=== PATIENT | male | born 1935 | race Caucasian/White ===

== ENCOUNTER 2021-08-12 13:10 | Inpatient (IN) | payer OTHER, BC, MEDICARE, SELFPAY ==
[2021-08-12] VITALS (7 sets, daily range): BP systolic 125–171; BP diastolic 68–91; PULSE 71–874; RESP 16–17; TEMP 36.5–37.1; O2SAT 95–98; BMI 30.2
--- NOTE | ~2021-08-12 | CT_ITS ---
EXAMINATION: CT ABDOMEN AND PELVIS WITH CONTRAST CLINICAL INFORMATION: rectal bleed, hx diverticular bleed COMPARISON: 06/12/2018 TECHNIQUE: Multidetector volumetric imaging was performed from the superior aspect of the liver through the pubic symphysis following administration of 85 mL Omnipaque 300 intravenous contrast. Sagittal and coronal reformatted images were obtained on the technologist workstation.. This CT examination was performed using dose optimization techniques as appropriate, variously including the following: *Automated exposure control *Adjustment of mA and/or kV according to patient size (this includes techniques or standardized protocols for targeted exams where dose is matched to indication/reason for exam; i.e. extremities or head) *Use of iterative reconstruction technique DLP: 770 mGy-cm FINDINGS: LUNG BASES: Linear regions of scarring or atelectasis. Moderate-sized hiatal hernia LIVER, GALLBLADDER, AND BILIARY TREE: The liver is normal in size, shape, and attenuation. No focal hepatic lesion or biliary ductal dilatation is present. Gallbladder is not visualized and presumed surgically absent PANCREAS: Atrophic and difficult to evaluate. SPLEEN: Unremarkable. ADRENAL GLANDS: Unremarkable. KIDNEYS AND URETERS: The posterior cyst in the upper pole of the right kidney. Otherwise the kidneys are normal in size, shape, and attenuation. No hydronephrosis, hydroureter, or calculi seen. No perinephric stranding. BLADDER: Unremarkable. GASTROINTESTINAL TRACT: Extensive colonic diverticulosis. I do not appreciate any colonic wall thickening or pericolonic inflammatory changes to suggest diverticulitis at this time. Visualized small bowel is grossly unremarkable. No obvious puddling of contrast to suggest significant GI bleed. ABDOMINAL WALL: No significant hernia is appreciated. LYMPHOVASCULAR STRUCTURES: Vascular calcification within the aorta iliac system. PELVIC VISCERA: Unremarkable. OSSEOUS STRUCTURES: Postoperative changes in the lower lumbar spine. Vertebral degenerative changes seen as well. Degenerative changes in both hips. No acute bony abnormality. CT/CT abdomen pelvis w con IMPRESSION: Chronic appearing and postoperative changes as described above. I do not appreciate any acute process. Pancreas is atrophic and very poorly defined on this study but appears grossly similar to the prior exam
--- NOTE | 2021-08-12 14:01 | ECG_ITS ---
Test Reason : CP Blood Pressure : / mmHG Vent. Rate : 074 BPM Atrial Rate : 000 BPM P-R Int : 000 ms QRS Dur : 084 ms QT Int : 388 ms P-R-T Axes : 000 -18 002 degrees QTc Int : 430 ms Atrial fibrillation Abnormal ECG When compared with ECG of 12-SEP-2019 15:50, Nonspecific T wave abnormality now evident in Lateral leads Referred By: Generic ED Physician Electronically Signed By:Danny Jackson
[2021-08-12 14:30] LABS: MANUAL DIFF FLAG NO
[2021-08-12 14:33] LABS: Basophils Absolute Auto 0.1 X10*3/uL (0.0-0.2); Basophils Percent Auto 0.5 % (0-2); Eosinophils Absolute Auto 0.3 X10*3/uL (0.0-0.4); Eosinophils Percent Auto 2.5 % (0-4); Hematocrit 42.1 % (42.0-52.0); Hemoglobin 13.8 g/dl (14.0-18.0); Imm Gran Abs Auto 0.04 X10*3/uL (0.00-0.03); Imm Gran Pct Auto 0.4 % (0.0-0.4); Lymphocytes Absolute Auto 0.8 X10*3/uL (1.2-4.9); Lymphocytes Percent Auto 7.5 % (20-40); Mean Corpuscular HGB Conc 32.8 g/dl (31.0-36.0); Mean Corpuscular Hemoglobin 30.1 pg (27.0-33.0); Mean Corpuscular Volume 91.9 fL (80.0-98.0); Mean Platelet Volume 10.1 fL (9.4-12.4); Monocytes Absolute Auto 0.7 X10*3/uL (0.1-1.2); Monocytes Percent Auto 6.5 % (2-11); Neutrophils Absolute Auto 8.8 x10*3/uL (2.0-8.3); Neutrophils Percent Auto 82.6 % (45-73); Platelet Count 246 X10*3/uL (160-400); Red Blood Count 4.58 X10*6/uL (4.60-5.80); Red Cell Distribution Width 14.8 % (11.0-16.0); White Blood Count 10.6 X10*3/uL (4.8-10.8)
[2021-08-12 14:59] LABS: Anion Gap 14 (12-20); Blood Urea Nitrogen 15 mg/dL (9-16); Calcium 8.9 mg/dL (8.4-10.2); Carbon Dioxide 26 mmol/L (22-29); Chloride 105 mmol/L (96-108); Creatinine Clr Calc Pharmacy 68.5; Estimated Glomerular Filt Rate > 60; Glucose Random 130 mg/dL (60-115); Sodium 141 mmol/L (135-145)
[2021-08-12 15:01] LABS: Troponin-I High Sensitivity 7.5 ng/L (<3.5-35.0)
[2021-08-12 15:08] LABS: INTERNATIONAL NORM RATIO 1.2 (0.9-1.1); Prothrombin Time 14.1 SEC (9.9-13.0)
[2021-08-12 15:13] LABS: Partial Thromboplastin Time 74.9 SEC (24.1-38.0)
[2021-08-12 16:21] LABS: Alanine Aminotransferase 10 U/L (0-40); Albumin Level 3.7 g/dL (3.5-5.0); Alkaline Phosphatase 105 U/L (39-117); Aspartate Amino Transferase 18 U/L (5-37); Bilirubin Direct 0.6 mg/dL (0.0-0.5); Bilirubin Total 1.5 mg/dL (0.0-1.0); Lipase 10 U/L (8-78); Total Protein 6.3 g/dL (6.5-8.0)
--- NOTE | 2021-08-12 16:40 | ED.GENADULT ---
HPI - General Adult General Chief complaint: General Medical Stated complaint: Internal bleeding Time Seen by Provider: 08/12/21 15:25 Source: patient Mode of arrival: ambulatory Limitations: no limitations History of Present Illness HPI narrative: Patient comes to the emergency room complaining of rectal bleeding that started yesterday. Patient states that he does not have abdominal pain. Patient feels bloated. Patient states that starting today every time that he stands up, he feels lightheaded, no room spinning, no chest pain, no shortness of breath, no headache. No URI or UTI symptoms. Patient is known to be on Pradaxa for atrial fibrillation. Patient has history of a GI bleed 2 years ago, back then patient was in Pradaxa, aspirin, and taking NSAIDs as well. Patient states that he is not taking either aspirin or NSAIDs. Related Data Home Medications Medication Instructions Recorded Confirmed Novolog U-100 Insulin aspart 70 units SUBCUT DAILY PRN 08/12/21 08/12/21 ascorbic acid (vitamin C) 500 mg 500 mg PO DAILY 08/12/21 08/12/21 tablet atorvastatin 40 mg tablet 20 mg PO DAILY 08/12/21 08/12/21 calcium polycarbophil 625 mg tablet 625 mg PO BID 08/12/21 08/12/21 capsaicin 0.025 % topical cream 1 appl TOPICAL BID 08/12/21 08/12/21 cholecalciferol (vitamin D3) 25 25 mcg PO DAILY 08/12/21 08/12/21 mcg (1,000 unit) capsule (Vitamin D3) clobetasol 0.05 % topical cream 1 appl TOPICAL BID 08/12/21 08/12/21 cyanocobalamin (vitamin B-12) 500 500 mcg PO DAILY 08/12/21 08/12/21 mcg tablet dabigatran etexilate 150 mg capsule 150 mg PO BID 08/12/21 08/12/21 diltiazem HCl 120 mg capsule,24 120 mg PO DAILY 08/12/21 08/12/21 hr,extended release folic acid 1 mg tablet 1 mg PO DAILY 08/12/21 08/12/21 hydroxyzine HCl 10 mg tablet 10 mg PO DAILY PRN 08/12/21 08/12/21 loratadine 10 mg tablet 10 mg PO DAILY 08/12/21 08/12/21 methotrexate sodium 2.5 mg tablet 7.5 mg PO QWEEK 08/12/21 08/12/21 omega 8-iup-vlz-fish oil 1,000 mg 1 cap PO BID 08/12/21 08/12/21 (120 mg-180 mg) capsule (Fish Oil) omeprazole 20 mg capsule,delayed 20 mg PO BID 08/12/21 08/12/21 release sennosides 8.6 mg-docusate sodium 1 tab PO BEDTIME PRN 08/12/21 08/12/21 50 mg tablet (Senna Plus) tamsulosin 0.4 mg capsule 0.4 mg PO DAILY 08/12/21 08/12/21 Allergies Allergy/AdvReac Type Severity Reaction Status Date / Time No Known Allergies Allergy Unverified 01/17/20 18:13 [No Known Allergies*] Review of Systems Review of Systems: Constitutional : No Weight loss, No Fever, No Chills, No Night Sweats, No Fatigue, No Malaise ENT/Mouth : No Hearing loss, No Ear Pain, No Nasal Congestion, No Sinus Pain, No Hoarseness, No sore throat, No Rhinorrhea, No Swallowing Difficulty Eyes: No Eye Pain, No Swelling, No Redness, No Foreign Body, No Discharge, No Vision Changes Cardiovascular : No Chest Pain, No SOB, No Dyspnea on Exertion, No Orthopnea, No Edema, No Palpitations Respiratory : No Cough, No Sputum, No Wheezing, No Smoke Exposure, No Dyspnea Gastrointestinal : No Nausea, No Vomiting, No Diarrhea, No Constipation, complaining of abdominal bloating, no pain, complaining of rectal bleeding Genitourinary : no irregular bleeding, No Dysuria, No Urinary Frequency, No Hematuria, No Urinary Incontinence, No Urgency, No Flank Pain, No Urinary Flow Changes, No Hesitancy Musculoskeletal : No joint pain, No Myalgias, No Joint Swelling Skin : No Skin Lesions, No rash Neuro : No Weakness, No Numbness, No Paresthesias, No Loss of Consciousness, No Dizziness, No Headache Psych : No Anxiety/Panic, No Depression, No SI/HI/AH/VH, No Social Issues, Heme/Lymph: No Bruising, No Bleeding,No Lymphadenopathy Endocrine : No Polyuria, No Polydipsia, No Temperature Intolerance PMF Past Medical History Medical History (Updated 08/12/21 @ 21:45 by Javier Lara MD) Atrial fibrillation Borderline hypertension Diabetes Social History Social History Advance Directives: No Advance Directives Information Provided: No Physical Exam ED Vital Signs: Vital Signs - 24 hr 08/12/21 13:54 08/12/21 16:57 08/12/21 16:59 Temperature 97.7 F Pulse Rate 874 H 71 75 Respiratory Rate 17 Blood Pressure 133/70 156/90 H 151/91 H Pulse Oximetry 96 08/12/21 17:00 08/12/21 17:02 08/12/21 20:24 Temperature 98.0 F 98.7 F Pulse Rate 83 81 71 Respiratory Rate 17 17 Blood Pressure 125/68 125/68 162/82 H Pulse Oximetry 95 95 BMI result Body Mass Index 30.2 Const Other: Appearance: Alert. Oriented X3. No acute distress. Well-appearing Eyes: Pupils equal, round and reactive to light. ENT: Pharynx normal. Neck: Normal inspection. Neck supple. No lymph nodes noted. No crepitus CVS: Normal heart rate and rhythm. Pulses normal. Normal S1 and S2 Respiratory: No respiratory distress. Breath sounds normal. No Wheezing. No rales Abdomen: Soft and nontender. Mildly distended, no rigidity, no guarding, no rebound. Digital rectal exam positive for blood easily visualized Skin: Skin warm and dry. Normal skin color. Normal skin turgor. Extremities: No lower extremity edema. No Lacerations. No Rash Neuro: Oriented X 3. No motor deficit. No sensory deficit. Moving all extremities. No slurred speech. CN 2 through 12 grossly intact Psych: calm, cooperative, normal affect Course Course Course Narrative: Patient's H and H is stable. Patient has not had any further episodes of rectal bleeding. CT scan is pending. However, technicians from CT have informed me that they tried taking the patient twice to CT scan, patient is belligerent to them, uncooperative. I spoke to the patient, patient is agreeable to get a CT scan now. CT scan does not show any acute pathology. Patient states that the rectal bleeding picked up again, patient is concerned about the amount of rectal bleeding. Patient is willing to stay. I discussed the patient with Dr. Lara, patient being admitted. Given that the patient still has rectal bleeding despite having stopped Pradaxa for over 24 hours now, Dr. Lara also agrees that we can give the patient Praxbind Medical Decision Making Lab Data Result diagrams: 08/12/21 18:28 08/12/21 14:26 Labs: Lab Results 08/12/21 08/12/21 08/12/21 Range/Units 14:26 14:26 14:26 WBC 10.6 (4.8-10.8) X10*3/uL RBC 4.58 L (4.60-5.80) X10*6/uL Hgb 13.8 L (14.0-18.0) g/dl Hct 42.1 (42.0-52.0) % MCV 91.9 (80.0-98.0) fL MCH 30.1 (27.0-33.0) pg MCHC 32.8 (31.0-36.0) g/dl RDW 14.8 (11.0-16.0) % Plt Count 246 (160-400) X10*3/uL MPV 10.1 (9.4-12.4) fL Immature Gran % (Auto) 0.4 (0.0-0.4) % Neut % (Auto) 82.6 H (45-73) % Lymph % (Auto) 7.5 L (20-40) % [place] % (Auto) 6.5 (2-11) % Eos % (Auto) 2.5 (0-4) % Baso % (Auto) 0.5 (0-2) % Lymph # (Auto) 0.8 L (1.2-4.9) X10*3/uL [place] # (Auto) 0.7 (0.1-1.2) X10*3/uL Eos # (Auto) 0.3 (0.0-0.4) X10*3/uL Baso # (Auto) 0.1 (0.0-0.2) X10*3/uL Abs Immat Gran (auto) 0.04 H (0.00-0.03) X10*3/uL Absolute Neuts (auto) 8.8 H (2.0-8.3) x10*3/uL Absolute Nucleated RBC 0.000 (0.0-0.012) X10*3/uL Nucleated RBC % (auto) 0.0 (0.0-0.2) /100WBC PT (9.9-13.0) SEC INR (0.9-1.1) APTT (24.1-38.0) SEC Sodium 141 (135-145) mmol/L Potassium 4.0 (3.3-5.1) mmol/L Chloride 105 (96-108) mmol/L Carbon Dioxide 26 (22-29) mmol/L Anion Gap 14 (12-20) BUN 15 (9-16) mg/dL Creatinine 0.96 (0.5-1.4) mg/dL Estim Creat Clear Calc 68.5 Estimated GFR > 60 Random Glucose 130 H (60-115) mg/dL Calcium 8.9 (8.4-10.2) mg/dL Total Bilirubin 1.5 H (0.0-1.0) mg/dL Direct Bilirubin 0.6 H (0.0-0.5) mg/dL AST 18 (5-37) U/L ALT 10 (0-40) U/L Alkaline Phosphatase 105 (39-117) U/L Troponin I High Sens 7.5 (<3.5-35.0) ng/L Total Protein 6.3 L (6.5-8.0) g/dL Albumin 3.7 (3.5-5.0) g/dL Lipase 10 (8-78) U/L Stool Occult Blood (NEGATIVE) COVID-19 (ELEANOR) (Negative) COVID-19 Clin Com 08/12/21 08/12/21 08/12/21 Range/Units 14:26 16:50 16:55 WBC (4.8-10.8) X10*3/uL RBC (4.60-5.80) X10*6/uL Hgb (14.0-18.0) g/dl Hct (42.0-52.0) % MCV (80.0-98.0) fL MCH (27.0-33.0) pg MCHC (31.0-36.0) g/dl RDW (11.0-16.0) % Plt Count (160-400) X10*3/uL MPV (9.4-12.4) fL Immature Gran % (Auto) (0.0-0.4) % Neut % (Auto) (45-73) % Lymph % (Auto) (20-40) % [place] % (Auto) (2-11) % Eos % (Auto) (0-4) % Baso % (Auto) (0-2) % Lymph # (Auto) (1.2-4.9) X10*3/uL [place] # (Auto) (0.1-1.2) X10*3/uL Eos # (Auto) (0.0-0.4) X10*3/uL Baso # (Auto) (0.0-0.2) X10*3/uL Abs Immat Gran (auto) (0.00-0.03) X10*3/uL Absolute Neuts (auto) (2.0-8.3) x10*3/uL Absolute Nucleated RBC (0.0-0.012) X10*3/uL Nucleated RBC % (auto) (0.0-0.2) /100WBC PT 14.1 H (9.9-13.0) SEC INR 1.2 H (0.9-1.1) APTT 74.9 H* (24.1-38.0) SEC Sodium (135-145) mmol/L Potassium (3.3-5.1) mmol/L Chloride (96-108) mmol/L Carbon Dioxide (22-29) mmol/L Anion Gap (12-20) BUN (9-16) mg/dL Creatinine (0.5-1.4) mg/dL Estim Creat Clear Calc Estimated GFR Random Glucose (60-115) mg/dL Calcium (8.4-10.2) mg/dL Total Bilirubin (0.0-1.0) mg/dL Direct Bilirubin (0.0-0.5) mg/dL AST (5-37) U/L ALT (0-40) U/L Alkaline Phosphatase (39-117) U/L Troponin I High Sens (<3.5-35.0) ng/L Total Protein (6.5-8.0) g/dL Albumin (3.5-5.0) g/dL Lipase (8-78) U/L Stool Occult Blood POSITIVE (NEGATIVE) COVID-19 (ELEANOR) Negative (Negative) COVID-19 Clin Com See Note 08/12/21 Range/Units 18:28 WBC (4.8-10.8) X10*3/uL RBC (4.60-5.80) X10*6/uL Hgb 13.7 L (14.0-18.0) g/dl Hct 41.4 L (42.0-52.0) % MCV (80.0-98.0) fL MCH (27.0-33.0) pg MCHC (31.0-36.0) g/dl RDW (11.0-16.0) % Plt Count (160-400) X10*3/uL MPV (9.4-12.4) fL Immature Gran % (Auto) (0.0-0.4) % Neut % (Auto) (45-73) % Lymph % (Auto) (20-40) % [place] % (Auto) (2-11) % Eos % (Auto) (0-4) % Baso % (Auto) (0-2) % Lymph # (Auto) (1.2-4.9) X10*3/uL [place] # (Auto) (0.1-1.2) X10*3/uL Eos # (Auto) (0.0-0.4) X10*3/uL Baso # (Auto) (0.0-0.2) X10*3/uL Abs Immat Gran (auto) (0.00-0.03) X10*3/uL Absolute Neuts (auto) (2.0-8.3) x10*3/uL Absolute Nucleated RBC (0.0-0.012) X10*3/uL Nucleated RBC % (auto) (0.0-0.2) /100WBC PT (9.9-13.0) SEC INR (0.9-1.1) APTT (24.1-38.0) SEC Sodium (135-145) mmol/L Potassium (3.3-5.1) mmol/L Chloride (96-108) mmol/L Carbon Dioxide (22-29) mmol/L Anion Gap (12-20) BUN (9-16) mg/dL Creatinine (0.5-1.4) mg/dL Estim Creat Clear Calc Estimated GFR Random Glucose (60-115) mg/dL Calcium (8.4-10.2) mg/dL Total Bilirubin (0.0-1.0) mg/dL Direct Bilirubin (0.0-0.5) mg/dL AST (5-37) U/L ALT (0-40) U/L Alkaline Phosphatase (39-117) U/L Troponin I High Sens (<3.5-35.0) ng/L Total Protein (6.5-8.0) g/dL Albumin (3.5-5.0) g/dL Lipase (8-78) U/L Stool Occult Blood (NEGATIVE) COVID-19 ([facility]) (Negative) COVID-19 Clin Com Discharge Plan Discharge Clinical Impression: Acute GI bleeding Patient Disposition: Admitted As Inpatient
[2021-08-12 17:01] LABS: OBS Int Ctl Valid YES; OBS1 POSITIVE (NEGATIVE)
[2021-08-12 17:34] LABS: COVID-19 Test Negative (Negative); IDNOW Serial# 16C4AD1C
[2021-08-12 18:37] LABS: Hematocrit 41.4 % (42.0-52.0); Hemoglobin 13.7 g/dl (14.0-18.0)
[2021-08-12] MEDS: iohexoL 350 MG/ML 100 ML INFUS..BTL IV (20:42)
--- NOTE | 2021-08-12 21:44 | PM.IMHP ---
History of Present Illness Date of Service: 08/12/21 Chief Complaint: Bright red blood per rectum 86-year-old male with a past medical history of hypertension, hyperlipidemia, diabetes, AFib on Pradaxa, rheumatoid arthritis presented to the hospital today with a chief complaint of bright red blood per rectum. Patient reported that since yesterday he has been having bright red blood per rectum, has multiple episodes; had mild lightheadedness and dizziness. Denies any loss of consciousness. Denies any chest pain palpitations or shortness of breath. Denies any fever chills cough or sputum production. Denies any nausea vomiting. Denies any abdominal pain. Patient reports that he still had few episodes even after coming to the hospital. Mentioned that he takes Pradaxa for his AFib and last dose was on 08/11/2021 at 21:00. Review of all other systems is negative except mentioned above ER course: Per ER team patient hemoglobin was noted to be 13; follow-up hemoglobin remained stable; CT scan showed extensive diverticulosis without any evidence of diverticulitis; no significant swelling of the contrast to suggest significant GI bleed; pancreas is atrophic; Patient was given Praxbind. Admitted to the hospital for further management [facility] Medical History (Updated 08/12/21 @ 21:45 by Javier Lara MD) Atrial fibrillation Borderline hypertension Diabetes Pertinent family history: Mother has heart disease Father has liver disease Social History Advance Directives: No Advance Directives Information Provided: No Meds Allergies Allergy/AdvReac Type Severity Reaction Status Date / Time No Known Allergies Allergy Unverified 01/17/20 18:13 [No Known Allergies*] Active Medications: Current Medications Acetaminophen (Acetaminophen 325 Mg Tablet) 650 mg PO Q6H PRN PRN Reason: Pain, Mild (Pain Scale 1-3) Dextrose (Dextrose 50 % 25 Gm/50 Ml Syringe) 25 gm IVPUSH Q15M PRN; Protocol PRN Reason: per Hypoglycemia Standing Ord. Glucose (Glucose Gel 15 Gm Gel..Gram.) 15 gm PO Q15M PRN; Protocol PRN Reason: per Hypoglycemia Standing Ord. Dextrose/Sodium Chloride (D51/2ns) 1,000 mls @ 50 mls/hr IVCONT .Q20H [facility] Insulin Human Lispro (Insulin Lispro 100 Unit/Ml 3 Ml Vial) 0 unit SUBCUT QIDACHS JOHN; Protocol Melatonin (Melatonin 3 Mg Tablet) 6 mg PO BEDTIME PRN PRN Reason: Insomnia Pantoprazole Sodium (Pantoprazole Sodium 40 Mg/10 Ml Vial) 40 mg IVPUSH DAILY@0630 [facility] Pharmacy Consult (Consult Rx Perform Med Rec) 1 each MISCELLANE ONCE PRN PRN Reason: Consult order Sodium Chloride (0.9 % Sodium Chloride Flush 3 Ml Syringe) 3 ml IVFLUSH QSHIFT [facility] Home Medications Medication Instructions Recorded Confirmed Last Taken Type Novolog U-100 Insulin aspart 70 units SUBCUT DAILY PRN 08/12/21 08/12/21 Unknown History ascorbic acid (vitamin C) 500 mg 500 mg PO DAILY 08/12/21 08/12/21 08/12/21 History tablet atorvastatin 40 mg tablet 20 mg PO DAILY 08/12/21 08/12/21 08/12/21 History calcium polycarbophil 625 mg tablet 625 mg PO BID 08/12/21 08/12/21 08/12/21 History capsaicin 0.025 % topical cream 1 appl TOPICAL BID 08/12/21 08/12/21 Unknown History cholecalciferol (vitamin D3) 25 25 mcg PO DAILY 08/12/21 08/12/21 08/12/21 History mcg (1,000 unit) capsule (Vitamin D3) clobetasol 0.05 % topical cream 1 appl TOPICAL BID 08/12/21 08/12/21 Unknown History cyanocobalamin (vitamin B-12) 500 500 mcg PO DAILY 08/12/21 08/12/21 08/12/21 History mcg tablet dabigatran etexilate 150 mg capsule 150 mg PO BID 08/12/21 08/12/21 08/11/21 History diltiazem HCl 120 mg capsule,24 120 mg PO DAILY 08/12/21 08/12/21 08/12/21 History hr,extended release folic acid 1 mg tablet 1 mg PO DAILY 08/12/21 08/12/21 08/12/21 History hydroxyzine HCl 10 mg tablet 10 mg PO DAILY PRN 08/12/21 08/12/21 Unknown History loratadine 10 mg tablet 10 mg PO DAILY 08/12/21 08/12/21 Unknown History methotrexate sodium 2.5 mg tablet 7.5 mg PO FR 08/12/21 08/12/21 08/07/21 History omega 3-ywx-hol-fish oil 1,000 mg 1 cap PO BID 08/12/21 08/12/21 Unknown History (120 mg-180 mg) capsule (Fish Oil) omeprazole 20 mg capsule,delayed 20 mg PO BID 08/12/21 08/12/21 08/12/21 History release sennosides 8.6 mg-docusate sodium 1 tab PO BEDTIME PRN 08/12/21 08/12/21 Unknown History 50 mg tablet (Senna Plus) tamsulosin 0.4 mg capsule 0.4 mg PO DAILY 08/12/21 08/12/21 08/12/21 History Physical Exam Vital Signs and Narrative: Vital Signs: Last Vital Signs Temp 98.7 F 08/12/21 20:24 Pulse 71 08/12/21 20:24 Resp 17 08/12/21 20:24 BP 162/82 H 08/12/21 20:24 Pulse Ox 95 08/12/21 20:24 BMI result Body Mass Index 30.2 Gen: Appears be in no acute distress HEENT: NCAT, Moist mucosa. Pulmonary: Vesicular breath sounds, fair air entry CVS: Normal S1-S2 Abdomen: BS+, Soft, Nontender Extremities: Warm well perfused Neuro: Alert and awake. Results Labs CBC and Chem 7: 08/12/21 18:28 08/12/21 14:26 Labs: Laboratory Results - last 24 hr 08/12/21 08/12/21 08/12/21 14:26 14:26 14:26 MCV 91.9 MCH 30.1 MCHC 32.8 RDW 14.8 Plt Count 246 MPV 10.1 Immature Gran % (Auto) 0.4 Neut % (Auto) 82.6 H Lymph % (Auto) 7.5 L [place] % (Auto) 6.5 Eos % (Auto) 2.5 Baso % (Auto) 0.5 Lymph # (Auto) 0.8 L [place] # (Auto) 0.7 Eos # (Auto) 0.3 Baso # (Auto) 0.1 Abs Immat Gran (auto) 0.04 H Absolute Neuts (auto) 8.8 H Absolute Nucleated RBC 0.000 Nucleated RBC % (auto) 0.0 PT INR APTT Anion Gap 14 Estim Creat Clear Calc 68.5 Estimated GFR > 60 Random Glucose 130 H Calcium 8.9 Total Bilirubin 1.5 H Direct Bilirubin 0.6 H AST 18 ALT 10 Alkaline Phosphatase 105 Troponin I High Sens 7.5 Total Protein 6.3 L Albumin 3.7 Lipase 10 Stool Occult Blood COVID-19 (ELEANOR) COVID-19 Clin Com 08/12/21 08/12/21 08/12/21 14:26 16:50 16:55 MCV MCH MCHC RDW Plt Count MPV Immature Gran % (Auto) Neut % (Auto) Lymph % (Auto) [place] % (Auto) Eos % (Auto) Baso % (Auto) Lymph # (Auto) [place] # (Auto) Eos # (Auto) Baso # (Auto) Abs Immat Gran (auto) Absolute Neuts (auto) Absolute Nucleated RBC Nucleated RBC % (auto) PT 14.1 H INR 1.2 H APTT 74.9 H* Anion Gap Estim Creat Clear Calc Estimated GFR Random Glucose Calcium Total Bilirubin Direct Bilirubin AST ALT Alkaline Phosphatase Troponin I High Sens Total Protein Albumin Lipase Stool Occult Blood POSITIVE COVID-19 (ELEANOR) Negative COVID-19 Clin Com See Note Imaging Radiologist's Impressions: Impressions Abdomen/Pelvis CT 08/12/21 20:51 IMPRESSION: Chronic appearing and postoperative changes as described above. I do not appreciate any acute process. Pancreas is atrophic and very poorly defined on this study but appears grossly similar to the prior exam Assessment and Plan (1) Acute GI bleeding: Status: Acute (2) Diabetes: Status: Acute (3) Atrial fibrillation: Status: Acute Plan 86-year-old male with a past medical history of hypertension, hyperlipidemia, diabetes, AFib on Pradaxa, rheumatoid arthritis presented to the hospital today with a chief complaint of bright red blood per rectum. Bright red blood per rectum: For ER team patient noted to have guaiac-positive stool; no evidence of hemorrhoids. Patient was given Praxbind in the ER. Serial H&H GI consult Gentle IV fluids History of hypertension: Patient on diltiazem. History of hyperlipidemia: Continue home statin History of AFib: Rate controlled. Hold home to be gotten. Last dose of Pradaxa was on 08/11/2021 at 21:00. Patient received Praxbind in the ER. History of rheumatoid arthritis: Continue home methotrexate. DVT prophylaxis: SCD boots Code status: Full code Quality Stroke Does the patient have a stroke diagnosis?: No VTE Prior VTE?: No VTE Risk Level:: Medical - moderate - high VTE Device Contraindication: N/A - Device Ordered VTE Drug Contraindication: Treatment Not Indicated
[2021-08-13] VITALS (7 sets, daily range): BP systolic 149–172; BP diastolic 81–94; PULSE 59–83; RESP 16–20; TEMP 36.3–36.8; O2SAT 92–98
[2021-08-13] MEDS: 0.9 % Sodium Chloride Flush 3 ML SYRINGE IVFLUSH ×3 (00:06→20:58)
[2021-08-13] MEDS: Dextrose 5 % and 0.45 % NaCl 1,000 ML 50 ML IVCONT (00:07)
--- NOTE | 2021-08-13 03:38 | PC.NURSE ---
Addendum entered by Kenn Sharp RN 08/13/21 05:56: OOB TO BR X4 OVERNIGHT...STEADY GAIT..INITIALLY REPORTED BLOODY STOO;...THIS AM STATED STOOL BROWN AND NORMAL ...AM LAB-WORK DRAWN PENDING..DENIES/OFFERS NO COMPLAINTS Original Note: TRANSFERRED FROM MAIN ER TO OVERFLOW BED 5 AT ...ALERT..ORIENTED X3....VSS...OOB TO BR WITH STEADY GAIT..PASSED SEVERAL BLOODY STOOLS PER PATIENT..NO DIZZYNESS...D5 1/2NS 50 CC/HR...PROXBIND UNAVAILABLE IN OVERFLOW...TRAIN STARTER NOTIFIED AND PROXBIND 2.5MG IV X2 DOSES ADMINISTERED PER JUN...ASYMPTOMATIC...REMAINS CHRONIC ATRIAL FIB WITH CONTROLLED HR..RESTFUL...DENIES NAUSEA OR PAIN...TOLERATED CLEAR LIQUIED DIET
[2021-08-13 06:04] LABS: MANUAL DIFF FLAG NO
[2021-08-13 06:07] LABS: Basophils Percent Auto 0.4 % (0-2); Eosinophils Absolute Auto 0.4 X10*3/uL (0.0-0.4); Eosinophils Percent Auto 4.2 % (0-4); Hematocrit 38.8 % (42.0-52.0); Hemoglobin 12.8 g/dl (14.0-18.0); Imm Gran Abs Auto 0.04 X10*3/uL (0.00-0.03); Imm Gran Pct Auto 0.4 % (0.0-0.4); Lymphocytes Absolute Auto 1.1 X10*3/uL (1.2-4.9); Lymphocytes Percent Auto 10.9 % (20-40); Mean Corpuscular Volume 90.9 fL (80.0-98.0); Mean Platelet Volume 10.7 fL (9.4-12.4); Monocytes Absolute Auto 0.9 X10*3/uL (0.1-1.2); Neutrophils Absolute Auto 7.6 x10*3/uL (2.0-8.3); Neutrophils Percent Auto 75.1 % (45-73); Platelet Count 244 X10*3/uL (160-400); Red Blood Count 4.27 X10*6/uL (4.60-5.80); Red Cell Distribution Width 14.8 % (11.0-16.0); White Blood Count 10.1 X10*3/uL (4.8-10.8)
[2021-08-13 06:22] LABS: Anion Gap 13 (12-20); Blood Urea Nitrogen 14 mg/dL (9-16); Calcium 8.8 mg/dL (8.4-10.2); Carbon Dioxide 25 mmol/L (22-29); Chloride 108 mmol/L (96-108); Creatinine Clr Calc Pharmacy 79.2; Estimated Glomerular Filt Rate > 60; Glucose Random 66 mg/dL (60-115); Potassium 3.9 mmol/L (3.3-5.1); Sodium 142 mmol/L (135-145)
[2021-08-13] MEDS: Pantoprazole Sodium 40 MG/10 ML VIAL IVPUSH (06:34)
[2021-08-13 07:47] LABS: Glucose, Whole Blood 85 mg/dL (60-115)
--- NOTE | 2021-08-13 07:53 | PC.NURSE ---
Pt has own insulin pumpo and glucose monitor, refusing to remove, POC this morning was 85. Pt refusing all morning meds stating i will take my own later this RN informed pt that we have to keep a record of medications that have been taken and that he can't take his own meds at this time. Pt agreeable.
--- NOTE | 2021-08-13 09:55 | P.PNIM_ITS ---
Subjective Subjective Date of Service: 08/13/21 Interval History: cc: BRBPR interval history:no further bleeding Cardiovascular Cardiovascular: Reports no additional cardiovascular complaints Respiratory Respiratory: Reports no additional respiratory complaints Physical Exam Vital Signs: Vital Signs: Last Vital Signs Temp 98.3 F 08/13/21 08:00 Pulse 83 08/13/21 08:00 Resp 18 08/13/21 08:00 BP 163/85 H 08/13/21 08:00 Pulse Ox 95 08/13/21 08:00 BMI result Body Mass Index 30.2 General: AO X 3, no acute distress Resp: CTA bilateral, no accessory muscles used CVS: S1,S2,RRR GI: soft, non tender, non distended Neuro: motor grossly intact, alert Psych: appropriate affect, appropriate insight Objective Data Active Medications Acetaminophen (Acetaminophen 325 Mg Tablet) 650 mg PO Q6H PRN PRN Reason: Pain, Mild (Pain Scale 1-3) Ascorbic Acid (Ascorbic Acid 500 Mg Tablet) 500 mg PO DAILY [facility] Last Admin: 08/13/21 07:52 Dose: Not Given Documented by: MAURICIO Non-Admin Reason: Patient Refused Atorvastatin Calcium (Atorvastatin Calcium 20 Mg Tablet) 20 mg PO DAILY [facility] Last Admin: 08/13/21 07:52 Dose: Not Given Documented by: MAURICIO Non-Admin Reason: Patient Refused Betamethasone Dipropion Augmented (Betamethasone Dip Aug 0.05% Cr 15 Gm Tube) 1 appl TOPICAL BID [facility] Last Admin: 08/13/21 07:52 Dose: Not Given Documented by: MAURICIO Non-Admin Reason: Patient Refused Calcium Polycarbophil (Calcium Polycarbophil Tablet) 1 tab PO BID [facility] Last Admin: 08/13/21 07:52 Dose: Not Given Documented by: MAURICIO Non-Admin Reason: Patient Refused Capsaicin (Capsaicin 0.025% Cream 60 Gm Tube) 1 appl TOPICAL BID [facility]; Protocol Last Admin: 08/13/21 07:52 Dose: Not Given Documented by: MAURICIO Non-Admin Reason: Patient Refused Cyanocobalamin (Cyanocobalamin (Vitamin B-12) 500 Mcg Tablet) 500 mcg PO DAILY [facility] Last Admin: 08/13/21 07:53 Dose: Not Given Documented by: MAURICIO Non-Admin Reason: Patient Refused Dextrose (Dextrose 50 % 25 Gm/50 Ml Syringe) 25 gm IVPUSH Q15M PRN; Protocol PRN Reason: per Hypoglycemia Standing Ord. Diltiazem HCl (Diltiazem Hcl Cd 120 Mg Cap.Er.Deg) 120 mg PO DAILY [facility]; Protocol Last Admin: 08/13/21 07:53 Dose: Not Given Documented by: MAURICIO Non-Admin Reason: Patient Refused Folic Acid (Folic Acid 1 Mg Tablet) 1 mg PO DAILY [facility] Last Admin: 08/13/21 07:53 Dose: Not Given Documented by: MAURICIO Non-Admin Reason: Patient Refused Glucose (Glucose Gel 15 Gm Gel..Gram.) 15 gm PO Q15M PRN; Protocol PRN Reason: per Hypoglycemia Standing Ord. Hydroxyzine HCl (Hydroxyzine Hcl 10 Mg Tablet) 10 mg PO DAILY PRN PRN Reason: Itching Insulin Human Lispro (Insulin Lispro 100 Unit/Ml 3 Ml Vial) 0 unit SUBCUT QIDACHS [facility]; Protocol Last Admin: 08/13/21 07:51 Dose: Not Given Documented by: MAURICIO Non-Admin Reason: No Insulin Coverage Loratadine (Loratadine 10 Mg Tablet) 10 mg PO DAILY [facility] Last Admin: 08/13/21 07:53 Dose: Not Given Documented by: MAURICIO Non-Admin Reason: Patient Refused Melatonin (Melatonin 3 Mg Tablet) 6 mg PO BEDTIME PRN PRN Reason: Insomnia Methotrexate (Methotrexate Sodium 2.5 Mg Tablet) 7.5 mg PO [facility] Pantoprazole Sodium (Pantoprazole Sodium 40 Mg/10 Ml Vial) 40 mg IVPUSH DAILY@0630 [facility] Last Admin: 08/13/21 06:34 Dose: 40 mg Documented by: SHANTE Pharmacy Consult (Consult Rx Perform Med Rec) 1 each MISCELLANE ONCE PRN PRN Reason: Consult order Senna/Docusate Sodium (Sennosides/Docusate Sodium Tablet) 1 tab PO BEDTIME PRN PRN Reason: Constipation Sodium Chloride (0.9 % Sodium Chloride Flush 3 Ml Syringe) 3 ml IVFLUSH QSHIFT [facility] Last Admin: 08/13/21 07:51 Dose: Not Given Documented by: MAURICIO Non-Admin Reason: IV Running Tamsulosin HCl (Tamsulosin Hcl 0.4 Mg Capsule) 0.4 mg PO DAILY [facility] Last Admin: 08/13/21 07:53 Dose: Not Given Documented by: MAURICIO Non-Admin Reason: Patient Refused Vitamin D (Cholecalciferol (Vitamin D3) 25 Mcg Tablet) 25 mcg PO DAILY [facility] Last Admin: 08/13/21 07:53 Dose: Not Given Documented by: MAURICIO Non-Admin Reason: Patient Refused Labs CBC & Chem 7: 08/13/21 05:30 08/13/21 05:30 Labs: Laboratory Results - last 24 hr 08/12/21 08/12/21 08/12/21 14:26 14:26 14:26 MCV 91.9 MCH 30.1 MCHC 32.8 RDW 14.8 Plt Count 246 MPV 10.1 Immature Gran % (Auto) 0.4 Neut % (Auto) 82.6 H Lymph % (Auto) 7.5 L Day % (Auto) 6.5 Eos % (Auto) 2.5 Baso % (Auto) 0.5 Lymph # (Auto) 0.8 L Day # (Auto) 0.7 Eos # (Auto) 0.3 Baso # (Auto) 0.1 Abs Immat Gran (auto) 0.04 H Absolute Neuts (auto) 8.8 H Absolute Nucleated RBC 0.000 Nucleated RBC % (auto) 0.0 PT INR APTT Anion Gap 14 Estim Creat Clear Calc 68.5 Estimated GFR > 60 POC Glucose Random Glucose 130 H Calcium 8.9 Total Bilirubin 1.5 H Direct Bilirubin 0.6 H AST 18 ALT 10 Alkaline Phosphatase 105 Troponin I High Sens 7.5 Total Protein 6.3 L Albumin 3.7 Lipase 10 Stool Occult Blood COVID-19 ([facility]AN[facility]) COVID-19 Clin Com 08/12/21 08/12/21 08/12/21 14:26 16:50 16:55 MCV MCH MCHC RDW Plt Count MPV Immature Gran % (Auto) Neut % (Auto) Lymph % (Auto) Day % (Auto) Eos % (Auto) Baso % (Auto) Lymph # (Auto) Day # (Auto) Eos # (Auto) Baso # (Auto) Abs Immat Gran (auto) Absolute Neuts (auto) Absolute Nucleated RBC Nucleated RBC % (auto) PT 14.1 H INR 1.2 H APTT 74.9 H* Anion Gap Estim Creat Clear Calc Estimated GFR POC Glucose Random Glucose Calcium Total Bilirubin Direct Bilirubin AST ALT Alkaline Phosphatase Troponin I High Sens Total Protein Albumin Lipase Stool Occult Blood POSITIVE COVID-19 ([facility]) Negative COVID-19 Clin Com See Note 08/13/21 08/13/21 08/13/21 05:30 05:30 06:59 MCV 90.9 MCH 30.0 MCHC 33.0 RDW 14.8 Plt Count 244 MPV 10.7 Immature Gran % (Auto) 0.4 Neut % (Auto) 75.1 H Lymph % (Auto) 10.9 L Day % (Auto) 9.0 Eos % (Auto) 4.2 H Baso % (Auto) 0.4 Lymph # (Auto) 1.1 L Day # (Auto) 0.9 Eos # (Auto) 0.4 Baso # (Auto) 0.0 Abs Immat Gran (auto) 0.04 H Absolute Neuts (auto) 7.6 Absolute Nucleated RBC 0.000 Nucleated RBC % (auto) 0.0 PT INR APTT Anion Gap 13 Estim Creat Clear Calc 79.2 Estimated GFR > 60 POC Glucose 85 Random Glucose 66 D Calcium 8.8 Total Bilirubin Direct Bilirubin AST ALT Alkaline Phosphatase Troponin I High Sens Total Protein Albumin Lipase Stool Occult Blood COVID-19 ([facility]) COVID-19 Clin Com Assessment and Plan (1) Diabetes: Status: Acute Plan 86M presented with BRBPR BRBPR no significant blood loss holding pradaxa, s/p praxbind monitoring hgb gi eval HTN diltiazem hld statin DM insulin RA on MTX at home chronic afib cardizem holding pradaxa Quality Stroke Does the patient have a stroke diagnosis?: No VTE Prior VTE?: No VTE Risk Level:: Medical - moderate - high VTE Device Contraindication: N/A - Device Ordered VTE Drug Contraindication: Treatment Not Indicated
[2021-08-13 11:44] LABS: Glucose, Whole Blood 112 mg/dL (60-115)
--- NOTE | 2021-08-13 13:09 | PM.EVENT ---
Event Note Date of Service: 08/13/21 Event Note: GI consult dictated GI bleeding is likely secondary to diverticulosis and exacerbated by use of Pradaxa. Currently stable with modest drop in Hct. Colonoscopy planned tomorrow for further evaluation and f/u of previous polyps. Pt aware of risks and benefits and agrees to proceed.
--- NOTE | 2021-08-13 13:17 | MHC.SHP ---
Pre-Procedural Eval Section A Date of Service: 08/13/21 The patient is an INPATIENT: Yes Changes since office visit: No Cold of Flu in the past 2 weeks, No New Medical Problems, No Changes in Medication and No Patient answered all questions The History & Physical has been completed within 30 days and I have reviewed it.: Yes Section B Chief Complaint: Bright red blood per rectum Allergies: Allergies Allergy/AdvReac Type Severity Reaction Status Date / Time No Known Allergies Allergy Unverified 01/17/20 18:13 [No Known Allergies*] Plan I have reviewed the history and physical and performed a pertinent physical examination on my patient. No changes have occurred unless specified.
[2021-08-13] MEDS: PEG 3350/Na Sulf,Bicarb,Cl/KCL 4,000 ML SOLN.RECON 4000 ML PO (14:49)
--- NOTE | 2021-08-13 15:06 | CONS_ITS ---
cc: Jose F Alvarado MD [facility] DATE OF SERVICE: 08/13/2021 REFERRING PHYSICIAN: Nikos Kuo MD REASON FOR CONSULTATION: GI bleeding. HISTORY OF PRESENT ILLNESS: Mr. Johnson is a pleasant 86-year-old man, who was admitted to the hospital after presenting to the emergency room yesterday with complaints of rectal bleeding. He was well until the day before admission when he developed acute onset of bright red blood per rectum, which was associated with some abdominal cramping, but no severe abdominal pain or rectal pain. This persisted overnight and he presented to the emergency room. He does have a history of atrial fibrillation and is on Pradaxa. In the Emergency Department, he was evaluated with laboratory studies and imaging including a CBC showing a hematocrit of 42.1 up slightly from his last hematocrit in August [address] scanning was obtained, which is reviewed. This showed no acute process and an atrophic pancreas. He does have a history of diverticulosis and had a previous admission in 2019 for GI bleeding thought secondary to this. He has undergone colonoscopy with removal of several flat polyps and had a followup colonoscopy planned last year, which was deferred due to the pandemic. Overnight, he has had some lessening to his bleeding and his hematocrit dropped slightly to 38.8. He did not require blood transfusion. He was given Praxbind in the Emergency Department and his last dose of Pradaxa was the evening of 08/11. PAST MEDICAL HISTORY: 1. Hypertension. 2. Hyperlipidemia. 3. Atrial fibrillation. 4. Diabetes. 5. Rheumatoid arthritis. 6. Diverticulosis and diverticular bleeding. 7. Colon polyps. 8. Achalasia with history of Botox injection. 9. Pulmonary disease (not COPD per patient) 10. Coronary artery disease with history of ND. CURRENT MEDICATIONS: His current medication list is reviewed in the chart. ALLERGIES: THERE ARE NONE REPORTED. FAMILY HISTORY: This is reviewed with the patient and is noncontributory. SOCIAL HISTORY: There is no current tobacco, alcohol, or substance abuse. REVIEW OF SYSTEMS: SKIN: No pruritus. HEENT: Negative. CARDIOPULMONARY: No shortness of breath or chest pain. GASTROINTESTINAL: As above. GENITOURINARY: Negative. NEUROPSYCHIATRIC: Negative. PHYSICAL EXAMINATION: GENERAL: Shows a pleasant male, lying comfortably in bed. VITAL SIGNS: Reviewed in the electronic medical record and are stable. SKIN: Anicteric. HEENT: Shows no scleral icterus. NECK: Without lymphadenopathy or thyromegaly. LUNGS: Clear. HEART: Irregular rate and rhythm. S1, S2. No murmur. ABDOMEN: Soft without focal masses or tenderness. Bowel sounds are present. No organomegaly is noted. EXTREMITIES: Without edema. LABORATORY DATA AND IMAGING STUDIES: Reviewed. IMPRESSION: Gastrointestinal bleeding. His gastrointestinal bleeding appears consistent with bleeding from diverticular disease. This appears stable at this time without significant ongoing bleeding. Because of his history of colon polyps and bleeding, I have recommended colonoscopy for followup and further evaluation. This will be arranged tomorrow. I would continue to hold his anticoagulation for the time being. Thanks for asking me to see him. I will follow in the hospital with you. MD BYRON Frey/EDWARD / [id number] MTDD
[2021-08-13 15:41] LABS: Glucose, Whole Blood 89 mg/dL (60-115)
--- NOTE | 2021-08-13 16:14 | MHC.CM.PN ---
Addendum entered by Kandice Valdovinos 08/14/21 08:22: PCP: PRAMOD GARCIA @ [place] [facility] Original Note: PT REPORTS HE LIVES ALONE AND IS INDEPENDENT WITH SELF CARE PT REPORTS HE USES A CANE PRN, NEBULIZER AND CPAP PT REPORTS HE HAS A VNA THAT COMES BUT HE DOES NOT KNOW THE AGENCY PT REPORTS HE IS COVID-19 VACCINATED PT REPORTS HE BELIEVES HE HAS A HCP, HE IS AWARE CM CAN ASSIST IN COMPLETION OF ONE DURING ADMISSION IMM DELIVERED CURRENT DC PLAN IS HOME WITH RESUMPTION OF SERVICES FAMILY TO TRANSPORT
[2021-08-13 20:13] LABS: Glucose, Whole Blood 108 mg/dL (60-115)
[2021-08-13] MEDS: calcium polycarbophiL TABLET 1 TAB PO (20:56)
[2021-08-14] VITALS (8 sets, daily range): BP systolic 87–178; BP diastolic 41–94; PULSE 62–91; RESP 16–18; TEMP 36.1–36.9; O2SAT 91–99
[2021-08-14] MEDS: Pantoprazole Sodium 40 MG/10 ML VIAL IVPUSH (06:42)
[2021-08-14 07:42] LABS: Glucose, Whole Blood 78 mg/dL (60-115)
[2021-08-14] MEDS: Ascorbic Acid 500 MG TABLET PO (09:04)
[2021-08-14] MEDS: Cyanocobalamin (Vitamin B-12) 500 MCG TABLET PO (09:04)
[2021-08-14] MEDS: 0.9 % Sodium Chloride Flush 3 ML SYRINGE IVFLUSH ×3 (09:04→21:30)
[2021-08-14] MEDS: Folic Acid 1 MG TABLET PO (09:04)
[2021-08-14] MEDS: Tamsulosin HCL 0.4 MG CAPSULE PO (09:05)
[2021-08-14] MEDS: Cholecalciferol (Vitamin D3) 25 MCG TABLET PO (09:05)
[2021-08-14] MEDS: dilTIAZem HCL CD 120 MG CAP.ER.DEG PO (09:05)
[2021-08-14] MEDS: Atorvastatin Calcium 20 MG TABLET PO (09:05)
[2021-08-14] MEDS: Loratadine 10 MG TABLET PO (09:05)
[2021-08-14] MEDS: metHOTREXate sodium 2.5 MG TABLET 7.5 MG PO (09:12)
--- NOTE | 2021-08-14 09:18 | HO.PM.IMPN ---
Subjective Subjective Date of Service: 08/14/21 Interval History: cc: brbrpr interval history:no further bleeding Cardiovascular Cardiovascular: Reports no additional cardiovascular complaints Respiratory Respiratory: Reports no additional respiratory complaints Physical Exam Vital Signs: Vital Signs: Last Vital Signs Temp 97.5 F 08/14/21 07:34 Pulse 76 08/14/21 07:34 Resp 18 08/14/21 07:34 BP 168/93 H 08/14/21 07:34 Pulse Ox 95 08/14/21 07:34 BMI result Body Mass Index 30.2 General: AO X 3, no acute distress Resp: CTA bilateral, no accessory muscles used CVS: S1,S2,RRR GI: soft, non tender, non distended Neuro: motor grossly intact, alert Psych: appropriate affect, appropriate insight Objective Data Active Medications Acetaminophen (Acetaminophen 325 Mg Tablet) 650 mg PO Q6H PRN PRN Reason: Pain, Mild (Pain Scale 1-3) Ascorbic Acid (Ascorbic Acid 500 Mg Tablet) 500 mg PO DAILY [facility] Last Admin: 08/14/21 09:04 Dose: 500 mg Documented by: TREVOR Atorvastatin Calcium (Atorvastatin Calcium 20 Mg Tablet) 20 mg PO DAILY [facility] Last Admin: 08/14/21 09:05 Dose: 20 mg Documented by: TREVOR Betamethasone Dipropion Augmented (Betamethasone Dip Aug 0.05% Cr 15 Gm Tube) 1 appl TOPICAL BID [facility] Last Admin: 08/14/21 09:06 Dose: Not Given Documented by: TREVOR Non-Admin Reason: Patient Refused Calcium Polycarbophil (Calcium Polycarbophil Tablet) 1 tab PO BID [facility] Last Admin: 08/14/21 09:05 Dose: Not Given Documented by: TREVOR Non-Admin Reason: Patient Refused Capsaicin (Capsaicin 0.025% Cream 60 Gm Tube) 1 appl TOPICAL BID [facility]; Protocol Last Admin: 08/14/21 09:06 Dose: Not Given Documented by: TREVOR Non-Admin Reason: Patient Refused Cyanocobalamin (Cyanocobalamin (Vitamin B-12) 500 Mcg Tablet) 500 mcg PO DAILY [facility] Last Admin: 08/14/21 09:04 Dose: 500 mcg Documented by: TREVOR Dextrose (Dextrose 50 % 25 Gm/50 Ml Syringe) 25 gm IVPUSH Q15M PRN; Protocol PRN Reason: per Hypoglycemia Standing Ord. Diltiazem HCl (Diltiazem Hcl Cd 120 Mg Cap.Er.Deg) 120 mg PO DAILY [facility]; Protocol Last Admin: 08/14/21 09:05 Dose: 120 mg Documented by: TREVOR Folic Acid (Folic Acid 1 Mg Tablet) 1 mg PO DAILY [facility] Last Admin: 08/14/21 09:04 Dose: 1 mg Documented by: TREVOR Glucose (Glucose Gel 15 Gm Gel..Gram.) 15 gm PO Q15M PRN; Protocol PRN Reason: per Hypoglycemia Standing Ord. Hydroxyzine HCl (Hydroxyzine Hcl 10 Mg Tablet) 10 mg PO DAILY PRN PRN Reason: Itching Insulin Human Lispro (Insulin Lispro 100 Unit/Ml 3 Ml Vial) 0 unit SUBCUT QIDACHS [facility]; Protocol Last Admin: 08/14/21 07:44 Dose: Not Given Documented by: TREVOR Non-Admin Reason: No Insulin Coverage Loratadine (Loratadine 10 Mg Tablet) 10 mg PO DAILY [facility] Last Admin: 08/14/21 09:05 Dose: 10 mg Documented by: TREVOR Melatonin (Melatonin 3 Mg Tablet) 6 mg PO BEDTIME PRN PRN Reason: Insomnia Methotrexate (Methotrexate Sodium 2.5 Mg Tablet) 7.5 mg PO Fr [facility] Last Admin: 08/14/21 09:12 Dose: 7.5 mg Documented by: TREVOR Pantoprazole Sodium (Pantoprazole Sodium 40 Mg/10 Ml Vial) 40 mg IVPUSH DAILY@0630 [facility] Last Admin: 08/14/21 06:42 Dose: 40 mg Documented by: ANTOIC Pharmacy Consult (Consult Rx Perform Med Rec) 1 each MISCELLANE ONCE PRN PRN Reason: Consult order Senna/Docusate Sodium (Sennosides/Docusate Sodium Tablet) 1 tab PO BEDTIME PRN PRN Reason: Constipation Sodium Chloride (0.9 % Sodium Chloride Flush 3 Ml Syringe) 3 ml IVFLUSH QSHIFT [facility] Last Admin: 08/14/21 09:04 Dose: 3 ml Documented by: TREVOR Tamsulosin HCl (Tamsulosin Hcl 0.4 Mg Capsule) 0.4 mg PO DAILY [facility] Last Admin: 08/14/21 09:05 Dose: 0.4 mg Documented by: TREVOR Vitamin D (Cholecalciferol (Vitamin D3) 25 Mcg Tablet) 25 mcg PO DAILY [facility] Last Admin: 08/14/21 09:05 Dose: 25 mcg Documented by: TREVOR Labs CBC & Chem 7: 08/13/21 05:30 08/13/21 05:30 Labs: Laboratory Results - last 24 hr 08/13/21 08/13/21 08/13/21 11:26 15:29 20:03 POC Glucose 112 89 108 08/14/21 07:33 POC Glucose 78 Assessment and Plan (1) Diabetes: Status: Acute Plan 86M presented with BRBPR BRBPR no further bleeding no significant hgb drop holding pradaxa, s/p praxbind plan for scope today HTN diltiazem hld statin DM insulin RA on MTX at home chronic afib cardizem holding pradaxa Quality Stroke Does the patient have a stroke diagnosis?: No VTE Prior VTE?: No VTE Risk Level:: Medical - moderate - high VTE Device Contraindication: N/A - Device Ordered VTE Drug Contraindication: Treatment Not Indicated
[2021-08-14 11:22] LABS: Glucose, Whole Blood 125 mg/dL (60-115)
[2021-08-14 12:46] LABS: Glucose, Whole Blood 104 mg/dL (60-115)
--- NOTE | 2021-08-14 12:46 | HO.ANESPROP2 ---
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 If so, by whom?: No Do you feel safe in your current relationship?: No Is there a partner from a previous relationship who is making you feel unsafe now?: No Are you made to feel afraid or neglected: No Are you DNR?: No Advance Directives: No Advance Directives Information Provided: No Advance Directives on File: No Do you have thoughts of harming others: None Do you have a plan to hurt others: No Plan Recently lost weight without trying: No How much weight loss: Not applicable Eating poorly because of decreased appetite: Yes Nutrition screen score: 1 Nutrition Risks: No Nutritional Risk Poor oral hygiene: No service: Yes Current occupational status: retired Meds Allergies Allergy/AdvReac Type Severity Reaction Status Date / Time No Known Allergies Allergy Unverified 01/17/20 18:13 [No Known Allergies*] Active Medications: Current Medications Acetaminophen (Acetaminophen 325 Mg Tablet) 650 mg PO Q6H PRN PRN Reason: Pain, Mild (Pain Scale 1-3) Ascorbic Acid (Ascorbic Acid 500 Mg Tablet) 500 mg PO DAILY [facility] Last Admin: 08/14/21 09:04 Dose: 500 mg Documented by: Atorvastatin Calcium (Atorvastatin Calcium 20 Mg Tablet) 20 mg PO DAILY [facility] Last Admin: 08/14/21 09:05 Dose: 20 mg Documented by: Betamethasone Dipropion Augmented (Betamethasone Dip Aug 0.05% Cr 15 Gm Tube) 1 appl TOPICAL BID [facility] Last Admin: 08/14/21 09:06 Dose: Not Given Documented by: Calcium Polycarbophil (Calcium Polycarbophil Tablet) 1 tab PO BID [facility] Last Admin: 08/14/21 09:05 Dose: Not Given Documented by: Capsaicin (Capsaicin 0.025% Cream 60 Gm Tube) 1 appl TOPICAL BID [facility]; Protocol Last Admin: 08/14/21 09:06 Dose: Not Given Documented by: Cyanocobalamin (Cyanocobalamin (Vitamin B-12) 500 Mcg Tablet) 500 mcg PO DAILY [facility] Last Admin: 08/14/21 09:04 Dose: 500 mcg Documented by: Dextrose (Dextrose 50 % 25 Gm/50 Ml Syringe) 25 gm IVPUSH Q15M PRN; Protocol PRN Reason: per Hypoglycemia Standing Ord. Diltiazem HCl (Diltiazem Hcl Cd 120 Mg Cap.Er.Deg) 120 mg PO DAILY [facility]; Protocol Last Admin: 08/14/21 09:05 Dose: 120 mg Documented by: Folic Acid (Folic Acid 1 Mg Tablet) 1 mg PO DAILY [facility] Last Admin: 08/14/21 09:04 Dose: 1 mg Documented by: Glucose (Glucose Gel 15 Gm Gel..Gram.) 15 gm PO Q15M PRN; Protocol PRN Reason: per Hypoglycemia Standing Ord. Hydroxyzine HCl (Hydroxyzine Hcl 10 Mg Tablet) 10 mg PO DAILY PRN PRN Reason: Itching Insulin Human Lispro (Insulin Lispro 100 Unit/Ml 3 Ml Vial) 0 unit SUBCUT QIDACHS [facility]; Protocol Last Admin: 08/14/21 11:24 Dose: Not Given Documented by: Loratadine (Loratadine 10 Mg Tablet) 10 mg PO DAILY [facility] Last Admin: 08/14/21 09:05 Dose: 10 mg Documented by: Melatonin (Melatonin 3 Mg Tablet) 6 mg PO BEDTIME PRN PRN Reason: Insomnia Methotrexate (Methotrexate Sodium 2.5 Mg Tablet) 7.5 mg PO Fr [facility] Last Admin: 08/14/21 09:12 Dose: 7.5 mg Documented by: Pantoprazole Sodium (Pantoprazole Sodium 40 Mg/10 Ml Vial) 40 mg IVPUSH DAILY@0630 [facility] Last Admin: 08/14/21 06:42 Dose: 40 mg Documented by: Pharmacy Consult (Consult Rx Perform Med Rec) 1 each MISCELLANE ONCE PRN PRN Reason: Consult order Senna/Docusate Sodium (Sennosides/Docusate Sodium Tablet) 1 tab PO BEDTIME PRN PRN Reason: Constipation Sodium Chloride (0.9 % Sodium Chloride Flush 3 Ml Syringe) 3 ml IVFLUSH QSHIFT [facility] Last Admin: 08/14/21 09:04 Dose: 3 ml Documented by: Tamsulosin HCl (Tamsulosin Hcl 0.4 Mg Capsule) 0.4 mg PO DAILY [facility] Last Admin: 08/14/21 09:05 Dose: 0.4 mg Documented by: Vitamin D (Cholecalciferol (Vitamin D3) 25 Mcg Tablet) 25 mcg PO DAILY [facility] Last Admin: 08/14/21 09:05 Dose: 25 mcg Documented by: Home Medications Medication Instructions Recorded Confirmed Last Taken Type Novolog U-100 Insulin aspart 70 units SUBCUT DAILY PRN 08/12/21 08/12/21 Unknown History ascorbic acid (vitamin C) 500 mg 500 mg PO DAILY 08/12/21 08/12/21 08/12/21 History tablet atorvastatin 40 mg tablet 20 mg PO DAILY 08/12/21 08/12/21 08/12/21 History calcium polycarbophil 625 mg tablet 625 mg PO BID 08/12/21 08/12/21 08/12/21 History capsaicin 0.025 % topical cream 1 appl TOPICAL BID 08/12/21 08/12/21 Unknown History cholecalciferol (vitamin D3) 25 25 mcg PO DAILY 08/12/21 08/12/21 08/12/21 History mcg (1,000 unit) capsule (Vitamin D3) clobetasol 0.05 % topical cream 1 appl TOPICAL BID 08/12/21 08/12/21 Unknown History cyanocobalamin (vitamin B-12) 500 500 mcg PO DAILY 08/12/21 08/12/21 08/12/21 History mcg tablet dabigatran etexilate 150 mg capsule 150 mg PO BID 08/12/21 08/12/21 08/11/21 History diltiazem HCl 120 mg capsule,24 120 mg PO DAILY 08/12/21 08/12/21 08/12/21 History hr,extended release folic acid 1 mg tablet 1 mg PO DAILY 08/12/21 08/12/21 08/12/21 History hydroxyzine HCl 10 mg tablet 10 mg PO DAILY PRN 08/12/21 08/12/21 Unknown History loratadine 10 mg tablet 10 mg PO DAILY 08/12/21 08/12/21 Unknown History methotrexate sodium 2.5 mg tablet 7.5 mg PO FR 08/12/21 08/12/21 08/07/21 History omega 4-yen-xzx-fish oil 1,000 mg 1 cap PO BID 08/12/21 08/12/21 Unknown History (120 mg-180 mg) capsule (Fish Oil) omeprazole 20 mg capsule,delayed 20 mg PO BID 08/12/21 08/12/21 08/12/21 History release sennosides 8.6 mg-docusate sodium 1 tab PO BEDTIME PRN 08/12/21 08/12/21 Unknown History 50 mg tablet (Senna Plus) tamsulosin 0.4 mg capsule 0.4 mg PO DAILY 08/12/21 08/12/21 08/12/21 History Exam Exam Date and Time: August 14, 2021 124 Height,Weight and Vital Signs: Height 5 ft 11 in Weight 98.43 kg Last Vital Signs Temp 98.5 F 08/14/21 12:38 Pulse 80 08/14/21 12:38 Resp 16 08/14/21 12:38 BP 173/93 H 08/14/21 12:38 Pulse Ox 96 08/14/21 12:38 Pertinent Lab Results Pertinent Lab Results: Laboratory Tests 08/12/21 08/12/21 08/12/21 14:26 14:26 14:26 WBC 10.6 RBC 4.58 L Hgb 13.8 L Hct 42.1 MCV 91.9 MCH 30.1 MCHC 32.8 RDW 14.8 Plt Count 246 MPV 10.1 Immature Gran % (Auto) 0.4 Neut % (Auto) 82.6 H Lymph % (Auto) 7.5 L [place] % (Auto) 6.5 Eos % (Auto) 2.5 Baso % (Auto) 0.5 Lymph # (Auto) 0.8 L [place] # (Auto) 0.7 Eos # (Auto) 0.3 Baso # (Auto) 0.1 Abs Immat Gran (auto) 0.04 H Absolute Neuts (auto) 8.8 H Absolute Nucleated RBC 0.000 Nucleated RBC % (auto) 0.0 PT INR APTT Sodium 141 Potassium 4.0 Chloride 105 Carbon Dioxide 26 Anion Gap 14 BUN 15 Creatinine 0.96 Estim Creat Clear Calc 68.5 Estimated GFR > 60 POC Glucose Random Glucose 130 H Calcium 8.9 Total Bilirubin 1.5 H Direct Bilirubin 0.6 H AST 18 ALT 10 Alkaline Phosphatase 105 Troponin I High Sens 7.5 Total Protein 6.3 L Albumin 3.7 Lipase 10 Stool Occult Blood COVID-19 (ELEANOR) COVID-19 Clin Com 08/12/21 08/12/21 08/12/21 14:26 16:50 16:55 WBC RBC Hgb Hct MCV MCH MCHC RDW Plt Count MPV Immature Gran % (Auto) Neut % (Auto) Lymph % (Auto) [place] % (Auto) Eos % (Auto) Baso % (Auto) Lymph # (Auto) [place] # (Auto) Eos # (Auto) Baso # (Auto) Abs Immat Gran (auto) Absolute Neuts (auto) Absolute Nucleated RBC Nucleated RBC % (auto) PT 14.1 H INR 1.2 H APTT 74.9 H* Sodium Potassium Chloride Carbon Dioxide Anion Gap BUN Creatinine Estim Creat Clear Calc Estimated GFR POC Glucose Random Glucose Calcium Total Bilirubin Direct Bilirubin AST ALT Alkaline Phosphatase Troponin I High Sens Total Protein Albumin Lipase Stool Occult Blood POSITIVE COVID-19 (ELEANOR) Negative COVID-19 Clin Com See Note 08/12/21 08/13/21 08/13/21 18:28 05:30 05:30 WBC 10.1 RBC 4.27 L Hgb 13.7 L 12.8 L Hct 41.4 L 38.8 L MCV 90.9 MCH 30.0 MCHC 33.0 RDW 14.8 Plt Count 244 MPV 10.7 Immature Gran % (Auto) 0.4 Neut % (Auto) 75.1 H Lymph % (Auto) 10.9 L [place] % (Auto) 9.0 Eos % (Auto) 4.2 H Baso % (Auto) 0.4 Lymph # (Auto) 1.1 L [place] # (Auto) 0.9 Eos # (Auto) 0.4 Baso # (Auto) 0.0 Abs Immat Gran (auto) 0.04 H Absolute Neuts (auto) 7.6 Absolute Nucleated RBC 0.000 Nucleated RBC % (auto) 0.0 PT INR APTT Sodium 142 Potassium 3.9 Chloride 108 Carbon Dioxide 25 Anion Gap 13 BUN 14 Creatinine 0.83 Estim Creat Clear Calc 79.2 Estimated GFR > 60 POC Glucose Random Glucose 66 D Calcium 8.8 Total Bilirubin Direct Bilirubin AST ALT Alkaline Phosphatase Troponin I High Sens Total Protein Albumin Lipase Stool Occult Blood COVID-19 (ELEANOR) COVID-19 Move Loot 08/13/21 08/13/21 08/13/21 06:59 11:26 15:29 WBC RBC Hgb Hct MCV MCH MCHC RDW Plt Count MPV Immature Gran % (Auto) Neut % (Auto) Lymph % (Auto) [place] % (Auto) Eos % (Auto) Baso % (Auto) Lymph # (Auto) [place] # (Auto) Eos # (Auto) Baso # (Auto) Abs Immat Gran (auto) Absolute Neuts (auto) Absolute Nucleated RBC Nucleated RBC % (auto) PT INR APTT Sodium Potassium Chloride Carbon Dioxide Anion Gap BUN Creatinine Estim Creat Clear Calc Estimated GFR POC Glucose 85 112 89 Random Glucose Calcium Total Bilirubin Direct Bilirubin AST ALT Alkaline Phosphatase Troponin I High Sens Total Protein Albumin Lipase Stool Occult Blood COVID-19 (ELEANOR) COVID-19 Move Loot 08/13/21 08/14/21 08/14/21 20:03 07:33 11:15 WBC RBC Hgb Hct MCV MCH MCHC RDW Plt Count MPV Immature Gran % (Auto) Neut % (Auto) Lymph % (Auto) [place] % (Auto) Eos % (Auto) Baso % (Auto) Lymph # (Auto) [place] # (Auto) Eos # (Auto) Baso # (Auto) Abs Immat Gran (auto) Absolute Neuts (auto) Absolute Nucleated RBC Nucleated RBC % (auto) PT INR APTT Sodium Potassium Chloride Carbon Dioxide Anion Gap BUN Creatinine Estim Creat Clear Calc Estimated GFR POC Glucose 108 78 125 H Random Glucose Calcium Total Bilirubin Direct Bilirubin AST ALT Alkaline Phosphatase Troponin I High Sens Total Protein Albumin Lipase Stool Occult Blood COVID-19 (ELEANOR) COVID-19 Move Loot Airway Mallampati Class: II TM Dist: >3cm Neck ROM: Full Denture: Upper Assessment and Plan Assessment Anesthesia Assessment: Anesthesia Plan Discussed and Chart Reviewed Final Anesthetic Review Family History of Problems with Anesthesia: No History of Problems with Anesthesia: No NPO: Yes ASA Class: III Final Preanesthetic Review: No Changes in Pt Med Stat, Meds/Allgs Chart Reviewed, Consent Obtained/Reviewed and Anes Risks/Benef Reviewed Patient Risk: Intermediate Procedure Risk: Low Anesthetic Plan Anesthetic Plan: MAC: Disposition: Standard PACU
--- NOTE | 2021-08-14 15:16 | P.BOP_ITS ---
Brief Operative Note Date of Service: 08/14/21 Pre-op diagnosis: Rectal bleeding Post-op diagnosis: other (Colon polyps, Diverticulosis, Internal hemorrhoids) Procedure: Colonoscopy to the cecum with hot snare polypectomies and placement of 1 Resolution clip on 1 of the polypectomy sites in the cecum Surgeon: Geronimo Anderson Anesthesia: MAC Was an Content Development Specialist used for this Procedure?: No Estimated blood loss (mL): 2.0 Pathology: other (A. Cecal polyps B. Ascending colon polyp C. Polyp in area of Hepatic flexure) Condition: stable Disposition: PACU
--- NOTE | 2021-08-14 15:42 | PM.EVENT ---
Event Note Date of Service: 08/14/21 Event Note: GI-Colonoscopy to the cecum-Full note dictated Findings: 1. Multiple 10-15mm polyps removed by hot snare polypectomy in cecum, ascending colon, and area of hepatic flexure. 2. 1 Resolution clip placed on 1 of the cecal polypectomy sites with good hemostasis. 3. Diverticulosis of the sigmoid and descending colon. I think these were the source of his bleeding, but no sign of any bleeding presently. 4. Internal hemorrhoids 5. Small < 10mm polyps not removed today Rec: Advance diet, hold all blood thinners for at least one week, check labs in AM, change to his po PPI, and discharge over the weekend if stable. Please call me if problems or questions over the weekend. D/W patient and his [id number], Joanne, in detail. Thanks
[2021-08-14 16:35] LABS: Glucose, Whole Blood 130 mg/dL (60-115)
[2021-08-14 20:08] LABS: Glucose, Whole Blood 139 mg/dL (60-115)
[2021-08-14] MEDS: calcium polycarbophiL TABLET 1 TAB PO (21:29)
[2021-08-15 03:26] VITALS: BP 143/78; PULSE 70; RESP 18; TEMP 36.8; O2SAT 97
[2021-08-15 05:19] LABS: MANUAL DIFF FLAG NO
[2021-08-15] MEDS: Omeprazole 20 MG CAPSULE.DR PO (05:21)
[2021-08-15 05:24] LABS: Basophils Absolute Auto 0.1 X10*3/uL (0.0-0.2); Basophils Percent Auto 0.9 % (0-2); Eosinophils Absolute Auto 0.4 X10*3/uL (0.0-0.4); Eosinophils Percent Auto 5.2 % (0-4); Hematocrit 35.4 % (42.0-52.0); Hemoglobin 11.4 g/dl (14.0-18.0); Imm Gran Abs Auto 0.03 X10*3/uL (0.00-0.03); Imm Gran Pct Auto 0.4 % (0.0-0.4); Lymphocytes Absolute Auto 1.1 X10*3/uL (1.2-4.9); Lymphocytes Percent Auto 13.6 % (20-40); Mean Corpuscular HGB Conc 32.2 g/dl (31.0-36.0); Mean Corpuscular Hemoglobin 29.5 pg (27.0-33.0); Mean Corpuscular Volume 91.7 fL (80.0-98.0); Mean Platelet Volume 10.2 fL (9.4-12.4); Monocytes Absolute Auto 0.9 X10*3/uL (0.1-1.2); Monocytes Percent Auto 10.8 % (2-11); Neutrophils Absolute Auto 5.5 x10*3/uL (2.0-8.3); Neutrophils Percent Auto 69.1 % (45-73); Platelet Count 229 X10*3/uL (160-400); Red Blood Count 3.86 X10*6/uL (4.60-5.80)
[2021-08-15 05:43] LABS: Anion Gap 13 (12-20); Blood Urea Nitrogen 11 mg/dL (9-16); Calcium 8.8 mg/dL (8.4-10.2); Carbon Dioxide 28 mmol/L (22-29); Chloride 105 mmol/L (96-108); Creatinine Clr Calc Pharmacy 74.7; Estimated Glomerular Filt Rate > 60; Glucose Fasting 107 mg/dL (60-99); Sodium 142 mmol/L (135-145)
--- NOTE | 2021-08-15 06:30 | P.CONCA_ITS ---
History of Present Illness History of Present Illness Date of Service: 08/15/21 Requesting physician: Javier Lara Chief complaint: Afib, 3.3 sec pause PMFSH Past Medical History Medical History (Updated 08/12/21 @ 21:45 by Javier Lara MD) Atrial fibrillation Borderline hypertension Diabetes Social History Social History Household Members: None Housing: House Do you presently have visiting nurse or other home services: Yes (2x/week PHYSICIAN/OPHTHALMOLOGIST) Patient Tobacco Use Status: Never used Tobacco Use of substances other than those prescribed or required for medical reasons: No Currently Displaying Signs/Symptoms of Drug Intoxication Withdrawal: No Have you been hit, kicked, punched, or otherwise hurt by someone within the past year? If so, by whom?: No Do you feel safe in your current relationship?: No Is there a partner from a previous relationship who is making you feel unsafe now?: No Are you made to feel afraid or neglected: No Are you DNR?: No Advance Directives: No Advance Directives Information Provided: No Advance Directives on File: No Do you have thoughts of harming others: None Do you have a plan to hurt others: No Plan Recently lost weight without trying: No How much weight loss: Not applicable Eating poorly because of decreased appetite: Yes Nutrition screen score: 1 Nutrition Risks: No Nutritional Risk Poor oral hygiene: No service: Yes Current occupational status: retired [employer] Allergies Allergy/AdvReac Type Severity Reaction Status Date / Time No Known Allergies Allergy Unverified 01/17/20 18:13 [No Known Allergies*] Active Medications: Current Medications Acetaminophen (Acetaminophen 325 Mg Tablet) 650 mg PO Q6H PRN PRN Reason: Pain, Mild (Pain Scale 1-3) Ascorbic Acid (Ascorbic Acid 500 Mg Tablet) 500 mg PO DAILY [facility] Last Admin: 08/14/21 09:04 Dose: 500 mg Documented by: Atorvastatin Calcium (Atorvastatin Calcium 20 Mg Tablet) 20 mg PO DAILY [facility] Last Admin: 08/14/21 09:05 Dose: 20 mg Documented by: Betamethasone Dipropion Augmented (Betamethasone Dip Aug 0.05% Cr 15 Gm Tube) 1 appl TOPICAL BID [facility] Last Admin: 08/14/21 21:28 Dose: Not Given Documented by: Calcium Polycarbophil (Calcium Polycarbophil Tablet) 1 tab PO BID [facility] Last Admin: 08/14/21 21:29 Dose: 1 tab Documented by: Capsaicin (Capsaicin 0.025% Cream 60 Gm Tube) 1 appl TOPICAL BID [facility]; Protocol Last Admin: 08/14/21 21:29 Dose: Not Given Documented by: Cyanocobalamin (Cyanocobalamin (Vitamin B-12) 500 Mcg Tablet) 500 mcg PO DAILY [facility] Last Admin: 08/14/21 09:04 Dose: 500 mcg Documented by: Dextrose (Dextrose 50 % 25 Gm/50 Ml Syringe) 25 gm IVPUSH Q15M PRN; Protocol PRN Reason: per Hypoglycemia Standing Ord. Diltiazem HCl (Diltiazem Hcl Cd 120 Mg Cap.Er.Deg) 120 mg PO DAILY [facility]; Protocol Last Admin: 08/14/21 09:05 Dose: 120 mg Documented by: Folic Acid (Folic Acid 1 Mg Tablet) 1 mg PO DAILY [facility] Last Admin: 08/14/21 09:04 Dose: 1 mg Documented by: Glucose (Glucose Gel 15 Gm Gel..Gram.) 15 gm PO Q15M PRN; Protocol PRN Reason: per Hypoglycemia Standing Ord. Hydroxyzine HCl (Hydroxyzine Hcl 10 Mg Tablet) 10 mg PO DAILY PRN PRN Reason: Itching Insulin Human Lispro (Insulin Lispro 100 Unit/Ml 3 Ml Vial) 0 unit SUBCUT QIDACHS [facility]; Protocol Last Admin: 08/14/21 21:17 Dose: Not Given Documented by: Loratadine (Loratadine 10 Mg Tablet) 10 mg PO DAILY [facility] Last Admin: 08/14/21 09:05 Dose: 10 mg Documented by: Melatonin (Melatonin 3 Mg Tablet) 6 mg PO BEDTIME PRN PRN Reason: Insomnia Methotrexate (Methotrexate Sodium 2.5 Mg Tablet) 7.5 mg PO [facility] Last Admin: 08/14/21 09:12 Dose: 7.5 mg Documented by: Omeprazole (Omeprazole 20 Mg Capsule.Dr) 20 mg PO DAILY@0630 [facility] Last Admin: 08/15/21 05:21 Dose: 20 mg Documented by: Pharmacy Consult (Consult Rx Perform Med Rec) 1 each MISCELLANE ONCE PRN PRN Reason: Consult order Senna/Docusate Sodium (Sennosides/Docusate Sodium Tablet) 1 tab PO BEDTIME PRN PRN Reason: Constipation Sodium Chloride (0.9 % Sodium Chloride Flush 3 Ml Syringe) 3 ml IVFLUSH QSHIFT [facility] Last Admin: 08/14/21 21:30 Dose: 3 ml Documented by: Tamsulosin HCl (Tamsulosin Hcl 0.4 Mg Capsule) 0.4 mg PO DAILY [facility] Last Admin: 08/14/21 09:05 Dose: 0.4 mg Documented by: Vitamin D (Cholecalciferol (Vitamin D3) 25 Mcg Tablet) 25 mcg PO DAILY [facility] Last Admin: 08/14/21 09:05 Dose: 25 mcg Documented by: Home Medications Medication Instructions Recorded Confirmed Last Taken Type Novolog U-100 Insulin aspart 70 units SUBCUT DAILY PRN 08/12/21 08/12/21 Unknown History ascorbic acid (vitamin C) 500 mg 500 mg PO DAILY 08/12/21 08/12/21 08/12/21 History tablet atorvastatin 40 mg tablet 20 mg PO DAILY 08/12/21 08/12/21 08/12/21 History calcium polycarbophil 625 mg tablet 625 mg PO BID 08/12/21 08/12/21 08/12/21 History capsaicin 0.025 % topical cream 1 appl TOPICAL BID 08/12/21 08/12/21 Unknown History cholecalciferol (vitamin D3) 25 25 mcg PO DAILY 08/12/21 08/12/21 08/12/21 History mcg (1,000 unit) capsule (Vitamin D3) clobetasol 0.05 % topical cream 1 appl TOPICAL BID 08/12/21 08/12/21 Unknown History cyanocobalamin (vitamin B-12) 500 500 mcg PO DAILY 08/12/21 08/12/21 08/12/21 History mcg tablet dabigatran etexilate 150 mg capsule 150 mg PO BID 08/12/21 08/12/21 08/11/21 History diltiazem HCl 120 mg capsule,24 120 mg PO DAILY 08/12/21 08/12/21 08/12/21 History hr,extended release folic acid 1 mg tablet 1 mg PO DAILY 08/12/21 08/12/21 08/12/21 History hydroxyzine HCl 10 mg tablet 10 mg PO DAILY PRN 08/12/21 08/12/21 Unknown History loratadine 10 mg tablet 10 mg PO DAILY 08/12/21 08/12/21 Unknown History methotrexate sodium 2.5 mg tablet 7.5 mg PO FR 08/12/21 08/12/21 08/07/21 H istory omega 8-fqu-gxu-fish oil 1,000 mg 1 cap PO BID 08/12/21 08/12/21 Unknown History (120 mg-180 mg) capsule (Fish Oil) omeprazole 20 mg capsule,delayed 20 mg PO BID 08/12/21 08/12/21 08/12/21 History release sennosides 8.6 mg-docusate sodium 1 tab PO BEDTIME PRN 08/12/21 08/12/21 Unknown History 50 mg tablet (Senna Plus) tamsulosin 0.4 mg capsule 0.4 mg PO DAILY 08/12/21 08/12/21 08/12/21 History Physical Exam Vital Signs: Vital Signs: Last Vital Signs Temp 98.2 F 08/15/21 03:26 Pulse 70 08/15/21 03:26 Resp 18 08/15/21 03:26 BP 143/78 H 08/15/21 03:26 Pulse Ox 97 08/15/21 03:26 BMI result Body Mass Index 30.2 Objective Labs and Meds Result diagrams: 08/15/21 05:13 08/15/21 05:13 Lab results: Laboratory Results - last 24 hr 08/14/21 08/14/21 08/14/21 07:33 11:15 12:42 WBC RBC Hgb Hct MCV MCH MCHC RDW Plt Count MPV Immature Gran % (Auto) Neut % (Auto) Lymph % (Auto) [place] % (Auto) Eos % (Auto) Baso % (Auto) Lymph # (Auto) [place] # (Auto) Eos # (Auto) Baso # (Auto) Abs Immat Gran (auto) Absolute Neuts (auto) Absolute Nucleated RBC Nucleated RBC % (auto) Sodium Potassium Chloride Carbon Dioxide Anion Gap BUN Creatinine Estim Creat Clear Calc Estimated GFR POC Glucose 78 125 H 104 Fasting Glucose Calcium 08/14/21 08/14/21 08/15/21 16:28 19:28 05:13 WBC RBC Hgb Hct MCV MCH MCHC RDW Plt Count MPV Immature Gran % (Auto) Neut % (Auto) Lymph % (Auto) [place] % (Auto) Eos % (Auto) Baso % (Auto) Lymph # (Auto) [place] # (Auto) Eos # (Auto) Baso # (Auto) Abs Immat Gran (auto) Absolute Neuts (auto) Absolute Nucleated RBC Nucleated RBC % (auto) Sodium 142 Potassium 4.0 Chloride 105 Carbon Dioxide 28 Anion Gap 13 BUN 11 Creatinine 0.88 Estim Creat Clear Calc 74.7 Estimated GFR > 60 POC Glucose 130 H 139 H Fasting Glucose 107 H Calcium 8.8 08/15/21 05:13 WBC 8.0 RBC 3.86 L Hgb 11.4 L Hct 35.4 L MCV 91.7 MCH 29.5 MCHC 32.2 RDW 15.0 Plt Count 229 MPV 10.2 Immature Gran % (Auto) 0.4 Neut % (Auto) 69.1 Lymph % (Auto) 13.6 L [place] % (Auto) 10.8 Eos % (Auto) 5.2 H Baso % (Auto) 0.9 Lymph # (Auto) 1.1 L [place] # (Auto) 0.9 Eos # (Auto) 0.4 Baso # (Auto) 0.1 Abs Immat Gran (auto) 0.03 Absolute Neuts (auto) 5.5 Absolute Nucleated RBC 0.000 Nucleated RBC % (auto) 0.0 Sodium Potassium Chloride Carbon Dioxide Anion Gap BUN Creatinine Estim Creat Clear Calc Estimated GFR POC Glucose Fasting Glucose Calcium
--- NOTE | 2021-08-15 06:44 | PC.NURSE ---
Addendum entered by Carlos Lance RN 08/15/21 07:09: at 150 am pt had pause 3.[address] SCHAFFER NOTIFIED. 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 no pain reported.
[2021-08-15 07:42] VITALS: BP 137/79; PULSE 71; RESP 18; TEMP 36.3; O2SAT 93
[2021-08-15 07:57] LABS: Glucose, Whole Blood 78 mg/dL (60-115)
[2021-08-15] MEDS: Tamsulosin HCL 0.4 MG CAPSULE PO (08:08)
[2021-08-15] MEDS: Cholecalciferol (Vitamin D3) 25 MCG TABLET PO (08:08)
[2021-08-15] MEDS: Ascorbic Acid 500 MG TABLET PO (08:09)
[2021-08-15] MEDS: dilTIAZem HCL CD 120 MG CAP.ER.DEG PO (08:09)
[2021-08-15] MEDS: Folic Acid 1 MG TABLET PO (08:09)
[2021-08-15] MEDS: Cyanocobalamin (Vitamin B-12) 500 MCG TABLET PO (08:10)
[2021-08-15] MEDS: calcium polycarbophiL TABLET 1 TAB PO (08:10)
[2021-08-15] MEDS: Loratadine 10 MG TABLET PO (08:10)
[2021-08-15] MEDS: Atorvastatin Calcium 20 MG TABLET PO (08:10)
[2021-08-15] MEDS: Betamethasone Dip Aug 0.05% Cr 15 GM TUBE 1 APPL TOPICAL (08:12)
[2021-08-15] MEDS: Capsaicin 0.025% Cream 60 GM TUBE 1 APPL TOPICAL (08:12)
[2021-08-15] MEDS: 0.9 % Sodium Chloride Flush 3 ML SYRINGE IVFLUSH (08:12)
--- NOTE | 2021-08-15 08:23 | PM.DS ---
DS: Providers Provider Date of Service: 08/15/21 Date of admission: 08/12/21 21:40 Primary care physician: Unknown Physician Consults: 08/12/21 21:41 Consult to Gastroenterology Routine Consulting Provider: Geronimo Anderson Reason for consultation: Bright red blood per rectum DS: Diagnosis Discharge Diagnosis (1) Diabetes: Status: Acute DS: Summary Hospital Course Hospital Course: from initial HPI: Chief Complaint: Bright red blood per rectum 86-year-old male with a past medical history of hypertension, hyperlipidemia, diabetes, AFib on Pradaxa, rheumatoid arthritis presented to the hospital today with a chief complaint of bright red blood per rectum.? Patient reported that since yesterday he has been having bright red blood per rectum, has multiple episodes; had mild lightheadedness and dizziness.? Denies any loss of consciousness.? Denies any chest pain palpitations or shortness of breath.? Denies any fever chills cough or sputum production.? Denies any nausea vomiting.? Denies any abdominal pain.? Patient reports that he still had few episodes even after coming to the hospital.? Mentioned that he takes Pradaxa for his AFib and last dose was on 08/11/2021 at 21:00.? Review of all other systems is negative except mentioned above ER course: Per ER team patient hemoglobin was noted to be 13; follow-up hemoglobin remained stable; CT scan showed extensive diverticulosis without any evidence of diverticulitis; no significant swelling of the contrast to suggest significant GI bleed; pancreas is atrophic; Patient was given Praxbind.? Admitted to the hospital for further management hospital course: patient was admitted for bright red blood per rectum. He had mild acute blood loss anemia, hemoglobin on admission was 13.8, it is level point for discharge. Patient did not require transfusion. he had no further bleeding. He underwent Colonoscopy which showed multiple polyps which were snared, a resolution clip placed on cecal polypectomy site, diverticulosis of the sigmoid and descending colon thought to be the source of bleed, internal hemorrhoids, multiple smaller polyps that were not removed. Recommendations were to restart Pradaxa in 1 week, p.o. PPI. Course was complicated by overnight bradycardia and pauses, this is likely due to patient's history of obstructive sleep apnea and not having his CPAP while in hospital. He is encouraged uses CPAP at home. His chronic gait atrial fibrillation will continue on Cardizem and restart Pradaxa in 1 week, for his diabetes he he was treated with insulin, for hyperlipidemia statin, for his rheumatoid arthritis he will continue with this methotrexate weekly, for his hypertension he will continue diltiazem. Time Spent with Patient Time attestation: Total time spent providing and/or coordinating discharge services: Discharge coordination time: Greater than 30 minutes Quality: Safe Use of Opioids Does Pt have an Active Cancer Diagnosis on the Problem List?: No Quality: Stroke Does the patient have a stroke diagnosis?: No Physical Exam Vital Signs: Vital Signs: Last Vital Signs Temp 97.3 F 08/15/21 07:42 Pulse 71 08/15/21 07:42 Resp 18 08/15/21 07:42 BP 137/79 08/15/21 07:42 Pulse Ox 93 08/15/21 07:42 BMI result Body Mass Index 30.2 General: AO X 3, no acute distress Resp: CTA bilateral, no accessory muscles used CVS: S1,S2,RRR GI: soft, non tender, non distended Neuro: motor grossly intact, alert Psych: appropriate affect, appropriate insight DS: Data Data Completed and Pending Pending studies at discharge: Pending at discharge 08/14/21 14:12 Surgical [PTH] Routine Labs on day of discharge: Laboratory Results - last 24 hr 08/14/21 08/14/21 08/14/21 11:15 12:42 16:28 WBC RBC Hgb Hct MCV MCH MCHC RDW Plt Count MPV Immature Gran % (Auto) Neut % (Auto) Lymph % (Auto) [place] % (Auto) Eos % (Auto) Baso % (Auto) Lymph # (Auto) [place] # (Auto) Eos # (Auto) Baso # (Auto) Abs Immat Gran (auto) Absolute Neuts (auto) Absolute Nucleated RBC Nucleated RBC % (auto) Sodium Potassium Chloride Carbon Dioxide Anion Gap BUN Creatinine Estim Creat Clear Calc Estimated GFR POC Glucose 125 H 104 130 H Fasting Glucose Calcium 08/14/21 08/15/21 08/15/21 19:28 05:13 05:13 WBC 8.0 RBC 3.86 L Hgb 11.4 L Hct 35.4 L MCV 91.7 MCH 29.5 MCHC 32.2 RDW 15.0 Plt Count 229 MPV 10.2 Immature Gran % (Auto) 0.4 Neut % (Auto) 69.1 Lymph % (Auto) 13.6 L [place] % (Auto) 10.8 Eos % (Auto) 5.2 H Baso % (Auto) 0.9 Lymph # (Auto) 1.1 L [place] # (Auto) 0.9 Eos # (Auto) 0.4 Baso # (Auto) 0.1 Abs Immat Gran (auto) 0.03 Absolute Neuts (auto) 5.5 Absolute Nucleated RBC 0.000 Nucleated RBC % (auto) 0.0 Sodium 142 Potassium 4.0 Chloride 105 Carbon Dioxide 28 Anion Gap 13 BUN 11 Creatinine 0.88 Estim Creat Clear Calc 74.7 Estimated GFR > 60 POC Glucose 139 H Fasting Glucose 107 H Calcium 8.8 08/15/21 07:42 WBC RBC Hgb Hct MCV MCH MCHC RDW Plt Count MPV Immature Gran % (Auto) Neut % (Auto) Lymph % (Auto) [place] % (Auto) Eos % (Auto) Baso % (Auto) Lymph # (Auto) [place] # (Auto) Eos # (Auto) Baso # (Auto) Abs Immat Gran (auto) Absolute Neuts (auto) Absolute Nucleated RBC Nucleated RBC % (auto) Sodium Potassium Chloride Carbon Dioxide Anion Gap BUN Creatinine Estim Creat Clear Calc Estimated GFR POC Glucose 78 Fasting Glucose Calcium Discharge Plan Discharge Patient Disposition: Home, Self-Care Discharge Diagnosis: brbpr Referrals: Physician,Unknown J [Primary Care Provider] - Discharge Medications: New omeprazole 20 mg Capsule,Delayed Release(Dr/Ec) 20 mg PO DAILY@0630 Qty: 30 0RF Continued atorvastatin 40 mg Tablet 20 mg PO DAILY 0RF sennosides-docusate sodium [Senna Plus] 8.6-50 mg Tablet 1 tab PO BEDTIME PRN (Reason: Constipation) 0RF clobetasol 0.05 % Cream 1 appl TOPICAL BID 0RF cyanocobalamin (vitamin B-12) 500 mcg Tablet 500 mcg PO DAILY 0RF ascorbic acid (vitamin C) 500 mg Tablet 500 mg PO DAILY 0RF methotrexate sodium 2.5 mg Tablet 7.5 mg PO FR 0RF tamsulosin 0.4 mg Capsule 0.4 mg PO DAILY 0RF diltiazem HCl 120 mg Capsule,Extended Release 24 Hr 120 mg PO DAILY 0RF calcium polycarbophil 625 mg Tablet 625 mg PO BID 0RF omeprazole 20 mg Capsule,Delayed Release(Dr/Ec) 20 mg PO BID 0RF folic acid 1 mg Tablet 1 mg PO DAILY 0RF capsaicin 0.025 % Cream 1 appl TOPICAL BID 0RF Rx Instructions: do not wash area for at least 30 min after application hydroxyzine HCl 10 mg Tablet 10 mg PO DAILY PRN (Reason: Itching) 0RF loratadine 10 mg Tablet 10 mg PO DAILY 0RF cholecalciferol (vitamin D3) [Vitamin D3] 25 mcg (1,000 unit) Capsule 25 mcg PO DAILY 0RF omega 5-szq-rkk-fish oil [Fish Oil] 1,000 mg (120 mg-180 mg) Capsule 1 cap PO BID 0RF Novolog U-100 Insulin aspart 70 units subcut DAILY PRN (Reason: insulin pump) 0RF Rx Instructions: to refill insulin pump Held dabigatran etexilate 150 mg Capsule 150 mg PO BID 0RF Hold Instructions: Resume on 08/21/21. Discharge Orders: Discharge Order (Routine); Ordered 08/15/21 Ordered By: Nikos Kuo Diet: advance to usual diet Activity on Discharge: As tolerated Stand Alone Forms: Patient Portal Discharge page Care Plan Goals: Avoid further bleeding Health Concerns: GI bleed, Plan of Treatment: rechallenge with Pradaxa in 1 week, continue PPI, follow-up with Cardiology in Gastroenterology, use CPAP at night Assessment: see above
--- NOTE | 2021-08-15 14:08 | HO.POSTANES ---
Post Anesthesia Evaluation Post Anesthesia Evaluation Vital Signs: Vital Signs Temp Pulse Resp BP Pulse Ox 08/15/21 07:42 97.3 F 71 18 137/79 93 08/15/21 03:26 98.2 F 70 18 143/78 H 97 Anesthesia: Monitored Mental Status: Awake Pain Control: Satisfactory Nausea/Vomiting: None Hydration: Adequate Anesthesia-Related Issues: No Anes. Related Issues
--- NOTE | 2021-08-18 10:32 | OP_ITS ---
SURGEON: Geronimo Anderson MD INDICATIONS: The patient presents for evaluation of lower GI bleeding and known history of tubular adenoma of the colon. Full consent has been obtained from him for this, including risks of bleeding and perforation. PREOPERATIVE DIAGNOSIS: POSTOPERATIVE DIAGNOSIS: PROCEDURE PERFORMED: Colonoscopy to the cecum with hot snare polypectomies and placement of 1 resolution clip on 1 of the polypectomy sites in the cecum. ESTIMATED BLOOD LOSS: COMPLICATIONS: ANESTHESIA: Medication used, monitored anesthesia care. ASSISTANTS: SPECIMENS: PREOPERATIVE DIAGNOSES: Lower gastrointestinal bleeding and history of tubular adenomas of the colon. POSTOPERATIVE DIAGNOSES: Lower gastrointestinal bleeding and history of tubular adenomas of the colon, multiple colon polyps, diverticulosis, internal hemorrhoids. DESCRIPTION OF PROCEDURE: The patient was placed in the left lateral decubitus position. The digital rectal exam revealed no abnormalities. The Olympus video pediatric colonoscope was entered into the rectum and advanced easily to the cecum. Once in the cecum, I did identify cecal pouch with normal-appearing ileocecal valve and the appendiceal orifice. There was a fair amount of liquid stool in the cecum, which was copiously irrigated and suctioned allowing fairly good visualization. In the cecum, I visualized 3 polyps between 10 and 15 mm in diameter. These were all removed by hot snare polypectomy and recovered by suction. One of the polypectomy sites had some oozing and a single resolution clip was applied with good deployment and good hemostasis. The remainder of the cecum appeared normal as best I could tell given the residual liquid stool despite attempts at irrigation and suctioning. The scope was then slowly withdrawn assessing all mucosal surfaces carefully. Preparation in various parts of the colon was again limited by some liquid stool, which was again copiously irrigated and suctioned away as best as possible. There was no blood anywhere in the colon. In the ascending colon, in the proximal portion, I was able to visualize a scar from his previous polypectomy. In the ascending colon, I did visualize an approximately 15 mm polyp, which was removed by hot snare polypectomy and recovered by suction. There was also a smaller, less than 10 mm polyp in the same area, which was removed by snare polypectomy, but not recovered. Both polypectomy sites appeared clean, without any sign of residual polyp nor bleeding. In the area of the hepatic flexure, was an approximately 15 mm polyp, which was removed by hot snare polypectomy and recovered by suction. The polypectomy site appeared clean, without any sign of residual polyp nor bleeding. There were other smaller 10 mm or less polyps in other parts of the colon, which were not removed at this time. Given his age and the gross appearance, I did not think it was essential to remove them today. I did not visualize any significant polyps otherwise, angiodysplasias, nor colitis. There was a moderate amount of diverticulosis in the descending and sigmoid colon. In the rectum, the scope was retroflexed visualizing internal hemorrhoids, but no other pathology. The rectal mucosa appeared normal. The scope was straightened and withdrawn from the patient. He tolerated the procedure well and was returned to the recovery area in stable condition. IMPRESSION: 1. Diverticulosis as the source of his lower GI bleeding, although no sign of any active bleeding at this time. 2. Multiple colon polyps. 3. Internal hemorrhoids. PLAN: The results of the pathology will be checked. Given his age and underlying medical problems, I do not think he needs any further screening colonoscopies. He will be instructed not to use any of his blood thinners, aspirin, nor NSAIDs for at least 1 week. His diet will be advanced today. If there is no sign of any further bleeding, he can hopefully go home over the weekend. He will have repeat laboratories tomorrow. This has been discussed with his [id number], Joanne, as well as with the patient. MD CRISTY Whitehead/EDWARD / [id number] MTDRuss
== END 2021-08-15 10:37 | disposition home or self-care (01) | DRG 379 ==
LOC: HO.ED 21:26 → HO.EDOVER 21:47 → HO.S3 08-13 07:00
PROVIDERS: Internal Medicine; Admitting Provider Hospitalist; Emergency Provider Emergency Medicine; PCP Internal Medicine; Visit Provider Internal Medicine
PROC: 0DJD8ZZ Inspection of Lower Intestinal Tract, Via Natural or Artificial Opening Endoscopic (ICD-10-PCS; CPT 45378; principal; 2021-08-14 13:30)
DX: K57.31 Diverticulosis of large intestine without perforation or abscess with bleeding (principal); I25.10 Atherosclerotic heart disease of native coronary artery without angina pectoris; E11.9 Type 2 diabetes mellitus without complications; I25.2 Old myocardial infarction; M06.9 Rheumatoid arthritis, unspecified; K64.8 Other hemorrhoids; E78.5 Hyperlipidemia, unspecified; K22.0 Achalasia of cardia; I10 Essential (primary) hypertension; I48.91 Unspecified atrial fibrillation; Z86.010 Personal history of colon polyps; Z20.822 Contact with and (suspected) exposure to COVID-19; Z79.899 Other long term (current) drug therapy
CPT/HCPCS: 36415; 74177; 80048; 80076; 82272; 82947; 83690; 84484; 85014; 85018; 85025; 85610; 85730; 87635; 88305; 93005; 96374; 99284; 99285; J3010; J3590; Q9967

== ENCOUNTER 2022-02-24 15:46 | Inpatient (IN) | payer OTHER, SELFPAY ==
--- NOTE | ~2022-02-24 | XR_ITS ---
EXAMINATION: CHEST 2 VIEWS CLINICAL INFORMATION: dizziness . COMPARISON: 09/12/2019. TECHNIQUE: PA and lateral views of the chest obtained. FINDINGS: The lungs are well expanded. Chronic appearing coarsened reticular markings again noted. No focal infiltrate, effusion, edema, or pneumothorax. Cardiac and mediastinal silhouettes are within normal limits for size with a small hiatal hernia again noted. No acute bony abnormality seen XR/XR chest 2V IMPRESSION: Chronic appearing changes similar to the 09/12/2019 study.
--- NOTE | ~2022-02-24 | MR_ITS ---
MRI OF THE BRAIN WITHOUT IV CONTRAST INDICATION: Stroke. COMPARISON: Head and neck CT 02/24/2022. Weakness. TECHNIQUE: Multiplanar multisequence MR imaging of the brain was obtained without IV contrast. FINDINGS: There is no hydrocephalus, extra-axial surface collection, or herniation. There is global cerebral volume loss and there is mild chronic microangiopathy. The major flow voids at the skull base are preserved. There is no acute infarct on diffusion-weighted imaging. There is no intracranial hemorrhage on the gradient recalled echo acquisition. The midline structures are normal. The cerebellar tonsils are normally positioned. The cerebellum and brainstem are normal. The craniocervical junction is normal. Osseous marrow signal intensity is homogenous. Sinonasal polyposis. Bilateral lens extractions. MR/MR head/brain wo con IMPRESSION: - There are no acute intracranial findings. No acute infarcts. - There is global cerebral volume loss and there is mild chronic microangiopathy. - Sinonasal polyposis.
--- NOTE | ~2022-02-24 | CT_ITS ---
EXAMINATION: CT ANGIOGRAM HEAD CT ANGIOGRAM NECK CLINICAL INFORMATION: Reason for Exam weakness, R/O STROKE COMPARISON: CT head without contrast 06/21/2018 TECHNIQUE: Initial noncontrast advance scout imaging of the head and neck was performed. Noncontrast head CT was also performed. Test bolus sequences followed by intravenous administration 70 mL of Omnipaque 350. Helical imaging was performed in the axial plane from the aortic arch to the skull vertex. Delayed postcontrast imaging of the head was also performed. The data was processed at the radiological technologist's workstation for generation of MIP sequences. Angled MIPs and volume rendered reformatted images were also generated at an offline 3D workstation. Stenoses are assessed in accordance with NASCET criteria unless otherwise indicated. DLP: 2360 mGy-cm This CT examination was performed using dose optimization techniques as appropriate, variously including the following: *Automated exposure control. *Adjustment of mA and/or kV according to patient size (this includes techniques or standardized protocols for targeted exams where dose is matched to indication/reason for exam; i.e. extremities or head). *Use of iterative reconstruction technique. FINDINGS: CT Head: There is no evidence of acute intracranial hemorrhage or edematous territorial infarction. A few foci of hypoattenuation in the periventricular and deep white matter are consistent with mild microangiopathy. Alfonso-white matter differentiation is preserved. The ventricles are normal in size and configuration. No evidence for obstructive hydrocephalus. No abnormal mass effect or midline shift. No extra-axial fluid collections. No pathologic intra-axial enhancement or regional oligemia. No acute soft tissue or osseous abnormalities. Mild scattered paranasal sinus mucosal thickening. Polyp in the posterior left nasal cavity extends into the nasopharynx. CT Neck: The thyroid gland is enlarged, right lobe larger than left, with heterogeneous attenuation and enhancement with several small calcifications in the right lobe. 1.1 cm soft tissue nodule in the accessory left parotid tissue overlying the left masseter muscle. Multilevel degenerative changes of the cervical spine are suboptimally evaluated. CT Upper Chest: The lung parenchyma is not well assessed due to motion artifact. No significant consolidation. Markedly dilated thoracic esophagus with fluid and debris. There is apparent stenosis of the distal left brachiocephalic vein with significant venous reflux of contrast injected via the left upper extremity. There is enlargement of the main and left and right pulmonary arteries, which may reflect pulmonary arterial hypertension. Coronary artery calcifications. Neck CTA: The neck portion of the CTA is significantly motion degraded. Aortic Arch: Normal contour and caliber. Classic 3 vessel branching pattern of the aortic arch. Great Vessel Origins: No significant stenosis of the branch origins. The arch branch vessels are ectatic and tortuous Right Common Carotid Artery: No focal stenosis or occlusion. Cervical Right Internal Carotid Artery: Normal opacification without focal stenosis or occlusion. Left Common Carotid Artery: No focal stenosis or occlusion. Cervical Left Internal Carotid Artery: Normal opacification without focal stenosis or occlusion. Cervical Right Vertebral Artery: No focal stenosis or occlusion. Cervical Left Vertebral Artery: Dominant. No focal stenosis or occlusion. There is significantly limited visualization of the proximal V2 segments of the vertebral arteries Brain CTA: Intracranial Internal Carotid Arteries: Calcific atherosclerotic disease of the intracranial internal carotid arteries without occlusion or flow-limiting stenosis. Right Anterior Cerebral Artery: Normal A1 segment. Normal opacification of the distal TK segments. Left Anterior Cerebral Artery: Normal A1 segment. Normal opacification of the distal TK segments. Anterior Communicating Artery: Normal. Right Middle Cerebral Artery: Normal M1 segment of the MCA without focal stenosis or occlusion. Normal arborization of the distal segments. Left Middle Cerebral Artery: Normal M1 segment of the MCA without focal stenosis or occlusion. Normal arborization of the distal segments. Right Vertebral Artery: Diminutive. Left Vertebral Artery: Normal V4 segment. Basilar Artery: Normal without focal stenosis or occlusion. Normal appearance of the proximal superior cerebellar arteries. Right Posterior Cerebral Artery: Normal P1 segment. Normal opacification of the distal [employer] segments. Left Posterior Cerebral Artery: Normal P1 segment. Normal opacification of the distal [employer] segments. Normal opacification of the superior sagittal, straight, transverse, and sigmoid sinuses. CT/CT angio head neck IMPRESSION: 1. No acute intracranial abnormality including hemorrhage, mass effect, hydrocephalus, or acute territorial edematous infarction. 2. The neck portion of the CTA is significantly motion degraded. Within this limitation, there is no evidence of arterial high-grade stenosis or large vessel occlusion in the head or neck. 3. Apparent stenosis of the distal left brachiocephalic vein with significant venous reflux of contrast media injected via the left upper extremity. 4. Markedly dilated thoracic esophagus with fluid and debris. 5. 1.1 cm soft tissue nodule in the accessory left parotid tissue, nonspecific and may reflect an enlarged lymph node or primary salivary gland tumor. 6. Thyromegaly. Recommend correlation with thyroid function tests and consider further evaluation with thyroid ultrasound. 7. Enlargement of the main and right and left pulmonary arteries, which may reflect pulmonary arterial hypertension.
[2022-02-24 17:09] VITALS: BP 165/86; PULSE 76; RESP 19; TEMP 36.6; O2SAT 97; BMI 29.2
[2022-02-24 17:28] LABS: MANUAL DIFF FLAG NO
--- NOTE | 2022-02-24 17:30 | ECG_ITS ---
Test Reason : dizziness Blood Pressure : / mmHG Vent. Rate : 055 BPM Atrial Rate : 000 BPM P-R Int : 000 ms QRS Dur : 100 ms QT Int : 468 ms P-R-T Axes : 000 -15 036 degrees QTc Int : 447 ms Atrial fibrillation with slow ventricular response Abnormal ECG When compared with ECG of 12-AUG-2021 14:13, Heart rate has decreased Referred By: Generic ED Physician Electronically Signed By:BRIGID FREDERICK MD
[2022-02-24 17:32] LABS: Basophils Absolute Auto 0.1 X10*3/uL (0.0-0.2); Basophils Percent Auto 0.7 % (0-2); Eosinophils Absolute Auto 0.1 X10*3/uL (0.0-0.4); Eosinophils Percent Auto 0.8 % (0-4); Hematocrit 43.4 % (42.0-52.0); Hemoglobin 13.7 g/dl (14.0-18.0); Imm Gran Abs Auto 0.01 X10*3/uL (0.00-0.03); Imm Gran Pct Auto 0.1 % (0.0-0.4); Lymphocytes Absolute Auto 0.9 X10*3/uL (1.2-4.9); Lymphocytes Percent Auto 10.3 % (20-40); Mean Corpuscular HGB Conc 31.6 g/dl (31.0-36.0); Mean Corpuscular Hemoglobin 29.1 pg (27.0-33.0); Mean Corpuscular Volume 92.3 fL (80.0-98.0); Mean Platelet Volume 9.7 fL (9.4-12.4); Monocytes Absolute Auto 0.6 X10*3/uL (0.1-1.2); Monocytes Percent Auto 7.1 % (2-11); Neutrophils Absolute Auto 7.1 x10*3/uL (2.0-8.3); Platelet Count 273 X10*3/uL (160-400); Red Cell Distribution Width 16.1 % (11.0-16.0); White Blood Count 8.8 X10*3/uL (4.8-10.8)
[2022-02-24 17:50] LABS: COVID-19 Test Negative (Negative); IDNOW Serial# 16C4AD1C
[2022-02-24 18:01] LABS: Alanine Aminotransferase 16 U/L (0-40); Alkaline Phosphatase 90 U/L (39-117); Anion Gap 15 (12-20); Aspartate Amino Transferase 20 U/L (5-37); Bilirubin Direct 0.7 mg/dL (0.0-0.5); Bilirubin Total 1.4 mg/dL (0.0-1.0); Blood Urea Nitrogen 14 mg/dL (9-16); Calcium 8.6 mg/dL (8.4-10.2); Carbon Dioxide 28 mmol/L (22-29); Chloride 105 mmol/L (96-108); Estimated Glomerular Filt Rate 57; Glucose Random 141 mg/dL (60-115); Potassium 4.6 mmol/L (3.3-5.1); Sodium 143 mmol/L (135-145); Total Protein 6.2 g/dL (6.5-8.0)
[2022-02-24 18:03] LABS: B Type Natriuretic Peptide 164 pg/mL (<100)
[2022-02-24 19:14] LABS: INTERNATIONAL NORM RATIO 1.3 (0.9-1.1); Prothrombin Time 15.3 SEC (10.0-13.1)
[2022-02-24 19:34] LABS: Troponin-I High Sensitivity 10.9 ng/L (<3.5-35.0)
[2022-02-24 20:13] VITALS: BP 169/78; PULSE 64; RESP 14; TEMP 36.7; O2SAT 96
--- NOTE | 2022-02-24 20:13 | PC.NURSE ---
Addendum entered by Graciela Ospina RN 02/24/22 20:16: HR AFIB 50s-60s currently on telemetry. Patient reports a history of afib, on pradaxa. Original Note: Patient ambulates to ER room 20. He endorses dizziness and generalized weakness since Tuesday. [facility]. Speech is clear. Pupils are 3mm and equal/briskly reactive to light. 5/5 strength in all extremities noted, though patient endorses generalized weakness while walking. He also endorses intermittent nausea. He reports his baseline chronic pain. He states within the last few days he's lost his balance and almost fallen (denies an actual fall, i always catch myself on furniture ), which is new for him.
--- NOTE | 2022-02-24 21:16 | ED_ITS ---
HPI - Dizziness General Chief Complaint: Dizziness Stated Complaint: possible stroke Time Seen by Provider: 02/24/22 20:22 History of Present Illness HPI Narrative: patient is an 86-year-old male history diabetes, hypertension, atrial fibrillation. Presents today with generalized malaise weakness. Patient from home. Patient feels that his gait is off. There is no bloody stool. Currently is on Pradaxa for atrial fibrillation. No chest pain or shortness of breath. Feels very weak and tired when he walks his gait is off. Patient seems to think the symptoms started on Tuesday. It has been fairly constant. No dark color stool noted. No bloody stool noted. Patient from home. No significant changes in medication. Related Data Home Medications Medication Instructions Recorded Confirmed Novolog U-100 Insulin aspart 70 units subcut DAILY PRN insulin 08/12/21 08/12/21 pump ascorbic acid (vitamin C) 500 mg 500 mg PO DAILY 08/12/21 08/12/21 tablet atorvastatin 40 mg tablet 20 mg PO DAILY 08/12/21 08/12/21 calcium polycarbophil 625 mg tablet 625 mg PO BID 08/12/21 08/12/21 capsaicin 0.025 % topical cream 1 appl topical BID 08/12/21 08/12/21 cholecalciferol (vitamin D3) 25 25 mcg PO DAILY 08/12/21 08/12/21 mcg (1,000 unit) capsule (Vitamin D3) clobetasol 0.05 % topical cream 1 appl topical BID 08/12/21 08/12/21 cyanocobalamin (vitamin B-12) 500 500 mcg PO DAILY 08/12/21 08/12/21 mcg tablet dabigatran etexilate 150 mg capsule 150 mg PO BID 08/12/21 08/12/21 diltiazem HCl 120 mg capsule,24 120 mg PO DAILY 08/12/21 08/12/21 hr,extended release folic acid 1 mg tablet 1 mg PO DAILY 08/12/21 08/12/21 hydroxyzine HCl 10 mg tablet 10 mg PO DAILY PRN Itching 08/12/21 08/12/21 loratadine 10 mg tablet 10 mg PO DAILY 08/12/21 08/12/21 methotrexate sodium 2.5 mg tablet 7.5 mg PO FR 08/12/21 08/12/21 omega 5-bsb-ngc-fish oil 1,000 mg 1 cap PO BID 08/12/21 08/12/21 (120 mg-180 mg) capsule (Fish Oil) omeprazole 20 mg capsule,delayed 20 mg PO BID 08/12/21 08/12/21 release sennosides 8.6 mg-docusate sodium 1 tab PO BEDTIME PRN Constipation 08/12/21 08/12/21 50 mg tablet (Senna Plus) tamsulosin 0.4 mg capsule 0.4 mg PO DAILY 08/12/21 08/12/21 Previous Rx's Medication Instructions Recorded omeprazole 20 mg capsule,delayed 20 mg PO DAILY@0630 #30 caps 08/15/21 release Allergies Allergy/AdvReac Type Severity Reaction Status Date / Time No Known Allergies Allergy Unverified 01/17/20 18:13 [No Known Allergies*] Review of Systems Review of Systems: No fever no chills no chest pain or shortness or a positive generalized malaise Yes all other systems are reviewed and are negative [facility] Past Medical History Attestation statement: The following information was validated with the patient. Medical History Atrial fibrillation Borderline hypertension Diabetes Social History Social History Household Members: None Housing: House Do you presently have visiting nurse or other home services: Yes (2x/week [employer]) Patient Tobacco Use Status: Never used Tobacco Advance Directives: No Advance Directives Information Provided: No service: Yes Current occupational status: retired Physical Exam Vital Signs: Vital Signs: Last Vital Signs Temp 98.1 F 02/25/22 00:14 Pulse 57 02/25/22 00:14 Resp 15 02/25/22 00:14 BP 143/74 H 02/25/22 00:14 Pulse Ox 96 02/25/22 00:14 O2 Del Method 02/25/22 00:14 BMI result Body Mass Index 29.2 Appearance: Alert. Oriented X3. No acute distress. Eyes: Pupils equal, round and reactive to light. ENT: Pharynx normal. Neck: Normal inspection. Neck supple. No lymph nodes noted. No crepitus CVS: Normal heart rate and rhythm. Pulses normal. Normal S1 and S2 Respiratory: No respiratory distress. Breath sounds normal. No Wheezing. No rales Abdomen: Soft and nontender. No rigidity. No distention. good BS x4 Skin: Skin warm and dry. Normal skin color. Normal skin turgor. Extremities: No lower extremity edema. Neurovascular intact to all extremities. No Lacerations. No Rash Neuro: Oriented X 3. No motor deficit. No sensory deficit. Moving all extermit ies. No slurred speech. Cranial nerves 2-12 grossly intact. Rapid alternating movement grossly intact. Ambulate with a slightly wide gait. NIH Stroke Scale Internal: Initial- Upon Arrival Level of Consciousness: Alert Level of Consciousness Questions: Answers both questions correctly Level of Consciousness Commands: Performs both tasks correctly Best Gaze: Normal Visual: No visual loss Facial Palsy: Normal Motor Arm (Right): No drift Motor Arm (Left): No drift Motor Leg (Right): No drift Motor Leg (Left): No drift Limb Ataxia: Absent Sensory: Normal Best Language: No aphasia Dysarthia: Normal Extinction and Inattention: No abnormality Score: 0 MDM - Dizziness MDM Narrative Medical decision making narrative: CT head was grossly negative. CTA of the head and neck did not show any large vessel occlusion. Patient complained of change in gait. Question posterior circulation issue. Will admit for further evaluation. Finding discussed with patient agree with plan. In stable condition. Medical Records Attestation: I reviewed the patient's medical records. Lab Data Attestation: I reviewed the patient's lab results. Result diagrams: 02/24/22 17:22 02/24/22 17:22 Labs: Lab Results 02/24/22 02/24/22 02/24/22 Range/Units 17:22 17:22 17:22 WBC 8.8 (4.8-10.8) X10*3/uL RBC 4.70 D (4.60-5.80) X10*6/uL Hgb 13.7 L D (14.0-18.0) g/dl Hct 43.4 D (42.0-52.0) % MCV 92.3 (80.0-98.0) fL MCH 29.1 (27.0-33.0) pg MCHC 31.6 (31.0-36.0) g/dl RDW 16.1 H (11.0-16.0) % Plt Count 273 (160-400) X10*3/uL MPV 9.7 (9.4-12.4) fL Immature Gran % (Auto) 0.1 (0.0-0.4) % Neut % (Auto) 81.0 H (45-73) % Lymph % (Auto) 10.3 L (20-40) % [place] % (Auto) 7.1 (2-11) % Eos % (Auto) 0.8 (0-4) % Baso % (Auto) 0.7 (0-2) % Lymph # (Auto) 0.9 L (1.2-4.9) X10*3/uL [place] # (Auto) 0.6 (0.1-1.2) X10*3/uL Eos # (Auto) 0.1 (0.0-0.4) X10*3/uL Baso # (Auto) 0.1 (0.0-0.2) X10*3/uL Abs Immat Gran (auto) 0.01 (0.00-0.03) X10*3/uL Absolute Neuts (auto) 7.1 (2.0-8.3) x10*3/uL Absolute Nucleated RBC 0.000 (0.0-0.012) X10*3/uL Nucleated RBC % (auto) 0.0 (0.0-0.2) /100WBC PT (10.0-13.1) SEC INR (0.9-1.1) Sodium 143 (135-145) mmol/L Potassium 4.6 (3.3-5.1) mmol/L Chloride 105 (96-108) mmol/L Carbon Dioxide 28 (22-29) mmol/L Anion Gap 15 (12-20) BUN 14 (9-16) mg/dL Creatinine 1.22 (0.5-1.4) mg/dL Estim Creat Clear Calc 53.0 Estimated GFR 57 Random Glucose 141 H D (60-115) mg/dL Calcium 8.6 (8.4-10.2) mg/dL Total Bilirubin 1.4 H (0.0-1.0) mg/dL Direct Bilirubin 0.7 H (0.0-0.5) mg/dL AST 20 (5-37) U/L ALT 16 (0-40) U/L Alkaline Phosphatase 90 (39-117) U/L Troponin I High Sens (<3.5-35.0) ng/L B-Natriuretic Peptide 164 H (<100) pg/mL Total Protein 6.2 L (6.5-8.0) g/dL Albumin 4.0 (3.5-5.0) g/dL COVID-19 (ELEANOR) (Negative) COVID-19 Clin Com 02/24/22 02/24/22 02/24/22 Range/Units 17:22 18:59 18:59 WBC (4.8-10.8) X10*3/uL RBC (4.60-5.80) X10*6/uL Hgb (14.0-18.0) g/dl Hct (42.0-52.0) % MCV (80.0-98.0) fL MCH (27.0-33.0) pg MCHC (31.0-36.0) g/dl RDW (11.0-16.0) % Plt Count (160-400) X10*3/uL MPV (9.4-12.4) fL Immature Gran % (Auto) (0.0-0.4) % Neut % (Auto) (45-73) % Lymph % (Auto) (20-40) % [place] % (Auto) (2-11) % Eos % (Auto) (0-4) % Baso % (Auto) (0-2) % Lymph # (Auto) (1.2-4.9) X10*3/uL [place] # (Auto) (0.1-1.2) X10*3/uL Eos # (Auto) (0.0-0.4) X10*3/uL Baso # (Auto) (0.0-0.2) X10*3/uL Abs Immat Gran (auto) (0.00-0.03) X10*3/uL Absolute Neuts (auto) (2.0-8.3) x10*3/uL Absolute Nucleated RBC (0.0-0.012) X10*3/uL Nucleated RBC % (auto) (0.0-0.2) /100WBC PT 15.3 H (10.0-13.1) SEC INR 1.3 H (0.9-1.1) Sodium (135-145) mmol/L Potassium (3.3-5.1) mmol/L Chloride (96-108) mmol/L Carbon Dioxide (22-29) mmol/L Anion Gap (12-20) BUN (9-16) mg/dL Creatinine (0.5-1.4) mg/dL Estim Creat Clear Calc Estimated GFR Random Glucose (60-115) mg/dL Calcium (8.4-10.2) mg/dL Total Bilirubin (0.0-1.0) mg/dL Direct Bilirubin (0.0-0.5) mg/dL AST (5-37) U/L ALT (0-40) U/L Alkaline Phosphatase (39-117) U/L Troponin I High Sens 10.9 (<3.5-35.0) ng/L B-Natriuretic Peptide (<100) pg/mL Total Protein (6.5-8.0) g/dL Albumin (3.5-5.0) g/dL COVID-19 (ELEANOR) Negative (Negative) COVID-19 Clin Com See Note Discharge Plan Discharge Clinical Impression: Dizziness, Altered gait Patient Disposition: Admitted As Inpatient Prescriptions: No Action atorvastatin 40 mg Tablet 20 mg PO DAILY sennosides-docusate sodium [Senna Plus] 8.6-50 mg Tablet 1 tab PO BEDTIME PRN (Reason: Constipation) clobetasol 0.05 % Cream 1 appl TOPICAL BID cyanocobalamin (vitamin B-12) 500 mcg Tablet 500 mcg PO DAILY ascorbic acid (vitamin C) 500 mg Tablet 500 mg PO DAILY methotrexate sodium 2.5 mg Tablet 7.5 mg PO FR tamsulosin 0.4 mg Capsule 0.4 mg PO DAILY diltiazem HCl 120 mg Capsule,Extended Release 24 Hr 120 mg PO DAILY calcium polycarbophil 625 mg Tablet 625 mg PO BID omeprazole 20 mg Capsule,Delayed Release(Dr/Ec) 20 mg PO BID folic acid 1 mg Tablet 1 mg PO DAILY capsaicin 0.025 % Cream 1 appl TOPICAL BID Rx Instructions: do not wash area for at least 30 min after application hydroxyzine HCl 10 mg Tablet 10 mg PO DAILY PRN (Reason: Itching) loratadine 10 mg Tablet 10 mg PO DAILY cholecalciferol (vitamin D3) [Vitamin D3] 25 mcg (1,000 unit) Capsule 25 mcg PO DAILY omega 9-lox-nnb-fish oil [Fish Oil] 1,000 mg (120 mg-180 mg) Capsule 1 cap PO BID dabigatran etexilate 150 mg Capsule 150 mg PO BID Hold Instructions: Resume on 08/21/21. Novolog U-100 Insulin aspart 70 units subcut DAILY PRN (Reason: insulin pump) Rx Instructions: to refill insulin pump omeprazole 20 mg Capsule,Delayed Release(Dr/Ec) 20 mg PO DAILY@0630 Qty: 30 0RF
[2022-02-24] MEDS: iohexoL 350 MG/ML 100 ML INFUS..BTL IV (21:46)
[2022-02-25] VITALS (8 sets, daily range): BP systolic 134–186; BP diastolic 66–91; PULSE 52–72; RESP 15–20; TEMP 36.1–36.9; O2SAT 94–97
--- NOTE | 2022-02-25 01:10 | P.HPHOSP_ITS ---
History of Present Illness Date of Service: 02/25/22 Chief Complaint: Gait disturbance This is a 86-year-old male with pertinent history of atrial fibrillation on pradaxa, essential hypertension, insulin-dependent diabetes mellitus, mixed hyperlipidemia, gastroesophageal reflux disease, benign prostatic hyperplasia who presents to the emergency department for evaluation of altered gait. Patient states he 1st noticed a disturbance in his gait about 5 days ago. He noticed that he was leaning to the left. This was interfering with his activities of daily living. Also has generalized weakness. No focal motor deficit. No facial droop, no rigidity, no tremor. Patient also complains of associated blurry vision that started about the same time. No history of CVA in the past. Patient denies rhythmic jerking movement of extremities or tongue bite. He denies fever, chills, chest discomfort, palpitations, abdominal pain, changes in urinary or bowel habits. Denies tingling or numbness of extremities. Patient is compliant with his medications for chronic medical conditions including Pradaxa for AFib. 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) Patient Tobacco Use Status: Never used Tobacco Advance Directives: No Advance Directives Information Provided: No service: Yes Current occupational status: retired Meds Allergies Allergy/AdvReac Type Severity Reaction Status Date / Time No Known Allergies Allergy Unverified 01/17/20 18:13 [No Known Allergies*] Active Medications: Current Medications Acetaminophen (Acetaminophen 325 Mg Tablet) 650 mg PO Q6H PRN PRN Reason: Pain, Mild (Pain Scale 1-3) Enoxaparin Sodium (Enoxaparin Sodium 40 Mg/0.4 Ml Syringe) 40 mg SUBCUT DAILY S CH Melatonin (Melatonin 3 Mg Tablet) 6 mg PO BEDTIME PRN PRN Reason: Insomnia Ondansetron HCl (Ondansetron Hcl 4 Mg/2 Ml Vial) 4 mg IVPUSH Q8H PRN PRN Reason: Nausea and Vomiting Pharmacy Consult (Consult Rx Perform Med Rec) 1 each MISCELLANE ONCE PRN PRN Reason: Consult order Sodium Chloride (0.9 % Sodium Chloride Flush 3 Ml Syringe) 3 ml IVFLUSH [facility] Medications Medication Instructions Recorded Confirmed Last Taken Type Novolog U-100 Insulin aspart 70 units subcut DAILY PRN insulin 08/12/21 08/12/21 Unknown History pump ascorbic acid (vitamin C) 500 mg 500 mg PO DAILY 08/12/21 08/12/21 08/12/21 History tablet atorvastatin 40 mg tablet 20 mg PO DAILY 08/12/21 08/12/21 08/12/21 History calcium polycarbophil 625 mg tablet 625 mg PO BID 08/12/21 08/12/21 08/12/21 History capsaicin 0.025 % topical cream 1 appl topical BID 08/12/21 08/12/21 Unknown History cholecalciferol (vitamin D3) 25 25 mcg PO DAILY 08/12/21 08/12/21 08/12/21 History mcg (1,000 unit) capsule (Vitamin D3) clobetasol 0.05 % topical cream 1 appl topical BID 08/12/21 08/12/21 Unknown History cyanocobalamin (vitamin B-12) 500 500 mcg PO DAILY 08/12/21 08/12/21 08/12/21 History mcg tablet dabigatran etexilate 150 mg capsule 150 mg PO BID 08/12/21 08/12/21 08/11/21 History diltiazem HCl 120 mg capsule,24 120 mg PO DAILY 08/12/21 08/12/21 08/12/21 History hr,extended release folic acid 1 mg tablet 1 mg PO DAILY 08/12/21 08/12/21 08/12/21 History hydroxyzine HCl 10 mg tablet 10 mg PO DAILY PRN Itching 08/12/21 08/12/21 Unknown History loratadine 10 mg tablet 10 mg PO DAILY 08/12/21 08/12/21 Unknown History methotrexate sodium 2.5 mg tablet 7.5 mg PO FR 08/12/21 08/12/21 08/07/21 History omega 1-vao-nja-fish oil 1,000 mg 1 cap PO BID 08/12/21 08/12/21 Unknown History (120 mg-180 mg) capsule (Fish Oil) omeprazole 20 mg capsule,delayed 20 mg PO BID 08/12/21 08/12/21 08/12/21 History release sennosides 8.6 mg-docusate sodium 1 tab PO BEDTIME PRN Constipation 08/12/21 08/12/21 Unknown History 50 mg tablet (Senna Plus) tamsulosin 0.4 mg capsule 0.4 mg PO DAILY 08/12/21 08/12/21 08/12/21 History Physical Exam Vital Signs and Narrative: Vital Signs: Last Vital Signs Temp 98.1 F 02/25/22 00:14 Pulse 57 02/25/22 00:14 Resp 15 02/25/22 00:14 BP 143/74 H 02/25/22 00:14 Pulse Ox 96 02/25/22 00:14 O2 Del Method 02/25/22 00:14 BMI result Body Mass Index 29.2 Elderly male lying in bed in no distress Neck supple, no JVD Irregularly irregular, S1-S2 heard Regular breath sounds bilaterally, no wheezing or crackles appreciated Abdomen soft nontender, no guarding, no rigidity Patient is awake, alert and oriented to self, place, time and person ; no motor rigidity, strength 5/5 in bilateral upper and lower extremity, no facial droop, normal shoulder shrug, no nystagmus, tongue and uvula midline, wide-based gait seen, no tremor, no pronator drift Psych: Normal mood No pedal edema Results Labs CBC and Chem 7: 02/24/22 17:22 02/24/22 17:22 Labs: Laboratory Results - last 24 hr 02/24/22 02/24/22 02/24/22 17:22 17:22 17:22 MCV 92.3 MCH 29.1 MCHC 31.6 RDW 16.1 H Plt Count 273 MPV 9.7 Immature Gran % (Auto) 0.1 Neut % (Auto) 81.0 H Lymph % (Auto) 10.3 L [place] % (Auto) 7.1 Eos % (Auto) 0.8 Baso % (Auto) 0.7 Lymph # (Auto) 0.9 L [place] # (Auto) 0.6 Eos # (Auto) 0.1 Baso # (Auto) 0.1 Abs Immat Gran (auto) 0.01 Absolute Neuts (auto) 7.1 Absolute Nucleated RBC 0.000 Nucleated RBC % (auto) 0.0 PT INR Anion Gap 15 Estim Creat Clear Calc 53.0 Estimated GFR 57 Random Glucose 141 H D Calcium 8.6 Total Bilirubin 1.4 H Direct Bilirubin 0.7 H AST 20 ALT 16 Alkaline Phosphatase 90 Troponin I High Sens B-Natriuretic Peptide 164 H Total Protein 6.2 L Albumin 4.0 COVID-19 (ELEANOR) COVID-19 Clin Com 02/24/22 02/24/22 02/24/22 17:22 18:59 18:59 MCV MCH MCHC RDW Plt Count MPV Immature Gran % (Auto) Neut % (Auto) Lymph % (Auto) [place] % (Auto) Eos % (Auto) Baso % (Auto) Lymph # (Auto) [place] # (Auto) Eos # (Auto) Baso # (Auto) Abs Immat Gran (auto) Absolute Neuts (auto) Absolute Nucleated RBC Nucleated RBC % (auto) PT 15.3 H INR 1.3 H Anion Gap Estim Creat Clear Calc Estimated GFR Random Glucose Calcium Total Bilirubin Direct Bilirubin AST ALT Alkaline Phosphatase Troponin I High Sens 10.9 B-Natriuretic Peptide Total Protein Albumin COVID-19 (ELEANOR) Negative COVID-19 Clin Com See Note Imaging Radiologist's Impressions: Impressions Chest X-Ray 02/24/22 17:49 IMPRESSION: Chronic appearing changes similar to the 09/12/2019 study. Head/Neck CTA 02/24/22 21:56 IMPRESSION: 1. No acute intracranial abnormality including hemorrhage, mass effect, hydrocephalus, or acute territorial edematous infarction. 2. The neck portion of the CTA is significantly motion degraded. Within this limitation, there is no evidence of arterial high-grade stenosis or large vessel occlusion in the head or neck. 3. Apparent stenosis of the distal left brachiocephalic vein with significant venous reflux of contrast media injected via the left upper extremity. 4. Markedly dilated thoracic esophagus with fluid and debris. 5. 1.1 cm soft tissue nodule in the accessory left parotid tissue, nonspecific and may reflect an enlarged lymph node or primary salivary gland tumor. 6. Thyromegaly. Recommend correlation with thyroid function tests and consider further evaluation with thyroid ultrasound. 7. Enlargement of the main and right and left pulmonary arteries, which may reflect pulmonary arterial hypertension. Assessment and Plan (1) Altered gait: Status: Acute (2) Diabetes: Status: Acute (3) Atrial fibrillation: Status: Acute (4) Hypertension: Status: Acute (5) BPH (benign prostatic hyperplasia): Status: Acute (6) GERD (gastroesophageal reflux disease): Status: Acute Plan This is a 86-year-old male with pertinent history of atrial fibrillation on pradaxa, essential hypertension, insulin-dependent diabetes mellitus, mixed hyperlipidemia, gastroesophageal reflux disease, benign prostatic hyperplasia who presents to the emergency department for evaluation of altered gait. #. Ataxia -will admit patient and obtain MRI in a.m. to rule out a central cause. Also consulting Neurology. Obtaining B12. Physical therapy to evaluate and treat. Patient not on medications that would cause ataxia. #. Blurry vision -unspecified chronicity. Obtaining MRI as above #. Essential hypertension -continue home medications #. Atrial fibrillation -on Pradaxa. Rate controlled at the time of admission #. Benign prostatic hyperplasia -on Flomax #. Insulin-dependent diabetes mellitus -on insulin pump. Initiating Accu-Cheks with sliding scale insulin before meals and at bedtime Patient will require two night minimum hospital stay for evaluation and management of ataxia. Neurology and physical therapy consult pending for safe disposition. Quality Stroke Does the patient have a stroke diagnosis?: No VTE Prior VTE?: No VTE Risk Level:: Medical - moderate - high VTE Device Contraindication: Treatment Not Indicated VTE Drug Contraindication: N/A - Med Ordered
[2022-02-25 05:49] LABS: Vitamin B12 792 pg/mL (200-900)
[2022-02-25 06:34] LABS: Estimated Average Glucose 131 mg/dL; Hemoglobin A1c % 6.2 %
[2022-02-25 07:03] LABS: MANUAL DIFF FLAG NO
[2022-02-25 07:05] LABS: Basophils Absolute Auto 0.1 X10*3/uL (0.0-0.2); Basophils Percent Auto 0.7 % (0-2); Eosinophils Absolute Auto 0.2 X10*3/uL (0.0-0.4); Eosinophils Percent Auto 2.2 % (0-4); Hematocrit 38.1 % (42.0-52.0); Hemoglobin 12.2 g/dl (14.0-18.0); Imm Gran Abs Auto 0.03 X10*3/uL (0.00-0.03); Imm Gran Pct Auto 0.4 % (0.0-0.4); Lymphocytes Absolute Auto 0.9 X10*3/uL (1.2-4.9); Lymphocytes Percent Auto 13.3 % (20-40); Mean Corpuscular Hemoglobin 29.3 pg (27.0-33.0); Mean Corpuscular Volume 91.4 fL (80.0-98.0); Mean Platelet Volume 10.2 fL (9.4-12.4); Monocytes Absolute Auto 0.7 X10*3/uL (0.1-1.2); Monocytes Percent Auto 10.7 % (2-11); Neutrophils Percent Auto 72.7 % (45-73); Platelet Count 243 X10*3/uL (160-400); Red Blood Count 4.17 X10*6/uL (4.60-5.80); Red Cell Distribution Width 16.1 % (11.0-16.0); White Blood Count 6.8 X10*3/uL (4.8-10.8)
--- NOTE | 2022-02-25 07:15 | PC.NURSE ---
Assumed care of patient at this time. Patient refuses to take hospital medications stating, I have my own , made patient aware that he cannot take his own and states, kick me out if you want to, but Im taking my own meds, I dont care ; provider aware at this time.
[2022-02-25] MEDS: 0.9 % Sodium Chloride Flush 3 ML SYRINGE IVFLUSH ×2 (07:28→16:00)
[2022-02-25] MEDS: Tamsulosin HCL 0.4 MG CAPSULE PO (07:28)
[2022-02-25 08:06] LABS: Anion Gap 12 (12-20); Blood Urea Nitrogen 13 mg/dL (9-16); Calcium 8.3 mg/dL (8.4-10.2); Carbon Dioxide 25 mmol/L (22-29); Chloride 108 mmol/L (96-108); Creatinine Clr Calc Pharmacy 69.6; Estimated Glomerular Filt Rate > 60; Glucose Random 109 mg/dL (60-115); Sodium 141 mmol/L (135-145)
--- NOTE | 2022-02-25 08:15 | PC.NURSE ---
Patient has own insulin pump that he refuses to take off and refusing any POC from SUPPORT ANALYST's here. States his sugar is 120 this morning. No insulin administered at this time.
--- NOTE | 2022-02-25 08:22 | PHA.MEDREC ---
Pharmacy Consult ? Medication Reconciliation Pharmacy has completed the medication reconciliation.Spoke to patient and confirmed medication list [facility]. The patient also advised me that he has his home meds in his posession and is dosing himself when he normally would at home. The provider has been notified.
--- NOTE | 2022-02-25 09:10 | PC.NURSE ---
Report given to MANOJ Arroyo assuming care of patient at this time.
--- NOTE | 2022-02-25 10:24 | MHC.CM.PN ---
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 HE ALSO USES THE [place] PH[place] HE REPORTS JANN IS ALSO ON FILE FOR PRESCRIPTIONS IF HE IS DISCHARGED OUTSIDE OF BUSINESS HOURS [facility] DEL[facility], COPY SENT TO [facility] CURRENT DC PLAN IS HOME WITH RESUMPTION OF SERVICES FAMILY TO TRANSPORT
--- NOTE | 2022-02-25 12:16 | PC.NURSE ---
obtained report from steph, resumed care of patient at 11am, patient a&ox3, pt denies pain/discomfort, refusing most medications- per report provider has been aware, pt checks own POC and reports to nursing staff and has own insulin which he controls- provider also aware per report. pt willing to take ativert- called pharmacy for missing medication, vitals stable, call larry within reach, will continue to monitor
--- NOTE | 2022-02-25 13:55 | PC.NURSE ---
patient a&ox3, pt given lunch, denies pain/discomfort, pharmacy called again for antivert which was just brought to floor, will medicate per order, will continue to monitor
[2022-02-25] MEDS: Meclizine HCl 12.5 MG TABLET PO (13:59)
--- NOTE | 2022-02-25 15:13 | HO.PM.IMPN ---
Subjective Subjective Date of Service: 02/25/22 Interval History: seen and examined this morning follow up for dizziness has persistent dizziness ongoing for nearly 1 week. Feels off balance when walking but able to ambulate independently plan for MRI, neuro evaluation Review of Systems Review of Systems: Yes all other systems are reviewed and are negative Constitutional Constitutional: Denies chills, Denies fever(s) and Denies headache(s) ENT Ears, Nose, Mouth, and Throat: Reports dizziness, Denies headache(s), Denies hearing loss and Denies tinnitus Cardiovascular Cardiovascular: Denies chest pain, Denies palpitations and Denies dyspnea Respiratory Respiratory: Denies cough and Denies dyspnea Gastrointestinal Gastrointestinal: Denies abdominal pain, Denies nausea and Denies vomiting Neurologic Neurologic: Reports dizziness and Denies headache(s) Endocrine Endocrine: Denies palpitations Physical Exam Vital Signs: Vital Signs: Last Vital Signs Temp 97.9 F 02/25/22 14:49 Pulse 52 02/25/22 14:49 Resp 18 02/25/22 14:49 BP 186/91 H 02/25/22 14:49 Pulse Ox 96 02/25/22 14:49 O2 Del Method 02/25/22 14:49 BMI result Body Mass Index 29.2 Const: General: cooperative, comfortable, alert and awake Nutritional Appearance: average body habitus Orientation/consciousness: patient oriented x3 Resp: Effort & Inspection: normal respiratory effort and able to speak in complete sentences Auscultation: clear to auscultation bilaterally Cardio: Rate: regular rate Heart sounds: S1 normal heart sound present and S2 normal heart sound present GI: Inspection: No distended Palpation (GI): Soft to palpation and nontender Neuro: Other: no obvious focal neurological deficits; able to move all 4 extremities, seen ambulating with steady gait General: patient oriented x3 Objective Data Active Medications Acetaminophen (Acetaminophen 325 Mg Tablet) 650 mg PO Q6H PRN PRN Reason: Pain, Mild (Pain Scale 1-3) Atorvastatin Calcium (Atorvastatin Calcium 20 Mg Tablet) 20 mg PO DAILY [facility] Dabigatran (Dabigatran Etexilate Mesylate 150 Mg Capsule) 150 mg PO BID [facility] Last Admin: 02/25/22 07:31 Dose: Not Given Documented By: RICARDA Non-Admin Reason: Patient Refused Dabigatran (Dabigatran Etexilate Mesylate 150 Mg Capsule) 150 mg PO BID [facility] Dextrose (Dextrose 50 % 25 Gm/50 Ml Syringe) 25 gm IVPUSH Q15M PRN; Protocol PRN Reason: per Hypoglycemia Standing Ord. Diltiazem HCl (Diltiazem Hcl Cd 120 Mg Cap.Er.Deg) 120 mg PO BID [facility]; Protocol Gabapentin (Gabapentin 300 Mg Capsule) 300 mg PO BID [facility] Glucose (Glucose Gel 15 Gm Gel..Gram.) 15 gm PO Q15M PRN; Protocol PRN Reason: per Hypoglycemia Standing Ord. Insulin Human Lispro (Insulin Lispro 100 Unit/Ml 3 Ml Vial) 0 unit SUBCUT QIDACHS [facility]; Protocol Stop: 02/26/22 01:11 Last Admin: 02/25/22 11:20 Dose: Not Given Documented By: DANA Non-Admin Reason: See Note Melatonin (Melatonin 3 Mg Tablet) 6 mg PO BEDTIME PRN PRN Reason: Insomnia Methotrexate (Methotrexate Sodium 2.5 Mg Tablet) 7.5 mg PO [facility] Non-Formulary Medication (Novolog U-100 Insulin Aspart) 70 units SUBCUT DAILY PRN PRN Reason: insulin pump Omeprazole (Omeprazole 20 Mg Capsule.Dr) 20 mg PO DAILY@0630 [facility] Last Admin: 02/25/22 07:30 Dose: Not Given Documented By: RICARDA Non-Admin Reason: Patient Refused Ondansetron HCl (Ondansetron Hcl 4 Mg/2 Ml Vial) 4 mg IVPUSH Q8H PRN PRN Reason: Nausea and Vomiting Pharmacy Consult (Consult Rx Perform Med Rec) 1 each MISCELLANE ONCE PRN PRN Reason: Consult order Sodium Chloride (0.9 % Sodium Chloride Flush 3 Ml Syringe) 3 ml IVFLUSH QSHIFT [facility] Last Admin: 02/25/22 07:28 Dose: 3 ml Documented By: RICARDA Tamsulosin HCl (Tamsulosin Hcl 0.4 Mg Capsule) 0.4 mg PO DAILY [facility] Last Admin: 02/25/22 07:28 Dose: 0.4 mg Documented By: RICARDA Labs CBC & Chem 7: 02/25/22 06:46 02/25/22 06:46 Labs: Laboratory Results - last 24 hr 02/24/22 02/24/22 02/24/22 17:22 17:22 17:22 MCV 92.3 MCH 29.1 MCHC 31.6 RDW 16.1 H Plt Count 273 MPV 9.7 Immature Gran % (Auto) 0.1 Neut % (Auto) 81.0 H Lymph % (Auto) 10.3 L [place] % (Auto) 7.1 Eos % (Auto) 0.8 Baso % (Auto) 0.7 Lymph # (Auto) 0.9 L [place] # (Auto) 0.6 Eos # (Auto) 0.1 Baso # (Auto) 0.1 Abs Immat Gran (auto) 0.01 Absolute Neuts (auto) 7.1 Absolute Nucleated RBC 0.000 Nucleated RBC % (auto) 0.0 PT INR Anion Gap 15 Estim Creat Clear Calc 53.0 Estimated GFR 57 Random Glucose 141 H D Estimat Average Glucose Hemoglobin A1c % Calcium 8.6 Total Bilirubin 1.4 H Direct Bilirubin 0.7 H AST 20 ALT 16 Alkaline Phosphatase 90 Troponin I High Sens B-Natriuretic Peptide 164 H Total Protein 6.2 L Albumin 4.0 Vitamin B12 COVID-19 (ELEANOR) [employer] 02/24/22 02/24/22 02/24/22 17:22 18:59 18:59 MCV MCH MCHC RDW Plt Count MPV Immature Gran % (Auto) Neut % (Auto) Lymph % (Auto) [place] % (Auto) Eos % (Auto) Baso % (Auto) Lymph # (Auto) [place] # (Auto) Eos # (Auto) Baso # (Auto) Abs Immat Gran (auto) Absolute Neuts (auto) Absolute Nucleated RBC Nucleated RBC % (auto) PT 15.3 H INR 1.3 H Anion Gap Estim Creat Clear Calc Estimated GFR Random Glucose Estimat Average Glucose Hemoglobin A1c % Calcium Total Bilirubin Direct Bilirubin AST ALT Alkaline Phosphatase Troponin I High Sens 10.9 B-Natriuretic Peptide Total Protein Albumin Vitamin B12 COVID-19 (ELEANOR) Negative COVID-19 [employer] See Note 02/25/22 02/25/22 02/25/22 01:35 01:35 06:46 MCV 91.4 MCH 29.3 MCHC 32.0 RDW 16.1 H Plt Count 243 MPV 10.2 Immature Gran % (Auto) 0.4 Neut % (Auto) 72.7 Lymph % (Auto) 13.3 L [place] % (Auto) 10.7 Eos % (Auto) 2.2 Baso % (Auto) 0.7 Lymph # (Auto) 0.9 L [place] # (Auto) 0.7 Eos # (Auto) 0.2 Baso # (Auto) 0.1 Abs Immat Gran (auto) 0.03 Absolute Neuts (auto) 5.0 Absolute Nucleated RBC 0.000 Nucleated RBC % (auto) 0.0 PT INR Anion Gap Estim Creat Clear Calc Estimated GFR Random Glucose Estimat Average Glucose 131 Hemoglobin A1c % 6.2 Calcium Total Bilirubin Direct Bilirubin AST ALT Alkaline Phosphatase Troponin I High Sens B-Natriuretic Peptide Total Protein Albumin Vitamin B12 792 COVID-19 (ELEANOR) COVID-19 Clin Com 02/25/22 06:46 MCV MCH MCHC RDW Plt Count MPV Immature Gran % (Auto) Neut % (Auto) Lymph % (Auto) [place] % (Auto) Eos % (Auto) Baso % (Auto) Lymph # (Auto) [place] # (Auto) Eos # (Auto) Baso # (Auto) Abs Immat Gran (auto) Absolute Neuts (auto) Absolute Nucleated RBC Nucleated RBC % (auto) PT INR Anion Gap 12 Estim Creat Clear Calc 69.6 Estimated GFR > 60 Random Glucose 109 Estimat Average Glucose Hemoglobin A1c % Calcium 8.3 L Total Bilirubin Direct Bilirubin AST ALT Alkaline Phosphatase Troponin I High Sens B-Natriuretic Peptide Total Protein Albumin Vitamin B12 COVID-19 (ELEANOR) COVID-19 Clin Com Assessment and Plan (1) Dizziness: Status: Acute Plan This is a 86-year-old male with pertinent history of atrial fibrillation on pradaxa, essential hypertension, insulin-dependent diabetes mellitus, mixed hyperlipidemia, gastroesophageal reflux disease, benign prostatic hyperplasia who presents to the emergency department for evaluation of altered gait. Ataxia -will obtain MRI to rule out a central cause. -neuro consult pending Essential hypertension -continue cardizem Atrial fibrillation -continue cardizem, dabigatran Benign prostatic hyperplasia -on Flomax Insulin-dependent diabetes mellitus -on insulin pump. Initiating Accu-Cheks with sliding scale insulin before meals and at bedtime dvt ppx - dabigatran attending - dr. gibson requires ongoing inpatient hospitalization for Neurology evaluation seen by PT, recommend to continue outpatient services Quality Stroke Does the patient have a stroke diagnosis?: No VTE Prior VTE?: No VTE Risk Level:: Medical - moderate - high VTE Device Contraindication: Treatment Not Indicated VTE Drug Contraindication: N/A - Med Ordered
--- NOTE | 2022-02-25 16:47 | P.CNNE_ITS ---
History of Present Illness Data of Consult Service Date: 02/25/22 Primary Care Provider: Nancy Alvarado MD [facility] Reason for consult: Dizziness and unsteadiness 86 years old man with underlying history of hypertension and diabetes many times not well controlled was in usual state of health not suffering from any cold or flu-like illness when he developed dizziness or unsteadiness. It was like he was drunk while walking. His speech was okay. His mind was intact and he could think and speak. He did not notice any obvious weakness on him. There was no visual symptom. There was no associated headache. His symptoms lasted for 4-5 days and now he was fine. Review of Systems Review of Systems: No recent cold or flu-like illness PMFSH Past Medical History Medical History Atrial fibrillation Borderline hypertension Diabetes Social History Social History Household Members: None Housing: House Do you presently have visiting nurse or other home services: Yes Patient Tobacco Use Status: Never used Tobacco e-Cigarette/Vaping Use: Never Used Second Hand Smoke Exposure: No service: Yes Current occupational status: retired [employer] Allergies Allergy/AdvReac Type Severity Reaction Status Date / Time No Known Allergies Allergy Unverified 01/17/20 18:13 [No Known Allergies*] Active Medications: Current Medications Acetaminophen (Acetaminophen 325 Mg Tablet) 650 mg PO Q6H PRN PRN Reason: Pain, Mild (Pain Scale 1-3) Atorvastatin Calcium (Atorvastatin Calcium 20 Mg Tablet) 20 mg PO DAILY [facility] Dabigatran (Dabigatran Etexilate Mesylate 150 Mg Capsule) 150 mg PO BID [facility] Last Admin: 02/25/22 07:31 Dose: Not Given Dextrose (Dextrose 50 % 25 Gm/50 Ml Syringe) 25 gm IVPUSH Q15M PRN; Protocol PRN Reason: per Hypoglycemia Standing Ord. Diltiazem HCl (Diltiazem Hcl Cd 120 Mg Cap.Er.Deg) 120 mg PO BID [facility]; Protocol Folic Acid (Folic Acid 1 Mg Tablet) 1 mg PO DAILY [facility] Gabapentin (Gabapentin 300 Mg Capsule) 300 mg PO BID [facility] Glucose (Glucose Gel 15 Gm Gel..Gram.) 15 gm PO Q15M PRN; Protocol PRN Reason: per Hypoglycemia Standing Ord. Insulin Human Lispro (Insulin Lispro 100 Unit/Ml 3 Ml Vial) 0 unit SUBCUT QIDACHS [facility]; Protocol Last Admin: 02/25/22 16:06 Dose: Not Given Insulin Human Lispro (Insulin Lispro 100 Unit/Ml 3 Ml Vial) 70 unit SUBCUT DAILY PRN PRN Reason: insulin pump Melatonin (Melatonin 3 Mg Tablet) 6 mg PO BEDTIME PRN PRN Reason: Insomnia Methotrexate (Methotrexate Sodium 2.5 Mg Tablet) 7.5 mg PO Fr@0900 [facility] Omeprazole (Omeprazole 20 Mg Capsule.Dr) 20 mg PO DAILY@0630 [facility] Last Admin: 02/25/22 07:30 Dose: Not Given Ondansetron HCl (Ondansetron Hcl 4 Mg/2 Ml Vial) 4 mg IVPUSH Q8H PRN PRN Reason: Nausea and Vomiting Pharmacy Consult (Consult Rx Perform Med Rec) 1 each MISCELLANE ONCE PRN PRN Reason: Consult order Senna/Docusate Sodium (Sennosides/Docusate Sodium Tablet) 1 tab PO BEDTIME PRN PRN Reason: Constipation Sodium Chloride (0.9 % Sodium Chloride Flush 3 Ml Syringe) 3 ml IVFLUSH QSHIFT [facility] Last Admin: 02/25/22 16:00 Dose: 3 ml Tamsulosin HCl (Tamsulosin Hcl 0.4 Mg Capsule) 0.4 mg PO DAILY [facility] Last Admin: 02/25/22 07:28 Dose: 0.4 mg Home Medications Medication Instructions Recorded Confirmed Last Taken Type Novolog U-100 Insulin aspart 70 units subcut DAILY PRN insulin 08/12/21 02/25/22 02/25/22 History pump ascorbic acid (vitamin C) 500 mg 500 mg PO DAILY 08/12/21 02/25/22 02/25/22 His tory tablet atorvastatin 40 mg tablet 20 mg PO DAILY 08/12/21 02/25/22 02/24/22 History calcium polycarbophil 625 mg tablet 625 mg PO BID 08/12/21 02/25/22 02/25/22 History capsaicin 0.025 % topical cream 1 appl topical BID PRN Pain 08/12/21 02/25/22 Unknown History cholecalciferol (vitamin D3) 25 25 mcg PO DAILY 08/12/21 02/25/22 02/24/22 History mcg (1,000 unit) capsule (Vitamin D3) clobetasol 0.05 % topical cream 1 appl topical BID PRN Rash 08/12/21 02/25/22 Unknown History cyanocobalamin (vitamin B-12) 500 500 mcg PO DAILY 08/12/21 02/25/22 02/25/22 History mcg tablet dabigatran etexilate 150 mg capsule 150 mg PO BID 08/12/21 02/25/22 02/25/22 History diltiazem HCl 120 mg capsule,24 120 mg PO BID 08/12/21 02/25/22 02/25/22 History hr,extended release folic acid 1 mg tablet 1 mg PO DAILY 08/12/21 02/25/22 02/25/22 History hydroxyzine HCl 10 mg tablet 10 mg PO DAILY PRN Itching 08/12/21 02/25/22 Unknown History loratadine 10 mg tablet 10 mg PO DAILY 08/12/21 02/25/22 02/24/22 History methotrexate sodium 2.5 mg tablet 7.5 mg PO FR 08/12/21 02/25/22 02/19/22 History omega 1-ngw-kls-fish oil 1,000 mg 1 cap PO BID 08/12/21 02/25/22 02/25/22 History (120 mg-180 mg) capsule (Fish Oil) omeprazole 20 mg capsule,delayed 20 mg PO BID 08/12/21 02/25/22 02/25/22 History release sennosides 8.6 mg-docusate sodium 1 tab PO BEDTIME PRN Constipation 08/12/21 02/25/22 02/24/22 History 50 mg tablet (Senna Plus) tamsulosin 0.4 mg capsule 0.4 mg PO DAILY 08/12/21 02/25/22 02/24/22 History denosumab 60 mg/mL subcutaneous 60 mg subcut [id number] 02/25/22 02/25/22 Unknown History syringe ergocalciferol (vitamin D2) 1,000 1 tab PO DAILY 02/25/22 02/25/22 02/24/22 History unit tablet ferrous sulfate 324 mg (65 mg 324 mg PO DAILY 02/25/22 02/25/22 02/24/22 History iron) tablet,delayed release gabapentin 300 mg capsule 300 mg PO BID 02/25/22 02/25/22 02/25/22 History hydrocortisone 2.5 % topical cream 1 appl topical 1XD PRN Itching 02/25/22 02/25/22 Unknown History ketoconazole 2 % topical cream 1 appl topical 1XD PRN Itching 02/25/22 02/25/22 Unknown History pramoxine 1 % lotion 1 appl topical BID PRN Rash 02/25/22 02/25/22 Unknown History triamcinolone acetonide 0.1 % 1 appl topical 1XD PRN Itching 02/25/22 02/25/22 Unknown History topical cream Physical Exam Vital Signs: Vital Signs: Last Vital Signs Temp 98.5 F 02/25/22 15:24 Pulse 63 02/25/22 15:24 Resp 20 02/25/22 15:24 BP 164/79 H 02/25/22 15:24 Pulse Ox 96 02/25/22 15:24 O2 Del Method 02/25/22 15:24 BMI result Body Mass Index 29.2 Neuro: Other: He was alert and awake with normal spontaneity of speech fluency comprehension and affect. Face with examination revealed mild right-sided flatness. Extraocular muscles were intact. Visual james were full to threat. There was no pronator drift. [id number]-[id number] testing revealed mild tremor. Deep tendon reflexes 1+ with flexor plantars. He was able to get up and walk without difficulty. Speech was normal. Results Labs CBC & Chem 7: 02/25/22 06:46 02/25/22 06:46 Labs: Short CBC 02/24/22 02/25/22 Range/Units 17:22 06:46 WBC 8.8 6.8 (4.8-10.8) X10*3/uL Hgb 13.7 L D 12.2 L (14.0-18.0) g/dl Hct 43.4 D 38.1 L (42.0-52.0) % Plt Count 273 243 (160-400) X10*3/uL BMP 02/24/22 02/25/22 17:22 06:46 Sodium 143 141 Potassium 4.6 4.0 Chloride 105 108 Carbon Dioxide 28 25 BUN 14 13 Creatinine 1.22 0.93 Calcium 8.6 8.3 L Liver Function 02/24/22 Range/Units 17:22 Total Bilirubin 1.4 H (0.0-1.0) mg/dL Direct Bilirubin 0.7 H (0.0-0.5) mg/dL AST 20 (5-37) U/L ALT 16 (0-40) U/L Alkaline Phosphatase 90 (39-117) U/L Albumin 4.0 (3.5-5.0) g/dL MRI of brain revealed [id number] diffuse cerebral atrophy and mild chronic microvascular ischemic changes. On DWI sequence there are couple of punctate brainstem hyperintensities but on FLAIR no corresponding signal was noted. Assessment and Plan (1) Dizziness: Status: Acute 86 years old man with few days of dizziness and unsteadiness affecting his balance and gait with no obvious cold or flu-like illness pain trauma headache or definite cranial nerve symptom. His examination reveals mild right facial flatness, probably chronic, but otherwise no significant abnormality. MRI of brain revealed cerebral atrophy and microvascular ischemic changes. Blood pressure was high. Most likely etiology of his symptomatology was microvascular ischemic lesion in brainstem or vestibular apparatus. As no such lesion was noted in his brainstem at least of acute type, vestibular apparatus ischemic injury was the most likely possibility. It should be considered as a small ischemic infarct and treated that way. Mainstay of management is anti-platelet agent, blood pressure control, and control of other vascular risk factors. Procedures Date of Service Date of Service: 02/25/22
--- NOTE | 2022-02-25 17:48 | P.DS_ITS ---
DS: Providers Provider Date of Service: 02/25/22 Date of admission: 02/25/22 01:02 Date of discharge: 02/25/22 Primary care physician: Nancy Alvarado MD Consults: 02/25/22 01:08 Consult to Neurology Routine Consulting Provider: [facility] Reason for consultation: altered gait Has provider been notified: No Attending physician on discharge: Andrea Márquez Discharging clinician: Annemarie Pabon DS: Diagnosis Discharge Diagnosis (1) Dizziness: Status: Acute DS: Summary Hospital Course Hospital Course: From H&P on day of admission This is a 86-year-old male with pertinent history of atrial fibrillation on pradaxa, essential hypertension, insulin-dependent diabetes mellitus, mixed hyperlipidemia, gastroesophageal reflux disease, benign prostatic hyperplasia who presents to the emergency department for evaluation of altered gait.? Patient states he 1st noticed a disturbance in his gait about 5 d ays ago.? He noticed that he was leaning to the left.? This was interfering with his activities of daily living.? Also has generalized weakness.? No focal motor deficit.? No facial droop, no rigidity, no tremor.? Patient also complains of associated blurry vision that started about the same time.? No history of CVA in the past.? Patient denies rhythmic jerking movement of extremities or tongue bit e.? He denies fever, chills, chest discomfort, palpitations, abdominal pain, changes in urinary or bowel habits.? Denies tingling or numbness of extremities.? Patient is compliant with his medications for chronic medical conditions including Pradaxa for AFib. Patient had MRI Which showed no evidence of stroke. MRI did show cerebral atrophy and microvascular ischemic changes. 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 Patient was told by his investment strategist never to take an anti-platelet agent as he is fully anticoagulated with Pradaxa, therefore aspirin was not started. Increasing to high intensity statin was discussed, but he felt he should discuss with his primary care provider before increasing dose as he reports his lipids are on the lower side. He did feel improvement in some of his symptoms with meclizine and requested a prescription. He will be discharged with a few doses of meclizine but should not take on the same day as hydroxyzine. He was seen in evaluation by Physical therapy who recommended to resume outpatient physical therapy. Blood pressure remained above goal and therefore he will be started on lisinopril 5 mg. recommend close blood pressure monitoring by PCP and check of renal function in the next one week. He [facility] and he will call to schedule an appointment tomorrow for follow up. Time Spent with Patient Time attestation: Total time spent providing and/or coordinating discharge services: Discharge coordination time: Greater than 30 minutes Quality: Safe Use of Opioids Does Pt have an Active Cancer Diagnosis on the Problem List?: No Quality: Stroke Does the patient have a stroke diagnosis?: No Physical Exam Vital Signs: Vital Signs: Last Vital Signs Temp 98.5 F 02/25/22 15:24 Pulse 63 02/25/22 15:24 Resp 20 02/25/22 15:24 BP 164/79 H 02/25/22 15:24 Pulse Ox 96 02/25/22 15:24 O2 Del Method 02/25/22 15:24 BMI result Body Mass Index 29.2 Const: General: cooperative, comfortable, alert and awake Nutritional Appearance: average body habitus Orientation/consciousness: patient oriented x3 Resp: Effort & Inspection: normal respiratory effort and able to speak in complete sentences Auscultation: clear to auscultation bilaterally Cardio: Rate: regular rate Heart sounds: S1 normal heart sound present and S2 normal heart sound present GI: Inspection: No distended Palpation (GI): Soft to palpation and nontender Neuro: Other: no obvious focal neurological deficits; able to move all 4 extremities, seen ambulating with steady gait General: patient oriented x3 DS: Data Data Completed and Pending Completed studies during hospitalization [Text1]: Procedures Control Bleeding in Gastrointestinal Tract, Via Natural or Artificial Opening Endoscopic (08/12/21) Excision of Cecum, Via Natural or Artificial Opening Endoscopic, Diagnostic (08/12/21) Labs on day of discharge: Laboratory Results - last 24 hr 02/24/22 02/24/22 02/24/22 17:22 17:22 17:22 WBC RBC Hgb Hct MCV MCH MCHC RDW Plt Count MPV Immature Gran % (Auto) Neut % (Auto) Lymph % (Auto) [place] % (Auto) Eos % (Auto) Baso % (Auto) Lymph # (Auto) [place] # (Auto) Eos # (Auto) Baso # (Auto) Abs Immat Gran (auto) Absolute Neuts (auto) Absolute Nucleated RBC Nucleated RBC % (auto) PT INR Sodium 143 Potassium 4.6 Chloride 105 Carbon Dioxide 28 Anion Gap 15 BUN 14 Creatinine 1.22 Estim Creat Clear Calc 53.0 Estimated GFR 57 Random Glucose 141 H D Estimat Average Glucose Hemoglobin A1c % Calcium 8.6 Total Bilirubin 1.4 H Direct Bilirubin 0.7 H AST 20 ALT 16 Alkaline Phosphatase 90 Troponin I High Sens B-Natriuretic Peptide 164 H Total Protein 6.2 L Albumin 4.0 Vitamin B12 COVID-19 (ELEANOR) Negative COVID-19 Clin Com See Note 02/24/22 02/24/22 02/25/22 18:59 18:59 01:35 WBC RBC Hgb Hct MCV MCH MCHC RDW Plt Count MPV Immature Gran % (Auto) Neut % (Auto) Lymph % (Auto) [place] % (Auto) Eos % (Auto) Baso % (Auto) Lymph # (Auto) [place] # (Auto) Eos # (Auto) Baso # (Auto) Abs Immat Gran (auto) Absolute Neuts (auto) Absolute Nucleated RBC Nucleated RBC % (auto) PT 15.3 H INR 1.3 H Sodium Potassium Chloride Carbon Dioxide Anion Gap BUN Creatinine Estim Creat Clear Calc Estimated GFR Random Glucose Estimat Average Glucose Hemoglobin A1c % Calcium Total Bilirubin Direct Bilirubin AST ALT Alkaline Phosphatase Troponin I High Sens 10.9 B-Natriuretic Peptide Total Protein Albumin Vitamin B12 792 COVID-19 (ELEANOR) COVID-19 [facility] Com 02/25/22 02/25/22 02/25/22 01:35 06:46 06:46 WBC 6.8 RBC 4.17 L Hgb 12.2 L Hct 38.1 L MCV 91.4 MCH 29.3 MCHC 32.0 RDW 16.1 H Plt Count 243 MPV 10.2 Immature Gran % (Auto) 0.4 Neut % (Auto) 72.7 Lymph % (Auto) 13.3 L [place] % (Auto) 10.7 Eos % (Auto) 2.2 Baso % (Auto) 0.7 Lymph # (Auto) 0.9 L [place] # (Auto) 0.7 Eos # (Auto) 0.2 Baso # (Auto) 0.1 Abs Immat Gran (auto) 0.03 Absolute Neuts (auto) 5.0 Absolute Nucleated RBC 0.000 Nucleated RBC % (auto) 0.0 PT INR Sodium 141 Potassium 4.0 Chloride 108 Carbon Dioxide 25 Anion Gap 12 BUN 13 Creatinine 0.93 Estim Creat Clear Calc 69.6 Estimated GFR > 60 Random Glucose 109 Estimat Average Glucose 131 Hemoglobin A1c % 6.2 Calcium 8.3 L Total Bilirubin Direct Bilirubin AST ALT Alkaline Phosphatase Troponin I High Sens B-Natriuretic Peptide Total Protein Albumin Vitamin B12 COVID-19 (ELEANOR) COVID-19 Clin Com Discharge Plan Discharge Anticipated Discharge Date/Time: 02/25/22 17:41 Patient Disposition: Home, Self-Care Discharge Diagnosis: Dizziness Referrals: Nancy Alvarado MD [Primary Care Provider] - 1 Week Discharge Medications: New meclizine 12.5 mg tablet 12.5 mg PO BID PRN (Reason: dizziness) Qty: 6 0RF lisinopril 5 mg tablet 5 mg PO DAILY 30 Days Qty: 30 0RF Continued atorvastatin 40 mg Tablet 20 mg PO DAILY sennosides-docusate sodium [Senna Plus] 8.6-50 mg Tablet 1 tab PO BEDTIME PRN (Reason: Constipation) clobetasol 0.05 % Cream 1 appl TOPICAL BID PRN (Reason: Rash) cyanocobalamin (vitamin B-12) 500 mcg Tablet 500 mcg PO DAILY ascorbic acid (vitamin C) 500 mg Tablet 500 mg PO DAILY methotrexate sodium 2.5 mg Tablet 7.5 mg PO FR tamsulosin 0.4 mg Capsule 0.4 mg PO DAILY diltiazem HCl 120 mg Capsule,Extended Release 24 Hr 120 mg PO BID calcium polycarbophil 625 mg Tablet 625 mg PO BID omeprazole 20 mg Capsule,Delayed Release(Dr/Ec) 20 mg PO BID folic acid 1 mg Tablet 1 mg PO DAILY capsaicin 0.025 % Cream 1 appl TOPICAL BID PRN (Reason: Pain) Rx Instructions: do not wash area for at least 30 min after application hydroxyzine HCl 10 mg Tablet 10 mg PO DAILY PRN (Reason: Itching) loratadine 10 mg Tablet 10 mg PO DAILY cholecalciferol (vitamin D3) [Vitamin D3] 25 mcg (1,000 unit) Capsule 25 mcg PO DAILY omega 6-glt-vxi-fish oil [Fish Oil] 1,000 mg (120 mg-180 mg) Capsule 1 cap PO BID dabigatran etexilate 150 mg Capsule 150 mg PO BID Hold Instructions: Resume on 08/21/21. Novolog U-100 Insulin aspart 70 units subcut DAILY PRN (Reason: insulin pump) Rx Instructions: to refill insulin pump gabapentin 300 mg capsule 300 mg PO BID triamcinolone acetonide 0.1 % cream 1 appl topical 1XD PRN (Reason: Itching) hydrocortisone 2.5 % cream 1 appl topical 1XD PRN (Reason: Itching) ketoconazole 2 % cream 1 appl topical 1XD PRN (Reason: Itching) pramoxine 1 % Lotion 1 appl TOPICAL BID PRN (Reason: Rash) ergocalciferol (vitamin D2) 1,000 unit Tablet 1 tab PO DAILY ferrous sulfate 324 mg (65 mg iron) Tablet,Delayed Release (Dr/Ec) 324 mg PO DAILY denosumab 60 mg/mL Syringe 60 mg SUBCUT [id number] Discharge Orders: Discharge Order (Routine); Ordered 02/25/22 Ordered By: Annemarie Pabon Activity on Discharge: As tolerated Stand Alone Forms: Patient Portal Discharge page Care Plan Goals: see below Health Concerns: dizziness related to probable stroke Plan of Treatment: Call to schedule a follow up appointment with your PCP in the next few days Discuss with PCP possibility of increasing to high intensity statin Aspirin not being started due to full anticoagulation with pradaxa Blood pressure not at goal, recommend to start Lisinopril 5 mg daily. Monitor kidney function and blood pressure closely meclizine should not be taken on the same day as hydroxyzine Recommend to resume outpatient Physical Therapy Assessment: see discharge summary Discharge Date/Time: 02/25/22 18:14
--- NOTE | 2022-02-25 17:57 | MHC.STROKE ---
02/24/22 1546 WALK IN C/O 5 DAYS WEAK AND UNSTEADY GAIT. ON PRADAXA. EXCLUDED FROM TPA-ALTEPLASE BASED ON NOAC AND DELAY IN ARRIVAL. HE PASSED SWALLOW SCREEN PRIOR TO PO. STROKE EDUCATION PROVIDED DUE TO MULTIPLE STROKE RISK FACTORS. MRI NEGATIVE FOR STROKE. SEE NEUROLOGY NOTE. PATIENT IS ASKING TO GO HOME. IF PATIENT STAYS, PLEASE DRAW A LIPID PANEL PART OF THE STROKE WORK-UP. I WILL CONTINUE TO FOLLOW.
== END 2022-02-25 18:14 | disposition home or self-care (01) | DRG 72 ==
LOC: HO.ED 02-25 00:39 → HO.EDOVER 02-25 01:09 → HO.S3 02-25 13:55
PROVIDERS: Admitting Provider Student in an Organized Health Care Education/Training Program; Emergency Provider Emergency Medicine Emergency Medical Services; PCP Internal Medicine; Visit Provider Physician Assistant Medical
DX: G93.9 Disorder of brain, unspecified (principal); G31.9 Degenerative disease of nervous system, unspecified; E11.9 Type 2 diabetes mellitus without complications; E78.2 Mixed hyperlipidemia; R27.0 Ataxia, unspecified; K21.9 Gastro-esophageal reflux disease without esophagitis; N40.0 Benign prostatic hyperplasia without lower urinary tract symptoms; Z20.822 Contact with and (suspected) exposure to COVID-19; Z79.4 Long term (current) use of insulin; Z79.01 Long term (current) use of anticoagulants; Z79.899 Other long term (current) drug therapy
CPT/HCPCS: 36415; 70496; 70498; 70551; 71046; 80048; 80076; 82607; 83036; 83880; 84484; 85025; 85610; 87635; 93005; 97161; 99285; Q9967

== ENCOUNTER 2022-06-07 08:00 | Outpatient (REF) | payer OTHER, SELFPAY ==
--- NOTE | ~2022-06-07 | US_ITS ---
PROCEDURE: ULTRASOUND-GUIDED CLINICAL INFORMATION: Nodular midpole right thyroid lobe. COMPARISON: None TECHNIQUE: Following explaining ultrasound-guided fine-needle aspiration of right lower pole nodule procedure, benefits and risk, a written consent was obtained. Patient was placed supine with head extended on ultrasound stretcher. Preliminary ultrasound imaging was obtained through the right neck. An optimal site was selected and marked on the skin for the biopsy. The area was then cleaned and draped in the usual sterile manner. 1% lidocaine was administered at puncture site. Under sterile ultrasound guidance a 25-gauge needle attached to syringe was advanced into the right midpole nodule and a 3 pass fine-needle biopsy was performed. After confirming the pathologist that adequate tissue was visualized, the biopsy was terminated. Complete hemostasis achieved at puncture site. Patient tolerated procedure extremely well. Sterile Band-Aid applied postprocedure. FINDINGS: On pulmonary ultrasound imaging there is a right midpole well-defined thyroid nodule measuring 2.3 x 2.1 x 1.80). A 3 pass fine-needle aspiration biopsy of the right midpole nodule was done under ultrasound guidance. US/US guided fine needle asp IMPRESSION: Successful ultrasound-guided fine-needle biopsy of right midpole nodule was performed.
[2022-06-07] MEDS: Lidocaine HCl 1 % MPF 5 ML VIAL SUBCUT (09:21)
== END 2022-06-07 08:01 | disposition home or self-care (01) ==
LOC: HO.US 08:00
PROVIDERS: Visit Provider Internal Medicine
DX: E04.1 Nontoxic single thyroid nodule (principal)
CPT/HCPCS: 10005; 88172; 88173; 88177; 88305

== ENCOUNTER 2023-05-12 17:17 | Inpatient (IN) | payer OTHER, SELFPAY ==
--- NOTE | ~2023-05-12 | XR_ITS ---
EXAMINATION: XR CHEST CLINICAL INFORMATION: Fatigue, fall and cough. COMPARISON: None available. TECHNIQUE: Frontal view of the chest was obtained. FINDINGS: The lungs are well expanded without acute consolidation. There is increased bilateral interstitial markings similar previous study. The heart size and pulmonary vascularity is normal. No gross bony abnormality seen. XR/XR chest 1V IMPRESSION: 1. No acute process seen. 2. Chronic interstitial lung changes. No change from 02/24/2022
--- NOTE | ~2023-05-12 | FL_ITS ---
EXAMINATION: XR FLUOROSCOPY WITH IMAGES CLINICAL INFORMATION: Nail placement COMPARISON: Knee x-ray on 05/12/2023 TECHNIQUE: Fluoroscopy Supervised By: Dr. Brandon Beaver. Fluoroscopy Time: 1.4 minutes. Cumulative Dose: 19 mGy. DAP: 0.0247 mGym2. Images: 7. FINDINGS: Fluoroscopy performed during retrograde intramedullary nail placement of the femur. FL/FL guidance in OR IMPRESSION: Fluoroscopy performed by the orthopedics department. Please see the operative report for additional information.
--- NOTE | ~2023-05-12 | CT_ITS ---
EXAMINATION: CT HEAD WITHOUT CONTRAST CT CERVICAL SPINE WITHOUT CONTRAST CLINICAL INFORMATION: Fall with head strike. COMPARISON: None TECHNIQUE: CT of the head and cervical spine were performed without intravenous contrast. Multiplanar reformats were rendered and reviewed. This CT examination was performed using dose optimization techniques as appropriate, variously including the following: *Automated exposure control *Adjustment of mA and/or kV according to patient size (this includes techniques or standardized protocols for targeted exams where dose is matched to indication/reason for exam; i.e. extremities or head) *Use of iterative reconstruction technique DLP: 1081 mGy-cm. FINDINGS: CT head: There is no intracranial hemorrhage, extra-axial collection, mass effect, or territorial infarction. The ventricles are normal in size or hydrocephalus. There is mild degree of brain parenchymal volume loss. There is no hydrocephalus. The calvarium is intact without fracture. Polypoid paranasal sinus mucosal thickening is noted in the setting of prior functional endoscopic sinus surgery changes. A prominent polyp is also seen within the nasopharynx. A 1.1 cm hyperdense nodule is seen within the superficial and anterior aspect of the left parotid gland, slightly increased in size since 2021. CT cervical spine: The cervical vertebral bodies entered normal heights and alignment. No fractures seen. Advanced degenerative changes are seen at the atlantodental articulation. The facet joints are normally aligned. Multilevel facet arthropathy is noted. There is no significant narrowing of the spinal canal. There is approximately moderate right-sided neural foraminal stenosis at C3-C4. The cervical soft tissues are within normal limits. There is a 1.7 cm nodule within the right lobe of the thyroid gland (a prior thyroid ultrasound has been performed). CT/CT cervical spine wo IV con IMPRESSION: CT HEAD: 1. No acute intracranial abnormality. 2. Incidentally noted 1.1 cm hyperdense nodule within the superficial and anterior aspect of the left parotid gland, slightly increased in size since 2021. 3. Polyps are seen within the nasal cavities. An additional prominent polyp is seen within the nasopharynx. Consider ENT follow-up. CT CERVICAL SPINE: No cervical spine fracture or traumatic malalignment. Multilevel degenerative spondylosis.
--- NOTE | ~2023-05-12 | XR_ITS ---
EXAMINATION: XR KNEE, LEFT CLINICAL INFORMATION: Fall, swelling. COMPARISON: None available. TECHNIQUE: Three views of the left knee. FINDINGS: Total left knee arthroplasty. Complex, comminuted distal femoral periprosthetic fracture with mild impaction. Decreased bone mineralization. Significant soft tissue swelling and large joint effusion. Severe vascular calcifications. XR/XR knee LT 2V IMPRESSION: Comminuted distal femoral periprosthetic fracture.
[2023-05-12 17:32] VITALS: BP 101/59; PULSE 85; RESP 16; TEMP 36.4; O2SAT 92; BMI 28.3
--- NOTE | 2023-05-12 17:35 | ECG_ITS ---
Test Reason : SYNCOPE Blood Pressure : / mmHG Vent. Rate : 080 BPM Atrial Rate : 000 BPM P-R Int : 000 ms QRS Dur : 094 ms QT Int : 480 ms P-R-T Axes : 000 -10 025 degrees QTc Int : 553 ms Atrial fibrillation with premature ventricular or aberrantly conducted complexes Prolonged QT Abnormal ECG When compared with ECG of 24-FEB-2022 17:34, QT has lengthened Referred By: Jess Garcia Electronically Signed By:LAUREL MARTINEZ MD
[2023-05-12 18:11] LABS: MANUAL DIFF FLAG NO
[2023-05-12 18:15] LABS: Basophils Absolute Auto 0.1 X10*3/uL (0.0-0.2); Basophils Percent Auto 0.5 % (0-2); Eosinophils Absolute Auto 0.1 X10*3/uL (0.0-0.4); Eosinophils Percent Auto 0.5 % (0-4); Hemoglobin 12.8 g/dl (14.0-18.0); Imm Gran Abs Auto 0.06 X10*3/uL (0.00-0.03); Imm Gran Pct Auto 0.4 % (0.0-0.4); Lymphocytes Percent Auto 6.2 % (20-40); Mean Corpuscular HGB Conc 32.8 g/dl (31.0-36.0); Mean Corpuscular Hemoglobin 29.2 pg (27.0-33.0); Mean Corpuscular Volume 88.8 fL (80.0-98.0); Monocytes Absolute Auto 0.8 X10*3/uL (0.1-1.2); Monocytes Percent Auto 4.9 % (2-11); Neutrophils Absolute Auto 13.8 x10*3/uL (2.0-8.3); Neutrophils Percent Auto 87.5 % (45-73); Platelet Count 253 X10*3/uL (160-400); Red Blood Count 4.39 X10*6/uL (4.60-5.80); Red Cell Distribution Width 16.1 % (11.0-16.0); White Blood Count 15.8 X10*3/uL (4.8-10.8)
[2023-05-12 18:21] LABS: INTERNATIONAL NORM RATIO 1.1 (0.9-1.1); Prothrombin Time 13.2 SEC (11.1-13.3)
[2023-05-12 18:29] LABS: Alanine Aminotransferase 15 U/L (0-40); Alkaline Phosphatase 81 U/L (39-117); Anion Gap 12 (12-20); Aspartate Amino Transferase 29 U/L (5-37); Blood Urea Nitrogen 13 mg/dL (9-16); Carbon Dioxide 28 mmol/L (22-29); Chloride 102 mmol/L (96-108); Creatinine Clr Calc Pharmacy 59.1; Estimated Glomerular Filt Rate > 60; Glucose Random 100 mg/dL (60-115); Sodium 138 mmol/L (135-145)
[2023-05-12 18:30] LABS: COVID-19 Test Negative (Negative); IDNOW Serial# 152EDE1D; IDNOW Serial# 9DB6401D; Influenza A Negative (Negative); Influenza B2 Negative (Negative)
--- NOTE | 2023-05-12 18:30 | ED.GENADULT ---
HPI - General Adult General Chief complaint: Syncope Stated complaint: Lft knee pain Time Seen by Provider: 05/12/23 17:32 Source: patient, EMS and RN notes reviewed Mode of arrival: EMS Limitations: no limitations History of Present Illness HPI narrative: Patient is an 88-year-old male with history of DM, HTN, afib, BPH, GERD, L knee replacement presenting to the emergency department with complaint of left knee pain and swelling after syncopal episode and fall at home earlier today. Patient reports that he felt mild dizziness this morning but that his glucose level was normal, around 110. States around lunchtime he felt more fatigued than normal. States he typically goes out eat for lunch on but was too tired to do this today and ended up taking a nap at home instead. He ended up having a syncopal episode at home, ASSURANCE ASSOCIATE was there but did not witness fall. Unknown headstrike, but patient placed in C-collar by EMS. ASSURANCE ASSOCIATE reports two additional episodes of syncope after being moved to a chair in his home. Patient denies headache or vision changes. Denies chest pain, palpitations, dyspnea. Denies abdominal pain, nausea, vomiting or diarrhea. Denies recent urinary frequency or dysuria. EMS found glucose level to be 48 on arrival, patient was given one tube of oral glucose by EMS with improvement of glucose to 78. MD complaint: syncope, knee pain Onset (ago): hour(s) Location: left and lower extremity Radiation: non-radiation Severity: moderate Quality: aching Pain Consistency: constant Relieving factors: rest Exacerbating factors: movement Associated symptoms: other (dizziness, fatigue) Treatments prior to arrival: other (oral glucose from EMS) Related Data Home Medications Medication Instructions Recorded Confirmed Novolog U-100 Insulin aspart 70 units subcut DAILY PRN insulin 08/12/21 02/25/22 pump ascorbic acid (vitamin C) 500 mg 500 mg PO DAILY 08/12/21 02/25/22 tablet atorvastatin 40 mg tablet 20 mg PO DAILY 08/12/21 02/25/22 calcium polycarbophil 625 mg tablet 625 mg PO BID 08/12/21 02/25/22 capsaicin 0.025 % topical cream 1 appl topical BID PRN Pain 08/12/21 02/25/22 cholecalciferol (vitamin D3) 25 25 mcg PO DAILY 08/12/21 02/25/22 mcg (1,000 unit) capsule (Vitamin D3) clobetasol 0.05 % topical cream 1 appl topical BID PRN Rash 08/12/21 02/25/22 cyanocobalamin (vitamin B-12) 500 500 mcg PO DAILY 08/12/21 02/25/22 mcg tablet dabigatran etexilate 150 mg capsule 150 mg PO BID 08/12/21 02/25/22 diltiazem HCl 120 mg capsule,24 120 mg PO BID 08/12/21 02/25/22 hr,extended release folic acid 1 mg tablet 1 mg PO DAILY 08/12/21 02/25/22 hydroxyzine HCl 10 mg tablet 10 mg PO DAILY PRN Itching 08/12/21 02/25/22 loratadine 10 mg tablet 10 mg PO DAILY 08/12/21 02/25/22 methotrexate sodium 2.5 mg tablet 7.5 mg PO FR 08/12/21 02/25/22 omega 1-xhn-esd-fish oil 1,000 mg 1 cap PO BID 08/12/21 02/25/22 (120 mg-180 mg) capsule (Fish Oil) omeprazole 20 mg capsule,delayed 20 mg PO BID 08/12/21 02/25/22 release sennosides 8.6 mg-docusate sodium 1 tab PO BEDTIME PRN Constipation 08/12/21 02/25/22 50 mg tablet (Senna Plus) tamsulosin 0.4 mg capsule 0.4 mg PO DAILY 08/12/21 02/25/22 denosumab 60 mg/mL subcutaneous 60 mg subcut [id number] 02/25/22 02/25/22 syringe ergocalciferol (vitamin D2) 1,000 1 tab PO DAILY 02/25/22 02/25/22 unit tablet ferrous sulfate 324 mg (65 mg 324 mg PO DAILY 02/25/22 02/25/22 iron) tablet,delayed release gabapentin 300 mg capsule 300 mg PO BID 02/25/22 02/25/22 hydrocortisone 2.5 % topical cream 1 appl topical 1XD PRN Itching 02/25/22 02/25/22 ketoconazole 2 % topical cream 1 appl topical 1XD PRN Itching 02/25/22 02/25/22 pramoxine 1 % lotion 1 appl topical BID PRN Rash 02/25/22 02/25/22 triamcinolone acetonide 0.1 % 1 appl topical 1XD PRN Itching 02/25/22 02/25/22 topical cream Previous Rx's Medication Instructions Recorded lisinopril 5 mg tablet 5 mg PO DAILY 30 days #30 tabs 02/25/22 meclizine 12.5 mg tablet 12.5 mg PO BID PRN dizziness #6 02/25/22 tabs Allergies Allergy/AdvReac Type Severity Reaction Status Date / Time No Known Allergies Allergy Unverified 01/17/20 18:13 [No Known Allergies*] Review of Systems Review of Systems: As per HPI. Yes all other systems are reviewed and are negative PMFSH Past Medical History Onset Date is defined in the Problem List Problems that require an onset date and time if occurred within 24 hrs of arrival to the ED Aortic Dissection and Rupture; Neurologic impairment; Cardiopulmonary Arrest; Endotracheal Intubation; Insertion or Replacement of Mechanical Circulatory Assist Device Medical History Atrial fibrillation Borderline hypertension Diabetes Social History Social History Household Members: None Housing: House Do you presently have visiting nurse or other home services: Yes Patient Tobacco Use Status: Never used Tobacco Smoked in Last 30 Days: No e-Cigarette/Vaping Use: Never Used Second Hand Smoke Exposure: No Use of substances other than those prescribed or required for medical reasons: No Advance Directives: Yes Advance Directives on File: Yes Advance Directives Date on File: 02/25/22 service: Yes Current occupational status: retired Physical Exam ED Vital Signs: Vital Signs - 24 hr 05/12/23 17:32 05/12/23 19:46 05/12/23 19:46 Temperature 97.6 F Pulse Rate 85 82 Respiratory Rate 16 16 Blood Pressure 101/59 L 95/44 L Pulse Oximetry 92 94 94 Oxygen Delivery Method Room Air Room Air Room Air BMI result Body Mass Index 28.3 Vital signs have been reviewed and appear to be correct. Blood pressure normal. Heart rate normal. Respiratory rate normal. Temperature normal. Oxygen saturation normal. Const General: cooperative, no acute distress, well developed, alert and awake Orientation/consciousness: patient oriented x3 HENMT Head: Yes normocephalic and Yes atraumatic Ears: hearing grossly normal bilaterally, TM's normal bilaterally and EAC's normal General nose exam: Normal external nose present, Normal nasal mucous membranes and turbinates present and Normal septum present Face and sinus: Yes normal facial exam Mouth: Normal oral and palatal mucosa present Throat: Yes posterior oropharynx normal and Yes uvula midline Eyes Pupils: Equal, round and reactive pupils present Chest Chest palpation & inspection: normal inspection of the chest and normal palpation of entire chest wall Resp Effort & Inspection: normal respiratory effort Auscultation: clear to auscultation bilaterally Cardio Rate: regular rate Rhythm: abnormal rhythm irregularly irregular Heart sounds: S1 normal heart sound present and S2 normal heart sound present GI Inspection: Yes normal to inspection Palpation (GI): Soft to palpation and nontender Auscultation: normoactive bowel sounds General: Yes no CVA tenderness Back/Spine/Pelvis Back: no CVA tenderness Cervical Spine: collar present Thoracic/Lumbar Spine: thoracic and lumbar spine normal to inspection, No paraspinal muscle tenderness, No thoracic spinal tenderness and No lumbar spinal tenderness Pelvis: no pain with anterior-posterior compression and no pain with lateral compression Skin General skin exam: elasticity normal and turgor normal Trauma: other (superficial skin tear L dorsal hand over 5th metacarpal) Neuro General: patient oriented x3, tone normal, Normal light touch and pain sensation, no focal motor deficits and CN's II-XI intact bilaterally Cranial nerves: Yes Equal, round and reactive pupils present Extrem General: Yes normal exam except as noted Left lower extremity: knee Details: tenderness Location: of the distal upper leg (diffuse), swelling Location: of the distal upper leg (diffuse), abnormal ROM Details: held in an abnormal fashion Details: in extension and crepitus Location: at the distal femur and foot Details: vascular exam Details: dorsalis pedis pulse present and posterior tibial pulse present Medications Administered Generic Name Dose Route Start Last Admin Trade Name Freq PRN Reason Stop Dose Admin Sodium Chloride 1,000 mls @ 999 mls/hr 05/12/23 20:45 05/12/23 20:56 Ns IV 05/12/23 21:45 999 mls/hr .[id number] JOHN Administration Discontinued Medications Generic Name Dose Route Start Last Admin Trade Name Freq PRN Reason Stop Dose Admin Fentanyl 25 mcg 05/12/23 20:32 05/12/23 20:55 Fentanyl Citrate/Pf 100 Mcg/2 Ml Vial IVPUSH 05/12/23 20:33 25 mcg ONCE ONE Administration Protocol Medical Decision Making Medical Decision Making [facility] Narrative: Patient is an 88-year-old male with history of DM, HTN, afib, BPH, GERD, L knee replacement presenting to the emergency department with complaint of left knee pain and swelling after syncopal episode and fall at home earlier today. On exam patient is awake, A+Ox3, VS WNL, afebrile, normal neurological exam without focal deficits, physical exam findings as above. Given reported symptoms and physical exam findings, initial differential includes left knee fracture/hardware derangement, hypoglycemia, other electrolyte abnormalities, ICH, skull fracture, cervical spine fracture, ACS, UTI, pneumonia, viral illness. Do not suspect sepsis. Labs notable for leukocytosis with left shift, chronic anemia, no significant electrolyte abnormalities, troponin 19.8, will repeat in 3 hours. EKG shows atrial fibrillation with PVCs. X-ray left knee notable for complex comminuted distal femur fracture. No evidence of pneumonia on chest x-ray. No acute intracranial abnormalities on CT head. No c-spine fractures or malalignment. My interpretation is in agreement with the radiologist's interpretation. Results discussed with Dr. Do from orthopedics, patient to remain NPO after midnight, non weightbearing, likely surgery tomorrow. No delta on repeat troponin. Case discussed with Dr. Almendarez who accepts admission. Differential Diagnosis Differential Diagnoses: The differential diagnosis associated with the presentation includes As per [facility] Admission/Observation Consideration of admission/observation: Escalation of care including admission/observation considered Consult Healthcare Provider Management of the patient was discussed with: Hospitalist (Erickson Lopez) and Centrifugal Separator (Dr. Beaver) Lab Data [facility] Lab Attestation statement: I reviewed the patient's lab results. As per [facility]. 05/12/23 18:05 05/12/23 18:05 Labs: Lab Results 05/12/23 05/12/23 05/12/23 Range/Units 18:05 20:00 20:50 WBC 15.8 H (4.8-10.8) X10*3/uL RBC 4.39 L (4.60-5.80) X10*6/uL Hgb 12.8 L (14.0-18.0) g/dl Hct 39.0 L (42.0-52.0) % MCV 88.8 (80.0-98.0) fL MCH 29.2 (27.0-33.0) pg MCHC 32.8 (31.0-36.0) g/dl RDW 16.1 H (11.0-16.0) % Plt Count 253 (160-400) X10*3/uL MPV 10.0 (9.4-12.4) fL Immature Gran % (Auto) 0.4 (0.0-0.4) % Neut % (Auto) 87.5 H (45-73) % Lymph % (Auto) 6.2 L (20-40) % [place] % (Auto) 4.9 (2-11) % Eos % (Auto) 0.5 (0-4) % Baso % (Auto) 0.5 (0-2) % Lymph # (Auto) 1.0 L (1.2-4.9) X10*3/uL [place] # (Auto) 0.8 (0.1-1.2) X10*3/uL Eos # (Auto) 0.1 (0.0-0.4) X10*3/uL Baso # (Auto) 0.1 (0.0-0.2) X10*3/uL Abs Immat Gran (auto) 0.06 H (0.00-0.03) X10*3/uL Absolute Neuts (auto) 13.8 H (2.0-8.3) x10*3/uL Absolute Nucleated RBC 0.000 (0.0-0.012) X10*3/uL Nucleated RBC % (auto) 0.0 (0.0-0.2) /100WBC PT 13.2 (11.1-13.3) SEC INR 1.1 (0.9-1.1) Sodium 138 (135-145) mmol/L Potassium 4.0 (3.3-5.1) mmol/L Chloride 102 (96-108) mmol/L Carbon Dioxide 28 (22-29) mmol/L Anion Gap 12 (12-20) BUN 13 (9-16) mg/dL Creatinine 1.04 (0.5-1.4) mg/dL Estim Creat Clear Calc 59.1 Estimated GFR > 60 POC Glucose 125 H (60-115) mg/dL Random Glucose 100 (60-115) mg/dL Calcium 9.0 D (8.4-10.2) mg/dL Total Bilirubin 1.0 (0.0-1.0) mg/dL AST 29 (5-37) U/L ALT 15 (0-40) U/L Alkaline Phosphatase 81 (39-117) U/L Troponin I High Sens 19.8 28.6 (<3.5-35.0) ng/L Total Protein 6.0 L (6.5-8.0) g/dL Albumin 3.0 L (3.5-5.0) g/dL COVID-19 (ELEANOR) Negative (Negative) COVID-19 Clin Com See Note Influenza Type A (ALEIDA) Negative (Negative) Influenza Type B (ALEIDA) Negative (Negative) Influenza A & B Note See Note Independent Interpretation I performed an independent interpretation of an: Plain X-Ray and CT Scan Interpretation: comminuted distal left femur fracture on x-ray no evidence of pneumonia on chest xray No acute intracranial abnormalities or cervical spinal fractures Radiology Impression Discussion of test interpretation with radiology: I have reviewed the radiologist's reading. Radiologist Impression: FINDINGS: Total left knee arthroplasty. Complex, comminuted distal femoral periprosthetic fracture with mild impaction. Decreased bone mineralization. Significant soft tissue swelling and large joint effusion. Severe vascular calcifications. XR/XR knee LT 2V IMPRESSION: Comminuted distal femoral periprosthetic fracture. CT/CT head/brain wo IV con IMPRESSION: CT HEAD: 1. No acute intracranial abnormality. 2. Incidentally noted 1.1 cm hyperdense nodule within the superficial and anterior aspect of the left parotid gland, slightly increased in size since 2021. 3. Polyps are seen within the nasal cavities. An additional prominent polyp is seen within the nasopharynx. Consider ENT follow-up. CT CERVICAL SPINE: No cervical spine fracture or traumatic malalignment. Multilevel degenerative spondylosis. XR/XR chest 1V IMPRESSION: 1. No acute process seen. 2. Chronic interstitial lung changes. No change from 02/24/2022 Independent Historian Clinical information obtained from an independent historian. History obtained from or confirmed by: Other ([facility]) External Record Review External record reviewed: Inpatient record, Office record and Outpatient record Discharge Plan Discharge Patient Disposition: Admitted As Inpatient Prescriptions: No Action atorvastatin 40 mg Tablet 20 mg PO DAILY sennosides-docusate sodium [Senna Plus] 8.6-50 mg Tablet 1 tab PO BEDTIME PRN (Reason: Constipation) clobetasol 0.05 % Cream 1 appl TOPICAL BID PRN (Reason: Rash) cyanocobalamin (vitamin B-12) 500 mcg Tablet 500 mcg PO DAILY ascorbic acid (vitamin C) 500 mg Tablet 500 mg PO DAILY methotrexate sodium 2.5 mg Tablet 7.5 mg PO FR tamsulosin 0.4 mg Capsule 0.4 mg PO DAILY diltiazem HCl 120 mg Capsule,Extended Release 24 Hr 120 mg PO BID calcium polycarbophil 625 mg Tablet 625 mg PO BID omeprazole 20 mg Capsule,Delayed Release(Dr/Ec) 20 mg PO BID folic acid 1 mg Tablet 1 mg PO DAILY capsaicin 0.025 % Cream 1 appl TOPICAL BID PRN (Reason: Pain) Rx Instructions: do not wash area for at least 30 min after application hydroxyzine HCl 10 mg Tablet 10 mg PO DAILY PRN (Reason: Itching) loratadine 10 mg Tablet 10 mg PO DAILY cholecalciferol (vitamin D3) [Vitamin D3] 25 mcg (1,000 unit) Capsule 25 mcg PO DAILY omega 3-ouc-twx-fish oil [Fish Oil] 1,000 mg (120 mg-180 mg) Capsule 1 cap PO BID dabigatran etexilate 150 mg Capsule 150 mg PO BID Hold Instructions: Resume on 08/21/21. Novolog U-100 Insulin aspart 70 units subcut DAILY PRN (Reason: insulin pump) Rx Instructions: to refill insulin pump gabapentin 300 mg capsule 300 mg PO BID triamcinolone acetonide 0.1 % cream 1 appl topical 1XD PRN (Reason: Itching) hydrocortisone 2.5 % cream 1 appl topical 1XD PRN (Reason: Itching) ketoconazole 2 % cream 1 appl topical 1XD PRN (Reason: Itching) pramoxine 1 % Lotion 1 appl TOPICAL BID PRN (Reason: Rash) ergocalciferol (vitamin D2) 1,000 unit Tablet 1 tab PO DAILY ferrous sulfate 324 mg (65 mg iron) Tablet,Delayed Release (Dr/Ec) 324 mg PO DAILY denosumab 60 mg/mL Syringe 60 mg SUBCUT [id number] meclizine 12.5 mg tablet 12.5 mg PO BID PRN (Reason: dizziness) Qty: 6 0RF lisinopril 5 mg tablet 5 mg PO DAILY 30 Days Qty: 30 0RF
[2023-05-12 18:36] LABS: Troponin-I High Sensitivity 19.8 ng/L (<3.5-35.0)
[2023-05-12 19:46] VITALS: BP 95/44; PULSE 82; RESP 16; O2SAT 94
[2023-05-12 20:04] LABS: Glucose, Whole Blood 125 mg/dL (60-115)
--- NOTE | 2023-05-12 20:20 | PC.NURSE ---
C collar removed per provider, given water and jello. ice applied to L knee. provider at bedside discussing femur fracture and pain
[2023-05-12] MEDS: fentaNYL citrate/PF 100 MCG/2 ML VIAL 25 MCG IVPUSH (20:55)
[2023-05-12] MEDS: 0.9 % Sodium Chloride 1,000 ML 999 ML IV (20:56)
--- NOTE | 2023-05-12 21:05 | PC.NURSE ---
provider aware of low BP, pt drinking fluids, IV placed, NS infusing
[2023-05-12 21:15] LABS: Troponin-I High Sensitivity 28.6 ng/L (<3.5-35.0)
[2023-05-12 21:48] VITALS: BP 110/50; PULSE 89; RESP 17; TEMP 37; O2SAT 94
[2023-05-12] MEDS: fentaNYL citrate/PF 100 MCG/2 ML VIAL 50 MCG IVPUSH (21:49)
--- NOTE | 2023-05-12 22:14 | PC.NURSE ---
hospitalist at bedside
--- NOTE | 2023-05-12 22:42 | PHA.MEDREC ---
Addendum entered by Rashaun Renner 05/13/23 09:35: [facility] Diltiazem and Methotrexate were not on list, so taken off med rec. Gabapentin 300mg TID was on list, so left on med rec. Original Note: Pharmacy Consult ? Medication Reconciliation Pharmacy has completed the medication reconciliation.Verified medication from Pts phone and croos referenced through [facility] Liliam [id number]
--- NOTE | 2023-05-12 22:56 | PC.NURSE ---
pt repositioned, EMS blankets removed from underneath pt, urinal placed at bedside, ice placed on knee. provider aware of low BP, will admin 500ml NS per provider. this RN also questioned the orders for dextrose and glucagon entered STAT by provider. stated she meant to put that order in as an order to check POC q6h. pt will be self managing insulin via pump per provider. pt now resting comfortably with eyes closed, breathing even and unlabored, no apparent distress at this time. aware of plan of care.
--- NOTE | 2023-05-12 23:29 | P.HPHOSP_ITS ---
History of Present Illness Date of Service: 05/12/23 Attending physician on admission: Angelic Lopez Chief Complaint: Fall Justnio Johnson is 88 years old man with past medical history significant for atrial fibrillation (Watchman implanted) only on aspirin, type 2 diabetes mellitus on insulin pump, hyperlipidemia, chronic lung disease, GERD and essential hypertension was brought to the emergency department via EMS after he sustained a fall landing on his left knee. He denied head trauma. He mentioned that he was feeling lightheaded before falling down. He was found to have a blood glucose in the low 50s when the fall happened. He denied loss of consciousness, speech difficulty, headache, chest pain or palpitations. He has mild shortness of breath which he attributes to his chronic lung disease. He denied cough, fever or chills. He denies any gastrointestinal or genitourinary symptoms. He denied tobacco smoking, alcohol abuse or illicit drug use. In the ED, he was found to have stable vital signs., however, his systolic blood pressure is now in the 80s. There is no tachycardic and oxygen saturation is normal on room air. Blood workup is remarkable for leukocytosis of 15.8, hemoglobin 12.8. There are no electrolyte imbalances. Renal function is normal. Glucose is 125. Viral testing for COVID-19 and influenza are negative. Left knee x-ray showed acute imminent distal femur motor periprosthetic fracture. Head and C-spine CT scans are normal. CXR is negative for acute processes; it did showed interstitial lung changes. ECG showed atrial fibrillation with PVCs. QTC is prolonged (553 millisecond). ED tx: Fentanyl 75 mcg total IV. IVFs. According to ED provider case has been discussed with Orthopedic surgery Service. Review of Systems 2 Review of Systems: All 12 systems were reviewed and normal except as noted in HPI. [facility] Medical History Atrial fibrillation Borderline hypertension Diabetes Social History Household Members: None Housing: House Do you presently have visiting nurse or other home services: Yes Patient Tobacco Use Status: Never used Tobacco Smoked in Last 30 Days: No e-Cigarette/Vaping Use: Never Used Second Hand Smoke Exposure: No Use of substances other than those prescribed or required for medical reasons: No Advance Directives: Yes Advance Directives on File: Yes Advance Directives Date on File: 02/25/22 service: Yes Current occupational status: retired Meds Allergies Allergy/AdvReac Type Severity Reaction Status Date / Time No Known Allergies Allergy Unverified 01/17/20 18:13 [No Known Allergies*] Active Medications: Current Medications Acetaminophen (Acetaminophen Supp 325 Mg Supp.Rect) 975 mg NM Q6H PRN PRN Reason: Pain, Mild (Pain Scale 1-3) Heparin Sodium (Porcine) (Heparin Sodium,Porcine 5,000 Unit/Ml Vial) 5,000 unit SUBCUT Q12H JOHN Hydromorphone HCl (Hydromorphone Hcl 1 Mg/Ml Syringe) 0.5 mg IVPUSH Q4H PRN; Protocol PRN Reason: Pain, Severe (Pain Scale 7-10) Sodium Chloride (0.9 % Sodium Chloride Flush 3 Ml Syringe) 3 ml IVFLUSH QSHIFT JOHN Home Medications Medication Instructions Recorded Confirmed Last Taken Type Novolog U-100 Insulin aspart See Rx Instructions .Route 08/12/21 05/12/23 02/25/22 History .COMPLEX PRN insulin pump ascorbic acid (vitamin C) 500 mg 500 mg PO DAILY 08/12/21 05/12/23 02/25/22 History tablet atorvastatin 40 mg tablet 20 mg PO DAILY 08/12/21 05/12/23 02/24/22 History cholecalciferol (vitamin D3) 25 25 mcg PO DAILY 08/12/21 05/12/23 02/24/22 History mcg (1,000 unit) capsule (Vitamin D3) cyanocobalamin (vitamin B-12) 500 500 mcg PO DAILY 08/12/21 05/12/23 02/25/22 History mcg tablet diltiazem HCl 120 mg capsule,24 120 mg PO BID 08/12/21 02/25/22 02/25/22 History hr,extended release folic acid 1 mg tablet 1 mg PO DAILY 08/12/21 05/12/23 02/25/22 History hydroxyzine HCl 10 mg tablet 10 mg PO DAILY PRN Itching 08/12/21 05/12/23 Unknown History loratadine 10 mg tablet 10 mg PO DAILY 08/12/21 05/12/23 02/24/22 History omega 8-bqr-cdl-fish oil 1,000 mg 1 cap PO BID 08/12/21 05/12/23 02/25/22 History (120 mg-180 mg) capsule (Fish Oil) omeprazole 20 mg capsule,delayed 20 mg PO BID 08/12/21 05/12/23 02/25/22 History release sennosides 8.6 mg-docusate sodium 1 tab PO BEDTIME PRN Constipation 08/12/21 05/12/23 02/24/22 History 50 mg tablet (Senna Plus) tamsulosin 0.4 mg capsule 0.4 mg PO DAILY 08/12/21 05/12/23 02/24/22 History denosumab 60 mg/mL subcutaneous 60 mg subcut [id number] 02/25/22 05/12/23 Unknown History syringe Lactobacillus acidophilus 1 cap PO DAILY 05/12/23 05/12/23 Unknown History albuterol 90 mcg/actuation aerosol 2 mcg inhalation Q6H PRN Shortness 05/12/23 05/12/23 Unknown History inhaler Of Breath Or Wheezing aspirin 81 mg tablet 81 mg PO DAILY 05/12/23 05/12/23 Unknown History biotin 500 mcg capsule 1 mg PO DAILY 05/12/23 05/12/23 Unknown History calcium citrate 200 mg (950 mg) 600 mg PO BID 05/12/23 05/12/23 Unknown History tablet fluticasone propionate 50 2 spray intranasal DAILY 05/12/23 05/12/23 Unknown History mcg/actuation nasal spray,suspension gabapentin 600 mg tablet 300 mg PO BID 05/12/23 Unknown History hydrochlorothiazide 25 mg tablet 25 mg PO DAILY 05/12/23 05/12/23 Unknown History ipratropium 0.5 mg-albuterol 3 mg 3 ml inhalation TID PRN Shortness 05/12/23 05/12/23 Unknown History (2.5 mg base)/3 mL nebulization Of Breath Or Wheezing soln losartan 25 mg tablet 25 mg PO DAILY 05/12/23 05/12/23 Unknown History meclizine 25 mg tablet 25 mg PO TID 05/12/23 05/12/23 Unknown History methotrexate sodium 2.5 mg tablet 7.5 mg PO QWEEK 05/12/23 Unknown History multivitamin 1 tab PO DAILY 05/12/23 05/12/23 Unknown History Physical Exam 2 Vital Signs and Narrative: Vital Signs: Last Vital Signs Temp 98.6 F 05/12/23 21:48 Pulse 89 05/12/23 21:48 Resp 17 05/12/23 21:48 BP 110/50 L 05/12/23 21:48 Pulse Ox 94 05/12/23 21:48 O2 Del Method Room Air 05/12/23 21:48 BMI result Body Mass Index 28.3 Constitutional - Awake and Alert, No apparent distress. Pleasant. HEENT - PERRLA, EOMI Heart - irregular rhythm. Normal rate. No murmurs. Respiratory - Normal lung expansion, Normal respiratory effort, No respiratory distress, CTA bilaterally Gastrointestinal - NT / ND; +BS; No rebound or guarding Extremities - Left knee distal thigh mildly swollen + effusion. Limited ROM due to pain. No hematomas noted. No open wounds. Right leg: No edema or tenderness. Distal pulse ox intact. Skin - Warm/Dry Neurological - Alert & oriented x3. Psychological - Appropriate affect Results Labs 05/12/23 18:05 05/12/23 18:05 Labs: Laboratory Results - last 24 hr 05/12/23 05/12/23 18:05 20:00 MCV 88.8 MCH 29.2 MCHC 32.8 RDW 16.1 H Plt Count 253 MPV 10.0 Immature Gran % (Auto) 0.4 Neut % (Auto) 87.5 H Lymph % (Auto) 6.2 L [place] % (Auto) 4.9 Eos % (Auto) 0.5 Baso % (Auto) 0.5 Lymph # (Auto) 1.0 L [place] # (Auto) 0.8 Eos # (Auto) 0.1 Baso # (Auto) 0.1 Abs Immat Gran (auto) 0.06 H Absolute Neuts (auto) 13.8 H Absolute Nucleated RBC 0.000 Nucleated RBC % (auto) 0.0 PT 13.2 INR 1.1 Anion Gap 12 Estim Creat Clear Calc 59.1 Estimated GFR > 60 POC Glucose 125 H Random Glucose 100 Calcium 9.0 D Total Bilirubin 1.0 AST 29 ALT 15 Alkaline Phosphatase 81 Total Protein 6.0 L Albumin 3.0 L COVID-19 (ELEANOR) Negative COVID-19 Clin Com See Note Influenza Type A (ALEIDA) Negative Influenza Type B (ALEIDA) Negative Influenza A & B Note See Note Imaging Radiologist's Impressions: Impressions Chest X-Ray 05/12/23 18:54 IMPRESSION: 1. No acute process seen. 2. Chronic interstitial lung changes. No change from 02/24/2022 Knee X-Ray 05/12/23 18:54 IMPRESSION: Comminuted distal femoral periprosthetic fracture. Cervical Spine CT 05/12/23 18:58 IMPRESSION: CT HEAD: 1. No acute intracranial abnormality. 2. Incidentally noted 1.1 cm hyperdense nodule within the superficial and anterior aspect of the left parotid gland, slightly increased in size since 2021. 3. Polyps are seen within the nasal cavities. An additional prominent polyp is seen within the nasopharynx. Consider ENT follow-up. CT CERVICAL SPINE: No cervical spine fracture or traumatic malalignment. Multilevel degenerative spondylosis. Head CT 05/12/23 18:58 IMPRESSION: CT HEAD: 1. No acute intracranial abnormality. 2. Incidentally noted 1.1 cm hyperdense nodule within the superficial and anterior aspect of the left parotid gland, slightly increased in size since 2021. 3. Polyps are seen within the nasal cavities. An additional prominent polyp is seen within the nasopharynx. Consider ENT follow-up. CT CERVICAL SPINE: No cervical spine fracture or traumatic malalignment. Multilevel degenerative spondylosis. Assessment and Plan (1) Closed left femoral fracture: Status: Acute (2) Hypoglycemia: Status: Acute Plan Justino Johnson is 88 years old man admitted with: * Comminuted left distal femur fracture, closed. Admit to hospitalist service. Keep NPO. Elevate extremities. Apply ice. Hold aspirin. Pain control with Dilaudid IV as needed. Start IV fluids. Orthopedic surgery consult. RCRI = 1 (6% 30-day perioperative events) * Hypotension, asymptomatic. We will order H and H to assess for left knee bleeding. Normal saline bolus ordered. We will continue to monitor blood pressure. * Event of hypoglycemia, highly secondary to insulin + patient has not been eating well. Hypoglycemia protocol. Continue to monitor blood glucose. * Diabetes mellitus. Patient to manage his own glucose. Continuous glucose monitoring. * Hyperlipidemia. Continue statin. * Essential hypertension. No glucose currently he is low. We will hold antihypertensive meds for now. * Atrial fibrillation, rate controlled. Implanted Watchman. * Interstitial lung disease. Asymptomatic. DuoNeb as needed. * Sleep apnea. Nocturnal CPAP VTE prophylaxis: Heparin subQ. Code status: Full code. Patient will need hospitalization for at least 2 midnight for left femur fracture treatment. Patient will require evaluation by Orthopedics for surgery, IV fluids and pain control. Quality Stroke Does the patient have a stroke diagnosis?: No VTE Prior VTE?: No VTE Risk Level:: Medical - moderate - high VTE Device Contraindication: N/A - Device Ordered VTE Drug Contraindication: N/A - Med Ordered
[2023-05-12 23:34] VITALS: BP 90/54; PULSE 70; RESP 20; TEMP 37; O2SAT 95
[2023-05-12] MEDS: 0.9 % Sodium Chloride 500 ML 1000 ML IV (23:40)
[2023-05-12 23:48] LABS: Glucose, Whole Blood 168 mg/dL (60-115)
[2023-05-13] VITALS (24 sets, daily range): BP systolic 71–116; BP diastolic 28–64; PULSE 86–111; RESP 12–20; TEMP 36.1–37; O2SAT 91–100; BMI 28.0
--- NOTE | 2023-05-13 00:14 | PC.NURSE ---
Assumed care of pt at 2315. Received report from MANOJ Skaggs. PT alert and oriented. bp 79/52 02 86-88%. Pt reportedly uses cpap at home. This RN contacted RT for assessment and cpap. RT provided cpap machine- pt currently sat at 96%. PT bp 79/52. placed pt in trendelenburg. bp improved to 96/56
[2023-05-13 00:22] LABS: Hematocrit 30.8 % (42.0-52.0); Hemoglobin 10.1 g/dl (14.0-18.0)
[2023-05-13] MEDS: HYDROmorphone HCl 1 MG/ML SYRINGE 0.5 MG IVPUSH ×2 (01:48→06:20)
[2023-05-13] MEDS: 0.9 % Sodium Chloride Flush 3 ML SYRINGE IVFLUSH ×2 (01:48→08:16)
[2023-05-13 05:10] LABS: Glucose, Whole Blood 139 mg/dL (60-115)
[2023-05-13 05:47] LABS: Appearance Urine Cloudy; Color Urine Dark Yellow; Glucose Urine UA Negative (Negative); Leukocyte Esterase Urine Small (1+) (Negative); Nitrite Urine Negative (Negative); UMIC TRIGGER UACC YES; Urine Blood Negative (Negative); Urine Ketones 15 mg/dL (Negative); Urine Protein 30 (1+) mg/dL (Neg-Trace)
[2023-05-13 06:00] LABS: Bacteria Urine None Seen (None Seen); Hyaline Casts Urine >20 /LPF (0-2); RBC Urine 0-2 /HPF (0-2); UACC Culture Trigger YES; WBC Urine 0-5 /HPF (0-5)
--- NOTE | 2023-05-13 07:00 | CA_ITS ---
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 Study Quality: Adequate/w Contrast ECG Rhythm: Atrial Fibrillation Conclusions: - 1. Normal LV ejection fraction of 65-70% with moderate LVH and severe asymmetric septal hypertrophy 2. At least moderately dilated left atrium 3. Normal cardiac valvular Doppler 4. Mildly dilated ascending aorta at 4.3 cm 5. Normal RV systolic pressure 6. No gross pericardial effusion Findings Procedure Information Contrast agent, definity, is being given per protocol without apparent complications. Left Ventricle Normal left ventricular size and systolic function. There is moderately increased left ventricular wall thickness. The visually estimated ejection fraction is between 65-70%. Diastolic function is indeterminate on the basis of available data. There is severe septal asymmetric hypertrophy. Right Ventricle Normal right ventricular cavity size and systolic function. Atria The left atrium is moderately dilated. There is lipomatous hypertrophy of the interatrial septum. There is no evidence of interatrial shunt. The right atrium is mildly dilated. Aortic Valve There is mild calcification of the aortic valve. There is mild thickening of the aortic valve. There is no aortic valve stenosis. There is no aortic valve regurgitation. Mitral Valve There is mild anterior and posterior mitral leaflet thickening. There is trace mitral valve regurgitation. There is no mitral valve stenosis. Pulmonic Valve The pulmonic valve is likely normal. Tricuspid Valve Normal tricuspid valve structure. There is trace tricuspid valve regurgitation. The right ventricular systolic pressure is normal. The right ventricular systolic pressure is 18 mmHg. Normal right atrial pressure. There is no evidence of pulmonary hypertension. Great Vessels The pulmonary artery was not well visualized. There is mild dilatation of the ascending aorta measuring 4.30 cm. Venous The inferior vena cava is normal in size and collapses greater than 50% with inspiration. Pericardium/Pleural There is no evidence of pericardial effusion. Measurements 2D Linear Measurements IVSd: 1.99 0.6-0.9/0.6-1.0 cm LVIDd: 3.54 3.9-5.3/4.2-5.9 cm LVIDd Index: 1.68 2.4-3.2/2.2-3.1 cm/m2 LVIDs: 1.66 2.0-3.6 cm LVPWd: 1.43 0.7-1.1 cm LA Diam: 2.80 2.7-3.8/3.0-4.0 cm LAIDs Index: 1.33 1.5-2.3 cm/m2 LV Mass: 304.50 67-162/88-224 g LV Mass Index: 144.31 43-95/49-115 g/m2 LVOT Diam: 2.10 3.0+(-)1.3 cm 2D Systolic Function EF 4C: 70.80 >55% EF 2C: 61.50 >55% EF BiP: 65.90 >55% Mitral Valve MV Pk E: 0.73 MV Decel Time: 365.00 E'Lateral: 10.90 E'Medial: 6.42 E/E' Med: 11.40 E/E' Lat: 6.70 PHT: 107.00 MVA PHT: 2.06 Decel Addison: 2.00 Aortic Valve AoV Pk Adrian: 1.82 AoV Mn Adrian: 1.37 AoV VTI: 0.31 AoV Pk Grad: 13.00 Aov Mn Grad: 8.00 NEISHA Cont.VTI: 2.99 LVOT LVOT Pk Adrian: 1.59 LVOT Mn Adrian: 1.12 LVOT VTI: 0.26 LVOT Pk Grad: 10.00 LVOT Mn Grad: 6.00 LVOT Diam: 2.10 LVOT Area: 3.46 Diastolic Function MV Pk E: 0.73 E'Medial: 6.42 E/E' Med: 11.40 E' Laterial: 10.90 E/E' Lat: 6.70 Right Ventricle TAPSE (mm): 15.20 TVS' Adrian: 13.10 Tricuspid Valve TR Pk Adrian: 1.94 TR Pk Grad: 15.00 RA Press: 3.00 RVSP: 18.00 Great Vessels Aorta Sinus of Valsalva: 4.30 2.0-3.5 cm Ao Asc: 4.30 2.1-3.4 cm Pulmonary Valve PV Pk Adrian: 0.78 Peak PV Grad: 2.00 Updated in Other Vendor System with Status of Final Jackson Reece MD electronically signed on 05/13/2023 11:46:05 AM with status of Final
[2023-05-13 07:53] LABS: Hematocrit 31.2 % (42.0-52.0); Hemoglobin 10.2 g/dl (14.0-18.0); Mean Corpuscular HGB Conc 32.7 g/dl (31.0-36.0); Mean Corpuscular Volume 88.6 fL (80.0-98.0); Mean Platelet Volume 10.6 fL (9.4-12.4); Platelet Count 228 X10*3/uL (160-400); Red Blood Count 3.52 X10*6/uL (4.60-5.80); Red Cell Distribution Width 16.3 % (11.0-16.0); White Blood Count 16.3 X10*3/uL (4.8-10.8)
--- NOTE | 2023-05-13 08:08 | P.HPOP_ITS ---
History of Present Illness History of Present Illness Date of Service: 05/13/23 Chief complaint: left femoral fracture Narrative: Justino Johnson is a 88 year old male with past medical history significant for atrial fibrillation (Watchman implanted) only on aspirin, type 2 diabetes mellitus on insulin pump, hyperlipidemia, chronic lung disease, GERD and essential hypertension was brought to the emergency department via EMS after he sustained a fall landing on his left knee. He felt immediate pain and was unable to ambulate. In the ED x-rays were obtained and he was found to have a left distal femur periprosthetic fracture. He was admitted to the medicine service with orthopedic consult for further evaluation and treatment. [facility] Past Medical History Medical History Atrial fibrillation Borderline hypertension Diabetes Social History Social History Household Members: None Housing: House Do you presently have visiting nurse or other home services: No ([facility]IOR[facility] HEALTH SPECIALIST 2/wks) Patient Tobacco Use Status: Never used Tobacco Smoked in Last 30 Days: No e-Cigarette/Vaping Use: Never Used Patient Interested in Nicotine Replacement: No Patient Given Instructions on How to Stop Smoking: No Second Hand Smoke Exposure: No Use of substances other than those prescribed or required for medical reasons: No Currently Displaying Signs/Symptoms of Drug Intoxication Withdrawal: No Any prior treatment program specific to substance use: No Have you been hit, kicked, punched, or otherwise hurt by someone within the past year? If so, by whom?: No Do you feel safe in your current relationship?: No Is there a partner from a previous relationship who is making you feel unsafe now?: No Are you made to feel afraid or neglected: No Advance Directives: Yes Advance Directives on File: Yes Advance Directives Date on File: 02/25/22 Do you have thoughts of harming others: None Do you have a plan to hurt others: No Plan Recently lost weight without trying: Yes How much weight loss: 14-23 pounds Eating poorly because of decreased appetite: Yes Nutrition screen score: 5 Nutrition Risks: Poor intake 0-25% >4 days Poor oral hygiene: No service: Yes Current occupational status: retired Meds Allergies Allergy/AdvReac Type Severity Reaction Status Date / Time No Known Allergies Allergy Unverified 01/17/20 18:13 [No Known Allergies*] Active Medications: Current Medications Acetaminophen (Acetaminophen Supp 325 Mg Supp.Rect) 975 mg VA Q6H PRN PRN Reason: Pain, Mild (Pain Scale 1-3) Albuterol/Ipratropium (Albuterol/Iprat 2.5/0.5mg 3 Ml Ampul.Neb) 3 ml INHALE Q4H PRN PRN Reason: Shortness of Breath/Wheezing Atorvastatin Calcium (Atorvastatin Calcium 20 Mg Tablet) 20 mg PO DAILY JOHN Heparin Sodium (Porcine) (Heparin Sodium,Porcine 5,000 Unit/Ml Vial) 5,000 unit SUBCUT Q12H JOHN Hydromorphone HCl (Hydromorphone Hcl 1 Mg/Ml Syringe) 0.5 mg IVPUSH Q4H PRN; Protocol PRN Reason: Pain, Severe (Pain Scale 7-10) Last Admin: 05/13/23 06:20 Dose: 0.5 mg Sodium Chloride (0.9 % Sodium Chloride Flush 3 Ml Syringe) 3 ml IVFLUSH QSHIFT [facility] Last Admin: 05/13/23 01:48 Dose: 3 ml Home Medications Medication Instructions Recorded Confirmed Last Taken Type Novolog U-100 Insulin aspart See Rx Instructions .Route 08/12/21 05/12/23 02/25/22 History .COMPLEX PRN insulin pump ascorbic acid (vitamin C) 500 mg 500 mg PO DAILY 08/12/21 05/12/23 02/25/22 History tablet atorvastatin 40 mg tablet 20 mg PO DAILY 08/12/21 05/12/23 02/24/22 History cholecalciferol (vitamin D3) 25 25 mcg PO DAILY 08/12/21 05/12/23 02/24/22 History mcg (1,000 unit) capsule (Vitamin D3) cyanocobalamin (vitamin B-12) 500 500 mcg PO DAILY 08/12/21 05/12/23 02/25/22 History mcg tablet diltiazem HCl 120 mg capsule,24 120 mg PO BID 08/12/21 02/25/22 02/25/22 History hr,extended release folic acid 1 mg tablet 1 mg PO DAILY 08/12/21 05/12/23 02/25/22 History hydroxyzine HCl 10 mg tablet 10 mg PO DAILY PRN Itching 08/12/21 05/12/23 Unknown History loratadine 10 mg tablet 10 mg PO DAILY 08/12/21 05/12/23 02/24/22 History omega 0-sag-buf-fish oil 1,000 mg 1 cap PO BID 08/12/21 05/12/23 02/25/22 History (120 mg-180 mg) capsule (Fish Oil) omeprazole 20 mg capsule,delayed 20 mg PO BID 08/12/21 05/12/23 02/25/22 History release sennosides 8.6 mg-docusate sodium 1 tab PO BEDTIME PRN Constipation 08/12/21 05/12/23 02/24/22 History 50 mg tablet (Senna Plus) tamsulosin 0.4 mg capsule 0.4 mg PO DAILY 08/12/21 05/12/23 02/24/22 History denosumab 60 mg/mL subcutaneous 60 mg subcut [id number] 02/25/22 05/12/23 Unknown History syringe Lactobacillus acidophilus 1 cap PO DAILY 05/12/23 05/12/23 Unknown History albuterol 90 mcg/actuation aerosol 2 mcg inhalation Q6H PRN Shortness 05/12/23 05/12/23 Unknown History inhaler Of Breath Or Wheezing aspirin 81 mg tablet 81 mg PO DAILY 05/12/23 05/12/23 Unknown History biotin 500 mcg capsule 1 mg PO DAILY 05/12/23 05/12/23 Unknown History calcium citrate 200 mg (950 mg) 600 mg PO BID 05/12/23 05/12/23 Unknown History tablet fluticasone propionate 50 2 spray intranasal DAILY 05/12/23 05/12/23 Unknown History mcg/actuation nasal spray,suspension gabapentin 600 mg tablet 300 mg PO BID 05/12/23 Unknown History hydrochlorothiazide 25 mg tablet 25 mg PO DAILY 05/12/23 05/12/23 Unknown History ipratropium 0.5 mg-albuterol 3 mg 3 ml inhalation TID PRN Shortness 05/12/23 05/12/23 Unknown History (2.5 mg base)/3 mL nebulization Of Breath Or Wheezing soln losartan 25 mg tablet 25 mg PO DAILY 05/12/23 05/12/23 Unknown History meclizine 25 mg tablet 25 mg PO TID 05/12/23 05/12/23 Unknown History methotrexate sodium 2.5 mg tablet 7.5 mg PO QWEEK 05/12/23 Unknown History multivitamin 1 tab PO DAILY 05/12/23 05/12/23 Unknown History Physical Exam 2 Vital Signs: Vital Signs: Last Vital Signs Temp 97.8 F 05/13/23 02:14 Pulse 96 05/13/23 02:14 Resp 18 05/13/23 02:14 BP 101/64 05/13/23 02:14 Pulse Ox 91 L 05/13/23 02:14 O2 Del Method Room Air 05/13/23 02:14 O2 Flow Rate 2 05/12/23 23:34 BMI result Body Mass Index 28.0 Const: General: cooperative, healthy appearing and no acute distress Resp: Effort & Inspection: normal respiratory effort and able to speak in complete sentences Cardio: Rate: regular rate Peripheral pulses: Peripheral pulses 2+ throughout GI: Palpation (GI): Soft to palpation Skin: Lesions: no lesions Rashes: no rashes Extrem: Other: left lower extremity is held in flexion. Effusion at the knee. Able to dorsi/plantar flex. Sensation intact. Results Labs 05/13/23 05:39 05/12/23 18:05 Labs: Abnormal lab results 05/12/23 05/12/23 05/12/23 Range/Units 18:05 20:00 23:39 WBC 15.8 H (4.8-10.8) X10*3/uL RBC 4.39 L (4.60-5.80) X10*6/uL Hgb 12.8 L (14.0-18.0) g/dl Hct 39.0 L (42.0-52.0) % RDW 16.1 H (11.0-16.0) % Neut % (Auto) 87.5 H (45-73) % Lymph % (Auto) 6.2 L (20-40) % Lymph # (Auto) 1.0 L (1.2-4.9) X10*3/uL Abs Immat Gran (auto) 0.06 H (0.00-0.03) X10*3/uL Absolute Neuts (auto) 13.8 H (2.0-8.3) x10*3/uL POC Glucose 125 H 168 H (60-115) mg/dL Total Protein 6.0 L (6.5-8.0) g/dL Albumin 3.0 L (3.5-5.0) g/dL Urine Protein (Neg-Trace) mg/dL Ur Leukocyte Esterase (Negative) 05/13/23 05/13/23 05/13/23 Range/Units 00:14 05:05 05:37 WBC (4.8-10.8) X10*3/uL RBC (4.60-5.80) X10*6/uL Hgb 10.1 L D (14.0-18.0) g/dl Hct 30.8 L D (42.0-52.0) % RDW (11.0-16.0) % Neut % (Auto) (45-73) % Lymph % (Auto) (20-40) % Lymph # (Auto) (1.2-4.9) X10*3/uL Abs Immat Gran (auto) (0.00-0.03) X10*3/uL Absolute Neuts (auto) (2.0-8.3) x10*3/uL POC Glucose 139 H (60-115) mg/dL Total Protein (6.5-8.0) g/dL Albumin (3.5-5.0) g/dL Urine Protein 30 (1+) H (Neg-Trace) mg/dL Ur Leukocyte Esterase Small (1+) H (Negative) 05/13/23 Range/Units 05:39 WBC 16.3 H (4.8-10.8) X10*3/uL RBC 3.52 L (4.60-5.80) X10*6/uL Hgb 10.2 L (14.0-18.0) g/dl Hct 31.2 L (42.0-52.0) % RDW 16.3 H (11.0-16.0) % Neut % (Auto) (45-73) % Lymph % (Auto) (20-40) % Lymph # (Auto) (1.2-4.9) X10*3/uL Abs Immat Gran (auto) (0.00-0.03) X10*3/uL Absolute Neuts (auto) (2.0-8.3) x10*3/uL POC Glucose (60-115) mg/dL Total Protein (6.5-8.0) g/dL Albumin (3.5-5.0) g/dL Urine Protein (Neg-Trace) mg/dL Ur Leukocyte Esterase (Negative) H & H 05/12/23 05/13/23 05/13/23 Range/Units 18:05 00:14 05:39 Hgb 12.8 L 10.1 L D 10.2 L (14.0-18.0) g/dl Hct 39.0 L 30.8 L D 31.2 L (42.0-52.0) % Coagulation 05/12/23 Range/Units 18:05 INR 1.1 (0.9-1.1) All other labs normal. Assessment and Plan (1) Closed left femoral fracture: Status: Acute I discussed the case with Dr. Beaver and explained the extent of the injury to the patient and options available which include surgical intervention. I explained the procedure in detail along with the length of recovery and rehab course. I explained the risk, benefits and alternatives. Risk including, but not limited to infection, blood clots, bleeding, non union or malunion and nerve/tissue damage to surrounding areas. I answered all their questions and with their understanding they have consented to move forward with Operative Fixation of the left femur. The patient will be T&S, med clearance obtained and will remain NPO. (2) Syncope: Status: Acute Quality Stroke Does the patient have a stroke diagnosis?: No VTE Prior VTE?: No VTE Risk Level:: Medical - moderate - high VTE Device Contraindication: N/A - Device Ordered VTE Drug Contraindication: N/A - Med Ordered Procedures Date of Service Date of Service: 05/13/23
[2023-05-13 08:11] LABS: Glucose, Whole Blood 78 mg/dL (60-115)
[2023-05-13] MEDS: Atorvastatin Calcium 20 MG TABLET PO (08:16)
[2023-05-13 08:19] LABS: Anion Gap 12 (12-20); Blood Urea Nitrogen 18 mg/dL (9-16); Calcium 8.4 mg/dL (8.4-10.2); Carbon Dioxide 27 mmol/L (22-29); Chloride 101 mmol/L (96-108); Creatinine Clr Calc Pharmacy 39.4; Estimated Glomerular Filt Rate 43; Glucose Random 131 mg/dL (60-115); Potassium 4.4 mmol/L (3.3-5.1); Sodium 136 mmol/L (135-145)
--- NOTE | 2023-05-13 09:05 | P.PNIM_ITS ---
Subjective Subjective Date of Service: 05/13/23 Interval History: Seen and evaluated this morning reporting pain in his left knee along with swelling sugar levels fairly controlled Mild elevation in Cr to 1.55 Review of Systems Review of Systems: Yes all other systems are reviewed and are negative Physical Exam 2 Vital Signs: Vital Signs: Last Vital Signs Temp 96.9 F 05/13/23 08:00 Pulse 86 05/13/23 08:00 Resp 18 05/13/23 08:00 BP 110/50 L 05/13/23 08:00 Pulse Ox 92 05/13/23 08:00 O2 Del Method Room Air 05/13/23 08:00 O2 Flow Rate 2 05/12/23 23:34 BMI result Body Mass Index 28.0 Const: Other: Constitutional : Awake, interactive, not in distress Neck : Normal inspection, Supple Cardiovascular : RRR, no JVP, no lower extremity edema Respiratory : good bilateral air entry, no crackles, wheezes or rhonchi Gastrointestinal: soft, lax, Normal bowel sounds, Non tender Skin : Warm, Dry Skeletal: above Left knee swelling with warmth and tenderness Neurological : Alert & oriented x3, No focal deficit Objective Data Active Medications Acetaminophen (Acetaminophen Supp 325 Mg Supp.Rect) 975 mg NM Q6H PRN PRN Reason: Pain, Mild (Pain Scale 1-3) Albuterol/Ipratropium (Albuterol/Iprat 2.5/0.5mg 3 Ml Ampul.Neb) 3 ml INHALE Q4H PRN PRN Reason: Shortness of Breath/Wheezing Atorvastatin Calcium (Atorvastatin Calcium 20 Mg Tablet) 20 mg PO DAILY [facility] Last Admin: 05/13/23 08:16 Dose: 20 mg Documented By: MADDY Heparin Sodium (Porcine) (Heparin Sodium,Porcine 5,000 Unit/Ml Vial) 5,000 unit SUBCUT Q12H [facility] Hydromorphone HCl (Hydromorphone Hcl 1 Mg/Ml Syringe) 0.5 mg IVPUSH Q4H PRN; Protocol PRN Reason: Pain, Severe (Pain Scale 7-10) Last Admin: 05/13/23 06:20 Dose: 0.5 mg Documented By: TIESHA Sodium Chloride (0.9 % Sodium Chloride Flush 3 Ml Syringe) 3 ml IVFLUSH QSHIFT [facility] Last Admin: 05/13/23 08:16 Dose: 3 ml Documented By: MADDY Labs 05/13/23 05:39 05/13/23 05:39 Labs: Laboratory Results - last 24 hr 05/12/23 05/12/23 05/12/23 17:29 18:05 20:00 MCV 88.8 MCH 29.2 MCHC 32.8 RDW 16.1 H Plt Count 253 MPV 10.0 Immature Gran % (Auto) 0.4 Neut % (Auto) 87.5 H Lymph % (Auto) 6.2 L [place] % (Auto) 4.9 Eos % (Auto) 0.5 Baso % (Auto) 0.5 Lymph # (Auto) 1.0 L [place] # (Auto) 0.8 Eos # (Auto) 0.1 Baso # (Auto) 0.1 Abs Immat Gran (auto) 0.06 H Absolute Neuts (auto) 13.8 H Absolute Nucleated RBC 0.000 Nucleated RBC % (auto) 0.0 PT 13.2 INR 1.1 Anion Gap 12 Estim Creat Clear Calc 59.1 Estimated GFR > 60 POC Glucose 78 125 H Random Glucose 100 Calcium 9.0 D Total Bilirubin 1.0 AST 29 ALT 15 Alkaline Phosphatase 81 Total Protein 6.0 L Albumin 3.0 L Urine Color Urine Appearance Urine pH Ur Specific [place] Urine Protein Urine Glucose (UA) Urine Ketones Urine Blood Urine Nitrite Ur Leukocyte Esterase Urine RBC Urine WBC Ur Squamous Epith Cells Urine Bacteria Hyaline Casts COVID-19 (ELEANOR) Negative COVID-19 Clin Com See Note Influenza Type A (ALEIDA) Negative Influenza Type B (ALEIDA) Negative Influenza A & B Note See Note 05/12/23 05/13/23 05/13/23 23:39 05:05 05:37 MCV MCH MCHC RDW Plt Count MPV Immature Gran % (Auto) Neut % (Auto) Lymph % (Auto) [place] % (Auto) Eos % (Auto) Baso % (Auto) Lymph # (Auto) [place] # (Auto) Eos # (Auto) Baso # (Auto) Abs Immat Gran (auto) Absolute Neuts (auto) Absolute Nucleated RBC Nucleated RBC % (auto) PT INR Anion Gap Estim Creat Clear Calc Estimated GFR POC Glucose 168 H 139 H Random Glucose Calcium Total Bilirubin AST ALT Alkaline Phosphatase Total Protein Albumin Urine Color Dark Yellow Urine Appearance Cloudy Urine pH 7.0 Ur Specific [place] 1.020 Urine Protein 30 (1+) H Urine Glucose (UA) Negative Urine Ketones 15 Urine Blood Negative Urine Nitrite Negative Ur Leukocyte Esterase Small (1+) H Urine RBC 0-2 Urine WBC 0-5 Ur Squamous Epith Cells 3-5 Urine Bacteria None Seen Hyaline Casts >20 COVID-19 (ELEANOR) COVID-19 Clin Com Influenza Type A (ALEIDA) Influenza Type B (ALEIDA) Influenza A & B Note 05/13/23 05:39 MCV 88.6 MCH 29.0 MCHC 32.7 RDW 16.3 H Plt Count 228 MPV 10.6 Immature Gran % (Auto) Neut % (Auto) Lymph % (Auto) [place] % (Auto) Eos % (Auto) Baso % (Auto) Lymph # (Auto) [place] # (Auto) Eos # (Auto) Baso # (Auto) Abs Immat Gran (auto) Absolute Neuts (auto) Absolute Nucleated RBC 0.000 Nucleated RBC % (auto) 0.0 PT INR Anion Gap 12 Estim Creat Clear Calc 39.4 Estimated GFR 43 POC Glucose Random Glucose 131 H Calcium 8.4 D Total Bilirubin AST ALT Alkaline Phosphatase Total Protein Albumin Urine Color Urine Appearance Urine pH Ur Specific [place] Urine Protein Urine Glucose (UA) Urine Ketones Urine Blood Urine Nitrite Ur Leukocyte Esterase Urine RBC Urine WBC Ur Squamous Epith Cells Urine Bacteria Hyaline Casts COVID-19 (ELEANOR) COVID-19 Clin Com Influenza Type A (ALEIDA) Influenza Type B (ALEIDA) Influenza A & B Note Assessment and Plan (1) Hypoglycemia: Status: Acute (2) Syncope: Status: Acute (3) Closed left femoral fracture: Status: Acute (4) Acute kidney injury: Status: Acute Plan Justino Johnson is 88 years old man admitted with: # Comminuted left distal femur fracture, closed. Cardiology consult for clearance ECHO pending Keep NPO Elevate extremities. Apply ice. Hold aspirin. Pain control with Dilaudid IV as needed IV fluids. Orthopedic surgery following # Acute kidney injury Cr of 1.55 this morning check CPK IVF monitor I\O and BMP # Hypotension, Improved. Hold BP meds monitor blood pressure. # Event of hypoglycemia, secondary to insulin + patient has not been eating well. Hypoglycmia protocol. monitor blood glucose. # Diabetes mellitus Patient to manage his own glucose. Continuous glucose monitoring. # Hyperlipidemia. Continue statin. # Atrial fibrillation rate controlled. Implanted Watchman. # Interstitial lung disease. Asymptomatic. DuoNeb as needed. # Sleep apnea. Nocturnal CPAP VTE prophylaxis: Heparin subQ. Code status: Full code. Patient will need hospitalization overnight for left femur fracture treatment. Patient will require evaluation by Orthopedics for surgery, IV fluids and pain control. Quality Stroke Does the patient have a stroke diagnosis?: No VTE Prior VTE?: No VTE Risk Level:: Medical - moderate - high VTE Device Contraindication: N/A - Device Ordered VTE Drug Contraindication: N/A - Med Ordered
--- NOTE | 2023-05-13 09:31 | MHC.CLN ---
NUTRITION CONSULT FOR WEIGHT LOSS. PATIENT IS KEYLA NPO. REVIEW OF WEIGHT HX SHOWS WEIGHT LOSS X 15 MONTHS -4.4 %, X 21 MONTHS -7.4%, NOT SIGNIFICANT. MONITOR FOR DIET ADVANCEMENT.
--- NOTE | 2023-05-13 10:29 | PM.CNCAR ---
History of Present Illness History of Present Illness Date of Service: 05/13/23 Requesting physician: Juanito Nicolas Consult reason: pre-op evaluation Chief complaint: left femoral fracture Narrative: I was consulted to see Justino in cardiology consultation today for preoperative cardiovascular evaluation. Patient 88-year-old male lives independently at home, presented with lightheadedness followed by a fall and a fracture of distal left femur, needs to undergo urgent surgery. Patient denies any prior history of coronary artery disease or congestive heart failure. Has chronic shortness of breath related to his chronic lung disease which is suspected to be due to pulmonary fibrosis. He has chronic exertional shortness of breath but denies any exertional chest pain. Patient said yesterday while he was cooking he got lightheaded and fell down. He does attest to having orthostatic lightheadedness frequently. He said he does not drink enough fluid. He was also noted to have low sugar yesterday. When he came to the hospital he was noted to have low blood pressure. Being given IV fluids. He is also noted to have significant anemia. I would consider transfusing him. Patient has chronic atrial fibrillation, status post Watchman device, he is not sure as to why but appears that he has prior history of GI bleeding. He said he was at 1 time total pay pacemaker placement but then 1 of his medication was stopped and he was told that he does not need a pacemaker anymore. Denies any heart failure symptoms. Review of Systems Constitutional: Constitutional: Reports no additional constitutional complaints Eyes: Eyes: Reports no additional eye complaints Cardiovascular: Cardiovascular: Denies chest pain, Denies syncope, Denies leg edema, Reports lightheadedness, Denies Loss of Consciousness, Denies palpitations and Reports dyspnea on exertion Respiratory: Respiratory: Reports dyspnea on exertion Gastrointestinal: Gastrointestinal: Reports no additional gastrointestinal complaints Genitourinary: Genitourinary: Reports no additional male genitourinary complaints Musculoskeletal: Musculoskeletal: Reports no additional musculoskeletal complaints Neurologic: Reports system reviewed and no additional complaints, except as documented and Denies syncope Psychiatric: Psychiatric: Reports no additional psychiatric complaints Endocrine: Endocrine: Denies palpitations PMF Past Medical History Medical History GERD (gastroesophageal reflux disease) BPH (benign prostatic hyperplasia) Hypertension Borderline hypertension Atrial fibrillation Diabetes Social History Social History Household Members: None Housing: House Do you presently have visiting nurse or other home services: No ([employer] 2/wks) Patient Tobacco Use Status: Never used Tobacco Smoked in Last 30 Days: No e-Cigarette/Vaping Use: Never Used Patient Interested in Nicotine Replacement: No Patient Given Instructions on How to Stop Smoking: No Second Hand Smoke Exposure: No Use of substances other than those prescribed or required for medical reasons: No Currently Displaying Signs/Symptoms of Drug Intoxication Withdrawal: No Any prior treatment program specific to substance use: No Have you been hit, kicked, punched, or otherwise hurt by someone within the past year? If so, by whom?: No Do you feel safe in your current relationship?: No Is there a partner from a previous relationship who is making you feel unsafe now?: No Are you made to feel afraid or neglected: No Advance Directives: Yes Advance Directives on File: Yes Advance Directives Date on File: 02/25/22 Do you have thoughts of harming others: None Do you have a plan to hurt others: No Plan Recently lost weight without trying: Yes How much weight loss: 14-23 pounds Eating poorly because of decreased appetite: Yes Nutrition screen score: 5 Nutrition Risks: Poor intake 0-25% >4 days Poor oral hygiene: No service: Yes Current occupational status: retired [employer] Allergies Allergy/AdvReac Type Severity Reaction Status Date / Time No Known Allergies Allergy Unverified 01/17/20 18:13 [No Known Allergies*] Active Medications: Current Medications Acetaminophen (Acetaminophen Supp 325 Mg Supp.Rect) 975 mg CO Q6H PRN PRN Reason: Pain, Mild (Pain Scale 1-3) Albuterol/Ipratropium (Albuterol/Iprat 2.5/0.5mg 3 Ml Ampul.Neb) 3 ml INHALE Q4H PRN PRN Reason: Shortness of Breath/Wheezing Atorvastatin Calcium (Atorvastatin Calcium 20 Mg Tablet) 20 mg PO DAILY JOHN Last Admin: 05/13/23 08:16 Dose: 20 mg Folic Acid (Folic Acid 1 Mg Tablet) 1 mg PO DAILY JOHN Heparin Sodium (Porcine) (Heparin Sodium,Porcine 5,000 Unit/Ml Vial) 5,000 unit SUBCUT Q12H JOHN Hydromorphone HCl (Hydromorphone Hcl 1 Mg/Ml Syringe) 0.5 mg IVPUSH Q4H PRN; Protocol PRN Reason: Pain, Severe (Pain Scale 7-10) Last Admin: 05/13/23 06:20 Dose: 0.5 mg Meclizine HCl (Meclizine Hcl 25 Mg Tablet) 25 mg PO TID [facility], [facility] Omeprazole (Omeprazole 20 Mg Capsule.Dr) 20 mg PO BID@0630,1630 FOR[facility], [facility]–1983 Sodium Chloride (0.9 % Sodium Chloride Flush 3 Ml Syringe) 3 ml IVFLUSH QSHIFT [facility], [facility]–1983 Last Admin: 05/13/23 08:16 Dose: 3 ml Tamsulosin HCl (Tamsulosin Hcl 0.4 Mg Capsule) 0.4 mg PO DAILY [facility], [facility]1983 Home Medications Medication Instructions Recorded Confirmed Last Taken Type Novolog U-100 Insulin aspart See Rx Instructions .Route 08/12/21 05/13/23 02/25/22 History .COMPLEX PRN insulin pump ascorbic acid (vitamin C) 500 mg 500 mg PO DAILY 08/12/21 05/13/23 02/25/22 History tablet atorvastatin 40 mg tablet 20 mg PO DAILY 08/12/21 05/13/23 02/24/22 History cholecalciferol (vitamin D3) 25 25 mcg PO DAILY 08/12/21 05/13/23 02/24/22 History mcg (1,000 unit) capsule (Vitamin D3) cyanocobalamin (vitamin B-12) 500 500 mcg PO DAILY 08/12/21 05/13/23 02/25/22 History mcg tablet hydroxyzine HCl 10 mg tablet 10 mg PO DAILY PRN Itching 08/12/21 05/13/23 Unknown History loratadine 10 mg tablet 10 mg PO DAILY 08/12/21 05/13/23 02/24/22 History omeprazole 20 mg capsule,delayed 20 mg PO DAILY@0630 08/12/21 05/13/23 02/25/22 History release sennosides 8.6 mg-docusate sodium 1 tab PO BEDTIME PRN Constipation 08/12/21 05/13/23 02/24/22 History 50 mg tablet (Senna Plus) tamsulosin 0.4 mg capsule 0.4 mg PO DAILY 08/12/21 05/13/23 02/24/22 History denosumab 60 mg/mL subcutaneous 60 mg subcut [id number] 02/25/22 05/13/23 Unknown History syringe Lactobacillus acidophilus 1 cap PO BID 05/12/23 05/13/23 Unknown History biotin 500 mcg capsule 1 mg PO DAILY 05/12/23 05/13/23 Unknown History calcium citrate 200 mg (950 mg) 600 mg PO BID 05/12/23 05/13/23 Unknown History tablet fluticasone propionate 50 2 spray intranasal DAILY PRN 05/12/23 05/13/23 Unknown History mcg/actuation nasal Allergy Symptoms spray,suspension gabapentin 600 mg tablet 300 mg PO TID 05/12/23 05/13/23 Unknown History hydrochlorothiazide 25 mg tablet 25 mg PO DAILY 05/12/23 05/13/23 Unknown History ipratropium 0.5 mg-albuterol 3 mg 3 ml inhalation QID PRN Shortness 05/12/23 05/13/23 Unknown History (2.5 mg base)/3 mL nebulization Of Breath Or Wheezing soln losartan 25 mg tablet 25 mg PO DAILY 05/12/23 05/13/23 Unknown History meclizine 25 mg tablet 25 mg PO TID 05/12/23 05/13/23 Unknown History multivitamin 1 tab PO DAILY 05/12/23 05/13/23 Unknown History albuterol sulfate 90 mcg/actuation 2 puff inhalation Q6H PRN 05/13/23 05/13/23 Unknown History aerosol inhaler Shortness Of Breath Or Wheezing aspirin 81 mg tablet,delayed 81 mg PO DAILY 05/13/23 05/13/23 Unknown History release dextromethorphan-guaifenesin 10 10 ml PO Q6H PRN Cough 05/13/23 05/13/23 Unknown History mg-100 mg/5 mL oral syrup omega 1-cxu-[id number]-fish oil 300 1 cap PO BID 05/13/23 05/13/23 Unknown History mg-1,000 mg capsule,delayed release (Fish Oil) Physical Exam Vital Signs: Vital Signs: Last Vital Signs Temp 96.9 F 05/13/23 08:00 Pulse 86 05/13/23 08:00 Resp 18 05/13/23 08:00 BP 110/50 L 05/13/23 08:00 Pulse Ox 92 05/13/23 08:00 O2 Del Method Room Air 05/13/23 08:00 O2 Flow Rate 2 05/12/23 23:34 BMI result Body Mass Index 28.0 Const: General: cooperative, comfortable, no acute distress, well developed, alert and awake Nutritional Appearance: well nourished and overweight Orientation/consciousness: patient oriented x3 HEENT: Head: Yes normocephalic and Yes atraumatic Neck: Neck: Yes trachea midline, Yes supple and Yes no JVD Resp: Effort & Inspection: normal respiratory effort Auscultation: crackles (Coarse crackles) bilateral at the base Cardio: Jugular venous distension: no JVD Rhythm: abnormal rhythm irregularly irregular Heart sounds: S1 normal heart sound present, S2 normal heart sound present, no click, no gallops, no murmurs and no rubs GI: Auscultation: normal bowel sounds Skin: General skin exam: no rashes or lesions noted Neuro: General: patient oriented x3 and no focal motor deficits Extrem: General: Yes no clubbing, cyanosis or edema Objective Labs and Meds 05/13/23 05:39 05/13/23 05:39 Lab results: Laboratory Results - last 24 hr 05/12/23 05/12/23 05/12/23 17:29 18:05 20:00 WBC 15.8 H RBC 4.39 L Hgb 12.8 L Hct 39.0 L MCV 88.8 MCH 29.2 MCHC 32.8 RDW 16.1 H Plt Count 253 MPV 10.0 Immature Gran % (Auto) 0.4 Neut % (Auto) 87.5 H Lymph % (Auto) 6.2 L [place] % (Auto) 4.9 Eos % (Auto) 0.5 Baso % (Auto) 0.5 Lymph # (Auto) 1.0 L [place] # (Auto) 0.8 Eos # (Auto) 0.1 Baso # (Auto) 0.1 Abs Immat Gran (auto) 0.06 H Absolute Neuts (auto) 13.8 H Absolute Nucleated RBC 0.000 Nucleated RBC % (auto) 0.0 PT 13.2 INR 1.1 Sodium 138 Potassium 4.0 Chloride 102 Carbon Dioxide 28 Anion Gap 12 BUN 13 Creatinine 1.04 Estim Creat Clear Calc 59.1 Estimated GFR > 60 POC Glucose 78 125 H Random Glucose 100 Calcium 9.0 D Total Bilirubin 1.0 AST 29 ALT 15 Alkaline Phosphatase 81 Total Creatine Kinase Troponin I High Sens 19.8 Total Protein 6.0 L Albumin 3.0 L Urine Color Urine Appearance Urine pH Ur Specific [place] Urine Protein Urine Glucose (UA) Urine Ketones Urine Blood Urine Nitrite Ur Leukocyte Esterase Urine RBC Urine WBC Ur Squamous Epith Cells Urine Bacteria Hyaline Casts COVID-19 (ELEANOR) Negative COVID-19 Clin Com See Note Influenza Type A (ALEIDA) Negative Influenza Type B (ALEIDA) Negative Influenza A & B Note See Note 05/12/23 05/12/23 05/13/23 20:50 23:39 00:14 WBC RBC Hgb 10.1 L D Hct 30.8 L D MCV MCH MCHC RDW Plt Count MPV Immature Gran % (Auto) Neut % (Auto) Lymph % (Auto) [place] % (Auto) Eos % (Auto) Baso % (Auto) Lymph # (Auto) [place] # (Auto) Eos # (Auto) Baso # (Auto) Abs Immat Gran (auto) Absolute Neuts (auto) Absolute Nucleated RBC Nucleated RBC % (auto) PT INR Sodium Potassium Chloride Carbon Dioxide Anion Gap BUN Creatinine Estim Creat Clear Calc Estimated GFR POC Glucose 168 H Random Glucose Calcium Total Bilirubin AST ALT Alkaline Phosphatase Total Creatine Kinase Troponin I High Sens 28.6 Total Protein Albumin Urine Color Urine Appearance Urine pH Ur Specific [place] Urine Protein Urine Glucose (UA) Urine Ketones Urine Blood Urine Nitrite Ur Leukocyte Esterase Urine RBC Urine WBC Ur Squamous Epith Cells Urine Bacteria Hyaline Casts COVID-19 (ELEANOR) COVID-19 Clin Com Influenza Type A (ALEIDA) Influenza Type B (ALEIDA) Influenza A & B Note 05/13/23 05/13/23 05/13/23 05:05 05:37 05:39 WBC 16.3 H RBC 3.52 L Hgb 10.2 L Hct 31.2 L MCV 88.6 MCH 29.0 MCHC 32.7 RDW 16.3 H Plt Count 228 MPV 10.6 Immature Gran % (Auto) Neut % (Auto) Lymph % (Auto) [place] % (Auto) Eos % (Auto) Baso % (Auto) Lymph # (Auto) [place] # (Auto) Eos # (Auto) Baso # (Auto) Abs Immat Gran (auto) Absolute Neuts (auto) Absolute Nucleated RBC 0.000 Nucleated RBC % (auto) 0.0 PT INR Sodium 136 Potassium 4.4 Chloride 101 Carbon Dioxide 27 Anion Gap 12 BUN 18 H Creatinine 1.55 H Estim Creat Clear Calc 39.4 Estimated GFR 43 POC Glucose 139 H Random Glucose 131 H Calcium 8.4 D Total Bilirubin AST ALT Alkaline Phosphatase Total Creatine Kinase 104 Troponin I High Sens Total Protein Albumin Urine Color Dark Yellow Urine Appearance Cloudy Urine pH 7.0 Ur Specific [place] 1.020 Urine Protein 30 (1+) H Urine Glucose (UA) Negative Urine Ketones 15 Urine Blood Negative Urine Nitrite Negative Ur Leukocyte Esterase Small (1+) H Urine RBC 0-2 Urine WBC 0-5 Ur Squamous Epith Cells 3-5 Urine Bacteria None Seen Hyaline Casts >20 COVID-19 (ELEANOR) COVID-19 Clin Com Influenza Type A (ALEIDA) Influenza Type B (ALEIDA) Influenza A & B Note EKG shows atrial fibrillation with PVCs with nonspecific ST changes Imaging Radiologist's impression: Impressions Chest X-Ray 05/12/23 18:54 IMPRESSION: 1. No acute process seen. 2. Chronic interstitial lung changes. No change from 02/24/2022 Knee X-Ray 05/12/23 18:54 IMPRESSION: Comminuted distal femoral periprosthetic fracture. Cervical Spine CT 05/12/23 18:58 IMPRESSION: CT HEAD: 1. No acute intracranial abnormality. 2. Incidentally noted 1.1 cm hyperdense nodule within the superficial and anterior aspect of the left parotid gland, slightly increased in size since 2021. 3. Polyps are seen within the nasal cavities. An additional prominent polyp is seen within the nasopharynx. Consider ENT follow-up. CT CERVICAL SPINE: No cervical spine fracture or traumatic malalignment. Multilevel degenerative spondylosis. Head CT 05/12/23 18:58 IMPRESSION: CT HEAD: 1. No acute intracranial abnormality. 2. Incidentally noted 1.1 cm hyperdense nodule within the superficial and anterior aspect of the left parotid gland, slightly increased in size since 2021. 3. Polyps are seen within the nasal cavities. An additional prominent polyp is seen within the nasopharynx. Consider ENT follow-up. CT CERVICAL SPINE: No cervical spine fracture or traumatic malalignment. Multilevel degenerative spondylosis. Assessment and Plan (1) Preoperative cardiovascular examination: Status: Acute Preoperative cardiovascular risk stratification this elderly gentleman with chronic atrial fibrillation, admitted with lightheadedness which appears to be related to orthostatic low blood pressure. He has prior history of orthostatic lightheadedness. However cannot check for orthostasis today given his distal femur fracture. Blood pressures improved with IV hydration. Will also consider transfusing him given his significant low hematocrit. In the long run would discontinue hydrochlorothiazide therapy and hold losartan therapy for now. Continue p.o. hydration advised him to increase his p.o. oral intake. Rate is currently adequately controlled and does not require any rate control medications. Status post Watchman device and is on aspirin therapy. From cardiac perspective patient has no ongoing acute cardiac symptoms and no signs of cardiac decompensation. At this point time is optimized to undergo surgery with intermediate risk for perioperative cardiovascular morbidity mortality. Will sign of the case. Thank you for allowing me to partake in his care. 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
[2023-05-13 12:05] LABS: Glucose, Whole Blood 108 mg/dL (60-115)
--- NOTE | 2023-05-13 15:36 | MHC.SHP ---
Pre-Procedural Eval Section A Date of Service: 05/13/23 The patient is an INPATIENT: Yes The History & Physical has been completed within 30 days and I have reviewed it.: Yes Section B Chief Complaint: left femoral fracture Allergies: Allergies Allergy/AdvReac Type Severity Reaction Status Date / Time No Known Allergies Allergy Unverified 01/17/20 18:13 [No Known Allergies*] Plan I have reviewed the history and physical and performed a pertinent physical examination on my patient. No changes have occurred unless specified. Time Spent With Patient Time: Total time managing care of this patient today ____ minutes.
--- NOTE | 2023-05-13 16:14 | HO.ANESPROP2 ---
HPI - Anesthesia Eval Consult details Narrative: Lweft femur fracture PMFSH Active Problems Active Problems: All Active Problems (Updated 05/13/23 @ 10:33 by Jackson Reece MD) Preoperative cardiovascular examination (Acute) Acute kidney injury (Acute) Hypoglycemia (Acute) Syncope (Acute) Closed left femoral fracture (Acute) Dizziness (Acute) Altered gait (Acute) Acute GI bleeding (Acute) Past Medical History Medical History GERD (gastroesophageal reflux disease) BPH (benign prostatic hyperplasia) Hypertension Borderline hypertension Atrial fibrillation Diabetes Family History Family history of problems with anesthesia: No Surgical History History of Problems with Anesthesia: No Social History Social History Household Members: None Housing: House Do you presently have visiting nurse or other home services: No ([employer] 2/wks) Patient Tobacco Use Status: Never used Tobacco Smoked in Last 30 Days: No e-Cigarette/Vaping Use: Never Used Patient Interested in Nicotine Replacement: No Patient Given Instructions on How to Stop Smoking: No Second Hand Smoke Exposure: No Use of substances other than those prescribed or required for medical reasons: No Currently Displaying Signs/Symptoms of Drug Intoxication Withdrawal: No Any prior treatment program specific to substance use: No Have you been hit, kicked, punched, or otherwise hurt by someone within the past year? If so, by whom?: No Do you feel safe in your current relationship?: No Is there a partner from a previous relationship who is making you feel unsafe now?: No Are you made to feel afraid or neglected: No Are you DNR?: No Advance Directives: Yes Advance Directives on File: Yes Advance Directives Date on File: 02/25/22 Do you have thoughts of harming others: None Do you have a plan to hurt others: No Plan Recently lost weight without trying: Yes How much weight loss: 14-23 pounds Eating poorly because of decreased appetite: Yes Nutrition screen score: 5 Nutrition Risks: Poor intake 0-25% >4 days Poor oral hygiene: No service: Yes Current occupational status: retired Meds Allergies Allergy/AdvReac Type Severity Reaction Status Date / Time No Known Allergies Allergy Unverified 01/17/20 18:13 [No Known Allergies*] Active Medications: Current Medications Acetaminophen (Acetaminophen Supp 325 Mg Supp.Rect) [address] Q6H PRN PRN Reason: Pain, Mild (Pain Scale 1-3) Albuterol/Ipratropium (Albuterol/Iprat 2.5/0.5mg 3 Ml Ampul.Neb) 3 ml INHALE Q4H PRN PRN Reason: Shortness of Breath/Wheezing Atorvastatin Calcium (Atorvastatin Calcium 20 Mg Tablet) 20 mg PO DAILY [facility] Last Admin: 05/13/23 08:16 Dose: 20 mg Folic Acid (Folic Acid 1 Mg Tablet) 1 mg PO DAILY [facility] Heparin Sodium (Porcine) (Heparin Sodium,Porcine 5,000 Unit/Ml Vial) 5,000 unit SUBCUT Q12H [facility] Last Admin: 05/13/23 14:32 Dose: Not Given Hydromorphone HCl (Hydromorphone Hcl 1 Mg/Ml Syringe) 0.5 mg IVPUSH Q4H PRN; Protocol PRN Reason: Pain, Severe (Pain Scale 7-10) Last Admin: 05/13/23 06:20 Dose: 0.5 mg Meclizine HCl (Meclizine Hcl 25 Mg Tablet) 25 mg PO TID [facility] Last Admin: 05/13/23 14:33 Dose: Not Given Omeprazole (Omeprazole 20 Mg Capsule.Dr) 20 mg PO BID@0630,1630 [facility] Sodium Chloride (0.9 % Sodium Chloride Flush 3 Ml Syringe) 3 ml IVFLUSH QSHIFT [facility] Last Admin: 05/13/23 08:16 Dose: 3 ml Tamsulosin HCl (Tamsulosin Hcl 0.4 Mg Capsule) 0.4 mg PO DAILY [facility] Home Medications Medication Instructions Recorded Confirmed Last Taken Type Novolog U-100 Insulin aspart See Rx Instructions .Route 08/12/21 05/13/23 02/25/22 History .COMPLEX PRN insulin pump ascorbic acid (vitamin C) 500 mg 500 mg PO DAILY 08/12/21 05/13/23 02/25/22 History tablet atorvastatin 40 mg tablet 20 mg PO DAILY 08/12/21 05/13/23 02/24/22 History cholecalciferol (vitamin D3) 25 25 mcg PO DAILY 08/12/21 05/13/23 02/24/22 History mcg (1,000 unit) capsule (Vitamin D3) cyanocobalamin (vitamin B-12) 500 500 mcg PO DAILY 08/12/21 05/13/23 02/25/22 History mcg tablet hydroxyzine HCl 10 mg tablet 10 mg PO DAILY PRN Itching 08/12/21 05/13/23 Unknown History loratadine 10 mg tablet 10 mg PO DAILY 08/12/21 05/13/23 02/24/22 History omeprazole 20 mg capsule,delayed 20 mg PO DAILY@0630 08/12/21 05/13/23 02/25/22 History release sennosides 8.6 mg-docusate sodium 1 tab PO BEDTIME PRN Constipation 08/12/21 05/13/23 02/24/22 History 50 mg tablet (Senna Plus) tamsulosin 0.4 mg capsule 0.4 mg PO DAILY 08/12/21 05/13/23 02/24/22 History denosumab 60 mg/mL subcutaneous 60 mg subcut [id number] 02/25/22 05/13/23 Unknown History syringe Lactobacillus acidophilus 1 cap PO BID 05/12/23 05/13/23 Unknown History biotin 500 mcg capsule 1 mg PO DAILY 05/12/23 05/13/23 Unknown History calcium citrate 200 mg (950 mg) 600 mg PO BID 05/12/23 05/13/23 Unknown History tablet fluticasone propionate 50 2 spray intranasal DAILY PRN 05/12/23 05/13/23 Unknown History mcg/actuation nasal Allergy Symptoms spray,suspension gabapentin 600 mg tablet 300 mg PO TID 05/12/23 05/13/23 Unknown History hydrochlorothiazide 25 mg tablet 25 mg PO DAILY 05/12/23 05/13/23 Unknown History ipratropium 0.5 mg-albuterol 3 mg 3 ml inhalation QID PRN Shortness 05/12/23 05/13/23 Unknown History (2.5 mg base)/3 mL nebulization Of Breath Or Wheezing soln losartan 25 mg tablet 25 mg PO DAILY 05/12/23 05/13/23 Unknown History meclizine 25 mg tablet 25 mg PO TID 05/12/23 05/13/23 Unknown History multivitamin 1 tab PO DAILY 05/12/23 05/13/23 Unknown History albuterol sulfate 90 mcg/actuation 2 puff inhalation Q6H PRN 05/13/23 05/13/23 Unknown History aerosol inhaler Shortness Of Breath Or Wheezing aspirin 81 mg tablet,delayed 81 mg PO DAILY 05/13/23 05/13/23 Unknown History release dextromethorphan-guaifenesin 10 10 ml PO Q6H PRN Cough 05/13/23 05/13/23 Unknown History mg-100 mg/5 mL oral syrup omega 5-ftv-bng-fish oil 300 1 cap PO BID 05/13/23 05/13/23 Unknown History mg-1,000 mg capsule,delayed release (Fish Oil) Exam Height,Weight and Vital Signs: Height 5 ft 11 in Weight 91.1 kg Last Vital Signs Temp 97 F 05/13/23 16:08 Pulse 90 05/13/23 16:08 Resp 16 05/13/23 16:08 BP 90/45 L 05/13/23 16:08 Pulse Ox 92 05/13/23 16:08 O2 Del Method Nasal Cannula 05/13/23 16:08 O2 Flow Rate 2 05/13/23 16:08 Pertinent Lab Results Pertinent Lab Results: Laboratory Tests 05/12/23 05/12/23 05/12/23 17:29 18:05 20:00 WBC 15.8 H RBC 4.39 L Hgb 12.8 L Hct 39.0 L MCV 88.8 MCH 29.2 MCHC 32.8 RDW 16.1 H Plt Count 253 MPV 10.0 Immature Gran % (Auto) 0.4 Neut % (Auto) 87.5 H Lymph % (Auto) 6.2 L Ferry % (Auto) 4.9 Eos % (Auto) 0.5 Baso % (Auto) 0.5 Lymph # (Auto) 1.0 L [place] # (Auto) 0.8 Eos # (Auto) 0.1 Baso # (Auto) 0.1 Abs Immat Gran (auto) 0.06 H Absolute Neuts (auto) 13.8 H Absolute Nucleated RBC 0.000 Nucleated RBC % (auto) 0.0 PT 13.2 INR 1.1 Sodium 138 Potassium 4.0 Chloride 102 Carbon Dioxide 28 Anion Gap 12 BUN 13 Creatinine 1.04 Estim Creat Clear Calc 59.1 Estimated GFR > 60 POC Glucose 78 125 H Random Glucose 100 Calcium 9.0 D Total Bilirubin 1.0 AST 29 ALT 15 Alkaline Phosphatase 81 Total Creatine Kinase Troponin I High Sens 19.8 Total Protein 6.0 L Albumin 3.0 L Urine Color Urine Appearance Urine pH Ur Specific Forgan Urine Protein Urine Glucose (UA) Urine Ketones Urine Blood Urine Nitrite Ur Leukocyte Esterase Urine RBC Urine WBC Ur Squamous Epith Cells Urine Bacteria Hyaline Casts COVID-19 (ELEANOR) Negative COVID-19 Clin Com See Note Influenza Type A (ALEIDA) Negative Influenza Type B (ALEIDA) Negative Influenza A & B Note See Note Blood Type Antibody Screen 05/12/23 05/12/23 05/13/23 20:50 23:39 00:14 WBC RBC Hgb 10.1 L D Hct 30.8 L D MCV MCH MCHC RDW Plt Count MPV Immature Gran % (Auto) Neut % (Auto) Lymph % (Auto) Ferry % (Auto) Eos % (Auto) Baso % (Auto) Lymph # (Auto) Ferry # (Auto) Eos # (Auto) Baso # (Auto) Abs Immat Gran (auto) Absolute Neuts (auto) Absolute Nucleated RBC Nucleated RBC % (auto) PT INR Sodium Potassium Chloride Carbon Dioxide Anion Gap BUN Creatinine Estim Creat Clear Calc Estimated GFR POC Glucose 168 H Random Glucose Calcium Total Bilirubin AST ALT Alkaline Phosphatase Total Creatine Kinase Troponin I High Sens 28.6 Total Protein Albumin Urine Color Urine Appearance Urine pH Ur Specific Forgan Urine Protein Urine Glucose (UA) Urine Ketones Urine Blood Urine Nitrite Ur Leukocyte Esterase Urine RBC Urine WBC Ur Squamous Epith Cells Urine Bacteria Hyaline Casts COVID-19 (ELEANOR) COVID-19 Clin Com Influenza Type A (ALEIDA) Influenza Type B (ALEIDA) Influenza A & B Note Blood Type Antibody Screen 05/13/23 05/13/23 05/13/23 05:05 05:37 05:39 WBC 16.3 H RBC 3.52 L Hgb 10.2 L Hct 31.2 L MCV 88.6 MCH 29.0 MCHC 32.7 RDW 16.3 H Plt Count 228 MPV 10.6 Immature Gran % (Auto) Neut % (Auto) Lymph % (Auto) Ferry % (Auto) Eos % (Auto) Baso % (Auto) Lymph # (Auto) Ferry # (Auto) Eos # (Auto) Baso # (Auto) Abs Immat Gran (auto) Absolute Neuts (auto) Absolute Nucleated RBC 0.000 Nucleated RBC % (auto) 0.0 PT INR Sodium 136 Potassium 4.4 Chloride 101 Carbon Dioxide 27 Anion Gap 12 BUN 18 H Creatinine 1.55 H Estim Creat Clear Calc 39.4 Estimated GFR 43 POC Glucose 139 H Random Glucose 131 H Calcium 8.4 D Total Bilirubin AST ALT Alkaline Phosphatase Total Creatine Kinase 104 Troponin I High Sens Total Protein Albumin Urine Color Dark Yellow Urine Appearance Cloudy Urine pH 7.0 Ur Specific Forgan 1.020 Urine Protein 30 (1+) H Urine Glucose (UA) Negative Urine Ketones 15 Urine Blood Negative Urine Nitrite Negative Ur Leukocyte Esterase Small (1+) H Urine RBC 0-2 Urine WBC 0-5 Ur Squamous Epith Cells 3-5 Urine Bacteria None Seen Hyaline Casts >20 COVID-19 (ELEANOR) COVID-19 Clin Com Influenza Type A (ALEIDA) Influenza Type B (ALEIDA) Influenza A & B Note Blood Type Antibody Screen 05/13/23 05/13/23 12:00 12:38 WBC RBC Hgb Hct MCV MCH MCHC RDW Plt Count MPV Immature Gran % (Auto) Neut % (Auto) Lymph % (Auto) Ferry % (Auto) Eos % (Auto) Baso % (Auto) Lymph # (Auto) Ferry # (Auto) Eos # (Auto) Baso # (Auto) Abs Immat Gran (auto) Absolute Neuts (auto) Absolute Nucleated RBC Nucleated RBC % (auto) PT INR Sodium Potassium Chloride Carbon Dioxide Anion Gap BUN Creatinine Estim Creat Clear Calc Estimated GFR POC Glucose 108 Random Glucose Calcium Total Bilirubin AST ALT Alkaline Phosphatase Total Creatine Kinase Troponin I High Sens Total Protein Albumin Urine Color Urine Appearance Urine pH Ur Specific Forgan Urine Protein Urine Glucose (UA) Urine Ketones Urine Blood Urine Nitrite Ur Leukocyte Esterase Urine RBC Urine WBC Ur Squamous Epith Cells Urine Bacteria Hyaline Casts COVID-19 (ELEANOR) COVID-19 Clin Com Influenza Type A (ALEIDA) Influenza Type B (ALEIDA) Influenza A & B Note Blood Type A Positive Antibody Screen NEGATIVE Airway Mallampati Class: II TM Dist: >3cm Neck ROM: Full Loose/Missing/Broken Teeth: No Heart: IRRR Lungs: CTA Assessment and Plan Assessment Anesthesia Assessment: Anesthesia Plan Discussed and Chart Reviewed Final Anesthetic Review Family History of Problems with Anesthesia: No History of Problems with Anesthesia: No NPO: Yes ASA Class: III and Emergency Final Preanesthetic Review: No Changes in Pt Med Stat, Meds/Allgs Chart Reviewed, Consent Obtained/Reviewed and Anes Risks/Benef Reviewed Patient Risk: High Procedure Risk: Intermediate Anesthetic Plan Anesthetic Plan: GA Disposition: Standard PACU
[2023-05-13 16:26] LABS: Glucose, Whole Blood 127 mg/dL (60-115)
--- NOTE | 2023-05-13 18:20 | P.BOP_ITS ---
Brief Operative Note Date of Service: 05/13/23 Pre-op diagnosis: left distal femoral periprosthetic fracture Post-op diagnosis: same Procedure: Retrograde IMN left distal femoral periprosthetic fracture Implants: Adel [id number] retrograde IMN with 4 distal and 2 proximal interlocking screws Surgeon: Brandon Beaver MD Anesthesia: GETA and local Was an Cnc Lathe Machine Operator used for this Procedure?: No Estimated blood loss (mL): 150 IV fluids (mL): 1,000 Pathology: none sent Condition: stable Disposition: PACU
[2023-05-13] MEDS: Acetaminophen 1,000 MG/100 ML PIGGYBACK 400 MG IV (18:41)
--- NOTE | 2023-05-13 18:45 | PC.NURSE ---
184 IVF CHANGED TO NS 0.9% PER ANESTHESIA IVF BOLUS PLACED PER M.D. GIVE ADDITIONAL 150 ML NS.
[2023-05-13 18:50] LABS: Glucose, Whole Blood 234 mg/dL (60-115)
--- NOTE | 2023-05-13 18:52 | PC.NURSE ---
NOTE SENT TO HOSPITALIST TEAM Nadira TRAYLOR MADE AWARE SBP 80'S AFIG 100-105, SPO2 100% 2L NC. REPORTED TO MD THAT NOT NEW FOR PATIENT BASELINE BP INPATIENT UNIT RUNNING LOW AND HAVING HYPOTENSION ON INPATIENT UNIT WELL.
--- NOTE | 2023-05-13 19:46 | PC.NURSE ---
ANESTHESIA COMPLETING MD TO MD WITH HOSPITALIST TEAM DR. FIELDS REGARDING PATIENT SBP REMAINS HYPOTENSIVE 80-90'S. HOSPITALIST TO EVALUATE PATIENT
--- NOTE | 2023-05-13 19:49 | PC.NURSE ---
194 PHLEBOTOMY AT BEDSIDE TO DRAW STAT LABS.
[2023-05-13 19:54] LABS: Hematocrit 26.2 % (42.0-52.0); Hemoglobin 8.6 g/dl (14.0-18.0)
--- NOTE | 2023-05-13 20:12 | PC.NURSE ---
per hospitalist dr. schaeffer aware of h/h plan to order 1 unit rbc and tranfer to [facility] telemetry.
--- NOTE | 2023-05-13 20:23 | PC.NURSE ---
PER DR. FIELDS HOSPITALIST PATIENT MAY TRANSFER TO [facility] ONCE UNIT OF BLOOD HANGING AND 15 MIN CHECKS
[2023-05-13] MEDS: Meclizine HCl 25 MG TABLET PO (21:37)
[2023-05-13] MEDS: Omeprazole 20 MG CAPSULE.DR PO (21:37)
[2023-05-13 22:46] LABS: Glucose, Whole Blood 223 mg/dL (60-115)
--- NOTE | 2023-05-13 23:48 | P.CONCC_ITS ---
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 ?obstructive sleep apnea, peripheral neuropathy, B12 deficiency, presents to our services via consult after undergoing a left femoral ORIF as a result of a fall at home which caused a left distal femoral periprosthetic fracture.? He is currently postop day 0., were consulted because the patient has been hypotensive since the surgery (retrograde IMN left distal femoral periprosthetic) performed today by Dr. Beaver, with total EBL estimated at 150 cc, patient received total of 1300 of IV fluids and was subsequently transferred to telemetry. ?On the floor, the patient remained hypotensive with blood pressure below 90, review of his H&H shows a admission H&H of 12.8 and 39 respectively with a current H&H of 8.6 and 26.2 respectively.? Patient has received 1 unit of packed red blood cells however his blood pressure has not improved; upon reviewing the chart, the patient has been hypotensive for over 6 hours. During my evaluation, the patient appears somewhat pale, denies any pain, lightheadedness or dizziness, double or blurry vision, numbness or tingling, chest pain or more shortness of breath unusual, denies abdominal pain, nausea, vomiting, diarrhea, admits having a remote history of GI bleed but does not recall the details of it, denies any history of blood clots in the legs or lungs, no history of cancer, there is no history of coronary artery disease. ?He has a diabetic and is managed with an insulin pump.? Otherwise the remainder review of systems were reviewed and they are negative. Past Medical History:? As above Past Surgical History: Cholecystectomy Left knee replacement Family history:? Noncontributory Social History:? Lives at home, does not use any assistive devices.? Does not smoke any cigarettes now or ever, does admit drinking in the past but not for 40 years.? Denies any drug use. CODE STATUS: FULL CODE Allergies: NKDA Home Medications: See Med Rec PHYSICAL EXAM: VS: ?85/50, 94, 13, 98.6. General:? Alert oriented x3 no acute distress.? Speaking full sentences.? Speech is well articulated, thought process is coherent.? Following all commands. Skin:? Surgical dressings are noted at the proximal and distal femoral areas, all covered clean, dry and intact with thin a bandage all the way down into the toes.? Edema is noted in the bilateral lower extremities but more so on the left a 2+ pitting throughout and 1+ pitting on the right mid tibia area. ? HEENT:? Head is normocephalic, atraumatic, pupils equal round reactive to light accommodation bilaterally.? Extraocular movements appear intact.? Buccal mucosa is dry, Neck is supple without lymphadenopathy. Cardiac:? Clear but irregular S1-S2, no murmurs rubs or gallops. Pulmonary:? Clear to auscultation, no wheezes, rales or rhonchi. Abdomen:? Protuberant, positive bowel sounds in all 4 quadrants.? Soft, nontender, no rebound or guarding.? Musculoskeletal:? Moving all the bilateral upper and right lower extremities at the major joints upon request without crepitus.? Edema as above, left lower extremity range of motion is limited to the toes upon request only. Neurologic:? As above, cranial nerves 2-12 are grossly intact.? No focal deficits noted. Vascular:? 2+ pulses upper and lower extremities distally. SIGNIFICANT LABORATORY DATA:? As above in adition, there is no white count, electrolyte panel is unremarkable. Albumin 3.0? REVIEW OF IMAGES: ?Review of images done in the ER including head and neck CT revealed no acute pathology; including no intracranial hemorrhage or cervical spine fracture. Left knee x-ray impression Comminuted distal femoral periprosthetic fracture EKG REVIEW: ?Study from 05/12 24 To my view disease atrial fibrillation ventricular rate 80 beats per minute.? There is no ST elevations, no ST depressions.? QTC 553.? No comparison. Bedside echocardiogram hemodynamic stability shows: Normal left ventricular size and systolic function.? Estimated ejection fraction 65-70%.? Trace mitral regurgitation.? Trace tricuspid regurgitation.? Inferior vena cava normal in size and collapses about 75% upon inspiration.? There is no evidence of effusions to my view. ASSESSMENT : 1. Postop day 0. status post retrograde IMN left distal femoral periprosthetic fracture) post mechanical fall 2. Postoperative hypotension (multifactorial due to anemia, volume depletion and acute kidney injury, anesthetics and pain killers) 3. Acute kidney injury likely prerenal due to volume depletion hypoperfusion 4. Insulin-dependent type 2 diabetes 5. History of vertigo with recurrent gait balance issues 6. Anemia appears to be of chronic disease, rule out iron deficiency, microscopic bleeding and intra-articular bleed postop 7. Hypoalbuminemia 8. Hx Afib now rate controlled PLAN OF CARE: Even though the patient is asymptomatic, I am concerned about the ongoing hypotension, anemia and edema around the intra-articular areas of his surgery.? I believe the patient will benefit from close observation in the ICU, will continue with transfusion, give albumin, recheck laboratories frequently, if renal function has not improve I will consider starting him on low rate IV fluids.? Will hold any nephrotoxins, will hold any antihypertensive medications and continue to monitor her blood sugars, if necessary will administer additional insulin sliding scale. Although unlikely, if the patient remains hypotensive, we can and will consider vasopressors but not at this point.? I think this is all volume related in the setting of anemia and the fact that he was kept NPO for the surgery. Will order iron panel and stool for occult blood study. GI PROPHYLAXIS: ?Oral PPI DVT PROPHYLAXIS: ?Pneumatic stockings while in bed Clinical Update: at 0605am the pt become unresponsive in front of me; he had just woken up and asked me for a urinalysis, upon urinating handed back the urinal and about 30 seconds later I noted the patient was unresponsive lying on his bed. He did not respond to any verbal or painful stimuli for about 2 minutes, subsequently came to himself but was confused, patient slowly regained consciousness and became his normal self recognizing that his was in the hospital and that he had fallen and had a recent surgery. Otherwise his neurological exam now remains unremarkable without any motor or neurological deficits. He is moving upper extremities, right lower extremities as well as the toes of the left lower extremity without any problems. Cranial nerves 2-12 are grossly intact. Initially a CT of the head was ordered stat but this was canceled given the patient improvement in likely syncopal episode. Full set of laboratories ordered including a troponin and are pending. ABG done by me at bedside shows pH of 7.37, pCO2 41, PO2 87, bicarb 24. EKG: Shows atrial fibrillation with rapid ventricular response and a rate of 120 beats per minute. There is no ST elevations, no ST depressions. There is aberrant conduction and a QTC of 443. Does not appear significantly different toe the 1 from 05/12/2023. REVISED ASSESSMENT 1. MICTURITIONAL SYNCOPE with AFIb and RVR likely related to tachy/ari issues; (reflex. orthostatic, other cardiac valv abn, neuro related issues) r/o IL Workup as above, the patient was placed back on his CPAP even though for a few minutes we had him on BiPAP but in light of his gasping normal from this was discontinued. I believe these syncopal episodes need to be further evaluated by Cardiology and or neurology. Continue IVF, pal cath. Case discussed with the internal medicine physician Dr. Almendarez, the patient will remain in the ICU for further care. Critical care time used for critical evaluation of this patient, diagnosis, treatment and coordination of care, review her records and documentation TOTAL CRITICAL CARE TIME 150?MIN (between initial admission care and follow-up syncopal event). discussion and coordination with consultants, completely separate from any procedures performed. Patient's care was discussed in detail with Dr. Zaidi? He is aware of all the above as well as the plan of care for this patient. [facility] Past Medical History Medical History GERD (gastroesophageal reflux disease) BPH (benign prostatic hyperplasia) Hypertension Borderline hypertension Atrial fibrillation Diabetes Social History Social History Household Members: None Housing: House Do you presently have visiting nurse or other home services: Yes Patient Tobacco Use Status: Never used Tobacco Smoked in Last 30 Days: No e-Cigarette/Vaping Use: Never Used Patient Interested in Nicotine Replacement: No Patient Given Instructions on How to Stop Smoking: No Second Hand Smoke Exposure: No Use of substances other than those prescribed or required for medical reasons: No Currently Displaying Signs/Symptoms of Drug Intoxication Withdrawal: No Any prior treatment program specific to substance use: No Have you been hit, kicked, punched, or otherwise hurt by someone within the past year? If so, by whom?: No Do you feel safe in your current relationship?: No Current Relationship Is there a partner from a previous relationship who is making you feel unsafe now?: No Are you made to feel afraid or neglected: No Are you DNR?: No Advance Directives: Yes Advance Directives on File: Yes Advance Directives Date on File: 02/25/22 Do you have thoughts of harming others: None Do you have a plan to hurt others: No Plan Recently lost weight without trying: No How much weight loss: 14-23 pounds Eating poorly because of decreased appetite: No Nutrition screen score: 2 Nutrition Risks: No Nutritional Risk Poor oral hygiene: No service: Yes Current occupational status: retired Meds Allergies Allergy/AdvReac Type Severity Reaction Status Date / Time No Known Allergies Allergy Unverified 01/17/20 18:13 [No Known Allergies*] Active Medications: Current Medications Acetaminophen (Acetaminophen Supp 325 Mg Supp.Rect) 975 mg MT Q6H PRN PRN Reason: Pain, Mild (Pain Scale 1-3) Albuterol/Ipratropium (Albuterol/Iprat 2.5/0.5mg 3 Ml Ampul.Neb) 3 ml INHALE Q4H PRN PRN Reason: Shortness of Breath/Wheezing Atorvastatin Calcium (Atorvastatin Calcium 20 Mg Tablet) 20 mg PO DAILY [facility] [place] Last Admin: 05/13/23 08:16 Dose: 20 mg Folic Acid (Folic Acid 1 Mg Tablet) 1 mg PO DAILY [facility] Hydromorphone HCl (Hydromorphone Hcl 1 Mg/Ml Syringe) 0.5 mg IVPUSH Q4H PRN; Protocol PRN Reason: Pain, Severe (Pain Scale 7-10) Last Admin: 05/13/23 06:20 Dose: 0.5 mg Meclizine HCl (Meclizine Hcl 25 Mg Tablet) 25 mg PO TID [facility] [place] Last Admin: 05/13/23 21:37 Dose: 25 mg Omeprazole (Omeprazole 20 Mg Capsule.Dr) 20 mg PO BID@0630,1630 [facility] [place] Last Admin: 05/13/23 21:37 Dose: 20 mg Sodium Chloride (0.9 % Sodium Chloride Flush 3 Ml Syringe) 3 ml IVFLUSH QSHIFT [facility] [place] Last Admin: 05/13/23 21:12 Dose: Not Given Tamsulosin HCl (Tamsulosin Hcl 0.4 Mg Capsule) 0.4 mg PO DAILY [facility] Home Medications Medication Instructions Recorded Confirmed Last Taken Type Novolog U-100 Insulin aspart See Rx Instructions .Route 08/12/21 05/13/23 02/25/22 History .COMPLEX PRN insulin pump ascorbic acid (vitamin C) 500 mg 500 mg PO DAILY 08/12/21 05/13/23 02/25/22 History tablet atorvastatin 40 mg tablet 20 mg PO DAILY 08/12/21 05/13/23 02/24/22 History cholecalciferol (vitamin D3) 25 25 mcg PO DAILY 08/12/21 05/13/23 02/24/22 History mcg (1,000 unit) capsule (Vitamin D3) cyanocobalamin (vitamin B-12) 500 500 mcg PO DAILY 08/12/21 05/13/23 02/25/22 History mcg tablet hydroxyzine HCl 10 mg tablet 10 mg PO DAILY PRN Itching 08/12/21 05/13/23 Unknown History loratadine 10 mg tablet 10 mg PO DAILY 08/12/21 05/13/23 02/24/22 History omeprazole 20 mg capsule,delayed 20 mg PO DAILY@0630 08/12/21 05/13/23 02/25/22 History release sennosides 8.6 mg-docusate sodium 1 tab PO BEDTIME PRN Constipation 08/12/21 05/13/23 02/24/22 History 50 mg tablet (Senna Plus) tamsulosin 0.4 mg capsule 0.4 mg PO DAILY 08/12/21 05/13/23 02/24/22 History denosumab 60 mg/mL subcutaneous 60 mg subcut [id number] 02/25/22 05/13/23 Unknown History syringe Lactobacillus acidophilus 1 cap PO BID 05/12/23 05/13/23 Unknown History biotin 500 mcg capsule 1 mg PO DAILY 05/12/23 05/13/23 Unknown History calcium citrate 200 mg (950 mg) 600 mg PO BID 05/12/23 05/13/23 Unknown History tablet fluticasone propionate 50 2 spray intranasal DAILY PRN 05/12/23 05/13/23 Unknown History mcg/actuation nasal Allergy Symptoms spray,suspension gabapentin 600 mg tablet 300 mg PO TID 05/12/23 05/13/23 Unknown History hydrochlorothiazide 25 mg tablet 25 mg PO DAILY 05/12/23 05/13/23 Unknown History ipratropium 0.5 mg-albuterol 3 mg 3 ml inhalation QID PRN Shortness 05/12/23 05/13/23 Unknown History (2.5 mg base)/3 mL nebulization Of Breath Or Wheezing soln losartan 25 mg tablet 25 mg PO DAILY 05/12/23 05/13/23 Unknown History meclizine 25 mg tablet 25 mg PO TID 05/12/23 05/13/23 Unknown History multivitamin 1 tab PO DAILY 05/12/23 05/13/23 Unknown History albuterol sulfate 90 mcg/actuation 2 puff inhalation Q6H PRN 05/13/23 05/13/23 Unknown History aerosol inhaler Shortness Of Breath Or Wheezing aspirin 81 mg tablet,delayed 81 mg PO DAILY 05/13/23 05/13/23 Unknown History release dextromethorphan-guaifenesin 10 10 ml PO Q6H PRN Cough 05/13/23 05/13/23 Unknown History mg-100 mg/5 mL oral syrup omega 1-aef-xib-fish oil 300 1 cap PO BID 05/13/23 05/13/23 Unknown History mg-1,000 mg capsule,delayed release (Fish Oil) Physical Exam 2 Vital Signs: Vital Signs: Last Vital Signs Temp 98.6 F 05/13/23 23:42 Pulse 94 05/13/23 23:42 Resp 13 05/13/23 23:42 BP 85/50 L 05/13/23 23:42 Pulse Ox 95 05/13/23 23:23 O2 Del Method CPAP 05/13/23 23:23 O2 Flow Rate 2 05/13/23 23:23 BMI result Body Mass Index 28.0 Results Labs 05/14/23 18:00 05/14/23 18:00 Labs: Short CBC 05/13/23 05/13/23 05/13/23 Range/Units 00:14 05:39 19:49 WBC 16.3 H (4.8-10.8) X10*3/uL Hgb 10.1 L D 10.2 L 8.6 L (14.0-18.0) g/dl Hct 30.8 L D 31.2 L 26.2 L (42.0-52.0) % Plt Count 228 (160-400) X10*3/uL BMP 05/13/23 05:39 Sodium 136 Potassium 4.4 Chloride 101 Carbon Dioxide 27 BUN 18 H Creatinine 1.55 H Calcium 8.4 D Cardiac Enzymes 05/13/23 Range/Units 05:39 Total Creatine Kinase 104 (38-174) U/L Urine 05/13/23 Range/Units 05:37 Urine Color Dark Yellow Urine Appearance Cloudy Urine pH 7.0 (5.0-9.0) Ur Specific [place] 1.020 (1.005-1.025) Urine Protein 30 (1+) H (Neg-Trace) mg/dL Urine Glucose (UA) Negative (Negative) mg/dL
[2023-05-14] VITALS (31 sets, daily range): BP systolic 84–127; BP diastolic 34–68; PULSE 82–127; RESP 14–27; TEMP 36.2–37.5; O2SAT 89–100
[2023-05-14] MEDS: Albumin Human 25 % 100 ML IV ×6 (00:25→21:11)
[2023-05-14] MEDS: ceFAZolin Sodium/Dextrose,Iso 2 GM/50 ML PIGGYBACK IV (00:25)
[2023-05-14 01:20] LABS: MANUAL DIFF FLAG NO
[2023-05-14 01:22] LABS: Basophils Absolute Auto 0.1 X10*3/uL (0.0-0.2); Basophils Percent Auto 0.4 % (0-2); Eosinophils Absolute Auto 0.3 X10*3/uL (0.0-0.4); Hematocrit 28.3 % (42.0-52.0); Hemoglobin 9.5 g/dl (14.0-18.0); Imm Gran Abs Auto 0.08 X10*3/uL (0.00-0.03); Imm Gran Pct Auto 0.5 % (0.0-0.4); Lymphocytes Percent Auto 5.9 % (20-40); Mean Corpuscular HGB Conc 33.6 g/dl (31.0-36.0); Mean Corpuscular Hemoglobin 29.1 pg (27.0-33.0); Mean Corpuscular Volume 86.8 fL (80.0-98.0); Monocytes Absolute Auto 1.3 X10*3/uL (0.1-1.2); Monocytes Percent Auto 7.8 % (2-11); Neutrophils Absolute Auto 13.9 x10*3/uL (2.0-8.3); Neutrophils Percent Auto 83.4 % (45-73); Platelet Count 143 X10*3/uL (160-400); Red Blood Count 3.26 X10*6/uL (4.60-5.80); Red Cell Distribution Width 17.4 % (11.0-16.0); White Blood Count 16.7 X10*3/uL (4.8-10.8)
[2023-05-14 01:35] LABS: Alanine Aminotransferase 14 U/L (0-40); Albumin Level 2.5 g/dL (3.5-5.0); Alkaline Phosphatase 68 U/L (39-117); Anion Gap 13 (12-20); Aspartate Amino Transferase 19 U/L (5-37); Bilirubin Total 1.9 mg/dL (0.0-1.0); Blood Urea Nitrogen 26 mg/dL (9-16); Calcium 7.7 mg/dL (8.4-10.2); Carbon Dioxide 25 mmol/L (22-29); Chloride 101 mmol/L (96-108); Estimated Glomerular Filt Rate 24; Glucose Random 207 mg/dL (60-115); Potassium 4.5 mmol/L (3.3-5.1); Sodium 134 mmol/L (135-145); Total Protein 4.6 g/dL (6.5-8.0)
[2023-05-14] MEDS: Lactated Ringers 1,000 ML 999 ML IV (01:57)
[2023-05-14 02:19] LABS: Iron 179 mcg/dL (45-160); Magnesium 1.8 mg/dL (1.6-2.6); Percent Iron Saturation 88 % (15-50); Phosphorus 5.3 mg/dL (2.7-4.5); Total Iron Binding Capacity 204 mcg/dL (228-428); Unsaturated Iron Binding < 25 ug/dL
[2023-05-14] MEDS: Insulin Regular, Human 100 UNIT/ML 3 ML VIAL IVPUSH (02:24)
[2023-05-14 02:27] LABS: Hematocrit 27.8 % (42.0-52.0); Hemoglobin 9.4 g/dl (14.0-18.0)
[2023-05-14 02:54] LABS: Lactic Acid 1.5 mmol/L (0.5-2.0)
[2023-05-14] MEDS: Lactated Ringers 1,000 ML 100 ML IV (03:09)
--- NOTE | 2023-05-14 06:21 | ECG_ITS ---
Test Reason : syncope Blood Pressure : / mmHG Vent. Rate : 120 BPM Atrial Rate : 000 BPM P-R Int : 000 ms QRS Dur : 108 ms QT Int : 314 ms P-R-T Axes : 000 018 022 degrees QTc Int : 443 ms Atrial fibrillation with rapid ventricular response with premature ventricular or aberrantly conducted complexes Nonspecific ST abnormality Abnormal ECG When compared with ECG of 12-MAY-2023 17:49, Vent. rate has increased BY 40 BPM Referred By: Khai Talbert Electronically Signed By:LAUREL MARTINEZ MD
[2023-05-14 06:22] LABS: ABG Base Excess -0.1 mmol/L; ABG HCO3 24 mmol/L (22-26); ABG pCO2 41 mmHg (32-45); ABG pH 7.38 (7.35-7.45); ABG pO2 88 mmHg (83-108)
[2023-05-14 06:35] LABS: ABG Refer to POC result
[2023-05-14 06:37] LABS: MANUAL DIFF FLAG NO
[2023-05-14 06:44] LABS: Basophils Absolute Auto 0.1 X10*3/uL (0.0-0.2); Basophils Percent Auto 0.4 % (0-2); Eosinophils Absolute Auto 0.6 X10*3/uL (0.0-0.4); Eosinophils Percent Auto 3.7 % (0-4); Hematocrit 25.6 % (42.0-52.0); Hemoglobin 8.6 g/dl (14.0-18.0); Imm Gran Abs Auto 0.07 X10*3/uL (0.00-0.03); Imm Gran Pct Auto 0.5 % (0.0-0.4); Lymphocytes Absolute Auto 2.6 X10*3/uL (1.2-4.9); Lymphocytes Percent Auto 17.5 % (20-40); Mean Corpuscular HGB Conc 33.6 g/dl (31.0-36.0); Mean Corpuscular Hemoglobin 29.1 pg (27.0-33.0); Mean Corpuscular Volume 86.5 fL (80.0-98.0); Mean Platelet Volume 11.3 fL (9.4-12.4); Monocytes Absolute Auto 1.3 X10*3/uL (0.1-1.2); Monocytes Percent Auto 8.7 % (2-11); Neutrophils Absolute Auto 10.4 x10*3/uL (2.0-8.3); Neutrophils Percent Auto 69.2 % (45-73); Platelet Count 129 X10*3/uL (160-400); Red Blood Count 2.96 X10*6/uL (4.60-5.80); Red Cell Distribution Width 17.2 % (11.0-16.0)
[2023-05-14 06:55] LABS: Phosphorus 4.2 mg/dL (2.7-4.5)
--- NOTE | 2023-05-14 07:01 | PC.NURSE ---
Pt transferred to ICU from [facility] at approx 0000. Upon initial assessment- A&Ox4, calm/cooperative, VAIL. Afebrile. Afib on tele, HR 90s, SBP 90-120s. SpO2 > 92% on 3L NC, denies SOB. Given albumin 100 mLx 4 bottles, LR 1L IV bolus, 1 unit of pRBC, tolerated well. Surgical site C/D/I, elevated on pillow with ice pack applied. At 0545- pt voided in urinal. Immediately after, HR up to 120-130s, lethargic and difficult to arouse by sternal rub. LYN Talbert notified and to bedside. New order for stat labs and head CT but pt suddenly woke up and followed all commands appropriately. EKG completed, CT cancelled. At 0655- SBP down to 80s, HR 100s, LYN notified. New order for 2 additional bottles of albumin IV. Report given to oncoming RN.
[2023-05-14 07:06] LABS: Alanine Aminotransferase 11 U/L (0-40); Albumin Level 3.5 g/dL (3.5-5.0); Alkaline Phosphatase 56 U/L (39-117); Anion Gap 16 (12-20); Aspartate Amino Transferase 19 U/L (5-37); Bilirubin Total 2.3 mg/dL (0.0-1.0); Blood Urea Nitrogen 27 mg/dL (9-16); Calcium 8.5 mg/dL (8.4-10.2); Carbon Dioxide 23 mmol/L (22-29); Chloride 101 mmol/L (96-108); Creatinine Clr Calc Pharmacy 28.3; Estimated Glomerular Filt Rate 29; Glucose Random 88 mg/dL (60-115); Potassium 4.5 mmol/L (3.3-5.1); Sodium 135 mmol/L (135-145); Total Protein 5.3 g/dL (6.5-8.0)
[2023-05-14 07:10] LABS: Troponin-I High Sensitivity 31.9 ng/L (<3.5-35.0)
[2023-05-14 07:43] LABS: Glucose, Whole Blood 97 mg/dL (60-115)
[2023-05-14] MEDS: Calcium Gluconate/NaCl,Iso-Osm 1 GM/50 ML PLAST..BAG IV (07:59)
--- NOTE | 2023-05-14 08:02 | P.PNCC_ITS ---
Subjective Subjective Date of Service: 05/14/23 Interval History: admitted to ICU overnight d/t hypotension, found to be anemic and intravascularly dry Critical Care Time (minutes): 60 Physical Exam 2 Vital Signs: Vital Signs: Last Vital Signs Temp 97.8 F 05/14/23 04:01 Pulse 103 H 05/14/23 07:00 Resp 22 H 05/14/23 07:00 BP 84/37 L 05/14/23 07:00 Pulse Ox 96 05/14/23 07:00 O2 Del Method BiPAP 05/14/23 07:00 O2 Flow Rate 2 05/14/23 05:56 FiO2 30 05/14/23 07:00 Oxygen Flow Rate 3 05/14/23 00:42 BMI result Body Mass Index 28.0 Const: General: cooperative, healthy appearing, comfortable, no acute distress, well developed, alert, awake and Physically active O rientation/consciousness: patient oriented x3 HEENT: Head: Yes normal to inspection, Yes normocephalic and Yes atraumatic Eyes: General: appearance normal, both eyes and all related structures Neck: Neck: Yes normal visual inspection, Yes full ROM and Yes supple Chest: Chest palpation & inspection: normal inspection of the chest Resp: Other: no appreciable rales, rhonchi, wheezing Effort & Inspection: normal respiratory effort Cardio: Rate: regular rate Rhythm: regular rhythm GI: Inspection: Yes normal to inspection, No Abdominal wall edema and No distended Palpation (GI): Soft to palpation, not firm, nontender, no guarding and not rigid Skin: General skin exam: no rashes or lesions noted Neuro: General: patient oriented x3, tone normal, moves all extremities and no focal motor deficits Extrem: Other: appreciable R knee edema, though compartments soft; no significant tenderness to palpation; appreciable pedal pulses bilaterally Psych: Appearance: grossly normal Objective Data Labs 05/14/23 06:15 05/14/23 06:15 Labs: Laboratory Results - last 24 hr 05/12/23 05/13/23 05/13/23 17:29 05:39 12:00 WBC RBC Hgb Hct MCV MCH MCHC RDW Plt Count MPV Immature Gran % (Auto) Neut % (Auto) Lymph % (Auto) [place] % (Auto) Eos % (Auto) Baso % (Auto) Lymph # (Auto) [place] # (Auto) Eos # (Auto) Baso # (Auto) Abs Immat Gran (auto) Absolute Neuts (auto) Absolute Nucleated RBC Nucleated RBC % (auto) Hold Purple Top O2 Saturation ABG pH at Pt Temp ABG pCO2 at Pt Temp ABG pO2 at Pt Temp ABG HCO3 ABG Base Excess (Actual) Sodium 136 Potassium 4.4 Chloride 101 Carbon Dioxide 27 Anion Gap 12 BUN 18 H Creatinine 1.55 H Estim Creat Clear Calc 39.4 Estimated GFR 43 POC Glucose 78 108 Random Glucose 131 H Lactic Acid Calcium 8.4 D Phosphorus Magnesium Iron TIBC % Saturation Unsat Iron Binding Total Bilirubin AST ALT Alkaline Phosphatase Total Creatine Kinase 104 Troponin I High Sens Total Protein Albumin Blood Type Antibody Screen Crossmatch 05/13/23 05/13/23 05/13/23 12:38 16:20 18:33 WBC RBC Hgb Hct MCV MCH MCHC RDW Plt Count MPV Immature Gran % (Auto) Neut % (Auto) Lymph % (Auto) [place] % (Auto) Eos % (Auto) Baso % (Auto) Lymph # (Auto) [place] # (Auto) Eos # (Auto) Baso # (Auto) Abs Immat Gran (auto) Absolute Neuts (auto) Absolute Nucleated RBC Nucleated RBC % (auto) Hold Purple Top O2 Saturation ABG pH at Pt Temp ABG pCO2 at Pt Temp ABG pO2 at Pt Temp ABG HCO3 ABG Base Excess (Actual) Sodium Potassium Chloride Carbon Dioxide Anion Gap BUN Creatinine Estim Creat Clear Calc Estimated GFR POC Glucose 127 H 234 H Random Glucose Lactic Acid Calcium Phosphorus Magnesium Iron TIBC % Saturation Unsat Iron Binding Total Bilirubin AST ALT Alkaline Phosphatase Total Creatine Kinase Troponin I High Sens Total Protein Albumin Blood Type A Positive Antibody Screen NEGATIVE Crossmatch See Detail 05/13/23 05/13/23 05/14/23 19:49 22:41 01:13 WBC 16.7 H RBC 3.26 L Hgb 8.6 L 9.5 L Hct 26.2 L 28.3 L MCV 86.8 MCH 29.1 MCHC 33.6 RDW 17.4 H Plt Count 143 L D MPV 10.0 Immature Gran % (Auto) 0.5 H Neut % (Auto) 83.4 H Lymph % (Auto) 5.9 L [place] % (Auto) 7.8 Eos % (Auto) 2.0 Baso % (Auto) 0.4 Lymph # (Auto) 1.0 L [place] # (Auto) 1.3 H Eos # (Auto) 0.3 Baso # (Auto) 0.1 Abs Immat Gran (auto) 0.08 H Absolute Neuts (auto) 13.9 H Absolute Nucleated RBC 0.000 Nucleated RBC % (auto) 0.0 Hold Purple Top O2 Saturation ABG pH at Pt Temp ABG pCO2 at Pt Temp ABG pO2 at Pt Temp ABG HCO3 ABG Base Excess (Actual) Sodium 134 L Potassium 4.5 Chloride 101 Carbon Dioxide 25 Anion Gap 13 BUN 26 H Creatinine 2.55 H Estim Creat Clear Calc 24.0 Estimated GFR 24 POC Glucose 223 H Random Glucose 207 H Lactic Acid Calcium 7.7 L D Phosphorus 5.3 H Magnesium 1.8 Iron 179 H TIBC 204 L % Saturation 88 H Unsat Iron Binding < 25 Total Bilirubin 1.9 H AST 19 ALT 14 Alkaline Phosphatase 68 Total Creatine Kinase Troponin I High Sens Total Protein 4.6 L Albumin 2.5 L Blood Type Antibody Screen Crossmatch 05/14/23 05/14/23 05/14/23 02:19 06:15 06:16 WBC 15.0 H RBC 2.96 L Hgb 9.4 L 8.6 L Hct 27.8 L 25.6 L MCV 86.5 MCH 29.1 MCHC 33.6 RDW 17.2 H Plt Count 129 L MPV 11.3 Immature Gran % (Auto) 0.5 H Neut % (Auto) 69.2 Lymph % (Auto) 17.5 L [place] % (Auto) 8.7 Eos % (Auto) 3.7 Baso % (Auto) 0.4 Lymph # (Auto) 2.6 [place] # (Auto) 1.3 H Eos # (Auto) 0.6 H Baso # (Auto) 0.1 Abs Immat Gran (auto) 0.07 H Absolute Neuts (auto) 10.4 H Absolute Nucleated RBC 0.000 Nucleated RBC % (auto) 0.0 Hold Purple Top SEE NOTE O2 Saturation 99.0 ABG pH at Pt Temp 7.38 ABG pCO2 at Pt Temp 41 ABG pO2 at Pt Temp 88 ABG HCO3 24 ABG Base Excess (Actual) -0.1 Sodium 135 Potassium 4.5 Chloride 101 Carbon Dioxide 23 Anion Gap 16 BUN 27 H Creatinine 2.16 H Estim Creat Clear Calc 28.3 Estimated GFR 29 POC Glucose Random Glucose 88 Lactic Acid 1.5 Calcium 8.5 D Phosphorus 4.2 Magnesium Iron TIBC % Saturation Unsat Iron Binding Total Bilirubin 2.3 H AST 19 ALT 11 Alkaline Phosphatase 56 Total Creatine Kinase Troponin I High Sens Total Protein 5.3 L Albumin 3.5 Blood Type Antibody Screen Crossmatch 05/14/23 05/14/23 06:29 07:40 WBC RBC Hgb Hct MCV MCH MCHC RDW Plt Count MPV Immature Gran % (Auto) Neut % (Auto) Lymph % (Auto) [place] % (Auto) Eos % (Auto) Baso % (Auto) Lymph # (Auto) [place] # (Auto) Eos # (Auto) Baso # (Auto) Abs Immat Gran (auto) Absolute Neuts (auto) Absolute Nucleated RBC Nucleated RBC % (auto) Hold Purple Top O2 Saturation ABG pH at Pt Temp ABG pCO2 at Pt Temp ABG pO2 at Pt Temp ABG HCO3 ABG Base Excess (Actual) Sodium Potassium Chloride Carbon Dioxide Anion Gap BUN Creatinine Estim Creat Clear Calc Estimated GFR POC Glucose 97 Random Glucose Lactic Acid Calcium Phosphorus Magnesium Iron TIBC % Saturation Unsat Iron Binding Total Bilirubin AST ALT Alkaline Phosphatase Total Creatine Kinase Troponin I High Sens 31.9 Total Protein Albumin Blood Type Antibody Screen Crossmatch Progress Note: A&P Assessment and plan (1) Acute kidney injury: Status: Acute (2) Syncope: Status: Acute (3) Closed left femoral fracture: Status: Acute (4) Hypotension: Status: Acute Plan Patient is a 88 Y M with hypertension, insulin-dependent diabetes mellitus, atrial fibrillation s/p watchman, and interstitial lung disease, TRUNG on CPAP, prior L knee replacement, presenting on 05/12 status post fall, now status post repair on 05/13, though admitted to ICU d/t persistent hypotension N: no acute issues CV: hypotension, without signs of shock; acute on chronic anemia, likely contributed by recent operation; to give judicious IVF and blood products; of note, previous echocardiogram w/ septal hypertrophy; patient likely very preload dependent; atria fibrillation, not on anticoagulation R: ILD, not on home oxygen; intermittent hypoxia, oxygen as needed; to monitor very closely; TRUNG, on CPAP at night GI: no acute issues; diabetic diet : acute renal insufficiency, likely pre-renal; to monitor very closely H: acute on chronic anemia, blood products as needed ID: jason-operative cefazolin; to consider infectious work-up with persistent hypotension E: insulin-dependent diabetes mellitus; to follow-up TSH, cortisol P: no acute issues Quality Stroke Does the patient have a stroke diagnosis?: No VTE Prior VTE?: No VTE Risk Level:: Medical - moderate - high VTE Device Contraindication: N/A - Device Ordered VTE Drug Contraindication: Treatment Not Tolerated
[2023-05-14 08:28] LABS: Lactic Acid 1.7 mmol/L (0.5-2.0)
[2023-05-14 08:56] LABS: Cortisol Random 31.1 ug/dL
[2023-05-14] MEDS: Gabapentin 600 MG TABLET 300 MG PO ×3 (09:03→20:24)
[2023-05-14] MEDS: Meclizine HCl 25 MG TABLET PO (09:03)
[2023-05-14] MEDS: Atorvastatin Calcium 20 MG TABLET PO (09:03)
[2023-05-14] MEDS: Folic Acid 1 MG TABLET PO (09:03)
[2023-05-14 11:04] LABS: Glucose, Whole Blood 140 mg/dL (60-115)
[2023-05-14] MEDS: Lactated Ringers 1,000 ML 150 ML IVCONT (11:20)
[2023-05-14] MEDS: Midodrine HCl 2.5 MG TABLET PO (11:22)
--- NOTE | 2023-05-14 11:40 | PM.PNORT ---
Subjective Subjective Date of Service: 05/14/23 Interval history: POD1 s/p retrograde IMN left distal femoral periprosthetic fracture Patient is resting in bed comfortably Post operatively h&h was trending downward and patient was transfused 2 units of pRBC's Overnight patient had persistant hypotension and was transferred to the ICU for continued monitoring Pain is managed Physical Exam Vital Signs: Vital Signs: Last Vital Signs Temp 99.5 F 05/14/23 08:00 Pulse 99 05/14/23 11:00 Resp 19 05/14/23 11:00 BP 88/44 L 05/14/23 11:00 Pulse Ox 98 05/14/23 11:00 O2 Del Method Nasal Cannula 05/14/23 11:00 O2 Flow Rate 4 05/14/23 11:00 FiO2 30 05/14/23 07:00 Oxygen Flow Rate 3 05/14/23 00:42 BMI result Body Mass Index 28.0 Const: General: cooperative, healthy appearing and no acute distress Resp: Effort & Inspection: normal respiratory effort and able to speak in complete sentences Cardio: Rate: regular rate Peripheral pulses: Peripheral pulses 2+ throughout GI: Palpation (GI): Soft to palpation Skin: Lesions: no lesions Rashes: no rashes Extrem: Other: left lower extremity dressing c/d/i. Able to dorsi/plantar flex. Calf is supple and nontender. Sensation intact. Pedal pulse intact. Procedures Date of Service Date of Service: 05/14/23 Progress Note: A&P Assessment and plan (1) Hypotension: Status: Acute (2) Acute kidney injury: Status: Acute (3) Closed left femoral fracture: Status: Acute Assessment and Plan: Continue pain mgmnt Begin dvt ppx per recommendation of ICU provider begin PT for retrograde IMN left distal femoral periprosthetic fracture - NWB E Dispo planning-Pending PT eval, pain mgmnt, medical clearance, management of hypotension Time Spent With Patient Time: Total time managing care of this patient today ____ minutes. Quality Stroke Does the patient have a stroke diagnosis?: No VTE Prior VTE?: No VTE Risk Level:: Medical - moderate - high VTE Device Contraindication: N/A - Device Ordered VTE Drug Contraindication: Treatment Not Tolerated
[2023-05-14 12:12] LABS: MANUAL DIFF FLAG NO
[2023-05-14 12:15] LABS: Basophils Percent Auto 0.3 % (0-2); Eosinophils Absolute Auto 0.1 X10*3/uL (0.0-0.4); Eosinophils Percent Auto 0.4 % (0-4); Hematocrit 23.4 % (42.0-52.0); Hemoglobin 7.9 g/dl (14.0-18.0); Imm Gran Abs Auto 0.07 X10*3/uL (0.00-0.03); Imm Gran Pct Auto 0.5 % (0.0-0.4); Lymphocytes Absolute Auto 0.5 X10*3/uL (1.2-4.9); Lymphocytes Percent Auto 3.4 % (20-40); Mean Corpuscular HGB Conc 33.8 g/dl (31.0-36.0); Mean Corpuscular Hemoglobin 29.2 pg (27.0-33.0); Mean Corpuscular Volume 86.3 fL (80.0-98.0); Monocytes Absolute Auto 1.1 X10*3/uL (0.1-1.2); Monocytes Percent Auto 7.9 % (2-11); Neutrophils Absolute Auto 12.5 x10*3/uL (2.0-8.3); Neutrophils Percent Auto 87.5 % (45-73); Platelet Count 101 X10*3/uL (160-400); Red Blood Count 2.71 X10*6/uL (4.60-5.80); Red Cell Distribution Width 17.3 % (11.0-16.0); White Blood Count 14.2 X10*3/uL (4.8-10.8)
[2023-05-14] MEDS: 0.9 % Sodium Chloride Flush 3 ML SYRINGE IVFLUSH ×2 (15:31→23:36)
[2023-05-14 16:27] LABS: Glucose, Whole Blood 146 mg/dL (60-115)
[2023-05-14] MEDS: Subcutaneous Insulin Pump 1 EACH SUBCUT (16:53)
[2023-05-14] MEDS: Omeprazole 20 MG CAPSULE.DR PO (16:57)
[2023-05-14 18:03] LABS: MANUAL DIFF FLAG NO
--- NOTE | 2023-05-14 18:03 | HO.SKINPHOTO ---
Location: coccyx slit
[2023-05-14 18:05] LABS: Basophils Absolute Auto 0.1 X10*3/uL (0.0-0.2); Basophils Percent Auto 0.5 % (0-2); Eosinophils Absolute Auto 0.1 X10*3/uL (0.0-0.4); Eosinophils Percent Auto 1.1 % (0-4); Hemoglobin 8.1 g/dl (14.0-18.0); Imm Gran Abs Auto 0.06 X10*3/uL (0.00-0.03); Imm Gran Pct Auto 0.5 % (0.0-0.4); Lymphocytes Absolute Auto 1.1 X10*3/uL (1.2-4.9); Lymphocytes Percent Auto 8.4 % (20-40); Mean Corpuscular HGB Conc 33.8 g/dl (31.0-36.0); Mean Corpuscular Hemoglobin 29.2 pg (27.0-33.0); Mean Corpuscular Volume 86.6 fL (80.0-98.0); Mean Platelet Volume 10.1 fL (9.4-12.4); Monocytes Absolute Auto 1.1 X10*3/uL (0.1-1.2); Monocytes Percent Auto 8.5 % (2-11); Neutrophils Absolute Auto 10.4 x10*3/uL (2.0-8.3); Platelet Count 120 X10*3/uL (160-400); Red Blood Count 2.77 X10*6/uL (4.60-5.80); Red Cell Distribution Width 17.1 % (11.0-16.0); White Blood Count 12.8 X10*3/uL (4.8-10.8)
[2023-05-14 18:19] LABS: Anion Gap 12 (12-20); Blood Urea Nitrogen 28 mg/dL (9-16); Calcium 7.9 mg/dL (8.4-10.2); Carbon Dioxide 25 mmol/L (22-29); Chloride 100 mmol/L (96-108); Creatinine Clr Calc Pharmacy 36.4; Estimated Glomerular Filt Rate 39; Glucose Random 174 mg/dL (60-115); Potassium 4.8 mmol/L (3.3-5.1); Sodium 132 mmol/L (135-145)
--- NOTE | 2023-05-14 18:25 | HO.POSTANES ---
Post Anesthesia Evaluation Post Anesthesia Evaluation Date of Service: 05/14/23 Vital Signs: Vital Signs Temp Pulse Resp BP Pulse Ox O2 Del Method O2 Flow Rate 05/14/23 18:00 86 21 H 116/64 97 Nasal Cannula 1 05/14/23 17:00 91 26 H 110/66 92 Nasal Cannula 1 05/14/23 16:00 98.6 F 83 21 H 116/64 96 Nasal Cannula 4 05/14/23 15:00 82 19 125/56 L 98 Nasal Cannula 4 05/14/23 14:00 84 18 124/68 99 Nasal Cannula 4 05/14/23 13:00 98 19 110/62 97 Nasal Cannula 4 05/14/23 12:00 98.2 F 102 H 17 95/59 L 97 Nasal Cannula 4 05/14/23 11:00 99 19 88/44 L 98 Nasal Cannula 4 05/14/23 10:00 97 19 93/53 L 97 Nasal Cannula 4 05/14/23 09:03 116 H 88/38 L 05/14/23 09:00 103 H 25 H 88/38 L 93 Nasal Cannula 4 05/14/23 08:50 98 114/63 05/14/23 08:00 99.5 F 100 21 H 106/45 L 98 Nasal Cannula 4 05/14/23 07:00 103 H 22 H 84/37 L 96 BiPAP 05/14/23 06:31 27 H FiO2 05/14/23 18:00 05/14/23 17:00 05/14/23 16:00 05/14/23 15:00 05/14/23 14:00 05/14/23 13:00 05/14/23 12:00 05/14/23 11:00 05/14/23 10:00 05/14/23 09:03 05/14/23 09:00 05/14/23 08:50 05/14/23 08:00 05/14/23 07:00 30 05/14/23 06:31 Anesthesia: General LMA Mental Status: Awake Pain Control: Satisfactory Nausea/Vomiting: None Hydration: Adequate Anesthesia-Related Issues: No Anes. Related Issues
[2023-05-14] MEDS: Sodium Chloride 0.45 % 1,000 ML 100 ML IVCONT (19:45)
[2023-05-14] MEDS: Albumin Human 25 % 100 ML 200 ML IV (20:25)
[2023-05-14 20:57] LABS: Glucose, Whole Blood 181 mg/dL (60-115)
[2023-05-15] VITALS (22 sets, daily range): BP systolic 111–139; BP diastolic 61–80; PULSE 71–102; RESP 16–28; TEMP 36.6–37.1; O2SAT 85–99; BMI 30.3
[2023-05-15 00:32] LABS: Hematocrit 21.2 % (42.0-52.0); Hemoglobin 7.2 g/dl (14.0-18.0)
[2023-05-15 00:43] LABS: Anion Gap 14 (12-20); Blood Urea Nitrogen 28 mg/dL (9-16); Calcium 7.6 mg/dL (8.4-10.2); Carbon Dioxide 23 mmol/L (22-29); Chloride 99 mmol/L (96-108); Creatinine Clr Calc Pharmacy 43.4; Estimated Glomerular Filt Rate 48; Glucose Random 154 mg/dL (60-115); Potassium 4.5 mmol/L (3.3-5.1); Sodium 131 mmol/L (135-145)
[2023-05-15 04:51] LABS: Haptoglobin 84 MG/DL ((30-200))
[2023-05-15] MEDS: Omeprazole 20 MG CAPSULE.DR PO (05:56)
[2023-05-15] MEDS: Pantoprazole Sodium 40 MG/10 ML VIAL IVPUSH ×2 (07:01→16:52)
[2023-05-15 07:12] LABS: MANUAL DIFF FLAG NO
[2023-05-15 07:17] LABS: Basophils Absolute Auto 0.1 X10*3/uL (0.0-0.2); Basophils Percent Auto 0.5 % (0-2); Eosinophils Absolute Auto 0.4 X10*3/uL (0.0-0.4); Eosinophils Percent Auto 3.5 % (0-4); Hematocrit 27.3 % (42.0-52.0); Hemoglobin 9.3 g/dl (14.0-18.0); Imm Gran Abs Auto 0.06 X10*3/uL (0.00-0.03); Imm Gran Pct Auto 0.6 % (0.0-0.4); Lymphocytes Absolute Auto 0.9 X10*3/uL (1.2-4.9); Lymphocytes Percent Auto 8.6 % (20-40); Mean Corpuscular HGB Conc 34.1 g/dl (31.0-36.0); Mean Corpuscular Hemoglobin 29.2 pg (27.0-33.0); Mean Corpuscular Volume 85.8 fL (80.0-98.0); Mean Platelet Volume 10.7 fL (9.4-12.4); Monocytes Absolute Auto 1.3 X10*3/uL (0.1-1.2); Monocytes Percent Auto 12.1 % (2-11); Neutrophils Absolute Auto 8.1 x10*3/uL (2.0-8.3); Neutrophils Percent Auto 74.7 % (45-73); Platelet Count 109 X10*3/uL (160-400); Red Blood Count 3.18 X10*6/uL (4.60-5.80); Red Cell Distribution Width 15.9 % (11.0-16.0); White Blood Count 10.9 X10*3/uL (4.8-10.8)
[2023-05-15 07:22] LABS: Glucose, Whole Blood 106 mg/dL (60-115)
[2023-05-15 07:38] LABS: Anion Gap 11 (12-20); Blood Urea Nitrogen 26 mg/dL (9-16); Calcium 7.8 mg/dL (8.4-10.2); Carbon Dioxide 25 mmol/L (22-29); Chloride 100 mmol/L (96-108); Creatinine Clr Calc Pharmacy 63.4; Estimated Glomerular Filt Rate > 60; Glucose Random 117 mg/dL (60-115); Magnesium 1.8 mg/dL (1.6-2.6); Phosphorus 1.9 mg/dL (2.7-4.5); Potassium 4.2 mmol/L (3.3-5.1); Sodium 132 mmol/L (135-145)
[2023-05-15] MEDS: Atorvastatin Calcium 20 MG TABLET PO (08:20)
[2023-05-15] MEDS: Folic Acid 1 MG TABLET PO (08:20)
[2023-05-15] MEDS: Midodrine HCl 2.5 MG TABLET PO (08:20)
[2023-05-15] MEDS: 0.9 % Sodium Chloride Flush 3 ML SYRINGE IVFLUSH (08:20)
[2023-05-15] MEDS: Gabapentin 600 MG TABLET 300 MG PO ×3 (08:21→21:29)
--- NOTE | 2023-05-15 09:30 | PM.EVENT ---
Event Note Date of Service: 05/15/23 Event Note: The patient was seen and evaluated this morning in ICU unit He feels comfortable, reports mild pain in his knee Stating no bowel movements for 5 days Denies fever, chills or breathing problems Pending PT eval and SNF placement Orthopedic team following Time Spent With Patient Time: Total time managing care of this patient today ____ minutes.
[2023-05-15] MEDS: Subcutaneous Insulin Pump 1 EACH SUBCUT ×3 (09:47→17:14)
[2023-05-15] MEDS: HYDROmorphone HCl 1 MG/ML SYRINGE 0.5 MG IVPUSH (09:48)
[2023-05-15] MEDS: Docusate Sodium 100 MG CAPSULE PO ×2 (09:48→21:29)
[2023-05-15] MEDS: polyethylene glycoL 3350 17 GM POWD.PACK PO (09:48)
[2023-05-15] MEDS: Sodium Chloride 0.45 % 1,000 ML 100 ML IVCONT ×2 (10:33→21:30)
[2023-05-15 11:42] LABS: Glucose, Whole Blood 190 mg/dL (60-115)
--- NOTE | 2023-05-15 12:38 | PM.PNORT ---
Subjective Subjective Date of Service: 05/15/23 Interval history: POD2 s/p retrograde IMN left distal femoral periprosthetic fracture Patient is resting in bed comfortably Pain is managed No additional compalints Physical Exam Vital Signs: Vital Signs: Last Vital Signs Temp 98.5 F 05/15/23 11:54 Pulse 88 05/15/23 11:54 Resp 18 05/15/23 11:54 BP 111/72 05/15/23 11:54 Pulse Ox 99 05/15/23 11:54 O2 Del Method Nasal Cannula 05/15/23 11:54 O2 Flow Rate 2 05/15/23 11:54 FiO2 30 05/14/23 07:00 Oxygen Flow Rate 30 05/14/23 22:58 BMI result Body Mass Index 30.3 Const: General: cooperative, healthy appearing and no acute distress Resp: Effort & Inspection: normal respiratory effort and able to speak in complete sentences Cardio: Rate: regular rate Peripheral pulses: Peripheral pulses 2+ throughout GI: Palpation (GI): Soft to palpation Skin: Lesions: no lesions Rashes: no rashes Extrem: Other: left lower extremity dressing c/d/i. Able to dorsi/plantar flex. Calf is supple and nontender. Sensation intact. Pedal pulse intact. Procedures Date of Service Date of Service: 05/15/23 Progress Note: A&P Assessment and plan (1) Hypotension: Status: Acute (2) Acute kidney injury: Status: Acute (3) Closed left femoral fracture: Status: Acute Assessment and Plan: Continue pain mgmnt Continue dvt ppx per recommendation of ICU provider Continue PT for retrograde IMN left distal femoral periprosthetic fracture - NWB LLE Dispo planning-PT, pain mgmnt, medical clearance, Rehab placement Time Spent With Patient Time: Total time managing care of this patient today ____ minutes. Quality Stroke Does the patient have a stroke diagnosis?: No VTE Prior VTE?: No VTE Risk Level:: Medical - moderate - high VTE Device Contraindication: N/A - Device Ordered VTE Drug Contraindication: Treatment Not Tolerated
--- NOTE | 2023-05-15 13:30 | MHC.CM.PN ---
Addendum entered by Kasey Webb 05/15/23 13:37: The PT eval is pending. Clinical info has been sent to the facilities. [facility]. Patient will transport via BLS. HCP is on file. PCP is [place]. Patient [facility]. Original Note: IMVA 05/15/22 Patient lives by himself. He is independent with all functional mobility and drives at baseline. S/P Femur FX with surgical repair. [facility] is [facility]. Met with the patient, his son + . The patient is interested in [facility]. He had therapy at [facility] after TKA. Referrals have been sent to all three Acute rehabs. [facility] his [facility] for [facility] The referral has been sent.
[2023-05-15 17:06] LABS: Glucose, Whole Blood 166 mg/dL (60-115)
[2023-05-15 21:28] LABS: Glucose, Whole Blood 210 mg/dL (60-115)
[2023-05-16] VITALS (11 sets, daily range): BP systolic 118–171; BP diastolic 65–94; PULSE 74–95; RESP 16–20; TEMP 36.4–37.6; O2SAT 91–96; BMI 32.0
[2023-05-16] MEDS: Pantoprazole Sodium 40 MG/10 ML VIAL IVPUSH ×2 (06:03→16:25)
[2023-05-16 06:34] LABS: MANUAL DIFF FLAG NO
[2023-05-16 06:49] LABS: Basophils Absolute Auto 0.1 X10*3/uL (0.0-0.2); Basophils Percent Auto 0.5 % (0-2); Eosinophils Absolute Auto 0.2 X10*3/uL (0.0-0.4); Eosinophils Percent Auto 1.8 % (0-4); Hemoglobin 9.5 g/dl (14.0-18.0); Imm Gran Abs Auto 0.07 X10*3/uL (0.00-0.03); Imm Gran Pct Auto 0.6 % (0.0-0.4); Lymphocytes Absolute Auto 1.3 X10*3/uL (1.2-4.9); Mean Corpuscular HGB Conc 33.9 g/dl (31.0-36.0); Mean Corpuscular Hemoglobin 29.5 pg (27.0-33.0); Mean Platelet Volume 11.1 fL (9.4-12.4); Monocytes Absolute Auto 1.5 X10*3/uL (0.1-1.2); Monocytes Percent Auto 12.5 % (2-11); Neutrophils Absolute Auto 8.8 x10*3/uL (2.0-8.3); Neutrophils Percent Auto 73.6 % (45-73); Platelet Count 124 X10*3/uL (160-400); Red Blood Count 3.22 X10*6/uL (4.60-5.80); Red Cell Distribution Width 15.8 % (11.0-16.0); White Blood Count 11.9 X10*3/uL (4.8-10.8)
[2023-05-16 06:58] LABS: Hematocrit 27.6 % (42.0-52.0); Hemoglobin 9.5 g/dl (14.0-18.0); Mean Corpuscular HGB Conc 34.4 g/dl (31.0-36.0); Mean Corpuscular Hemoglobin 29.9 pg (27.0-33.0); Mean Corpuscular Volume 86.8 fL (80.0-98.0); Mean Platelet Volume 11.2 fL (9.4-12.4); Platelet Count 123 X10*3/uL (160-400); Red Blood Count 3.18 X10*6/uL (4.60-5.80); Red Cell Distribution Width 15.9 % (11.0-16.0); White Blood Count 11.9 X10*3/uL (4.8-10.8)
[2023-05-16 07:03] LABS: Anion Gap 9 (12-20); Blood Urea Nitrogen 18 mg/dL (9-16); Calcium 7.6 mg/dL (8.4-10.2); Carbon Dioxide 26 mmol/L (22-29); Chloride 100 mmol/L (96-108); Creatinine Clr Calc Pharmacy 81.3; Estimated Glomerular Filt Rate > 60; Glucose Random 127 mg/dL (60-115); Potassium 4.3 mmol/L (3.3-5.1); Sodium 131 mmol/L (135-145)
[2023-05-16 07:21] LABS: Anion Gap 9 (12-20); Blood Urea Nitrogen 18 mg/dL (9-16); Calcium 7.5 mg/dL (8.4-10.2); Carbon Dioxide 26 mmol/L (22-29); Chloride 99 mmol/L (96-108); Creatinine Clr Calc Pharmacy 80.3; Estimated Glomerular Filt Rate > 60; Glucose Random 127 mg/dL (60-115); Magnesium 1.9 mg/dL (1.6-2.6); Phosphorus 0.9 mg/dL (2.7-4.5); Potassium 4.3 mmol/L (3.3-5.1); Sodium 130 mmol/L (135-145)
[2023-05-16] MEDS: Sodium Chloride 0.45 % 1,000 ML 100 ML IVCONT ×2 (07:47→18:07)
[2023-05-16 07:49] LABS: Glucose, Whole Blood 113 mg/dL (60-115)
[2023-05-16] MEDS: Gabapentin 600 MG TABLET 300 MG PO ×3 (07:53→20:00)
[2023-05-16] MEDS: Atorvastatin Calcium 20 MG TABLET PO (07:53)
[2023-05-16] MEDS: Sodium,Potassium Phosphates POWD.PACK 2 PACKET PO ×4 (07:53→20:00)
[2023-05-16] MEDS: Docusate Sodium 100 MG CAPSULE PO ×2 (07:53→20:00)
[2023-05-16] MEDS: Folic Acid 1 MG TABLET PO (07:53)
[2023-05-16] MEDS: Midodrine HCl 2.5 MG TABLET PO (07:53)
[2023-05-16] MEDS: Subcutaneous Insulin Pump 1 EACH SUBCUT ×4 (08:05→22:08)
--- NOTE | 2023-05-16 09:53 | HO.PM.IMPN ---
Subjective Subjective Date of Service: 05/16/23 Interval History: Seen and evaluated this morning Fairly controlled pain in his left knee with decreased swelling sugar levels fairly controlled Cr resold Review of Systems Review of Systems: Yes all other systems are reviewed and are negative Physical Exam Vital Signs: Vital Signs: Last Vital Signs Temp 98.4 F 05/16/23 07:12 Pulse 94 05/16/23 07:12 Resp 18 05/16/23 07:12 BP 151/77 H 05/16/23 07:12 Pulse Ox 92 05/16/23 07:12 O2 Del Method Room Air 05/16/23 07:12 O2 Flow Rate 1 05/15/23 20:00 FiO2 30 05/14/23 07:00 Oxygen Flow Rate 3 05/16/23 00:00 BMI result Body Mass Index 32.0 Const: Other: Constitutional : Awake, interactive, not in distress Neck : Normal inspection, Supple Cardiovascular : RRR, no JVP, no lower extremity edema Respiratory : good bilateral air entry, no crackles, wheezes or rhonchi Gastrointestinal: soft, lax, Normal bowel sounds, Non tender Skin : Warm, Dry Skeletal: surgical wound covered with dressing, mild swelling, no erythema or drainage noted Neurological : Alert & oriented x3, No focal deficit Objective Data Active Medications Albuterol/Ipratropium (Albuterol/Iprat 2.5/0.5mg 3 Ml Ampul.Neb) 3 ml INHALE Q4H PRN PRN Reason: Shortness of Breath/Wheezing Atorvastatin Calcium (Atorvastatin Calcium 20 Mg Tablet) 20 mg PO DAILY [facility] Last Admin: 05/16/23 07:53 Dose: 20 mg Documented By: BRYCE Dextrose (Dextrose 50 % 25 Gm/50 Ml Syringe) 25 gm IVPUSH Q15M PRN; Protocol PRN Reason: per Hypoglycemia Standing Ord. Docusate Sodium (Docusate Sodium 100 Mg Capsule) 100 mg PO BID [facility] Last Admin: 05/16/23 07:53 Dose: 100 mg Documented By: BRYCE Folic Acid (Folic Acid 1 Mg Tablet) 1 mg PO DAILY [facility] Last Admin: 05/16/23 07:53 Dose: 1 mg Documented By: BRYCE Gabapentin (Gabapentin 600 Mg Tablet) 300 mg PO TID [facility] Last Admin: 05/16/23 07:53 Dose: 300 mg Documented By: BRYCE Glucose (Glucose Gel 15 Gm Gel..Gram.) 15 gm PO Q15M PRN; Protocol PRN Reason: per Hypoglycemia Standing Ord. Hydromorphone HCl (Hydromorphone Hcl 1 Mg/Ml Syringe) 0.5 mg IVPUSH Q4H PRN; Protocol PRN Reason: Pain, Severe (Pain Scale 7-10) Last Admin: 05/15/23 09:48 Dose: 0.5 mg Documented By: ZEV Sodium Chloride (Sodium Chloride 0.45 %) 1,000 mls @ 100 mls/hr IVCONT .Q10H [facility] Last Admin: 05/16/23 07:47 Dose: 100 mls/hr Documented By: BRYCE Insulin Human Lispro (Insulin Lispro 100 Unit/Ml 3 Ml Vial) 0 unit SUBCUT QIDAS [facility]; Protocol Last Admin: 05/16/23 08:10 Dose: Not Given Documented By: BRYCE Non-Admin Reason: POC 117 fr insulin pump Insulin Pump (Subcutaneous Insulin Pump) 1 each SUBCUT QIDAS [facility]; Protocol Last Admin: 05/16/23 08:05 Dose: 1 each Documented By: BRYCE Meclizine HCl (Meclizine Hcl 25 Mg Tablet) 25 mg PO TID [facility] Last Admin: 05/14/23 09:03 Dose: 25 mg Documented By: ZEV Midodrine (Midodrine Hcl 2.5 Mg Tablet) 2.5 mg PO DAILY [facility] Last Admin: 05/16/23 07:53 Dose: 2.5 mg Documented By: BRYCE Pantoprazole Sodium (Pantoprazole Sodium 40 Mg/10 Ml Vial) 40 mg IVPUSH BID@0630,1630 [facility] Last Admin: 05/16/23 06:03 Dose: 40 mg Documented By: MANI Potassium Phos/Sodium Phos (Sodium,Potassium Phosphates Powd.Pack) 2 packet PO QID [facility] Last Admin: 05/16/23 07:53 Dose: 2 packet Documented By: BRYCE Sodium Chloride (0.9 % Sodium Chloride Flush 3 Ml Syringe) 3 ml IVFLUSH QSHIFT [facility] Last Admin: 05/16/23 08:11 Dose: Not Given Documented By: BRYCE Non-Admin Reason: IV Running Tamsulosin HCl (Tamsulosin Hcl 0.4 Mg Capsule) 0.4 mg PO DAILY [facility] Last Admin: 05/14/23 09:03 Dose: Not Given Documented By: ZEV Non-Admin Reason: Previously Administered Labs 05/16/23 05:35 05/16/23 05:35 Labs: Laboratory Results - last 24 hr 05/15/23 05/15/23 05/15/23 11:36 17:00 21:24 MCV MCH MCHC RDW Plt Count MPV Immature Gran % (Auto) Neut % (Auto) Lymph % (Auto) [place] % (Auto) Eos % (Auto) Baso % (Auto) Lymph # (Auto) [place] # (Auto) Eos # (Auto) Baso # (Auto) Abs Immat Gran (auto) Absolute Neuts (auto) Absolute Nucleated RBC Nucleated RBC % (auto) Anion Gap Estim Creat Clear Calc Estimated GFR POC Glucose 190 H 166 H 210 H Random Glucose Calcium Phosphorus Magnesium 05/16/23 05/16/23 05/16/23 05:35 05:35 05:35 MCV 87.0 86.8 MCH 29.5 29.9 MCHC 33.9 RDW Plt Count MPV Immature Gran % (Auto) Neut % (Auto) Lymph % (Auto) [place] % (Auto) Eos % (Auto) Baso % (Auto) Lymph # (Auto) [place] # (Auto) Eos # (Auto) Baso # (Auto) Abs Immat Gran (auto) Absolute Neuts (auto) Absolute Nucleated RBC Nucleated RBC % (auto) Anion Gap Estim Creat Clear Calc Estimated GFR POC Glucose Random Glucose Calcium Phosphorus Magnesium 05/16/23 05/16/23 05/16/23 05:35 05:35 05:35 MCV MCH MCHC 34.4 RDW 15.8 15.9 Plt Count 124 L 123 L MPV 11.1 Immature Gran % (Auto) Neut % (Auto) Lymph % (Auto) [place] % (Auto) Eos % (Auto) Baso % (Auto) Lymph # (Auto) [place] # (Auto) Eos # (Auto) Baso # (Auto) Abs Immat Gran (auto) Absolute Neuts (auto) Absolute Nucleated RBC Nucleated RBC % (auto) Anion Gap Estim Creat Clear Calc Estimated GFR POC Glucose Random Glucose Calcium Phosphorus Magnesium 05/16/23 05/16/2324 05:35 05:35 05:35 MCV MCH MCHC RDW Plt Count MPV 11.2 Immature Gran % (Auto) 0.6 H Neut % (Auto) 73.6 H Lymph % (Auto) 11.[address] [place] % (Auto) 12.5 H Eos % (Auto) 1.8 Baso % (Auto) 0.5 Lymph # (Auto) 1.3 [place] # (Auto) 1.5 H Eos # (Auto) 0.2 Baso # (Auto) 0.1 Abs Immat Gran (auto) 0.07 H Absolute Neuts (auto) 8.8 H Absolute Nucleated RBC 0.000 0.000 Nucleated RBC % (auto) 0.0 0.0 Anion Gap 9 L Estim Creat Clear Calc Estimated GFR POC Glucose Random Glucose Calcium Phosphorus Magnesium 05/16/23 05/16/23 05/16/23 05:35 05:35 05:35 MCV MCH MCHC RDW Plt Count MPV Immature Gran % (Auto) Neut % (Auto) Lymph % (Auto) [place] % (Auto) Eos % (Auto) Baso % (Auto) Lymph # (Auto) [place] # (Auto) Eos # (Auto) Baso # (Auto) Abs Immat Gran (auto) Absolute Neuts (auto) Absolute Nucleated RBC Nucleated RBC % (auto) Anion Gap 9 L Estim Creat Clear Calc 80.3 81.3 Estimated GFR > 60 > 60 POC Glucose Random Glucose 127 H Calcium Phosphorus Magnesium 05/16/23 05/16/23 05/16/23 05:35 05:35 07:16 MCV MCH MCHC RDW Plt Count MPV Immature Gran % (Auto) Neut % (Auto) Lymph % (Auto) [place] % (Auto) Eos % (Auto) Baso % (Auto) Lymph # (Auto) [place] # (Auto) Eos # (Auto) Baso # (Auto) Abs Immat Gran (auto) Absolute Neuts (auto) Absolute Nucleated RBC Nucleated RBC % (auto) Anion Gap Estim Creat Clear Calc Estimated GFR POC Glucose 113 Random Glucose 127 H Calcium 7.5 L 7.6 L Phosphorus 0.9 L* Magnesium 1.9 Assessment and Plan (1) Acute kidney injury: Status: Acute (2) Closed left femoral fracture: Status: Acute (3) Hypoglycemia: Status: Acute (4) Hypotension: Status: Acute Plan Justino Johnson is 88 years old man admitted with: # Comminuted left distal femur fracture, closed. POD4 Pain control with Dilaudid IV as needed DC IV fluids. Orthopedic surgery following PT eval # Acute kidney injury resolved monitor I\O and BMP # Hypotension, Improved. restart low BP meds monitor blood pressure. # Event of hypoglycemia, secondary to insulin + patient has not been eating well. Hypoglycmia protocol. monitor blood glucose. # Diabetes mellitus Patient to manage his own glucose. Continuous glucose monitoring. # Hyperlipidemia. Continue statin. # Atrial fibrillation rate controlled. Implanted Watchman. # Interstitial lung disease. Asymptomatic. DuoNeb as needed. # Sleep apnea. Nocturnal CPAP VTE prophylaxis: Heparin subQ. Code status: Full code. Patient will need hospitalization overnight post left femur fracture. pending safe discharge plan. Quality Stroke Does the patient have a stroke diagnosis?: No VTE Prior VTE?: No VTE Risk Level:: Medical - moderate - high VTE Device Contraindication: N/A - Device Ordered VTE Drug Contraindication: Treatment Not Tolerated
--- NOTE | 2023-05-16 11:11 | MHC.CM.PN ---
Addendum entered by Brooklyn Graff RN 05/16/23 14:51: CM MET W/PT AND SON/HCP [phone] TO DISCUSS OFFER FROM [facility], PT AND SON BOTH INISTENT THAT WE [facility] TO DETERMINE IF THEY WILL BE PAYING FOR PT'S STR AFTER [facility] REPORTED PT'S BLUE CROSS FED WAS PT'S PRIMARY INSURANCE, HOSPITALIST AWARE AND CM WILL CALL [facility] AT [place] TOMORROW AM. Original Note: EMR reviewed, cm receiving multiple questions from acute rehabs and [facility], cm met w/pt to verifiy if pt has medicare as [facility] only [facility], pt reports he is not [facility] connected and has medicare and blue cross fed, cards were copied and sent to pt registration to be uploaded into [employer]. Pt also reports his PCP is Dr Christiano evans/[facility] [place], snf and acute rehabs updated, cm will cont to follow for bed offer and dc needs.
[2023-05-16 11:32] LABS: Glucose, Whole Blood 166 mg/dL (60-115)
[2023-05-16] MEDS: HYDROmorphone HCl 1 MG/ML SYRINGE 0.5 MG IVPUSH (12:17)
[2023-05-16 16:03] LABS: Glucose, Whole Blood 239 mg/dL (60-115)
[2023-05-16] MEDS: 0.9 % Sodium Chloride Flush 3 ML SYRINGE IVFLUSH (23:59)
[2023-05-17 04:00] VITALS: BP 148/76; PULSE 87; RESP 20; TEMP 37.2; O2SAT 91
[2023-05-17 06:00] VITALS: BMI 32.8
[2023-05-17] MEDS: Pantoprazole Sodium 40 MG/10 ML VIAL IVPUSH ×2 (06:04→16:09)
[2023-05-17 07:20] VITALS: BP 148/86; PULSE 79; RESP 18; TEMP 36.8; O2SAT 94
[2023-05-17 07:26] LABS: MANUAL DIFF FLAG NO
[2023-05-17 07:40] LABS: Basophils Absolute Auto 0.1 X10*3/uL (0.0-0.2); Basophils Percent Auto 0.6 % (0-2); Eosinophils Absolute Auto 0.3 X10*3/uL (0.0-0.4); Eosinophils Percent Auto 2.9 % (0-4); Hematocrit 26.4 % (42.0-52.0); Hemoglobin 8.8 g/dl (14.0-18.0); Imm Gran Abs Auto 0.06 X10*3/uL (0.00-0.03); Imm Gran Pct Auto 0.6 % (0.0-0.4); Lymphocytes Absolute Auto 0.9 X10*3/uL (1.2-4.9); Lymphocytes Percent Auto 7.9 % (20-40); Mean Corpuscular HGB Conc 33.3 g/dl (31.0-36.0); Mean Corpuscular Volume 87.1 fL (80.0-98.0); Mean Platelet Volume 10.8 fL (9.4-12.4); Monocytes Absolute Auto 1.3 X10*3/uL (0.1-1.2); Neutrophils Absolute Auto 8.3 x10*3/uL (2.0-8.3); Platelet Count 143 X10*3/uL (160-400); Red Blood Count 3.03 X10*6/uL (4.60-5.80); Red Cell Distribution Width 16.2 % (11.0-16.0); White Blood Count 10.9 X10*3/uL (4.8-10.8)
[2023-05-17 07:55] LABS: Glucose, Whole Blood 147 mg/dL (60-115)
[2023-05-17 07:56] LABS: Anion Gap 11 (12-20); Blood Urea Nitrogen 13 mg/dL (9-16); Calcium 7.6 mg/dL (8.4-10.2); Carbon Dioxide 27 mmol/L (22-29); Chloride 99 mmol/L (96-108); Creatinine Clr Calc Pharmacy 85.5; Estimated Glomerular Filt Rate > 60; Glucose Random 151 mg/dL (60-115); Magnesium 1.9 mg/dL (1.6-2.6); Phosphorus 1.4 mg/dL (2.7-4.5); Potassium 4.5 mmol/L (3.3-5.1); Sodium 132 mmol/L (135-145)
--- NOTE | 2023-05-17 08:24 | MHC.CM.PN ---
Addendum entered by Brooklyn Graff RN 05/17/23 08:32: CM ATTEMPTED TO CONTACT PT'S SON/HCP TIFFANIE AT NUMBER TIFFANIE PROVIDED YESTERDAY 05/16 AT 8:27AM [phone], NO ANSWER AND NO VOICEMAIL SET UP, CM ATTEMPTED TO CONTACT NUMBER ON FILE WHICH IS THE WRONG NUMBER. Original Note: CM CONTACTED STARLA AT THE [facility] [phone] WHO REPORTS PT IS NOT SERVICE CONNECTED AND WOULD ONLY QUALIFY FOR HOSPICE ROOM AND BOARD, PT DOES NOT HAVE A STR/LTC BENEFIT. CM WILL FOLLOW UP W/PT AND SON/HCP.
[2023-05-17] MEDS: Sodium,Potassium Phosphates POWD.PACK 2 PACKET PO ×4 (08:39→21:33)
[2023-05-17] MEDS: Midodrine HCl 2.5 MG TABLET PO (08:40)
[2023-05-17] MEDS: Docusate Sodium 100 MG CAPSULE PO ×2 (08:40→21:28)
[2023-05-17] MEDS: Folic Acid 1 MG TABLET PO (08:40)
[2023-05-17] MEDS: Gabapentin 600 MG TABLET 300 MG PO ×3 (08:40→21:28)
[2023-05-17] MEDS: Atorvastatin Calcium 20 MG TABLET PO (08:41)
[2023-05-17] MEDS: 0.9 % Sodium Chloride Flush 3 ML SYRINGE IVFLUSH ×2 (08:41→16:09)
[2023-05-17] MEDS: Subcutaneous Insulin Pump 1 EACH SUBCUT ×4 (08:45→21:34)
[2023-05-17] MEDS: HYDROmorphone HCl 1 MG/ML SYRINGE 0.5 MG IVPUSH (08:52)
[2023-05-17 11:17] VITALS: BP 169/89; PULSE 96; RESP 18; TEMP 36.8; O2SAT 92
--- NOTE | 2023-05-17 11:17 | HO.PM.IMPN ---
Subjective Subjective Date of Service: 05/17/23 Interval History: Seen and evaluated this morning controlled pain in his left knee with decreased swelling participated with PT no overnight events Review of Systems Review of Systems: Yes all other systems are reviewed and are negative Physical Exam Vital Signs: Vital Signs: Last Vital Signs Temp 98.3 F 05/17/23 07:20 Pulse 79 05/17/23 07:20 Resp 18 05/17/23 07:20 BP 148/86 H 05/17/23 07:20 Pulse Ox 94 05/17/23 07:20 O2 Del Method BiPAP 05/17/23 07:20 O2 Flow Rate 2 05/16/23 20:00 FiO2 30 05/14/23 07:00 Oxygen Flow Rate 3 05/16/23 00:00 BMI result Body Mass Index 32.8 Const: Other: Constitutional : Awake, interactive, not in distress Neck : Normal inspection, Supple Cardiovascular : RRR, no JVP, no lower extremity edema Respiratory : good bilateral air entry, no crackles, wheezes or rhonchi Gastrointestinal: soft, lax, Normal bowel sounds, Non tender Skin : Warm, Dry Skeletal: surgical wound covered with dressing, mild swelling, no erythema or drainage noted Neurological : Alert & oriented x3, No focal deficit Objective Data Active Medications Albuterol/Ipratropium (Albuterol/Iprat 2.5/0.5mg 3 Ml Ampul.Neb) 3 ml INHALE Q4H PRN PRN Reason: Shortness of Breath/Wheezing Atorvastatin Calcium (Atorvastatin Calcium 20 Mg Tablet) 20 mg PO DAILY [facility] Last Admin: 05/17/23 08:41 Dose: 20 mg Documented By: HOUSTON Dextrose (Dextrose 50 % 25 Gm/50 Ml Syringe) 25 gm IVPUSH Q15M PRN; Protocol PRN Reason: per Hypoglycemia Standing Ord. Docusate Sodium (Docusate Sodium 100 Mg Capsule) 100 mg PO BID [facility] Last Admin: 05/17/23 08:40 Dose: 100 mg Documented By: HOUSTON Folic Acid (Folic Acid 1 Mg Tablet) 1 mg PO DAILY [facility] Last Admin: 05/17/23 08:40 Dose: 1 mg Documented By: HOUSTON Gabapentin (Gabapentin 600 Mg Tablet) 300 mg PO TID [facility] Last Admin: 05/17/23 08:40 Dose: 300 mg Documented By: HOUSTON Glucose (Glucose Gel 15 Gm Gel..Gram.) 15 gm PO Q15M PRN; Protocol PRN Reason: per Hypoglycemia Standing Ord. Hydromorphone HCl (Hydromorphone Hcl 1 Mg/Ml Syringe) 0.5 mg IVPUSH Q4H PRN; Protocol PRN Reason: Pain, Severe (Pain Scale 7-10) Last Admin: 05/17/23 08:52 Dose: 0.5 mg Documented By: HOUSTON Insulin Human Lispro (Insulin Lispro 100 Unit/Ml 3 Ml Vial) 0 unit SUBCUT [facility]; Protocol Last Admin: 05/17/23 07:53 Dose: Not Given Documented By: HOUSTON Non-Admin Reason: Patient utilizing their own pump Insulin Pump (Subcutaneous Insulin Pump) 1 each SUBCUT [facility]; Protocol Last Admin: 05/17/23 08:45 Dose: 1 each Documented By: HOUSTON Meclizine HCl (Meclizine Hcl 25 Mg Tablet) 25 mg PO TID [facility] Last Admin: 05/14/23 09:03 Dose: 25 mg Documented By: ZEV Midodrine (Midodrine Hcl 2.5 Mg Tablet) 2.5 mg PO DAILY [facility] Last Admin: 05/17/23 08:40 Dose: 2.5 mg Documented By: HOUSTON Pantoprazole Sodium (Pantoprazole Sodium 40 Mg/10 Ml Vial) 40 mg IVPUSH BID@0630,1630 [facility] Last Admin: 05/17/23 06:04 Dose: 40 mg Documented By: AIDAN Potassium Phos/Sodium Phos (Sodium,Potassium Phosphates Powd.Pack) 2 packet PO QID [facility] Last Admin: 05/17/23 08:39 Dose: 2 packet Documented By: HOUSTON Sodium Chloride (0.9 % Sodium Chloride Flush 3 Ml Syringe) 3 ml IVFLUSH QSHIFT [facility] Last Admin: 05/17/23 08:41 Dose: 3 ml Documented By: HOUSTON Tamsulosin HCl (Tamsulosin Hcl 0.4 Mg Capsule) 0.4 mg PO DAILY [facility] Last Admin: 05/14/23 09:03 Dose: Not Given Documented By: ZEV Non-Admin Reason: Previously Administered Labs 01/16/24 06:47 05/17/23 06:47 Labs: Laboratory Results - last 24 hr 05/16/23 05/16/23 05/17/23 11:02 15:45 06:47 MCV 87.1 MCH 29.0 MCHC 33.3 RDW 16.2 H Plt Count 143 L MPV 10.8 Immature Gran % (Auto) 0.6 H Neut % (Auto) 76.0 H Lymph % (Auto) 7.9 L [place] % (Auto) 12.0 H Eos % (Auto) 2.9 Baso % (Auto) 0.6 Lymph # (Auto) 0.9 L [place] # (Auto) 1.3 H Eos # (Auto) 0.3 Baso # (Auto) 0.1 Abs Immat Gran (auto) 0.06 H Absolute Neuts (auto) 8.3 Absolute Nucleated RBC 0.000 Nucleated RBC % (auto) 0.0 Anion Gap 11 L Estim Creat Clear Calc 85.5 Estimated GFR > 60 POC Glucose 166 H 239 H Random Glucose 151 H Calcium 7.6 L Phosphorus 1.4 L Magnesium 1.9 05/17/23 07:27 MCV MCH MCHC RDW Plt Count MPV Immature Gran % (Auto) Neut % (Auto) Lymph % (Auto) [place] % (Auto) Eos % (Auto) Baso % (Auto) Lymph # (Auto) [place] # (Auto) Eos # (Auto) Baso # (Auto) Abs Immat Gran (auto) Absolute Neuts (auto) Absolute Nucleated RBC Nucleated RBC % (auto) Anion Gap Estim Creat Clear Calc Estimated GFR POC Glucose 147 H Random Glucose Calcium Phosphorus Magnesium Assessment and Plan (1) Hypotension: Status: Acute (2) Acute kidney injury: Status: Acute (3) Closed left femoral fracture: Status: Acute Plan Justino Johnson is 88 years old man admitted with: # Comminuted left distal femur fracture, closed. POD5 Pain controlled with pain meds DC IV fluids. Orthopedic surgery following PT eval # Acute kidney injury resolved monitor I\O and BMP # Hypotension, Improved. restart low BP meds monitor blood pressure. # Event of hypoglycemia, secondary to insulin + patient has not been eating well. Hypoglycmia protocol. monitor blood glucose. # Diabetes mellitus Patient to manage his own glucose. Continuous glucose monitoring. # Hyperlipidemia. Continue statin. # Atrial fibrillation rate controlled. Implanted Watchman. # Interstitial lung disease. Asymptomatic. DuoNeb as needed. # Sleep apnea. Nocturnal CPAP VTE prophylaxis: Lovenox Code status: Full code. Patient will need hospitalization overnight post left femur fracture. pending safe discharge plan to SNF per PT recommendations Quality Stroke Does the patient have a stroke diagnosis?: No VTE Prior VTE?: No VTE Risk Level:: Medical - moderate - high VTE Device Contraindication: N/A - Device Ordered VTE Drug Contraindication: Treatment Not Tolerated
[2023-05-17 11:49] LABS: Glucose, Whole Blood 233 mg/dL (60-115)
[2023-05-17] MEDS: Enoxaparin Sodium 40 MG/0.4 ML SYRINGE SUBCUT (12:20)
--- NOTE | 2023-05-17 13:53 | MHC.CM.PN ---
CM RECEIVED A MESSAGE FROM [facility] THAT THEY HAVE RECEIVED AUTH HOWEVER WILL NOT ABLE TO TAKE PT UNTIL TOMORROW AFTER 4PM, TRANSPORT PREBOOKED W/JACOB FOR 4PM, CM ATTEMPTES TO CONTACT SON/HCP TIFFANIE AT NUMBER PROVIDED TO CM YESTERDAY, NO ANSWER AND VOICEMAILBOX FULL, CM ALSO ATTEMPTED TO UPDATE PT HOWEVER PT SOUNDLY SLEEPING, HOSPITALIST AND PT'S RN AWARE.
[2023-05-17 15:42] VITALS: BP 157/87; PULSE 86; RESP 18; TEMP 37.1; O2SAT 94
[2023-05-17 16:23] LABS: Glucose, Whole Blood 228 mg/dL (60-115)
--- NOTE | 2023-05-17 17:38 | HO.WOUND ---
Wound Consult: Initial 88yr old?M admitted to [facility] on 05/12 - See progress notes and H&P for detailed history.? Wound consult placed for coccyx wound - POA.? Patient agreeable to assessment and photo documentation.? Coccyx Etiology: Unstageable Pressure Injury -??Present on Admission Measurements: 1.2cm x 0.5cm x 0.1cm Wound Bed: pink moist wound bed with adherent pale yellow slough - suspect pseudo slough will classify as unstageable until future assessment. Drainage / Odor: small serosang Edges: ? linear and attached Krystal wound: Mild pink erythema noted - No Induration, Fluctuance or Warmth noted Pain: denies Goals of Treatment: ? Off Load Pressure Triad and foam dressing to protect from moisture and friction and allow for autolytic debridement Recommendations: 1. Turn and Reposition every 2 hours and as needed for patient comfort.? Use pillows or wedges to support off loading positions. 2. Off Load all bony prominences with use of pillows and heel boots if needed.? Apply Preventative foams where needed. ? 3. Monitor for incontinence and moisture control, use barrier creams when needed for prevention and treatment. 4. Provide adequate and supplemental nutrition.? 5. Order or Continue low air loss mattress. 6. When applicable maintain blood glucose levels per Providers order. 7. Coccyx - Off Load Pressure - Cleanse with PH balance spray or wipes, pat dry. ?Apply thin layer of Triad to wound bed. Do not remove all of paste between applications as this may cause further skin damage.? Cover with foam dressing to aid in off loading and protection from friction. Re-consult wound care Nurse for wound deterioration or wound changes.
[2023-05-17 19:19] VITALS: BP 146/90; PULSE 90; RESP 20; TEMP 37.4; O2SAT 92
[2023-05-17 20:40] LABS: Glucose, Whole Blood 236 mg/dL (60-115)
[2023-05-17 23:19] VITALS: PULSE 90; O2SAT 92
[2023-05-18] VITALS: BP 150/89; PULSE 87; RESP 20; TEMP 36.8; O2SAT 95; O2SAT 96
[2023-05-18] MEDS: 0.9 % Sodium Chloride Flush 3 ML SYRINGE IVFLUSH ×2 (01:14→07:52)
[2023-05-18 03:36] VITALS: BP 153/86; PULSE 80; RESP 20; TEMP 36.7; O2SAT 94
[2023-05-18 04:15] VITALS: PULSE 80; RESP 20; O2SAT 94
[2023-05-18] MEDS: Pantoprazole Sodium 40 MG/10 ML VIAL IVPUSH (05:28)
[2023-05-18 05:43] VITALS: BMI 31.9
[2023-05-18 07:19] VITALS: BP 150/88; PULSE 89; RESP 18; TEMP 36.5; O2SAT 94
[2023-05-18 07:30] LABS: MANUAL DIFF FLAG NO
[2023-05-18 07:45] LABS: Glucose, Whole Blood 153 mg/dL (60-115)
[2023-05-18 07:47] LABS: Basophils Absolute Auto 0.1 X10*3/uL (0.0-0.2); Basophils Percent Auto 0.9 % (0-2); Eosinophils Absolute Auto 0.5 X10*3/uL (0.0-0.4); Eosinophils Percent Auto 5.8 % (0-4); Hemoglobin 9.6 g/dl (14.0-18.0); Imm Gran Abs Auto 0.05 X10*3/uL (0.00-0.03); Imm Gran Pct Auto 0.5 % (0.0-0.4); Lymphocytes Absolute Auto 1.2 X10*3/uL (1.2-4.9); Lymphocytes Percent Auto 12.7 % (20-40); Mean Corpuscular HGB Conc 33.1 g/dl (31.0-36.0); Mean Corpuscular Hemoglobin 29.3 pg (27.0-33.0); Mean Corpuscular Volume 88.4 fL (80.0-98.0); Mean Platelet Volume 10.6 fL (9.4-12.4); Monocytes Absolute Auto 1.1 X10*3/uL (0.1-1.2); Monocytes Percent Auto 12.5 % (2-11); Neutrophils Absolute Auto 6.1 x10*3/uL (2.0-8.3); Neutrophils Percent Auto 67.6 % (45-73); Platelet Count 177 X10*3/uL (160-400); Red Blood Count 3.28 X10*6/uL (4.60-5.80); Red Cell Distribution Width 16.5 % (11.0-16.0); White Blood Count 9.1 X10*3/uL (4.8-10.8)
[2023-05-18] MEDS: Gabapentin 600 MG TABLET 300 MG PO (07:51)
[2023-05-18] MEDS: Folic Acid 1 MG TABLET PO (07:51)
[2023-05-18] MEDS: Midodrine HCl 2.5 MG TABLET PO (07:52)
[2023-05-18] MEDS: Sodium,Potassium Phosphates POWD.PACK 2 PACKET PO ×2 (07:52→13:14)
[2023-05-18] MEDS: Atorvastatin Calcium 20 MG TABLET PO (07:52)
[2023-05-18] MEDS: Subcutaneous Insulin Pump 1 EACH SUBCUT ×2 (07:53→13:28)
[2023-05-18 08:06] LABS: Anion Gap 10 (12-20); Blood Urea Nitrogen 11 mg/dL (9-16); Calcium 7.8 mg/dL (8.4-10.2); Carbon Dioxide 28 mmol/L (22-29); Chloride 101 mmol/L (96-108); Creatinine Clr Calc Pharmacy 90.2; Estimated Glomerular Filt Rate > 60; Glucose Random 166 mg/dL (60-115); Magnesium 1.8 mg/dL (1.6-2.6); Phosphorus 1.7 mg/dL (2.7-4.5); Potassium 4.3 mmol/L (3.3-5.1); Sodium 135 mmol/L (135-145)
--- NOTE | 2023-05-18 10:22 | MHC.CM.PN ---
PT MEDICALLY CLEARED FOR DC TO ACUTE REHAB AT [facility], PER FACILITY PT WILL TRANSFER AT 4PM VIA JAC[facility] FOR BLS TRANSPORT
--- NOTE | 2023-05-18 10:24 | PM.DS ---
DS: Providers Provider Date of Service: 05/18/23 Date of admission: 05/12/23 22:31 Primary care physician: Nancy Alvarado MD Consults: 05/13/23 08:32 Consult to Cardiology Routine Consulting Provider: [facility] Cardiovascular Services Reason for consultation: Clearance for surgical procedure. 05/14/23 18:34 Consult to Wound Care Routine Reason for consultation: open area to coccyx DS: Diagnosis Discharge Diagnosis (1) Hypotension: Status: Acute (2) Acute kidney injury: Status: Acute (3) Closed left femoral fracture: Status: Acute (4) Hypoglycemia: Status: Acute (5) Dizziness: Status: Acute (6) Altered gait: Status: Acute (7) Acute on chronic blood loss anemia: Status: Acute DS: Summary Hospital Course Hospital Course: Admission note HPI Justino Johnson is 88 years old man with past medical history significant for atrial fibrillation (Watchman implanted) only on aspirin, type 2 diabetes mellitus on insulin pump, hyperlipidemia, chronic lung disease, GERD and essential hypertension was brought to the emergency department via EMS after he sustained a fall landing on his left knee. He denied head trauma. He mentioned that he was feeling lightheaded before falling down. He was found to have a blood glucose in the low 50s when the fall happened. He denied loss of consciousness, speech difficulty, headache, chest pain or palpitations. He has mild shortness of breath which he attributes to his chronic lung disease. He denied cough, fever or chills. He denies any gastrointestinal or genitourinary symptoms. He denied tobacco smoking, alcohol abuse or illicit drug use. In the ED, he was found to have stable vital signs., however, his systolic blood pressure is now in the 80s. There is no tachycardic and oxygen saturation is normal on room air. Blood workup is remarkable for leukocytosis of 15.8, hemoglobin 12.8. There are no electrolyte imbalances. Renal function is normal. Glucose is 125. Viral testing for COVID-19 and influenza are negative. Left knee x-ray showed acute imminent distal femur motor periprosthetic fracture. Head and C-spine CT scans are normal. CXR is negative for acute processes; it did showed interstitial lung changes. ECG showed atrial fibrillation with PVCs. QTC is prolonged (553 millisecond). Hospital course # Comminuted left distal femur fracture, closed. Had the surgery on 05/13/2022 and requried blood transfusion for acute on chronic anemia. Ended up in ICU for close monitoring and Pressors after surgery as he developed hypotension. improved and transferred to medical floor. Pain controlled with pain meds as he was followed by Orthopedic team who recommended PT and follow up as outpatient in 2 weeks. Keep on Lovenox for DVT PPx for 6 weeks. # Acute kidney injury presented with elevated Creatinine. Improved back to baseline with IVF usage. # Event of hypoglycemia, secondary to insulin + patient has not been eating well. Hypoglycmia protocol. No recurrence during the hospital stay. Oxycodone as needed for pain Lovenox for 6 weeks check blood level in 2 weeks Follow with Orthopedics in 2 weeks Time Attestation Discharge coordination time: Greater than 30 minutes Quality: Safe Use of Opioids Does Pt have an Active Cancer Diagnosis on the Problem List?: No Quality: Stroke Does the patient have a stroke diagnosis?: No Physical Exam Vital Signs: Vital Signs: Last Vital Signs Temp 97.7 F 05/18/23 07:19 Pulse 89 05/18/23 07:19 Resp 18 05/18/23 07:19 BP 150/88 H 05/18/23 07:19 Pulse Ox 94 05/18/23 07:19 O2 Del Method Room Air 05/18/23 07:19 O2 Flow Rate 2 05/16/23 20:00 FiO2 30 05/14/23 07:00 Oxygen Flow Rate 3 05/16/23 00:00 BMI result Body Mass Index 31.9 Const: Other: Constitutional : Awake, interactive, not in distress Neck : Normal inspection, Supple Cardiovascular : RRR, no JVP, no lower extremity edema Respiratory : good bilateral air entry, no crackles, wheezes or rhonchi Gastrointestinal: soft, lax, Normal bowel sounds, Non tender Skin : Warm, Dry Skeletal: surgical wound covered with dressing, still having knee swelling, no erythema or drainage noted Neurological : Alert & oriented x3, No focal deficit DS: Data Data Completed and Pending Completed studies during hospitalization [Text1]: Procedures Control Bleeding in Gastrointestinal Tract, Via Natural or Artificial Opening Endoscopic (08/12/21) Excision of Cecum, Via Natural or Artificial Opening Endoscopic, Diagnostic (08/12/21) Labs on day of discharge: Laboratory Results - last 24 hr 05/17/23 05/17/23 05/17/23 11:38 15:44 20:29 WBC RBC Hgb Hct MCV MCH MCHC RDW Plt Count MPV Immature Gran % (Auto) Neut % (Auto) Lymph % (Auto) [place] % (Auto) Eos % (Auto) Baso % (Auto) Lymph # (Auto) [place] # (Auto) Eos # (Auto) Baso # (Auto) Abs Immat Gran (auto) Absolute Neuts (auto) Absolute Nucleated RBC Nucleated RBC % (auto) Sodium Potassium Chloride Carbon Dioxide Anion Gap BUN Creatinine Estim Creat Clear Calc Estimated GFR POC Glucose 233 H 228 H 236 H Random Glucose Calcium Phosphorus Magnesium 05/18/23 05/18/23 06:54 07:20 WBC 9.1 RBC 3.28 L Hgb 9.6 L Hct 29.0 L MCV 88.4 MCH 29.3 MCHC 33.1 RDW 16.5 H Plt Count 177 MPV 10.6 Immature Gran % (Auto) 0.5 H Neut % (Auto) 67.6 Lymph % (Auto) 12.7 L [place] % (Auto) 12.5 H Eos % (Auto) 5.8 H Baso % (Auto) 0.9 Lymph # (Auto) 1.2 [place] # (Auto) 1.1 Eos # (Auto) 0.5 H Baso # (Auto) 0.1 Abs Immat Gran (auto) 0.05 H Absolute Neuts (auto) 6.1 Absolute Nucleated RBC 0.000 Nucleated RBC % (auto) 0.0 Sodium 135 Potassium 4.3 Chloride 101 Carbon Dioxide 28 Anion Gap 10 L BUN 11 Creatinine 0.72 Estim Creat Clear Calc 90.2 Estimated GFR > 60 POC Glucose 153 H Random Glucose 166 H Calcium 7.8 L Phosphorus 1.7 L Magnesium 1.8 Imaging Chest x-ray: Radiologist's impression: ITS Impressions Chest X-Ray 05/12/23 18:54 IMPRESSION: 1. No acute process seen. 2. Chronic interstitial lung changes. No change from 02/24/2022 Knee X-Ray 05/12/23 18:54 IMPRESSION: Comminuted distal femoral periprosthetic fracture. Cervical Spine CT 05/12/23 18:58 IMPRESSION: CT HEAD: 1. No acute intracranial abnormality. 2. Incidentally noted 1.1 cm hyperdense nodule within the superficial and anterior aspect of the left parotid gland, slightly increased in size since 2021. 3. Polyps are seen within the nasal cavities. An additional prominent polyp is seen within the nasopharynx. Consider ENT follow-up. CT CERVICAL SPINE: No cervical spine fracture or traumatic malalignment. Multilevel degenerative spondylosis. Head CT 05/12/23 18:58 IMPRESSION: CT HEAD: 1. No acute intracranial abnormality. 2. Incidentally noted 1.1 cm hyperdense nodule within the superficial and anterior aspect of the left parotid gland, slightly increased in size since 2021. 3. Polyps are seen within the nasal cavities. An additional prominent polyp is seen within the nasopharynx. Consider ENT follow-up. CT CERVICAL SPINE: No cervical spine fracture or traumatic malalignment. Multilevel degenerative spondylosis. Guidance Fluoroscopy 05/13/23 17:50 IMPRESSION: Fluoroscopy performed by the orthopedics department. Please see the operative report for additional information. Discharge Plan Discharge Anticipated Discharge Date/Time: 05/18/23 10:13 Patient Disposition: [facility] Discharge Diagnosis: Left femur fracture Referrals: [facility] [Other] - 1 Week (ACUTE REHAB) Nancy Alvarado MD [Primary Care Provider] - 1 Week Yesika Burns PA-C [Physician Medical Apparatus Model Maker] - 05/30/23 11:30 am Discharge Medications: New oxycodone 5 mg Tablet 5 mg PO Q6H PRN (Reason: Pain, Severe (Pain Scale 7-10)) Qty: 20 0RF Rx Instructions: Partial Fill upon patient request. enoxaparin 40 mg/0.4 mL Syringe 40 mg subcut Q24H 42 Days Qty: 16.8 0RF potassium, sodium phosphates [Phos-NaK] 280-160-250 mg Powder In Packet 2 packet PO QID Qty: 20 0RF Continued atorvastatin 40 mg Tablet 20 mg PO DAILY sennosides-docusate sodium [Senna Plus] 8.6-50 mg Tablet 1 tab PO BEDTIME PRN (Reason: Constipation) cyanocobalamin (vitamin B-12) 500 mcg Tablet 500 mcg PO DAILY ascorbic acid (vitamin C) 500 mg Tablet 500 mg PO DAILY tamsulosin 0.4 mg Capsule 0.4 mg PO DAILY omeprazole 20 mg Capsule,Delayed Release(Dr/Ec) 20 mg PO DAILY@0630 hydroxyzine HCl 10 mg Tablet 10 mg PO DAILY PRN (Reason: Itching) loratadine 10 mg Tablet 10 mg PO DAILY Rx Instructions: DO NOT TAKE IF TAKEN HYDROXYZINE cholecalciferol (vitamin D3) [Vitamin D3] 25 mcg (1,000 unit) Capsule 25 mcg PO DAILY Novolog U-100 Insulin aspart See Rx Instructions .ROUTE .COMPLEX PRN (Reason: insulin pump) Rx Instructions: insulin pump denosumab 60 mg/mL Syringe 60 mg SUBCUT [id number] ipratropium-albuterol 0.5 mg-3 mg(2.5 mg base)/3 mL solution for nebulization 3 ml inhalation QID PRN (Reason: Shortness Of Breath Or Wheezing) losartan 25 mg tablet 25 mg PO DAILY hydrochlorothiazide 25 mg tablet 25 mg PO DAILY meclizine 25 mg Tablet 25 mg PO TID Lactobacillus acidophilus Capsule 1 cap PO BID fluticasone propionate 50 mcg/actuation [place],Suspension 2 spray INTRANASAL DAILY PRN (Reason: Allergy Symptoms) Rx Instructions: administer into each nostril biotin 500 mcg Capsule 1 mg PO DAILY calcium citrate 200 mg (950 mg) Tablet 600 mg PO BID gabapentin 600 mg tablet 300 mg PO TID multivitamin Tablet 1 tab PO DAILY dextromethorphan-guaifenesin 10-100 mg/5 mL Syrup 10 ml PO Q6H PRN (Reason: Cough) aspirin 81 mg Tablet,Delayed Release (Dr/Ec) 81 mg PO DAILY albuterol sulfate 90 mcg/actuation Hfa Aerosol Inhaler 2 puff INHALATION Q6H PRN (Reason: Shortness Of Breath Or Wheezing) omega 6-oak-inw-fish oil [Fish Oil] 300-1,000 mg Capsule,Delayed Release(Dr/Ec) 1 cap PO BID Discharge Orders: Discharge Order (Routine); Ordered 05/18/23 Ordered By: Juanito Nicolas Diet: Advance to usual diet Activity on Discharge: Use cane or walker Stand Alone Forms: Patient Portal Discharge page Other Ambulatory Orders: Complete Blood Count Auto Diff (Routine) Timeframe: 2 Weeks Facility: [facility] - Location: Laboratory Ordered By: Juanito Nicolas Activity Restrictions/Additional Instructions: Gait training 25% WB LLE, strengthening, ADLs Continue Lovenox for dvt ppx x6 weeks Keep dressing clean, dry and intact-no showering or tub baths Follow up with Orthopedics in 2 weeks Care Plan Goals: Read below Health Concerns: Read below Plan of Treatment: Read below Assessment: Oxycodone as needed for pain Lovenox for 6 weeks check blood level in 2 weeks Follow with Orthopedics in 2 weeks Discharge Date/Time: 05/18/23 16:03
[2023-05-18 11:40] VITALS: BP 147/92; PULSE 98; RESP 18; TEMP 36.7; O2SAT 93
[2023-05-18 11:52] LABS: Glucose, Whole Blood 179 mg/dL (60-115)
[2023-05-18] MEDS: oxyCODONE HCl Immed Release 5 MG TABLET PO (13:13)
[2023-05-18] MEDS: Enoxaparin Sodium 40 MG/0.4 ML SYRINGE SUBCUT (13:13)
[2023-05-18 15:07] VITALS: BP 158/92; PULSE 89; RESP 18; TEMP 37; O2SAT 93
[2023-05-20 10:53] LABS: Chlorpropamide None Detected; Glimepiride None Detected; Glipizide None Detected; Glyburide None Detected; Nateglinide None Detected; Pioglitazone None Detected; Repaglinide None Detected; Rosiglitazone None Detected; Tolazamide None Detected; Tolbutamide None Detected
--- NOTE | 2023-05-23 07:29 | W.PM.OPN ---
Operative Note Operative Note Date of Service: 05/13/23 Narrative: Date of Service: 05/13/23 Pre-op diagnosis: left distal femoral periprosthetic fracture Post-op diagnosis: same Procedure: Retrograde IMN left distal femoral periprosthetic fracture Implants: Malik [id number] retrograde IMN with 4 distal and 2 proximal interlocking screws Surgeon: Brandon Beaver MD Anesthesia: GETA and local Was an Medical Record Retrieval Specialist used for this Procedure?: No Estimated blood loss (mL): 150 IV fluids (mL): 1,000 Pathology: none sent Condition: stable Disposition: PACU Patient was brought to the operating room and placed supine on the fracture table. He was prepped and draped in standard sterile fashion and a time out was called to identify proper site, proper procedure and IV antibiotics per weight were administered. I began by flexing the knee up and making a small 1 cm incision between the distal pole of the patella and the tibial tubercle directly midline. Using lateral and AP fluoro I placed the guidewire into the femur through the open box of the femoral prosthesis. I then made a larger incision transpatellar tendon. A tissue retractor was placed and I over-reamed with a 12.5 opening reamer. A ball tipped guidewire was ten placed across the fracture. This was a distal comminuted and impacted fracture and his bone quality was poor. With the fracture in a reduced position, I was able to pass a 15 reamer up the femoral canal to the level of the lesser without resistance. I then measured and placed a 300x13 mm nail. Using the targeting guide 5 distal screws were placed through the nail. Using perfect pauma technique 2 proximal interlocking screws were placed. Final radiographs showed excellent positioning of the hardware and fracture alignement. I irrigated copiously and then closed with absorbable sutures and skin niurka. Patient was then placed in sterile dressing and extubated. He was brought to the recovery room in stable condition. There were no known complications.
== END 2023-05-18 16:03 | disposition skilled nursing facility (03) | DRG 481 ==
LOC: HO.ED 21:34 → HO.EDOVER 05-13 00:12 → HO.S3 05-13 00:53 → HO.IMC 05-13 20:07 → HO.ICU 05-14 00:06 → HO.IMC 05-15 13:17
PROVIDERS: Anesthesiology; Internal Medicine Critical Care Medicine; Orthopaedic Surgery; Physician Assistant Medical; Registered Nurse Emergency; Admitting Provider Internal Medicine; Emergency Provider Student in an Organized Health Care Education/Training Program; Family Provider Obstetrics & Gynecology; PCP Internal Medicine; Visit Provider Student in an Organized Health Care Education/Training Program
PROC: 0QSC36Z Reposition Left Lower Femur with Intramedullary Internal Fixation Device, Percutaneous Approach (ICD-10-PCS; principal; 2023-05-13 15:10)
DX: S72.402A Unspecified fracture of lower end of left femur, initial encounter for closed fracture (principal); D62 Acute posthemorrhagic anemia; M97.12XA Periprosthetic fracture around internal prosthetic left knee joint, initial encounter; N17.9 Acute kidney failure, unspecified; W19.XXXA Unspecified fall, initial encounter; I48.91 Unspecified atrial fibrillation; I95.1 Orthostatic hypotension; G47.33 Obstructive sleep apnea (adult) (pediatric); D63.8 Anemia in other chronic diseases classified elsewhere; E11.42 Type 2 diabetes mellitus with diabetic polyneuropathy; E78.5 Hyperlipidemia, unspecified; I10 Essential (primary) hypertension; J84.10 Pulmonary fibrosis, unspecified; R55 Syncope and collapse; E11.649 Type 2 diabetes mellitus with hypoglycemia without coma; Z20.822 Contact with and (suspected) exposure to COVID-19; Z96.41 Presence of insulin pump (external) (internal); Z95.818 Presence of other cardiac implants and grafts; Z79.4 Long term (current) use of insulin; Z79.82 Long term (current) use of aspirin; Z79.899 Other long term (current) drug therapy
CPT/HCPCS: 36415; 36600; 70450; 71045; 72125; 73560; 80048; 80053; 80337; 81001; 82533; 82550; 82803; 82947; 83010; 83540; 83605; 83735; 84100; 84443; 84484; 85014; 85018; 85025; 85027; 85610; 86850; 86900; 86901; 86923; 87086; 87502; 87635; 93005; 93306; 94660; 97110; 97163; 97530; 99024; 99285; C1713; C1758; C1769; C9113; J0131; J0613; J0690; J1170; J1650; J2371; J2405; J2704; J2795; J3010; J7120; P9016; P9047; Q9957

== ENCOUNTER → 2023-05-12 17:35 | Outpatient (BNV) | payer OTHER, SELFPAY | PROVIDERS: Admitting Provider Internal Medicine; Emergency Provider Student in an Organized Health Care Education/Training Program; Visit Provider Internal Medicine Cardiovascular Disease | DX: R55 Syncope and collapse (principal) | CPT/HCPCS: 93010 ==

== ENCOUNTER → 2023-05-12 17:55 | Outpatient (BNV) | payer OTHER, SELFPAY | PROVIDERS: Emergency Provider Student in an Organized Health Care Education/Training Program; Visit Provider Internal Medicine | DX: I95.9 Hypotension, unspecified (principal); N17.9 Acute kidney failure, unspecified; S72.92XA Unspecified fracture of left femur, initial encounter for closed fracture; E11.649 Type 2 diabetes mellitus with hypoglycemia without coma; R42 Dizziness and giddiness; R26.9 Unspecified abnormalities of gait and mobility; D62 Acute posthemorrhagic anemia | CPT/HCPCS: 99222; 99232; 99233; 99239; 99499 ==

== ENCOUNTER 2023-05-12 22:31 | Outpatient (BNV) | payer OTHER, SELFPAY | END 2023-05-14 06:21 | PROVIDERS: Admitting Provider Internal Medicine; Emergency Provider Student in an Organized Health Care Education/Training Program; Visit Provider Internal Medicine Cardiovascular Disease | DX: R55 Syncope and collapse (principal) | CPT/HCPCS: 93010 ==

== ENCOUNTER 2023-05-12 22:31 | Outpatient (BNV) | payer OTHER, SELFPAY | END 2023-05-13 07:00 | PROVIDERS: Admitting Provider Internal Medicine; Emergency Provider Student in an Organized Health Care Education/Training Program; Visit Provider Internal Medicine Cardiovascular Disease | DX: I35.8 Other nonrheumatic aortic valve disorders (principal) | CPT/HCPCS: 93306 ==

== ENCOUNTER → 2023-05-12 22:31 | Outpatient (BNV) | payer OTHER, SELFPAY | PROVIDERS: Admitting Provider Internal Medicine; Emergency Provider Student in an Organized Health Care Education/Training Program; Visit Provider Internal Medicine Cardiovascular Disease | DX: Z01.810 Encounter for preprocedural cardiovascular examination (principal) | CPT/HCPCS: 99222 ==

== ENCOUNTER → 2023-05-12 22:31 | Outpatient (BNV) | payer OTHER, SELFPAY | PROVIDERS: Admitting Provider Internal Medicine; Emergency Provider Student in an Organized Health Care Education/Training Program; Visit Provider Internal Medicine Critical Care Medicine | DX: N17.9 Acute kidney failure, unspecified (principal); I95.81 Postprocedural hypotension; S72.92XA Unspecified fracture of left femur, initial encounter for closed fracture; Z98.890 Other specified postprocedural states; R55 Syncope and collapse | CPT/HCPCS: 99291; 99292 ==

== ENCOUNTER → 2023-05-12 22:31 | Outpatient (BNV) | payer OTHER, SELFPAY | PROVIDERS: Admitting Provider Internal Medicine; Emergency Provider Student in an Organized Health Care Education/Training Program; Visit Provider Physician Assistant | DX: M97.12XA Periprosthetic fracture around internal prosthetic left knee joint, initial encounter (principal); S72.92XA Unspecified fracture of left femur, initial encounter for closed fracture; Z96.652 Presence of left artificial knee joint; R55 Syncope and collapse | CPT/HCPCS: 27506; 99223 ==

== ENCOUNTER 2023-05-30 06:20 | Outpatient (REF) | payer BC, MEDICARE, SELFPAY ==
--- NOTE | ~2023-05-30 | XR_ITS ---
EXAMINATION: XR FEMUR, LEFT CLINICAL INFORMATION: History of fracture. COMPARISON: Prior examinations, most recently intraoperative fluoroscopy dated 05/13/2023. TECHNIQUE: AP and lateral views of the left femur were obtained. FINDINGS: There is an intact distal left femoral intramedullary leonela, with intact fixator screws. A comminuted of fracture is redemonstrated of the distal left femoral metaphysis adjacent to the left knee total arthroplasty. Again, this shows displaced butterfly fragments. Thigh and knee skin niurka are seen. There are moderate degenerative changes of the left hip. There are diffuse atherosclerotic calcifications. XR/XR femur LT 2V IMPRESSION: A distal left femoral intramedullary leonela and left knee arthroplasty appear intact. There is stable alignment of periprosthetic fracture fragments of the distal left femoral metaphysis.
== END 2023-05-30 06:21 | disposition home or self-care (01) ==
LOC: HO.HOSX 06:20
PROVIDERS: Visit Provider Physician Assistant
DX: S72.402D Unspecified fracture of lower end of left femur, subsequent encounter for closed fracture with routine healing (principal); Z98.890 Other specified postprocedural states; X58.XXXD Exposure to other specified factors, subsequent encounter
CPT/HCPCS: 73552; 99212

== ENCOUNTER 2023-05-30 11:58 | Outpatient (AMB) | payer OTHER, SELFPAY ==
--- NOTE | 2023-05-30 12:40 | MHC.OFFVIS ---
Intake Vital Signs 05/30/23 12:40 Height 5 ft 11 in Intake Visit Reasons: P.O- Retrograde IMN LT distal femoral 05/13/23 Intake Note: Justino is a 88 year old male who presents for his post operative appointment of an IMN left distal femoral 05/13/2023 . Patient reports that he has a lot of swelling in his left knee and hip and still cannot bear weight on the left side. Allergies No Known Allergies [No Known Allergies*] Allergy (Verified 05/30/23 12:43) HPI P.O- Retrograde IMN LT distal femoral 05/13/23 HPI Details 88-year-old male who presents in the office today 17 days status post left distal femoral periprosthetic fracture retrograde IM nailing, which was performed on 05/13/[address] Beaver. The patient reports having a lot of edema in the left knee and hip. He states he is unable to bear weight on the left lower extremity. PFSH Medical History GERD (gastroesophageal reflux disease) BPH (benign prostatic hyperplasia) Hypertension Borderline hypertension Atrial fibrillation Diabetes Social History Household Members: None Housing: House Do you presently have visiting nurse or other home services: Yes Patient Tobacco Use Status: Never used Tobacco e-Cigarette/Vaping Use: Never Used Second Hand Smoke Exposure: No Advance Directives Date on File: 02/25/22 service: Yes Current occupational status: retired Review of Systems Const All systems reviewed & are unremarkable except as noted in HPI and below Physical Exam Const General: cooperative, healthy appearing and no acute distress Resp Effort & Inspection: normal respiratory effort and able to speak in complete sentences Cardio Rate: regular rate Peripheral pulses: Peripheral pulses 2+ throughout GI Palpation (GI): Soft to palpation Skin Lesions: no lesions Rashes: no rashes Extrem Other: Left knee: Larger effusion. Incision site is clean, dry, and intact. No surrounding erythema or drainage. No signs of infection. Crandall intact. Able to dorsiflex and plantarflex. Sensation intact. Pedal pulse intact. Assessment & Plan Assessment & Plan (1) Fracture of distal end of left femur: Comment: Left distal femoral periprosthetic fracture 05/13/2023 Dr. Brandon Beaver Code(s): S72.402A - Unspecified fracture of lower end of left femur, initial encounter for closed fracture Plan Mr. Johnson is an 88-year-old male who presents in the office today 17 days status post left distal femoral periprosthetic fracture retrograde IM nailing, which was performed on 05/13/[address] Beaver. The patient reports having a lot of edema in the left knee and hip. He states he is unable to bear weight on the left lower extremity. Crandall were removed and steri-stripes were applied. The patient will continue to weigh bear at 25% weight. He will continue to work with physical therapy on gait training and gentle ROM. Follow up will be in 4 weeks with repeat x-rays, or sooner if needed. X-rays of the left femur which were obtained while in the office today and were reviewed by me, Yesika Burns PA-C, revealed routine healing of a left distal femoral periprosthetic fracture. Orders: Orders XR femur LT 2V 05/30/23 S72.92XA - Unspecified fracture of left femur, initial encounter for closed fracture Patient Instructions: Scribed for Yesika Burns PA-C by Lakia Wheeler [employer] forces medical sergeant, on 05/30/2023 at 12:00 pm EST. Coding Level of Care Code Global (59640) Diagnoses Fracture of distal end of left femur S72.402A
== END 2023-05-30 14:13 | disposition home or self-care (01) ==
PROVIDERS: Visit Provider Physician Assistant
DX: S72.402A Unspecified fracture of lower end of left femur, initial encounter for closed fracture (principal)
CPT/HCPCS: 99024

== ENCOUNTER 2023-06-09 11:05 | Outpatient (REF) | payer BC, MEDICARE, SELFPAY ==
--- NOTE | ~2023-06-09 | XR_ITS ---
EXAMINATION: XR FEMUR AND KNEE, LEFT CLINICAL INFORMATION: Pain and unspecified knee, history of fracture. COMPARISON: Multiple prior exams including most recent images of 05/30/2023, 05/12/2023, and intraoperative fluoroscopy dated 05/13/2023. TECHNIQUE: AP and lateral views of the left knee as well as AP and lateral views, 4 views total, of the left femur were obtained. FINDINGS: Left Femur: The bones are diffusely demineralized. Extensive vascular calcifications. Moderate degenerative changes in the left hip and left sacroiliac joint. Redemonstration of left femoral intramedullary leonela with fixator screws transfixing a comminuted fracture of the distal femoral metaphysis adjacent to the left knee total arthroplasty. Hardware appears intact. Redemonstration of butterfly fracture fragments. Interval removal of knee and thigh skin niurka. Left Knee: Redemonstration of total knee arthroplasty with adjacent comminuted fracture as detailed above. Redemonstration of a large suprapatellar effusion. XR/XR knee LT 2V IMPRESSION: Redemonstration of left femoral intramedullary leonela with fixator screws transfixing a comminuted fracture of the distal femoral metaphysis adjacent to the left knee total arthroplasty. Hardware appears intact. Redemonstration of total knee arthroplasty with large suprapatellar effusion.
--- NOTE | ~2023-06-09 | XR_ITS ---
EXAMINATION: XR FEMUR AND KNEE, LEFT CLINICAL INFORMATION: Pain and unspecified knee, history of fracture. COMPARISON: Multiple prior exams including most recent images of 05/30/2023, 05/12/2023, and intraoperative fluoroscopy dated 05/13/2023. TECHNIQUE: AP and lateral views of the left knee as well as AP and lateral views, 4 views total, of the left femur were obtained. FINDINGS: Left Femur: The bones are diffusely demineralized. Extensive vascular calcifications. Moderate degenerative changes in the left hip and left sacroiliac joint. Redemonstration of left femoral intramedullary leonela with fixator screws transfixing a comminuted fracture of the distal femoral metaphysis adjacent to the left knee total arthroplasty. Hardware appears intact. Redemonstration of butterfly fracture fragments. Interval removal of knee and thigh skin niurka. Left Knee: Redemonstration of total knee arthroplasty with adjacent comminuted fracture as detailed above. Redemonstration of a large suprapatellar effusion. XR/XR femur LT 2V IMPRESSION: Redemonstration of left femoral intramedullary leonela with fixator screws transfixing a comminuted fracture of the distal femoral metaphysis adjacent to the left knee total arthroplasty. Hardware appears intact. Redemonstration of total knee arthroplasty with large suprapatellar effusion.
== END 2023-06-09 11:06 | disposition home or self-care (01) ==
LOC: HO.HOSX 11:05
PROVIDERS: PCP Internal Medicine; Visit Provider Physician Assistant
DX: S72.402D Unspecified fracture of lower end of left femur, subsequent encounter for closed fracture with routine healing (principal)
CPT/HCPCS: 73552; 73560; 99212

== ENCOUNTER 2023-06-09 11:05 | Outpatient (AMB) | payer MEDICARE, BC, SELFPAY ==
--- NOTE | 2023-06-09 11:17 | A.OFFVIS_ITS ---
Intake Intake Visit Reasons: PO - Left Distal IMN 05/13/23 Intake Note: Justino is a 88 year old male who presents today for a post op appointment s/p Left Distal IMN 05/13/23. Patient reports feeling a bit sore on the medial aspect of the knee. He states that PT is going well, however he is a but sore after. Patient's daughter in law informed me that his knee was warm to the touch yesterday, however today feels a bit cooler. Allergies No Known Allergies [No Known Allergies*] Allergy (Verified 06/09/23 12:09) HPI PO - Left Distal IMN 05/13/23 HPI Details 88-year-old male who presents in the off ice today 1 month status post left distal femoral periprosthetic fracture retrograde IM nailing, which was performed on 05/13/[address] Beaver. I last saw the patient in the office on 05/30/2023 where he was instructed to weight bear at 25% and to continue to work with physical therapy. While in the office today the patient reports physical therapy is going well, but states he is sore afterwards. The patient?s [id number] reports his knee is warm to the touch beginning yesterday, 06/08/2023, however today it feels a bit cooler. She also reports a lump on the knee. The patient states the edema has been bigger and small then he presents in the office today. He states on 06/06/2023, he did PT and did 3 exercises on the leg (straight leg raise, ball between the knees, and band stretches). He states he used the walker and walked 160 steps. Prior to that he had only done 60 steps. He confirms that he has been taking the Lovenox for DVT ppx since his surgery on 05/13/2023. He is currently at a respite home. Patient presents in the office today with his [id number], who is a director nursing service. Patient has no known allergy history. Patient is currently taking, as follows: -Albuterol sulfate 90 mcg/actuation 2 pu ffs Q6H PRN -Ascorbic acid 500 mg PO Daily -Aspirin 81 mg PO Daily -Atorvastatin 20 mg PO Daily -Biotin 1 mg PO Daily -Calcium Citrate 600 mg PO BID -Cholecalciferol 25 mcg PO daily -Cyanocobalamin 500 mcg PO daily -Denosumab 60 mg subcut [id number] -Dextromethorphan-guaifenesin 10-100 mg PO Q6H PRN -Enoxaparin 40 mg subcut Q24H -Fluticasone propionate 50 mcg/actuation 2 sprays intranasal daily PRN -Gabapentin 300 mg PO TID -Hydrochlorothiazide 25 mg PO daily -Hydroxyzine HCI 10 mg PO daily PRN -Ipratropium-albuterol 0.5-3 mg inhalati on QID PRN -Lactobacillus acidophilus 1 cap PO BID -Loratadine 10 mg PO Daily -Losartan 25 mg PO daily -Meclizine 25 mg PO TID -Multivitamin 1 tab PO daily -Novolog U-100 Insulin pump -[place] 7-rbx-ebo-fish oil 300-1,000 1 ca p PO BID -Omeprazole 20 mg PO Q6H PRN -Oxycodone 5 mg PO Q6H PRN -Potassium Sodium Phosphate 280-160-250 mg 2 packts PO QID -Sennosides-docusate sodium 8.6-50 mg 1 tab PO Bedtime PRN -Tamsulosin 0.4 mg PO Daily -Patient reports taking Lovenox. Patient has a medical history, as follows: -GERD (gastroesophageal reflux disease) -BPH (benign prostatic hyperplasia) -Hypertension -Atrial fibrillation -Diabetes mellitus Patient has a surgical history, as follows: -History of left distal femoral peripros thetic fracture retrograde IM nailing 05/13/2023 Dr. Brandon Beaver [facility] Medical History GERD (gastroesophageal reflux disease) BPH (benign prostatic hyperplasia) Hypertension Borderline hypertension Atrial fibrillation Diabetes Social History Household Members: None Housing: House Do you presently have visiting nurse or other home services: Yes Patient Tobacco Use Status: Never used Tobacco e-Cigarette/Vaping Use: Never Used Second Hand Smoke Exposure: No Advance Directives Date on File: 02/25/22 service: Yes Current occupational status: retired Review of Systems Const All systems reviewed & are unremarkable except as noted in HPI and below Physical Exam Const General: cooperative, healthy appearing and no acute distress Resp Effort & Inspection: normal respiratory effort and able to speak in complete sentences Cardio Rate: regular rate Peripheral pulses: Peripheral pulses 2+ throughout GI Palpation (GI): Soft to palpation Skin Lesions: no lesions Rashes: no rashes Extrem Other: Left knee: Large effusion. Incision site is clean, dry, and intact. No surrounding erythema or drainage. No signs of infection. Pain pinpointed to one area along the medial aspect of the knee. Skin is intact over the area and is tender to palpation. Able to dorsiflex and plantarflex. Sensation intact. Pedal pulse intact. Assessment & Plan Assessment & Plan (1) Fracture of distal end of left femur: Comment: Left distal femoral periprosthetic fracture 05/13/2023 Dr. Brandon Beaver Code(s): S72.402A - Unspecified fracture of lower end of left femur, initial encounter for closed fracture Plan Mr. Johnson is an 88-year-old male who presents in the office today 1 month status post left distal femoral periprosthetic fracture retrograde IM nailing, which was performed on 05/13/[address] Beaver. I last saw the patient in the office on 05/30/2023 where he was instructed to weight bear at 25% and to continue to work with physical therapy. Patient has no known allergy history. Patient is currently taking, as follows: -Albuterol sulfate 90 mcg/actuation 2 puffs Q6H PRN -Ascorbic acid 500 mg PO Daily -Aspirin 81 mg PO Daily -Atorvastatin 20 mg PO Daily -Biotin 1 mg PO Daily -Calcium Citrate 600 mg PO BID -Cholecalciferol 25 mcg PO daily -Cyanocobalamin 500 mcg PO daily -Denosumab 60 mg subcut [id number] -Dextromethorphan-guaifenesin 10-100 mg PO Q6H PRN -Enoxaparin 40 mg subcut Q24H -Fluticasone propionate 50 mcg/actuation 2 sprays intranasal daily PRN -Gabapentin 300 mg PO TID -Hydrochlorothiazide 25 mg PO daily -Hydroxyzine HCI 10 mg PO daily PRN -Ipratropium-albuterol 0.5-3 mg inhalation QID PRN -Lactobacillus acidophilus 1 cap PO BID -Loratadine 10 mg PO Daily -Losartan 25 mg PO daily -Meclizine 25 mg PO TID -Multivitamin 1 tab PO daily -Novolog U-100 Insulin pump -[place] 3-nqf-mte-fish oil 300-1,000 1 cap PO BID -Omeprazole 20 mg PO Q6H PRN -Oxycodone 5 mg PO Q6H PRN -Potassium Sodium Phosphate 280-160-250 mg 2 packts PO QID -Sennosides-docusate sodium 8.6-50 mg 1 tab PO Bedtime PRN -Tamsulosin 0.4 mg PO Daily Patient has a medical history, as follows: -GERD (gastroesophageal reflux disease) -BPH (benign prostatic hyperplasia) -Hypertension -Atrial fibrillation -Diabetes mellitus Patient has a surgical history, as follows: -History of left distal femoral periprosthetic fracture retrograde IM nailing 05/13/2023 Dr. Brandon Beaver was available to see the patient with me while in the office today. Dr. Beaver recommended for the patient have one screw removed from the knee due to it not locking in place. At this time ROM is okay to tolerance, but would not recommend pushing to any extremes. He should remain non-weight bearing at this and only ambulate with a walker. These restrictions apply to occupational and physical therapy. He was instructed to discontinue the use of the Lovenox 24 hours prior to surgery. I discussed in detail the procedure and what to expect pre and post operatively. We discussed the risks, benefits and alternatives to the surgery as well as the rehabilitation course. The risks; which include, but are not limited to infection, bleeding, nerve injury, ongoing pain, swelling, and stiffness, perioperative risk of injury to bones and soft tissues, and blood clots. I have answered all questions and with their understanding they have consented to move forward with a left lower extremity removal of hardware to be performed next week by Dr. Brandon Beaver. Follow up will be at the post operative appointment, or sooner if needed. X-rays of the left lower extremity which were obtained while in the office today and were reviewed by me, Yesika Burns PA-C, revealed distal femoral screw displacement. Orders: Orders XR femur LT 2V Today S72.402A - Unspecified fracture of lower end of left femur, initial encounter for closed fracture XR knee LT 2V Today M25.569 - Pain in unspecified knee Patient Instructions: Scribed by Lakia Wheeler director medical economics, for Yesika Burns PA-C on 06/09/2023 at 11:08 am, EST. Coding Level of Care Code Global (52151) Diagnoses Fracture of distal end of left femur S72.402A
== END 2023-06-09 13:04 | disposition home or self-care (01) ==
PROVIDERS: PCP Internal Medicine; Visit Provider Physician Assistant
DX: S72.402A Unspecified fracture of lower end of left femur, initial encounter for closed fracture (principal)
CPT/HCPCS: 99024

== ENCOUNTER 2023-06-14 07:26 | Day surgery (SDC) | payer BC, MEDICARE, SELFPAY ==
--- NOTE | 2023-06-13 09:25 | HO.ANESPROP2 ---
Documented by User: Joanne Feldman NP 06/13/23 09:29 HPI - Anesthesia Eval Consult details Narrative: 88yo M for Left Removal Orthopedic Hardware of knee s/p femur IM nailing 05/2023 with GA-LMA 5 (cardiology consulted inpatient and states optimized) afib, ? Lovenox PMFSH Active Problems Active Problems: All Active Problems (Updated 05/30/23 @ 15:09 by Lakia Wheeler) Fracture of distal end of left femur (Acute) Acute on chronic blood loss anemia (Acute) Dizziness (Acute) Altered gait (Acute) Acute GI bleeding (Acute) Past Medical History Medical History Interstitial lung disease Lung disease Sleep apnea GERD (gastroesophageal reflux disease) BPH (benign prostatic hyperplasia) Hypertension Borderline hypertension Atrial fibrillation Diabetes Family History Family history of problems with anesthesia: No Surgical History History of Problems with Anesthesia: No Social History Social History Household Members: None Housing: House Do you presently have visiting nurse or other home services: Yes Patient Tobacco Use Status: Never used Tobacco e-Cigarette/Vaping Use: Never Used Second Hand Smoke Exposure: No Use of substances other than those prescribed or required for medical reasons: No Are you DNR?: No Advance Directives: No Advance Directives Information Provided: Yes Advance Directives Date on File: 02/25/22 service: Yes Current occupational status: retired Meds Allergies Allergy/AdvReac Type Severity Reaction Status Date / Time No Known Allergies Allergy Verified 06/09/23 12:09 [No Known Allergies*] Home Medications Medication Instructions Recorded Confirmed Last Taken Type Novolog U-100 Insulin aspart See Rx Instructions .Route 08/12/21 05/13/23 02/25/22 History .COMPLEX PRN insulin pump ascorbic acid (vitamin C) 500 mg 500 mg PO DAILY 08/12/21 05/13/23 02/25/22 History tablet atorvastatin 40 mg tablet 20 mg PO DAILY 08/12/21 05/13/23 02/24/22 History cholecalciferol (vitamin D3) 25 25 mcg PO DAILY 08/12/21 05/13/23 02/24/22 History mcg (1,000 unit) capsule (Vitamin D3) cyanocobalamin (vitamin B-12) 500 500 mcg PO DAILY 08/12/21 05/13/23 02/25/22 History mcg tablet hydroxyzine HCl 10 mg tablet 10 mg PO DAILY PRN Itching 08/12/21 05/13/23 Unknown History loratadine 10 mg tablet 10 mg PO DAILY 08/12/21 05/13/23 02/24/22 History omeprazole 20 mg capsule,delayed 20 mg PO DAILY@0630 08/12/21 05/13/23 02/25/22 History release sennosides 8.6 mg-docusate sodium 1 tab PO BEDTIME PRN Constipation 08/12/21 05/13/23 02/24/22 History 50 mg tablet (Senna Plus) tamsulosin 0.4 mg capsule 0.4 mg PO DAILY 08/12/21 05/13/23 02/24/22 History denosumab 60 mg/mL subcutaneous 60 mg subcut [id number] 02/25/22 05/13/23 Unknown History syringe Lactobacillus acidophilus 1 cap PO BID 05/12/23 05/13/23 Unknown History biotin 500 mcg capsule 1 mg PO DAILY 05/12/23 05/13/23 Unknown History calcium citrate 200 mg (950 mg) 600 mg PO BID 05/12/23 05/13/23 Unknown History tablet fluticasone propionate 50 2 spray intranasal DAILY PRN 05/12/23 05/13/23 Unknown History mcg/actuation nasal Allergy Symptoms spray,suspension gabapentin 600 mg tablet 300 mg PO TID 05/12/23 05/13/23 Unknown History hydrochlorothiazide 25 mg tablet 25 mg PO DAILY 05/12/23 05/13/23 Unknown History ipratropium 0.5 mg-albuterol 3 mg 3 ml inhalation QID PRN Shortness 05/12/23 05/13/23 Unknown History (2.5 mg base)/3 mL nebulization Of Breath Or Wheezing soln losartan 25 mg tablet 25 mg PO DAILY 05/12/23 05/13/23 Unknown History meclizine 25 mg tablet 25 mg PO TID 05/12/23 05/13/23 Unknown History multivitamin 1 tab PO DAILY 05/12/23 05/13/23 Unknown History albuterol sulfate 90 mcg/actuation 2 puff inhalation Q6H PRN 05/13/23 05/13/23 Unknown History aerosol inhaler Shortness Of Breath Or Wheezing aspirin 81 mg tablet,delayed 81 mg PO DAILY 05/13/23 05/13/23 Unknown History release dextromethorphan-guaifenesin 10 10 ml PO Q6H PRN Cough 05/13/23 05/13/23 Unknown History mg-100 mg/5 mL oral syrup omega 7-hfc-xub-fish oil 300 1 cap PO BID 05/13/23 05/13/23 Unknown History mg-1,000 mg capsule,delayed release (Fish Oil) Exam Pertinent Lab Results Pertinent Lab Results: Laboratory Tests 05/18/23 06:54 WBC 9.1 Hgb 9.6 L Hct 29.0 L Plt Count 177 Sodium 135 Potassium 4.3 Chloride 101 Carbon Dioxide 28 BUN 11 Creatinine 0.72 Narrative Narrative: EKG 05/2023 Vent. Rate : 120 BPM Atrial Rate : 000 BPM P-R Int : 000 ms QRS Dur : 108 ms QT Int : 314 ms P-R-T Axes : 000 018 022 degrees QTc Int : 443 ms Atrial fibrillation with rapid ventricular response with premature ventricular or aberrantly conducted complexes Nonspecific ST abnormality Abnormal ECG When compared with ECG of 12-MAY-2023 17:49, Vent. rate has increased BY 40 BPM ECHO 05/2023 Conclusions: - 1. Normal LV ejection fraction of 65-70% with moderate LVH and severe asymmetric septal hypertrophy 2. At least moderately dilated left atrium 3. Normal cardiac valvular Doppler 4. Mildly dilated ascending aorta at 4.3 cm 5. Normal RV systolic pressure 6. No gross pericardial effusion Assessment and Plan Assessment Anesthesia Assessment: Chart Reviewed Final Anesthetic Review Family History of Problems with Anesthesia: No History of Problems with Anesthesia: No Documented by User: Ash Diaz MD 06/14/23 10:08 [facility] Past Medical History Medical History Interstitial lung disease Lung disease Sleep apnea GERD (gastroesophageal reflux disease) BPH (benign prostatic hyperplasia) Hypertension Borderline hypertension Atrial fibrillation Diabetes Social History Social History Household Members: None Housing: House Do you presently have visiting nurse or other home services: Yes Patient Tobacco Use Status: Never used Tobacco e-Cigarette/Vaping Use: Never Used Second Hand Smoke Exposure: No Use of substances other than those prescribed or required for medical reasons: No Are you DNR?: No Advance Directives: No Advance Directives Information Provided: Yes Advance Directives Date on File: 02/25/22 service: Yes Current occupational status: retired Meds Allergies Allergy/AdvReac Type Severity Reaction Status Date / Time No Known Allergies Allergy Verified 06/09/23 12:09 [No Known Allergies*] Home Medications Medication Instructions Recorded Confirmed Last Taken Type Novolog U-100 Insulin aspart See Rx Instructions .Route 08/12/21 05/13/23 02/25/22 History .COMPLEX PRN insulin pump ascorbic acid (vitamin C) 500 mg 500 mg PO DAILY 08/12/21 05/13/23 02/25/22 History tablet atorvastatin 40 mg tablet 20 mg PO DAILY 08/12/21 05/13/23 02/24/22 History cholecalciferol (vitamin D3) 25 25 mcg PO DAILY 08/12/21 05/13/23 02/24/22 History mcg (1,000 unit) capsule (Vitamin D3) cyanocobalamin (vitamin B-12) 500 500 mcg PO DAILY 08/12/21 05/13/23 02/25/22 History mcg tablet hydroxyzine HCl 10 mg tablet 10 mg PO DAILY PRN Itching 08/12/21 05/13/23 Unknown History loratadine 10 mg tablet 10 mg PO DAILY 08/12/21 05/13/23 02/24/22 History omeprazole 20 mg capsule,delayed 20 mg PO DAILY@0630 08/12/21 05/13/23 02/25/22 History release sennosides 8.6 mg-docusate sodium 1 tab PO BEDTIME PRN Constipation 08/12/21 05/13/23 02/24/22 History 50 mg tablet (Senna Plus) tamsulosin 0.4 mg capsule 0.4 mg PO DAILY 08/12/21 05/13/23 02/24/22 History denosumab 60 mg/mL subcutaneous 60 mg subcut [id number] 02/25/22 05/13/23 Unknown History syringe Lactobacillus acidophilus 1 cap PO BID 05/12/23 05/13/23 Unknown History biotin 500 mcg capsule 1 mg PO DAILY 05/12/23 05/13/23 Unknown History calcium citrate 200 mg (950 mg) 600 mg PO BID 05/12/23 05/13/23 Unknown History tablet fluticasone propionate 50 2 spray intranasal DAILY PRN 05/12/23 05/13/23 Unknown History mcg/actuation nasal Allergy Symptoms spray,suspension gabapentin 600 mg tablet 300 mg PO TID 05/12/23 05/13/23 Unknown History hydrochlorothiazide 25 mg tablet 25 mg PO DAILY 05/12/23 05/13/23 Unknown History ipratropium 0.5 mg-albuterol 3 mg 3 ml inhalation QID PRN Shortness 05/12/23 05/13/23 Unknown History (2.5 mg base)/3 mL nebulization Of Breath Or Wheezing soln losartan 25 mg tablet 25 mg PO DAILY 05/12/23 05/13/23 Unknown History meclizine 25 mg tablet 25 mg PO TID 05/12/23 05/13/23 Unknown History multivitamin 1 tab PO DAILY 05/12/23 05/13/23 Unknown History albuterol sulfate 90 mcg/actuation 2 puff inhalation Q6H PRN 05/13/23 05/13/23 Unknown History aerosol inhaler Shortness Of Breath Or Wheezing aspirin 81 mg tablet,delayed 81 mg PO DAILY 05/13/23 05/13/23 Unknown History release dextromethorphan-guaifenesin 10 10 ml PO Q6H PRN Cough 05/13/23 05/13/23 Unknown History mg-100 mg/5 mL oral syrup omega 0-qou-nbd-fish oil 300 1 cap PO BID 05/13/23 05/13/23 Unknown History mg-1,000 mg capsule,delayed release (Fish Oil) Exam Airway Mallampati Class: II TM Dist: >3cm Neck ROM: Full Partial: Upper and Lower Loose/Missing/Broken Teeth: Yes Assessment and Plan Assessment Anesthesia Assessment: Anesthesia Plan Discussed Final Anesthetic Review NPO: Yes ASA Class: III Final Preanesthetic Review: No Changes in Pt Med Stat, Meds/Allgs Chart Reviewed, Consent Obtained/Reviewed and Anes Risks/Benef Reviewed Patient Risk: Intermediate Procedure Risk: Low Anesthetic Plan Anesthetic Plan: MAC: Disposition: Standard PACU
[2023-06-14] VITALS (8 sets, daily range): BP systolic 127–147; BP diastolic 64–74; PULSE 71–78; RESP 13–18; TEMP 36.6–36.9; O2SAT 94–100; BMI 27.5
--- NOTE | ~2023-06-14 | FL_ITS ---
EXAMINATION: XR FLUOROSCOPY WITH IMAGES CLINICAL INFORMATION: Removal of orthopedic hardware of left knee. COMPARISON: Left femur and knee 06/09/2023 radiographs. Fluoroscopy in OR images of 05/13/2023. TECHNIQUE: Fluoroscopy Supervised By: Dr. Beaver. Fluoroscopy Time: 0.1. Cumulative Dose: 1.79 mGy. DAP: 0.0311 Gycm2. Images: 2. FINDINGS: Fluoroscopy performed during removal of intramedullary nail. The most inferior transverse screw has been removed since exam of 05/13/2023. FL/FL guidance in OR IMPRESSION: Fluoroscopy performed by the orthopedic department. Please see the operative report for additional information.
[2023-06-14] MEDS: Lactated Ringers 1,000 ML 100 ML IVCONT (08:49)
--- NOTE | 2023-06-14 09:33 | MHC.SHP ---
Pre-Procedural Eval Section A - 24 Hr Update-Section A only Date of Service: 06/14/23 The patient is an INPATIENT: No Changes since office visit: No Cold of Flu in the past 2 weeks, No New Medical Problems, No Changes in Medication and No Patient answered all questions The patient has been examined within 24 hours of the surgical procedure. The History & Physical has been completed within 30 days and I have reviewed it.: Yes Section B - Complete if H&P > 30 days Chief Complaint: Unspecified fracture of lower end of left femur, i Allergies: Allergies Allergy/AdvReac Type Severity Reaction Status Date / Time No Known Allergies Allergy Verified 06/09/23 12:09 [No Known Allergies*] Plan I have reviewed the history and physical and performed a pertinent physical examination on my patient. No changes have occurred unless specified. Time Spent With Patient Time: Total time managing care of this patient today ____ minutes.
--- NOTE | 2023-06-14 10:26 | P.BOP_ITS ---
Brief Operative Note Date of Service: 06/14/23 Pre-op diagnosis: hardware malfunction Post-op diagnosis: same Procedure: MADDIE left knee Surgeon: Brandon Beaver MD Anesthesia: GLMA and local Was an Ecological Risk Assessor used for this Procedure?: No Estimated blood loss (mL): 50 IV fluids (mL): 500 Pathology: none sent Condition: stable Disposition: PACU
--- NOTE | 2023-06-15 08:13 | W.PM.OPN ---
Operative Note Operative Note Date of Service: 06/14/23 Narrative: Date of Service: 06/14/23 Pre-op diagnosis: hardware malfunction Post-op diagnosis: same Procedure: MADDIE left knee Surgeon: Brandon Beaver MD Anesthesia: GLMA and local Was an Application Support Consultant used for this Procedure?: No Estimated blood loss (mL): 50 IV fluids (mL): 500 Pathology: none sent Condition: stable Disposition: PACU Procedure in detail: Patient was brought to the operating room and prepped and draped in standard sterile fashion. Time-out was called to identify proper site procedure proper surgeon and IV antibiotics per weight were administered. He was positioned on the fracture table I then made a stab incision over the prior distal lateralincision and dissected bluntly down to bone. The most distal screw had migrated through the nail. I was forced to, therefore, make a medial stab incision and tap the screw back out until I was able to engage it with the lateral screwdriver and remove it. Biplanar fluoro was used to confirm position. I examined the construct radiographically and elected to leave the screw out as his bone quality was very poor. I copiously irrigated and closed with absorbable sutures niurka and injected 30 mL of 0.5% marcaine into the area of the incisions. The patient was placed in sterile dressing and awakened from anesthesia brought to recovery room stable condition there were no known complications.
== END 2023-06-14 12:23 | disposition home or self-care (01) ==
PROVIDERS: PCP Internal Medicine; Visit Provider Orthopaedic Surgery
PROC: (CPT 20680; principal; 2023-06-14 09:40)
DX: T84.498A Other mechanical complication of other internal orthopedic devices, implants and grafts, initial encounter (principal); M25.562 Pain in left knee; Y79.3 Surgical instruments, materials and orthopedic devices (including sutures) associated with adverse incidents; Y92.9 Unspecified place or not applicable; I10 Essential (primary) hypertension; I48.91 Unspecified atrial fibrillation; E11.9 Type 2 diabetes mellitus without complications; N40.0 Benign prostatic hyperplasia without lower urinary tract symptoms; Z79.4 Long term (current) use of insulin; Z79.82 Long term (current) use of aspirin; Z79.51 Long term (current) use of inhaled steroids; Z79.899 Other long term (current) drug therapy
CPT/HCPCS: 20680; J0690; J2250; J2704; J2795; J3010

== ENCOUNTER → 2023-06-14 07:26 | Outpatient (BNV) | payer BC, MEDICARE, SELFPAY | PROVIDERS: PCP Internal Medicine; Visit Provider Orthopaedic Surgery | DX: T84.84XA Pain due to internal orthopedic prosthetic devices, implants and grafts, initial encounter (principal) | CPT/HCPCS: 20680 ==

== ENCOUNTER 2023-06-21 09:22 | Outpatient (REF) | payer BC, MEDICARE, SELFPAY ==
--- NOTE | ~2023-06-21 | XR_ITS ---
EXAMINATION: XR KNEE, LEFT CLINICAL INFORMATION: Pain in unspecified knee. COMPARISON: 06/09/2023 TECHNIQUE: Two views of the left knee. FINDINGS: Redemonstration of left femoral intramedullary leonela with fixator screws transfixing previously demonstrated comminuted fracture of the distal femoral metaphysis adjacent to the left total knee arthroplasty. Hardware appears intact. Redemonstration of butterfly fracture fragments. Skin niurka present. An inferior screw has been removed in the interim. Joint effusion and soft tissue swelling present. XR/XR knee LT 2V IMPRESSION: Redemonstration of left femoral intramedullary leonela with fixator screws transfixing previously demonstrated comminuted fracture of the distal femoral metaphysis adjacent to the left total knee arthroplasty. An inferior screw has been removed in the interim. Hardware appears intact. Redemonstration of butterfly fracture fragments.
== END 2023-06-21 09:23 | disposition home or self-care (01) ==
LOC: HO.HOSX 09:22
PROVIDERS: Visit Provider Physician Assistant
DX: S72.402D Unspecified fracture of lower end of left femur, subsequent encounter for closed fracture with routine healing (principal)
CPT/HCPCS: 73560; 99212

== ENCOUNTER 2023-06-21 13:57 | Outpatient (AMB) | payer MEDICARE, BC, SELFPAY ==
--- NOTE | 2023-06-21 14:25 | A.OFFVIS_ITS ---
Intake Intake Visit Reasons: PO LT knee MADDIE 06/14/23 NE Intake Note: Amanda is a 88 year old male who presents today for a post op appointment s/p left knee MADDIE 06/14/23 NE. Patient reports he is doing a bit better since his last visit. He states that his brace is digging into his knee. Allergies No Known Allergies [No Known Allergies*] Allergy (Verified 06/09/23 12:09) HPI PO LT knee MADDIE 06/14/23 NE HPI Details 88-year-old male who presents in the off ice today 1 week status post left knee removal of hardware, which was performed on 06/14/[address] Beaver. The patient reports he is doing better than he was at his last appointment. [facility] Medical History Interstitial lung disease Lung disease Sleep apnea GERD (gastroesophageal reflux disease) BPH (benign prostatic hyperplasia) Hypertension Borderline hypertension Atrial fibrillation Diabetes Social History Household Members: None Housing: House Do you presently have visiting nurse or other home services: Yes Patient Tobacco Use Status: Never used Tobacco e-Cigarette/Vaping Use: Never Used Second Hand Smoke Exposure: No Advance Directives Date on File: 02/25/22 service: Yes Current occupational status: retired Review of Systems Const All systems reviewed & are unremarkable except as noted in HPI and below Physical Exam Const General: cooperative, healthy appearing and no acute distress Resp Effort & Inspection: normal respiratory effort and able to speak in complete sentences Cardio Rate: regular rate Peripheral pulses: Peripheral pulses 2+ throughout GI Palpation (GI): Soft to palpation Skin Lesions: no lesions Rashes: no rashes Extrem Other: Left knee: Incision site is clean, dry, and intact. [place] intact. No surrounding erythema or drainage. No signs of infection. Assessment & Plan Assessment & Plan (1) Fracture of distal end of left femur: Comment: Left distal femoral periprosthetic fracture 05/13/2023 Dr. Brandon Beaver Code(s): S72.402A - Unspecified fracture of lower end of left femur, initial encounter for closed fracture Plan Mr. Johnson is an 88-year-old male who presents in the office today 1 week status post left knee removal of hardware, which was performed on 06/14/[address] Beaver. The patient reports he is doing better than he was at his last appointment. [place] were removed and steri-stripes were applied. The patient will remain nonweight bearing and the brace should remain on at all times. Follow up will be in 2 weeks or sooner if needed. X-rays of the left knee which were obtained while in the office today and were reviewed by me, Yesika Burns PA-C, revealed successful removal of hardware. Orders: Orders XR knee LT 2V Today M25.569 - Pain in unspecified knee Patient Instructions: Scribed by Lakia Wheeler, certified medical transcriptionist, for Yesika Burns PA-C on 06/21/2023 at 1:59 pm, EST. Coding Level of Care Code Global (85564) Diagnoses Fracture of distal end of left femur S72.402A
== END 2023-06-21 15:18 | disposition home or self-care (01) ==
PROVIDERS: PCP Internal Medicine; Visit Provider Physician Assistant
DX: S72.402A Unspecified fracture of lower end of left femur, initial encounter for closed fracture (principal)
CPT/HCPCS: 99024

== ENCOUNTER 2023-06-28 15:42 | Outpatient (REF) | payer BC, MEDICARE, SELFPAY | END 2023-06-28 15:43 | disposition home or self-care (01) | LOC: HO.HOSX 15:42 | PROVIDERS: Visit Provider Physician Assistant | DX: Z13.89 Encounter for screening for other disorder (principal) ==

== ENCOUNTER 2023-07-07 10:20 | Outpatient (AMB) | payer BC, MEDICARE, SELFPAY ==
--- NOTE | 2023-07-07 10:30 | MHC.OFFVIS ---
Intake Intake Visit Reasons: PO LT knee MADDIE 06/14/23 NE Intake Note: Amanda is a 88 year old male who presents today for a post op appointment s/p left knee MADDIE 06/14/23 NE. Currently is not having any pain. He states physical therapy is going great, he was about to walk 500 ft with crutches. Allergies No Known Allergies [No Known Allergies*] Allergy (Verified 07/07/23 10:30) HPI PO LT knee MADDIE 06/14/23 NE HPI Details 88-year-old male who presents in the office today for 3 week status post left knee removal of hardware, which was performed on 06/14/[address] Beaver. I last saw the patient on 06/21/2023 when he was instructed to remain non-weight bearing and to remain in the brace at all times. While in the office today the patient reports not having any pain. He confirms attending physical therapy and states it is going great. He states he is able to ambulate 500 feet with crutches. [facility] Medical History Interstitial lung disease Lung disease Sleep apnea GERD (gastroesophageal reflux disease) BPH (benign prostatic hyperplasia) Hypertension Borderline hypertension Atrial fibrillation Diabetes Social History Household Members: None Housing: House Do you presently have visiting nurse or other home services: Yes Patient Tobacco Use Status: Never used Tobacco e-Cigarette/Vaping Use: Never Used Second Hand Smoke Exposure: No Advance Directives Date on File: 02/25/22 service: Yes Current occupational status: retired Review of Systems Const All systems reviewed & are unremarkable except as noted in HPI and below Physical Exam Const General: cooperative, healthy appearing and no acute distress Resp Effort & Inspection: normal respiratory effort and able to speak in complete sentences Cardio Rate: regular rate Peripheral pulses: Peripheral pulses 2+ throughout GI Palpation (GI): Soft to palpation Skin Lesions: no lesions Rashes: no rashes Extrem Other: Left knee: Incision site is clean, dry, and intact. No surrounding erythema or drainage. No signs of infection. ROM is 10-80 degrees. NVI. Assessment & Plan Assessment & Plan (1) Fracture of distal end of left femur: Comment: Left distal femoral periprosthetic fracture 05/13/2023 Dr. Brandon Beaver Code(s): S72.402A - Unspecified fracture of lower end of left femur, initial encounter for closed fracture Qualifiers: Encounter type: subsequent encounter Fracture healing: with routine healing Fracture morphology: unspecified fracture morphology Fracture type: closed Qualified Code(s): S72.402D - Unspecified fracture of lower end of left femur, subsequent encounter for closed fracture with routine healing Plan Mr. Johnson is an 88-year-old male who presents in the office today for 3 week status post left knee removal of hardware, which was performed on 06/14/[address] Beaver. I last saw the patient on 06/21/2023 when he was instructed to remain non-weight bearing and to remain in the brace at all times. While in the office today the patient reports not having any pain. He confirms attending physical therapy and states it is going great. He states he is able to ambulate [address] Beaver was available to see the patient with me and to go over the x-rays; a collaborative treatment plan was made. It was recommended that the patient may begin 50% weight bearing while in the brace with the assistance of a walker. He will be discharged tomorrow from the rehab facility to to home with home services. Follow up will be in 6 weeks, or sooner if needed. X-rays of the left femur which were obtained while in the office today and were reviewed by me, Yesika Burns PA-C, revealed distal femur fracture exhibiting signs of bone callus and hardware remains intact. Orders: Orders PT Evaluation and Treatment Today S72.402A - Unspecified fracture of lower end of left femur, initial encounter for closed fracture XR femur LT 2V Today S72.402A - Unspecified fracture of lower end of left femur, initial encounter for closed fracture Patient Instructions: Scribed by Lakia Wheeler adjunct faculty for medical terminology, for Yesika Burns PA-C on 07/07/2023 at 10:26 am, EST. Coding Level of Care Code Global (47499) Diagnoses Closed fracture of distal end of left femur with routine healing, unspecified fracture morphology, subsequent encounter S72.402D Encounter type: subsequent encounter Fracture healing: with routine healing Fracture morphology: unspecified fracture morphology Fracture type: closed
== END 2023-07-07 11:56 | disposition home or self-care (01) ==
PROVIDERS: PCP Internal Medicine; Visit Provider Physician Assistant
DX: S72.402D Unspecified fracture of lower end of left femur, subsequent encounter for closed fracture with routine healing (principal)
CPT/HCPCS: 99024

== ENCOUNTER 2023-07-07 14:12 | Outpatient (REF) | payer BC, MEDICARE, SELFPAY ==
--- NOTE | ~2023-07-07 | XR_ITS ---
EXAMINATION: XR FEMUR, LEFT CLINICAL INFORMATION: Unspecified fracture of lower end of left femur, initial encounter COMPARISON: Left femur 06/21/2023 TECHNIQUE: AP and lateral views of the left femur were obtained. FINDINGS: Again demonstrated is the left femoral intramedullary leonela with fixator screws transfixing previously demonstrated comminuted fracture the distal femoral metaphysis adjacent to the left total knee arthroplasty. Hardware appears intact. Redemonstration of butterfly fracture fragments. Joint effusion present. XR/XR femur LT 2V IMPRESSION: 1. Status post ORIF of comminuted fracture of the distal femoral metaphysis. Hardware appears intact. 2. Joint effusion present.
== END 2023-07-07 14:13 | disposition home or self-care (01) ==
LOC: HO.HOSX 14:12
PROVIDERS: Visit Provider Physician Assistant
DX: S72.402A Unspecified fracture of lower end of left femur, initial encounter for closed fracture (principal)
CPT/HCPCS: 73552

== ENCOUNTER 2023-08-18 11:47 | Outpatient (REF) | payer BC, MEDICARE, SELFPAY ==
--- NOTE | ~2023-08-18 | XR_ITS ---
EXAMINATION: XR KNEE, LEFT CLINICAL INFORMATION: Pain in the knee COMPARISON: Multiple prior examinations most recent 07/07/2023 TECHNIQUE: 3 views of the left knee. FINDINGS: Periprosthetic distal femur fracture redemonstrated with left total knee arthroplasty in place as well as orthopedic fixation with leonela and screw fixation crossing the area the fracture. Alignment is unchanged. There is some osseous bridging along the proximal aspect of the fracture laterally which is slightly more dense than previous. Fracture remains visible with unchanged alignment and displacement. Prominent arterial calcification again noted. No significant effusion XR/XR knee LT 3V IMPRESSION: Periprosthetic distal femur fracture with unchanged alignment. There is some osseous bridging along the proximal aspect of the fracture laterally slightly more dense than previous suggesting some at least some interval fracture healing.
== END 2023-08-18 11:48 | disposition home or self-care (01) ==
LOC: HO.HOSX 11:47
PROVIDERS: PCP Internal Medicine; Visit Provider Physician Assistant
DX: M25.562 Pain in left knee (principal)
CPT/HCPCS: 73562

== ENCOUNTER 2023-08-18 11:47 | Outpatient (AMB) | payer BC, MEDICARE, SELFPAY ==
--- NOTE | 2023-08-18 12:02 | A.OFFVIS_ITS ---
Intake Visit Reasons: PO LT knee MADDIE 06/14/23 NE Intake Note: Justino is a 88 year old male who presents today for a post op appointment s/p left knee MADDIE 06/14/23 NE. Patient reports that he is doing well, he reports pain on the lateral aspect of the knee but he believes that this is due to the brace. It does not appear that the brace is being worn appropriately, as the brace is locked in extension but the leg is slightly flexed Allergies No Known Allergies [No Known Allergies*] Allergy (Verified 08/18/23 12:20) HPI HPI PO LT knee MADDIE 06/14/23 NE: Details: 88-year-old male who presents in the office today 2 months status post left knee removal of hardware, which was performed on 06/14/[address] Beaver. I last saw the patient in the office on 07/07/2023 when it was recommended that the patient may begin 50% weight bearing while in the brace with the assistance of a walker. While in the office today the patient reports he is doing well. Endorses pain on the lateral aspect of the left knee associated with a lump. MA notes the brace is not being worn correctly due to it being locked in extension, but the left lower extremity is slightly flexed. Patient has no known allergy history. Patient is currently taking, as follows: -Albuterol sulfate 90 mcg/actuation 2 puffs Q6H PRN -Ascorbic acid 500 mg PO Daily -Aspirin 81 mg PO Daily -Atorvastatin 20 mg PO Daily -Biotin 1 mg PO Daily -Calcium Citrate 600 mg PO BID -Cholecalciferol 25 mcg PO daily -Cyanocobalamin 500 mcg PO daily -Denosumab 60 mg subcut [id number] -Dextromethorphan-guaifenesin 10-100 mg PO Q6H PRN -Enoxaparin 40 mg subcut Q24H -Fluticasone propionate 50 mcg/actuation 2 sprays intranasal daily PRN -Gabapentin 300 mg PO TID -Hydrochlorothiazide 25 mg PO daily -Hydroxyzine HCI 10 mg PO daily PRN -Ipratropium-albuterol 0.5-3 mg inhalation QID PRN -Lactobacillus acidophilus 1 cap PO BID -Loratadine 10 mg PO Daily -Losartan 25 mg PO daily -Meclizine 25 mg PO TID -Multivitamin 1 tab PO daily -Novolog U-100 Insulin pump -[place] 9-bmc-fiq-fish oil 300-1,000 1 cap PO BID -Omeprazole 20 mg PO Q6H PRN -Oxycodone 5 mg PO Q6H PRN -Potassium Sodium Phosphate 280-160-250 mg 2 packts PO QID -Sennosides-docusate sodium 8.6-50 mg 1 tab PO Bedtime PRN -Tamsulosin 0.4 mg PO Daily Patient has a medical history, as follows: -Interstital lung disease -GERD (gastroesophageal reflux disease) -BPH (benign prostatic hyperplasia) -Hypertension -Atrial fibrillation -Diabetes mellitus Patient has a surgical history, as follows: -History of left distal femoral periprosthetic fracture retrograde IM nailing 05/13/2023 Dr. Brandon Beaver -Hx of left knee removal of hardware; 06/14/2023 Dr. Beaver [facility] Medical History Interstitial lung disease Lung disease Sleep apnea GERD (gastroesophageal reflux disease) BPH (benign prostatic hyperplasia) Hypertension Borderline hypertension Atrial fibrillation Diabetes Social History Household Members: None Housing: House Do you presently have visiting nurse or other home services: Yes Patient Tobacco Use Status: Never used Tobacco e-Cigarette/Vaping Use: Never Used Second Hand Smoke Exposure: No Advance Directives Date on File: 02/25/22 service: Yes Current occupational status: retired Review of Systems Const All systems reviewed & are unremarkable except as noted in HPI and below Physical Exam Const General: cooperative, healthy appearing and no acute distress Resp Effort & Inspection: normal respiratory effort and able to speak in complete sentences Cardio Rate: regular rate Peripheral pulses: Peripheral pulses 2+ throughout GI Palpation (GI): Soft to palpation Skin Lesions: no lesions Rashes: no rashes Extrem Other: Left knee: Incision site is clean, dry, and intact. No surrounding erythema or drainage. No signs of infection. ROM is 10-80 degrees. Distal screw which continues to displace is palpable on exam and is causing pain. No area of skin breakdown where the screw is. NVI. Assessment & Plan Assessment & Plan (1) Fracture of distal end of left femur: Comment: Left distal femoral periprosthetic fracture 05/13/2023 Dr. Brandon Beaver Code(s): S72.402A - Unspecified fracture of lower end of left femur, initial encounter for closed fracture Category: Medical Qualifiers: Encounter type: subsequent encounter Fracture healing: with routine healing Fracture morphology: unspecified fracture morphology Fracture type: closed Qualified Code(s): S72.402D - Unspecified fracture of lower end of left femur, subsequent encounter for closed fracture with routine healing Plan Mr. Johnson is an 88-year-old male who presents in the office today 2 months status post left knee removal of hardware, which was performed on 06/14/[address] Beaver. I last saw the patient in the office on 07/07/2023 when it was recommended that the patient may begin 50% weight bearing while in the brace with the assistance of a walker. While in the office today the patient reports he is doing well. Endorses pain on the lateral aspect of the left knee with associated swelling. MA notes the brace is not being worn correctly due to it being locked in extension, but the left lower extremity is slightly flexed. Patient has no known allergy history. Patient is currently taking, as follows: -Albuterol sulfate 90 mcg/actuation 2 puffs Q6H PRN -Ascorbic acid 500 mg PO Daily -Aspirin 81 mg PO Daily -Atorvastatin 20 mg PO Daily -Biotin 1 mg PO Daily -Calcium Citrate 600 mg PO BID -Cholecalciferol 25 mcg PO daily -Cyanocobalamin 500 mcg PO daily -Denosumab 60 mg subcut [id number] -Dextromethorphan-guaifenesin 10-100 mg PO Q6H PRN -Enoxaparin 40 mg subcut Q24H -Fluticasone propionate 50 mcg/actuation 2 sprays intranasal daily PRN -Gabapentin 300 mg PO TID -Hydrochlorothiazide 25 mg PO daily -Hydroxyzine HCI 10 mg PO daily PRN -Ipratropium-albuterol 0.5-3 mg inhalation QID PRN -Lactobacillus acidophilus 1 cap PO BID -Loratadine 10 mg PO Daily -Losartan 25 mg PO daily -Meclizine 25 mg PO TID -Multivitamin 1 tab PO daily -Novolog U-100 Insulin pump -[place] 9-ywk-hph-fish oil 300-1,000 1 cap PO BID -Omeprazole 20 mg PO Q6H PRN -Oxycodone 5 mg PO Q6H PRN -Potassium Sodium Phosphate 280-160-250 mg 2 packts PO QID -Sennosides-docusate sodium 8.6-50 mg 1 tab PO Bedtime PRN -Tamsulosin 0.4 mg PO Daily Patient has a medical history, as follows: -Interstital lung disease -GERD (gastroesophageal reflux disease) -BPH (benign prostatic hyperplasia) -Hypertension -Atrial fibrillation -Diabetes mellitus Patient has a surgical history, as follows: -Hx of left distal femoral periprosthetic fracture retrograde IM nailing 05/13/2023 Dr. Brandon Beaver -Hx of left knee removal of hardware; 06/14/2023 Dr. Beaver I discussed in detail the procedure and what to expect pre and post operatively. We discussed the risks, benefits and alternatives to the surgery and the rehabilitation course. The risks; which include, but are not limited to infection, bleeding, nerve injury, ongoing pain, swelling, and stiffness, perioperative risk of injury to bones and soft tissues, and blood clots. I have answered all questions and with their understanding they have consented to move forward with a left lower extremity removal of hardware by Dr. Brandon Beaver. Follow-up will be at the post operative appointment, or sooner if needed. X-rays of the left knee which were obtained while in the office today and were reviewed by me, Yesika Burns PA-C, revealed further displacement of the distal screw from the retrograde IM Nail and surrounding soft tissue edema. Orders: Orders XR knee LT 3V Today M25.569 - Pain in unspecified knee Patient Instructions: Scribed by Lakia Wheeler medical practice manager, for Yesika Burns PA-C on 08/18/2023 at 11:54 am, EST.
== END 2023-08-18 12:48 | disposition home or self-care (01) ==
PROVIDERS: PCP Internal Medicine; Visit Provider Physician Assistant
DX: S72.402D Unspecified fracture of lower end of left femur, subsequent encounter for closed fracture with routine healing (principal)
CPT/HCPCS: 99024

== ENCOUNTER → 2023-08-24 09:52 | Outpatient (BNV) | payer BC, MEDICARE, SELFPAY | PROVIDERS: PCP Internal Medicine; Visit Provider Orthopaedic Surgery | DX: T84.84XA Pain due to internal orthopedic prosthetic devices, implants and grafts, initial encounter (principal) | CPT/HCPCS: 20680; 99024 ==

== ENCOUNTER 2023-08-24 15:32 | Inpatient (IN) | payer BC, MEDICARE, SELFPAY ==
--- NOTE | 2023-08-23 09:20 | HO.ANESPROP2 ---
Documented by User: Joanne Feldman NP 08/23/23 09:24 HPI - Anesthesia Eval Consult details Narrative: 88yo M for s/p Removal Orthopedic Hardware of knee 06/2023 with TIVA s/p femur IM nailing 05/2023 with GA-LMA 5 (cardiology consulted inpatient and states optimized) afib, ? Lovenox PMFSH Active Problems Active Problems: All Active Problems Fracture of distal end of left femur (Acute) Acute on chronic blood loss anemia (Acute) Altered gait (Acute) Dizziness (Acute) Acute GI bleeding (Acute) Past Medical History Medical History (Updated 08/23/23 @ 08:08 by Sera Cuello, RN) Interstitial lung disease Lung disease Sleep apnea GERD (gastroesophageal reflux disease) BPH (benign prostatic hyperplasia) Hypertension Borderline hypertension Atrial fibrillation Diabetes Family History Family history of problems with anesthesia: No Surgical History Surgical History (Updated 08/23/23 @ 08:10 by Sera Cuello, RN) H/O colonoscopy History of removal of retained hardware History of surgery on lower extremity History of Problems with Anesthesia: No Social History Social History Household Members: None Housing: House Do you presently have visiting nurse or other home services: Yes Patient Tobacco Use Status: Never used Tobacco e-Cigarette/Vaping Use: Never Used Second Hand Smoke Exposure: No Use of substances other than those prescribed or required for medical reasons: No Are you DNR?: No Advance Directives: No Advance Directives Information Provided: Yes Advance Directives on File: No Advance Directives Date on File: 02/25/22 service: Yes Current occupational status: retired Meds Allergies Allergy/AdvReac Type Severity Reaction Status Date / Time No Known Allergies Allergy Verified 08/18/23 12:20 [No Known Allergies*] Home Medications ?Medication ?Instructions ?Recorded ?Confirmed ?Last Taken ?Type Novolog U-100 Insulin aspart See Rx Instructions .Route 08/12/21 05/13/23 02/25/22 History .COMPLEX PRN insulin pump ascorbic acid (vitamin C) 500 mg 500 mg PO DAILY 08/12/21 05/13/23 02/25/22 History tablet atorvastatin 40 mg tablet 20 mg PO DAILY 08/12/21 05/13/23 02/24/22 History cholecalciferol (vitamin D3) 25 25 mcg PO DAILY 08/12/21 05/13/23 02/24/22 History mcg (1,000 unit) capsule (Vitamin D3) cyanocobalamin (vitamin B-12) 500 500 mcg PO DAILY 08/12/21 05/13/23 02/25/22 History mcg tablet hydroxyzine HCl 10 mg tablet 10 mg PO DAILY PRN Itching 08/12/21 05/13/23 Unknown History loratadine 10 mg tablet 10 mg PO DAILY 08/12/21 05/13/23 02/24/22 History omeprazole 20 mg capsule,delayed 20 mg PO DAILY@0630 08/12/21 05/13/23 02/25/22 History release sennosides 8.6 mg-docusate sodium 1 tab PO BEDTIME PRN Constipation 08/12/21 05/13/23 02/24/22 History 50 mg tablet (Senna Plus) tamsulosin 0.4 mg capsule 0.4 mg PO DAILY 08/12/21 05/13/23 02/24/22 History denosumab 60 mg/mL subcutaneous 60 mg subcut [id number] 02/25/22 05/13/23 Unknown History syringe Lactobacillus acidophilus 1 cap PO BID 05/12/23 05/13/23 Unknown History biotin 500 mcg capsule 1 mg PO DAILY 05/12/23 05/13/23 Unknown History calcium citrate 200 mg (950 mg) 600 mg PO BID 05/12/23 05/13/23 Unknown History tablet fluticasone propionate 50 2 spray intranasal DAILY PRN 05/12/23 05/13/23 Unknown History mcg/actuation nasal Allergy Symptoms spray,suspension gabapentin 600 mg tablet 300 mg PO TID 05/12/23 05/13/23 Unknown History hydrochlorothiazide 25 mg tablet 25 mg PO DAILY 05/12/23 05/13/23 Unknown History ipratropium 0.5 mg-albuterol 3 mg 3 ml inhalation QID PRN Shortness 05/12/23 05/13/23 Unknown History (2.5 mg base)/3 mL nebulization Of Breath Or Wheezing soln losartan 25 mg tablet 25 mg PO DAILY 05/12/23 05/13/23 Unknown History meclizine 25 mg tablet 25 mg PO TID 05/12/23 05/13/23 Unknown History multivitamin 1 tab PO DAILY 05/12/23 05/13/23 Unknown History albuterol sulfate 90 mcg/actuation 2 puff inhalation Q6H PRN 05/13/23 05/13/23 Unknown History aerosol inhaler Shortness Of Breath Or Wheezing aspirin 81 mg tablet,delayed 81 mg PO DAILY 05/13/23 05/13/23 Unknown History release dextromethorphan-guaifenesin 10 10 ml PO Q6H PRN Cough 05/13/23 05/13/23 Unknown History mg-100 mg/5 mL oral syrup omega 4-qhc-fye-fish oil 300 1 cap PO BID 05/13/23 05/13/23 Unknown History mg-1,000 mg capsule,delayed release (Fish Oil) Exam Pertinent Lab Results Pertinent Lab Results: Laboratory Tests 05/18/23 06:54 WBC 9.1 Hgb 9.6 L Hct 29.0 L Plt Count 177 Sodium 135 Potassium 4.3 Chloride 101 Carbon Dioxide 28 BUN 11 Creatinine 0.72 Narrative Narrative: EKG 05/2023 Vent. Rate : 120 BPM Atrial Rate : 000 BPM P-R Int : 000 ms QRS Dur : 108 ms QT Int : 314 ms P-R-T Axes : 000 018 022 degrees QTc Int : 443 ms Atrial fibrillation with rapid ventricular response with premature ventricular or aberrantly conducted complexes Nonspecific ST abnormality Abnormal ECG When compared with ECG of 12-MAY-2023 17:49, Vent. rate has increased BY 40 BPM ECHO 05/2023 Conclusions: - 1. Normal LV ejection fraction of 65-70% with moderate LVH and severe asymmetric septal hypertrophy 2. At least moderately dilated left atrium 3. Normal cardiac valvular Doppler 4. Mildly dilated ascending aorta at 4.3 cm 5. Normal RV systolic pressure 6. No gross pericardial effusion Airway Mallampati Class: II TM Dist: >3cm Neck ROM: Full Partial: Upper and Lower Loose/Missing/Broken Teeth: Yes Assessment and Plan Assessment Anesthesia Assessment: Chart Reviewed Final Anesthetic Review Family History of Problems with Anesthesia: No History of Problems with Anesthesia: No Documented by User: Darek Hernández MD 08/24/23 10:51 [facility] Past Medical History Medical History (Updated 08/23/23 @ 08:08 by Sera Cuello, RN) Interstitial lung disease Lung disease Sleep apnea GERD (gastroesophageal reflux disease) BPH (benign prostatic hyperplasia) Hypertension Borderline hypertension Atrial fibrillation Diabetes Surgical History Surgical History (Updated 08/23/23 @ 08:10 by Sera Cuello, RN) H/O colonoscopy History of removal of retained hardware History of surgery on lower extremity Social History Social History Household Members: None Housing: House Do you presently have visiting nurse or other home services: Yes Patient Tobacco Use Status: Never used Tobacco e-Cigarette/Vaping Use: Never Used Second Hand Smoke Exposure: No Use of substances other than those prescribed or required for medical reasons: No Are you DNR?: No Advance Directives: No Advance Directives Information Provided: Yes Advance Directives on File: No Advance Directives Date on File: 02/25/22 service: Yes Current occupational status: retired [employer] Allergies Allergy/AdvReac Type Severity Reaction Status Date / Time No Known Allergies Allergy Verified 08/18/23 12:20 [No Known Allergies*] Home Medications ?Medication ?Instructions ?Recorded ?Confirmed ?Last Taken ?Type Novolog U-100 Insulin aspart See Rx Instructions .Route 08/12/21 05/13/23 02/25/22 History .COMPLEX PRN insulin pump ascorbic acid (vitamin C) 500 mg 500 mg PO DAILY 08/12/21 05/13/23 02/25/22 History tablet atorvastatin 40 mg tablet 20 mg PO DAILY 08/12/21 05/13/23 02/24/22 History cholecalciferol (vitamin D3) 25 25 mcg PO DAILY 08/12/21 05/13/23 02/24/22 History mcg (1,000 unit) capsule (Vitamin D3) cyanocobalamin (vitamin B-12) 500 500 mcg PO DAILY 08/12/21 05/13/23 02/25/22 History mcg tablet hydroxyzine HCl 10 mg tablet 10 mg PO DAILY PRN Itching 08/12/21 05/13/23 Unknown History loratadine 10 mg tablet 10 mg PO DAILY 08/12/21 05/13/23 02/24/22 History omeprazole 20 mg capsule,delayed 20 mg PO DAILY@0630 08/12/21 05/13/23 02/25/22 History release sennosides 8.6 mg-docusate sodium 1 tab PO BEDTIME PRN Constipation 08/12/21 05/13/23 02/24/22 History 50 mg tablet (Senna Plus) tamsulosin 0.4 mg capsule 0.4 mg PO DAILY 08/12/21 05/13/23 02/24/22 History denosumab 60 mg/mL subcutaneous 60 mg subcut [id number] 02/25/22 05/13/23 Unknown History syringe Lactobacillus acidophilus 1 cap PO BID 05/12/23 05/13/23 Unknown History biotin 500 mcg capsule 1 mg PO DAILY 05/12/23 05/13/23 Unknown History calcium citrate 200 mg (950 mg) 600 mg PO BID 05/12/23 05/13/23 Unknown History tablet fluticasone propionate 50 2 spray intranasal DAILY PRN 05/12/23 05/13/23 Unknown History mcg/actuation nasal Allergy Symptoms spray,suspension gabapentin 600 mg tablet 300 mg PO TID 05/12/23 05/13/23 Unknown History hydrochlorothiazide 25 mg tablet 25 mg PO DAILY 05/12/23 05/13/23 Unknown History ipratropium 0.5 mg-albuterol 3 mg 3 ml inhalation QID PRN Shortness 05/12/23 05/13/23 Unknown History (2.5 mg base)/3 mL nebulization Of Breath Or Wheezing soln losartan 25 mg tablet 25 mg PO DAILY 05/12/23 05/13/23 Unknown History meclizine 25 mg tablet 25 mg PO TID 05/12/23 05/13/23 Unknown History multivitamin 1 tab PO DAILY 05/12/23 05/13/23 Unknown History albuterol sulfate 90 mcg/actuation 2 puff inhalation Q6H PRN 05/13/23 05/13/23 Unknown History aerosol inhaler Shortness Of Breath Or Wheezing aspirin 81 mg tablet,delayed 81 mg PO DAILY 05/13/23 05/13/23 Unknown History release dextromethorphan-guaifenesin 10 10 ml PO Q6H PRN Cough 05/13/23 05/13/23 Unknown History mg-100 mg/5 mL oral syrup omega 1-ivo-ohh-fish oil 300 1 cap PO BID 05/13/23 05/13/23 Unknown History mg-1,000 mg capsule,delayed release (Fish Oil) Exam Airway Denture: Upper Heart: irr rhythm Lungs: cta Assessment and Plan Assessment Anesthesia Assessment: Anesthesia Plan Discussed Final Anesthetic Review NPO: Yes ASA Class: III Final Preanesthetic Review: No Changes in Pt Med Stat, Meds/Allgs Chart Reviewed, Consent Obtained/Reviewed and Anes Risks/Benef Reviewed Patient Risk: Intermediate Procedure Risk: Intermediate Anesthetic Plan Anesthetic Plan: GA Disposition: Standard PACU
[2023-08-24] VITALS (10 sets, daily range): BP systolic 116–167; BP diastolic 47–82; PULSE 52–79; RESP 14–18; TEMP 36.3–36.9; O2SAT 93–97; BMI 26.2
--- NOTE | ~2023-08-24 | FL_ITS ---
EXAMINATION: XR FLUOROSCOPY WITH IMAGES CLINICAL INFORMATION: Left screw removal COMPARISON: Left knee 08/18/2023 TECHNIQUE: Fluoroscopy Supervised By: Dr. Beaver. Fluoroscopy Time: 0.2 minutes. Cumulative Dose: 3.34 mGy. DAP: 0.0580 Gycm2. Images: 2. FINDINGS: Fluoroscopy was performed during removal of screw from the distal left knee. 3 horizontal screws through an intramedullary leonela are seen on the second image. There is partial visualization of a left total knee replacement. Please see Dr.'s Beaver's procedure note for full details. FL/FL guidance in OR IMPRESSION: Fluoroscopy provided for removal of screw from the distal left knee. Please see the procedure note for full details.
--- NOTE | 2023-08-24 10:55 | MHC.SHP ---
Pre-Procedural Eval Section A - 24 Hr Update-Section A only Date of Service: 08/24/23 The patient is an INPATIENT: No Changes since office visit: No Cold of Flu in the past 2 weeks, No New Medical Problems, No Changes in Medication and No Patient answered all questions The patient has been examined within 24 hours of the surgical procedure. The History & Physical has been completed within 30 days and I have reviewed it.: Yes Section B - Complete if H&P > 30 days Chief Complaint: Other mechanical complication of other internal or Allergies: Allergies Allergy/AdvReac Type Severity Reaction Status Date / Time No Known Allergies Allergy Verified 08/18/23 12:20 [No Known Allergies*] Plan I have reviewed the history and physical and performed a pertinent physical examination on my patient. No changes have occurred unless specified. Time Spent With Patient Time: Total time managing care of this patient today ____ minutes.
[2023-08-24] MEDS: Lactated Ringers 1,000 ML 100 ML IVCONT (10:58)
--- NOTE | 2023-08-24 12:44 | PM.OP ---
Brief Operative Note Date of Service: 08/24/23 Pre-op diagnosis: Left distal femoral retained hardware Post-op diagnosis: same Procedure: Removal of hardware left distal femur Surgeon: Brandon Beaver MD Anesthesia: GETA and local Was an Computer Security Specialist used for this Procedure?: Yes Computer Security Specialist: Yesika Burns Estimated blood loss (mL): 75 IV fluids (mL): 1,000 Pathology: none sent Condition: stable Disposition: PACU
--- NOTE | 2023-08-24 15:54 | HO.INF ---
PATIENT WAS IN THE DISCHARGE AREA WHEN IT WAS DECIDED THAT PATIENT WOULD BE ADMITTED FOR ONE NIGHT FOR PAIN CONTROL AND HAVE PT WORK WITH HIM PRIOR TO DISCHARGE PER DEMAR URIAS. PATIENT AGREED AND PATIENT 'S NIECE AWARE.
--- NOTE | 2023-08-24 18:25 | HO.PM.IMCN ---
History of Present Illness Data of Consult Service Date: 08/24/23 Requesting physician: Yesika Burns Primary Care Provider: Nancy Alvarado MD [facility] Reason for consult: medical management 88-year-old male with history of hypertension, paroxysmal atrial fibrillation with Watchman device in place not on AC, insulin-dependent type 2 diabetes, TRUNG on CPAP, GERD, interstitial lung disease admitted to Orthopedic surgery following removal of hardware of the left distal femur with consult placed hospitalist service for medical management. The patient was initially supposed to be a day stay patient but unfortunately The patient uses his own insulin pump connected to a Dexcom CGM and would prefer to use his own insulin pump while in the hospital. He does use CPAP at home but does not want to use a hospital supplied CPAP machine while admitted. He is irritated about being in the hospital but otherwise has no physical complaints. He is never smoked any cigarettes, denies any illicit drug use, and is not a regular consumer of alcohol. Review of Systems Review of Systems: Yes all other systems are reviewed and are negative [facility] Medical History Interstitial lung disease Lung disease Sleep apnea GERD (gastroesophageal reflux disease) BPH (benign prostatic hyperplasia) Hypertension Atrial fibrillation Diabetes Surgical History H/O colonoscopy History of removal of retained hardware History of surgery on lower extremity Social History Household Members: None Housing: House Do you presently have visiting nurse or other home services: Yes Patient Tobacco Use Status: Never used Tobacco e-Cigarette/Vaping Use: Never Used Second Hand Smoke Exposure: No Use of substances other than those prescribed or required for medical reasons: No Are you DNR?: No Advance Directives: No Advance Directives Information Provided: Yes Advance Directives on File: No Advance Directives Date on File: 02/25/22 service: Yes Current occupational status: retired Meds Allergies Allergy/AdvReac Type Severity Reaction Status Date / Time No Known Allergies Allergy Verified 08/18/23 12:20 [No Known Allergies*] Active Medications: Current Medications Acetaminophen (Acetaminophen 325 Mg Tablet) 650 mg PO Q6H PRN PRN Reason: Pain, Mild (Pain Scale 1-3) Albuterol Sulfate (Albuterol Sulfate (0.083%) 2.5 Mg/3 Ml Vial.Neb) 2.5 mg INHALE ONCE PRN PRN Reason: Shortness of Breath/Wheezing Celecoxib (Celecoxib 200 Mg Capsule) 200 mg PO BID JOHN Docusate Sodium (Docusate Sodium 100 Mg Capsule) 100 mg PO BID JOHN Lactated Ringer's (Lr) 1,000 mls @ 100 mls/hr IVCONT .Q10H JOHN Oxycodone HCl (Oxycodone Hcl Immed Release 5 Mg Tablet) 5 mg PO Q4H PRN PRN Reason: Pain, Moderate(Pain Scale 4-6) Sodium Chloride (0.9 % Sodium Chloride Flush 3 Ml Syringe) 3 ml IVFLUSH QSHIFT [facility] Home Medications ?Medication ?Instructions ?Recorded ?Confirmed ?Last Taken ?Type Novolog U-100 Insulin aspart See Rx Instructions .Route 08/12/21 08/24/23 02/25/22 History .COMPLEX PRN insulin pump atorvastatin 40 mg tablet 20 mg PO DAILY 08/12/21 08/24/23 02/24/22 History cholecalciferol (vitamin D3) 25 25 mcg PO DAILY 08/12/21 08/24/23 02/24/22 History mcg (1,000 unit) capsule (Vitamin D3) cyanocobalamin (vitamin B-12) 500 500 mcg PO DAILY 08/12/21 08/24/23 02/25/22 History mcg tablet loratadine 10 mg tablet 10 mg PO DAILY 08/12/21 08/24/23 02/24/22 History omeprazole 20 mg capsule,delayed 20 mg PO DAILY@0630 08/12/21 08/24/23 02/25/22 History release sennosides 8.6 mg-docusate sodium 1 tab PO BEDTIME PRN Constipation 08/12/21 08/24/23 02/24/22 History 50 mg tablet (Senna Plus) tamsulosin 0.4 mg capsule 0.4 mg PO DAILY 08/12/21 08/24/23 02/24/22 History denosumab 60 mg/mL subcutaneous 60 mg subcut [id number] 02/25/22 08/24/23 Unknown History syringe Lactobacillus acidophilus 1 cap PO BID 05/12/23 08/24/23 Unknown History biotin 500 mcg capsule 1 mg PO DAILY 05/12/23 08/24/23 Unknown History calcium citrate 200 mg (950 mg) 600 mg PO TID 05/12/23 08/24/23 Unknown History tablet fluticasone propionate 50 2 spray intranasal DAILY PRN 05/12/23 08/24/23 Unknown History mcg/actuation nasal Allergy Symptoms spray,suspension meclizine 25 mg tablet 25 mg PO TID PRN Vertigo 05/12/23 08/24/23 Unknown History albuterol sulfate 90 mcg/actuation 2 puff inhalation Q6H PRN 05/13/23 08/24/23 Unknown History aerosol inhaler Shortness Of Breath Or Wheezing aspirin 81 mg tablet,delayed 81 mg PO DAILY 05/13/23 08/24/23 Unknown History release docusate sodium 100 mg tablet 100 mg PO DAILY 08/24/23 08/24/23 Unknown History ferrous sulfate 325 mg (65 mg 325 mg PO DAILY 08/24/23 08/24/23 Unknown History iron) tablet gabapentin 300 mg capsule 300 mg PO TID 08/24/23 08/24/23 Unknown History omega 1-okd-aos-fish oil 1,000 mg 1 cap PO BID 08/24/23 08/24/23 Unknown History (120 mg-180 mg) capsule (Fish Oil) Physical Exam Vital Signs and Narrative: Vital Signs: Last Vital Signs Temp 97.7 F 08/24/23 18:14 Pulse 64 08/24/23 18:14 Resp 18 08/24/23 18:14 BP 148/72 H 08/24/23 18:14 Pulse Ox 93 08/24/23 18:14 O2 Del Method Room Air 08/24/23 18:14 O2 Flow Rate 2 08/24/23 13:35 BMI result Body Mass Index 26.2 Constitutional - Awake and Alert, No apparent distress Eyes - PERRLA, EOMI Cardiovascular - S1S2, RRR, 1+ LLE edema Respiratory - Normal lung expansion, Normal respiratory effort, No respiratory distress, CTA bilaterally Gastrointestinal - NT / ND; +BS; No rebound or guarding Extremities - no calf tenderness bilaterally Skin - Warm/Dry Neurological - Alert & oriented x3 Assessment and Plan (1) Fracture of distal end of left femur: Qualifiers: Encounter type: subsequent encounter Fracture type: closed Fracture morphology: unspecified fracture morphology Fracture healing: with routine healing Qualified Code(s): S72.402D - Unspecified fracture of lower end of left femur, subsequent encounter for closed fracture with routine healing Status: Acute Plan 88-year-old male with history of hypertension, paroxysmal atrial fibrillation with Watchman device in place not on AC, insulin-dependent type 2 diabetes, RTUNG on CPAP, GERD, interstitial lung disease admitted to Orthopedic surgery following removal of hardware of the left distal femur with consult placed hospitalist service for medical management. #Removal hardware L femur -plan per orthopedic surgery -pt refusing IV line/post op fluids. Tolerating PO, dc LR # insulin-dependent type 2 diabetes -POC glucose, diabetic diet -patient to use own insulin pump #HTN -no longer on antihypertensives #Paroxysmal atrial fibrillation- rate controlled -has watchman in place, not on ac #TRUNG -refusing cpap in hospital but compliant at home #ILD -continue maintenance inhalers, albuterol prn Thank you for allowing me to participate in this consult. Signing off at this time. Please do not hesitate to call for further questions or for any acute medical issues
--- NOTE | 2023-08-24 19:59 | PHA.MEDREC ---
Pharmacy Consult ? Medication Reconciliation Pharmacy has completed the medication reconciliation. received list from [place]. Deepali Graham, OlegD
[2023-08-24] MEDS: Celecoxib 200 MG CAPSULE PO (20:55)
[2023-08-24] MEDS: oxyCODONE HCl Immed Release 5 MG TABLET PO (21:00)
[2023-08-25 02:34] VITALS: BP 104/55; PULSE 54; RESP 18; TEMP 36.4; O2SAT 92
--- NOTE | 2023-08-25 03:45 | PC.NURSE ---
pt cont to refused iv insertions, poc, meds and etc throughout the night. LYN larsen spoke with pt at changing of shift on 08/23 1899 and aware.
[2023-08-25 05:03] VITALS: BMI 29.8
[2023-08-25] MEDS: Omeprazole 20 MG CAPSULE.DR PO (05:53)
[2023-08-25 06:52] VITALS: BP 118/56; PULSE 54; RESP 17; TEMP 36.1; O2SAT 91
[2023-08-25 07:02] LABS: MANUAL DIFF FLAG NO
[2023-08-25 07:12] LABS: Basophils Absolute Auto 0.1 X10*3/uL (0.0-0.2); Basophils Percent Auto 0.7 % (0-2); Eosinophils Absolute Auto 0.6 X10*3/uL (0.0-0.4); Eosinophils Percent Auto 7.6 % (0-4); Hematocrit 33.3 % (42.0-52.0); Hemoglobin 11.2 g/dl (14.0-18.0); Imm Gran Abs Auto 0.01 X10*3/uL (0.00-0.03); Imm Gran Pct Auto 0.1 % (0.0-0.4); Lymphocytes Absolute Auto 1.2 X10*3/uL (1.2-4.9); Lymphocytes Percent Auto 16.9 % (20-40); Mean Corpuscular HGB Conc 33.6 g/dl (31.0-36.0); Mean Corpuscular Hemoglobin 30.6 pg (27.0-33.0); Mean Platelet Volume 9.5 fL (9.4-12.4); Monocytes Absolute Auto 1.2 X10*3/uL (0.1-1.2); Monocytes Percent Auto 15.8 % (2-11); Neutrophils Absolute Auto 4.3 x10*3/uL (2.0-8.3); Neutrophils Percent Auto 58.9 % (45-73); Platelet Count 230 X10*3/uL (160-400); Red Blood Count 3.66 X10*6/uL (4.60-5.80); Red Cell Distribution Width 15.6 % (11.0-16.0); White Blood Count 7.3 X10*3/uL (4.8-10.8)
[2023-08-25 07:20] LABS: Anion Gap 6 (12-20); Blood Urea Nitrogen 15 mg/dL (9-16); Calcium 8.2 mg/dL (8.4-10.2); Carbon Dioxide 29 mmol/L (22-29); Chloride 106 mmol/L (96-108); Creatinine Clr Calc Pharmacy 83.9; Estimated Glomerular Filt Rate > 60; Glucose Fasting 96 mg/dL (60-99); Potassium 4.4 mmol/L (3.3-5.1); Sodium 137 mmol/L (135-145)
[2023-08-25 08:18] VITALS: BP 118/56; PULSE 54; O2SAT 91
--- NOTE | 2023-08-25 08:54 | PM.DS ---
DS: Providers Provider Date of Service: 08/25/23 Date of admission: 08/24/23 15:32 Primary care physician: Nancy Alvarado MD Consults: 08/24/23 18:14 Consult to Medicine Routine Consulting Provider: Hospitalist Reason for consultation: routine medical management - DM on insuline pump DS: Diagnosis Discharge Diagnosis (1) Fracture of distal end of left femur: Status: Acute DS: Summary Hospital Course Hospital Course: The patient underwent a successful removal of hardware left knee distal screw, they were transferred to PACU and then to the floor to recover. During their stay, their vitals were stable, afebrile at 97. Labs were unremarkable, H/H 11.2/33.3. POD 1 they received Physical Therapy services and were cleared to go home. Prior to discharge, their dressing was changed, incision clean dry and intact, newl dressing applied and the plan was to be discharged home with out patient followup. Time Attestation Discharge Coordination Time (in mins): 30 Quality: Safe Use of Opioids Does Pt have an Active Cancer Diagnosis on the Problem List?: No Quality: Stroke Does the patient have a stroke diagnosis?: No Physical Exam Vital Signs: Vital Signs: Last Vital Signs Temp 97 F 08/25/23 06:52 Pulse 54 08/25/23 08:18 Resp 17 08/25/23 06:52 BP 118/56 L 08/25/23 08:18 Pulse Ox 91 L 08/25/23 08:18 O2 Del Method Room Air 08/25/23 06:52 O2 Flow Rate 2 08/24/23 13:35 BMI result Body Mass Index 29.8 Const: General: cooperative, healthy appearing and no acute distress Resp: Effort & Inspection: normal respiratory effort and able to speak in complete sentences Cardio: Rate: regular rate Peripheral pulses: Peripheral pulses 2+ throughout GI: Palpation (GI): Soft to palpation Skin: Lesions: no lesions Rashes: no rashes Extrem: Other: Left knee KENIA wrap applied. Bandage intact, nurse at bedside to perform dressing change. Able to flex and extend without pain. Moderate edema. Able to dorsi/plantar flex. NVI. DS: Data Data Completed and Pending Completed studies during hospitalization [Text1]: Procedures Control Bleeding in Gastrointestinal Tract, Via Natural or Artificial Opening Endoscopic (08/12/21) Excision of Cecum, Via Natural or Artificial Opening Endoscopic, Diagnostic (08/12/21) Reposition Left Lower Femur with Intramedullary Internal Fixation Device, Percutaneous Approach (05/12/23) Transfusion of Nonautologous Red Blood Cells into Peripheral Vein, Percutaneous Approach (05/12/23) Labs on day of discharge: Laboratory Results - last 24 hr 08/25/23 06:57 WBC 7.3 RBC 3.66 L Hgb 11.2 L Hct 33.3 L MCV 91.0 MCH 30.6 MCHC 33.6 RDW 15.6 Plt Count 230 D MPV 9.5 Immature Gran % (Auto) 0.1 Neut % (Auto) 58.9 Lymph % (Auto) 16.9 L [place] % (Auto) 15.8 H Eos % (Auto) 7.6 H Baso % (Auto) 0.7 Lymph # (Auto) 1.2 [place] # (Auto) 1.2 Eos # (Auto) 0.6 H Baso # (Auto) 0.1 Abs Immat Gran (auto) 0.01 Absolute Neuts (auto) 4.3 Absolute Nucleated RBC 0.000 Nucleated RBC % (auto) 0.0 Sodium 137 Potassium 4.4 Chloride 106 Carbon Dioxide 29 Anion Gap 6 L BUN 15 Creatinine 0.75 Estim Creat Clear Calc 83.9 Estimated GFR > 60 Fasting Glucose 96 Calcium 8.2 L Discharge Plan Discharge Anticipated Discharge Date/Time: 08/25/23 08:47 Patient Disposition: Home Health Service Discharge Diagnosis: s/p left distal femur removal of hardware Referrals: Yesika Burns PA-C [Physician [employer]] - 09/01/23 3:00 pm Discharge Medications: New oxycodone 5 mg Tablet 5 mg PO Q4H PRN (Reason: Pain, Moderate(Pain Scale 4-6)) 7 Days Qty: 42 0RF Rx Instructions: Partial Fill upon patient request. Continued atorvastatin 40 mg Tablet 20 mg PO DAILY sennosides-docusate sodium [Senna Plus] 8.6-50 mg Tablet 1 tab PO BEDTIME PRN (Reason: Constipation) cyanocobalamin (vitamin B-12) 500 mcg Tablet 500 mcg PO DAILY tamsulosin 0.4 mg Capsule 0.4 mg PO DAILY omeprazole 20 mg Capsule,Delayed Release(Dr/Ec) 20 mg PO DAILY@0630 loratadine 10 mg Tablet 10 mg PO DAILY Rx Instructions: DO NOT TAKE IF TAKEN HYDROXYZINE cholecalciferol (vitamin D3) [Vitamin D3] 25 mcg (1,000 unit) Capsule 25 mcg PO DAILY Novolog U-100 Insulin aspart See Rx Instructions .ROUTE .COMPLEX PRN (Reason: insulin pump) Rx Instructions: insulin pump denosumab 60 mg/mL Syringe 60 mg SUBCUT [id number] ferrous sulfate 325 mg (65 mg iron) Tablet 325 mg PO DAILY gabapentin 300 mg Capsule 300 mg PO TID docusate sodium 100 mg Tablet 100 mg PO DAILY omega 3-rci-tgl-fish oil [Fish Oil] 1,000 mg (120 mg-180 mg) Capsule 1 cap PO BID meclizine 25 mg Tablet 25 mg PO TID PRN (Reason: Vertigo) Lactobacillus acidophilus Capsule 1 cap PO BID fluticasone propionate 50 mcg/actuation [place],Suspension 2 spray INTRANASAL DAILY PRN (Reason: Allergy Symptoms) Rx Instructions: administer into each nostril biotin 500 mcg Capsule 1 mg PO DAILY calcium citrate 200 mg (950 mg) Tablet 600 mg PO TID aspirin 81 mg Tablet,Delayed Release (Dr/Ec) 81 mg PO DAILY albuterol sulfate 90 mcg/actuation Hfa Aerosol Inhaler 2 puff INHALATION Q6H PRN (Reason: Shortness Of Breath Or Wheezing) Discharge Orders: Discharge Order (Routine); Ordered 08/25/23 Ordered By: Yesika Burns Diet: Advance to usual diet Activity on Discharge: Use cane or walker Stand Alone Forms: Patient Portal Discharge page Print Language: Croatian Activity Restrictions/Additional Instructions: Keep bandage clean, dry, and intact Elevate WBAT Brace on at all times while ambulating Ice 20 mins every hour Keep dressing c/d/i Call orthopedics if any questions or concerns Care Plan Goals: restore fxn to left lower extremity Health Concerns: none Plan of Treatment: Keep bandage clean, dry, and intact Elevate Arm crutches with brace WBAT Ice 20 mins every hour OK to shower 3 days post op-no bath or hot tubs Call orthopedics if any questions or concerns Assessment: Stable to d/c home
--- NOTE | 2023-08-25 09:56 | MHC.CM.PN ---
CM MET WITH PT. PT LIVES ALONE, USES [employer] FOR MOBILITY AND HAS A W/C RAMP TO ENTER HOME. PT IS ACTIVE WITH [facility] FOR HOME PT/OT. [facility] NOTIFIED OF DC AND DC SUMMARY FAXED TO [phone]. PT DECLINES HCP AT THIS TIME. PCP AT THE ME IN [place]. DP: PT HAS BEEN MEDICALLY CLEARED FOR DC HOME WITH RESUMPTION OF [facility] FOR PT/OT. PT HAS OWN RIDE HOME.
--- NOTE | 2023-08-25 10:40 | PC.NURSE ---
Per Edwin Burns scrip for [id number] TAB sent and filled [facility] pharm. Meds sent to bedside pt understands DC instructions regarding medications, follow up appointments, and dressing changes.
--- NOTE | 2023-08-25 11:45 | HO.POSTANES ---
Post Anesthesia Evaluation Post Anesthesia Evaluation Date of Service: 08/24/23 Vital Signs: Vital Signs Temp Pulse Resp BP Pulse Ox O2 Del Method 08/25/23 08:18 54 118/56 L 91 L 08/25/23 06:52 97 F 54 17 118/56 L 91 L Room Air 08/25/23 02:34 97.6 F 54 18 104/55 L 92 Room Air Anesthesia: General LMA Mental Status: Awake Pain Control: Satisfactory Nausea/Vomiting: None Hydration: Adequate Anesthesia-Related Issues: No Anes. Related Issues
--- NOTE | 2023-08-29 08:56 | W.PM.OPN ---
Operative Note Operative Note Date of Service: 08/24/23 Narrative: Date of Service: 08/24/23 Pre-op diagnosis: Left distal femoral retained hardware Post-op diagnosis: same Procedure: Removal of hardware left distal femur Surgeon: Brandon Beaver MD Anesthesia: GETA and local Was an Furniture Repairer used for this Procedure?: Yes Furniture Repairer: Yesika Burns Estimated blood loss (mL): 75 IV fluids (mL): 1,000 Pathology: none sent Condition: stable Disposition: PACU Procedure in detail: Patient was brought to the operating room and placed supine on the surgical table. She was prepped and draped in standard sterile fashion and a time out was called to identify proper site, proper procedure and IV antibiotics per weight were administered. I began by identifying the screw posteromedially. A rere incision was made here and the screw was visualized. I tried to back thread it but was unable to so an anterolateral incision was made and blunt dissection down to the screw head was performed. I localized the screw head and was able to unscrew and remove it. Biplanar flouro confirmed correct screw removal. The construct appeared stable. There were no known complications. Local anesthetic was placed and the wounds were irrigated and closed with 2.0 Vicryl and niurka. Patient was placed in sterile dressings and then extubated and brought to the recovery room in stable condition. There were no known complications.
== END 2023-08-25 11:00 | disposition home health service (06) | DRG 309 ==
LOC: HO.SSSA 15:59 → HO.S3 17:17
PROVIDERS: Orthopaedic Surgery; Admitting Provider Physician Assistant; PCP Internal Medicine; Visit Provider Physician Assistant
PROC: 0QPC04Z Removal of Internal Fixation Device from Left Lower Femur, Open Approach (ICD-10-PCS; principal; 2023-08-24 11:50)
DX: Z47.2 Encounter for removal of internal fixation device (principal); I48.0 Paroxysmal atrial fibrillation; E11.9 Type 2 diabetes mellitus without complications; I10 Essential (primary) hypertension; G47.33 Obstructive sleep apnea (adult) (pediatric); Z95.818 Presence of other cardiac implants and grafts; Z96.41 Presence of insulin pump (external) (internal); Z79.4 Long term (current) use of insulin; Z79.82 Long term (current) use of aspirin; Z79.899 Other long term (current) drug therapy
CPT/HCPCS: 36415; 80048; 85025; 97161; J0131; J0690; J2405; J2704; J2795; J3010

== ENCOUNTER → 2023-08-24 15:32 | Outpatient (BNV) | payer BC, MEDICARE, SELFPAY | PROVIDERS: Admitting Provider Physician Assistant; PCP Internal Medicine; Visit Provider Physician Assistant | DX: S72.402D Unspecified fracture of lower end of left femur, subsequent encounter for closed fracture with routine healing (principal) | CPT/HCPCS: 99222 ==

== ENCOUNTER 2023-09-01 09:18 | Outpatient (REF) | payer BC, MEDICARE, SELFPAY ==
--- NOTE | ~2023-09-01 | XR_ITS ---
EXAMINATION: XR KNEE, LEFT CLINICAL INFORMATION: Pain in unspecified knee. COMPARISON: Fluoroscopy images of August 24, 2023. Left knee 08/18/2023. TECHNIQUE: Two views of the left knee. FINDINGS: Redemonstration of total knee arthroplasty with intramedullary femoral leonela. Please note that the proximal portion of the femoral leonela is excluded from the images and cannot be evaluated. Three (3) horizontal screws are redemonstrated in the distal femur. Redemonstration of periprosthetic distal femoral fracture. There is some increased osseous bridging. Fracture lines are still visible. Large joint effusion with diffuse soft tissue swelling. XR/XR knee LT 3V IMPRESSION: 1. Redemonstration of periprosthetic distal femoral fracture with some increased osseous bridging. Fracture lines are still visible. 2. Large joint effusion with diffuse soft tissue swelling.
== END 2023-09-01 09:19 | disposition home or self-care (01) ==
LOC: HO.HOSX 09:18
PROVIDERS: Visit Provider Physician Assistant
DX: M25.562 Pain in left knee (principal); S72.402D Unspecified fracture of lower end of left femur, subsequent encounter for closed fracture with routine healing; Z98.890 Other specified postprocedural states; X58.XXXD Exposure to other specified factors, subsequent encounter
CPT/HCPCS: 73562

== ENCOUNTER 2023-09-01 14:31 | Outpatient (AMB) | payer BC, MEDICARE, SELFPAY ==
--- NOTE | 2023-09-01 14:55 | MHC.OFFVIS ---
Intake Visit Reasons: PO LT knee MADDIE 08/24/23 NE Intake Note: Justino is a 88 year old male who presents today for a post op appointment s/p LT knee MADDIE 08/24/23 NE. Patient reports he is doing well. He states that he is having no discomfort. Allergies No Known Allergies [No Known Allergies*] Allergy (Verified 08/18/23 12:20) HPI HPI PO LT knee MADDIE 08/24/23 NE: Details: 88-year-old male who presents in the office today 8 days status post left distal femur removal of hardware, which was performed on 08/24/[address] Beaver. While in the office today the patient reports he is doing well. He states he has no discomfort. [facility] Medical History Interstitial lung disease Lung disease Sleep apnea GERD (gastroesophageal reflux disease) BPH (benign prostatic hyperplasia) Hypertension Atrial fibrillation Diabetes Surgical History H/O colonoscopy History of removal of retained hardware History of surgery on lower extremity Social History Household Members: None Housing: House Do you presently have visiting nurse or other home services: Yes Patient Tobacco Use Status: Never used Tobacco e-Cigarette/Vaping Use: Never Used Second Hand Smoke Exposure: No Advance Directives Date on File: 02/25/22 service: Yes Current occupational status: retired Review of Systems Const All systems reviewed & are unremarkable except as noted in HPI and below Physical Exam Const General: cooperative, healthy appearing and no acute distress Resp Effort & Inspection: normal respiratory effort and able to speak in complete sentences Cardio Rate: regular rate Peripheral pulses: Peripheral pulses 2+ throughout GI Palpation (GI): Soft to palpation Skin Lesions: no lesions Rashes: no rashes Extrem Other: Left knee: Incision sites are clean, dry, and intact. Idalia intact. No surrounding erythema or drainage. No signs of infection. NVI. Assessment & Plan Assessment & Plan (1) Fracture of distal end of left femur: Comment: Left distal femoral periprosthetic fracture 05/13/2023 Dr. Brandon Beaver Code(s): S72.402A - Unspecified fracture of lower end of left femur, initial encounter for closed fracture Category: Medical Qualifiers: Encounter type: subsequent encounter Fracture healing: with routine healing Fracture morphology: unspecified fracture morphology Fracture type: closed Qualified Code(s): S72.402D - Unspecified fracture of lower end of left femur, subsequent encounter for closed fracture with routine healing Plan Mr. Beltran is an 88-year-old male who presents in the office today 8 days status post left distal femur removal of hardware, which was performed on 08/24/[address] Beaver. While in the office today the patient reports he is doing well. He states he has no discomfort. Idalia were removed and steri-stripes were applied. The patient will remain in the brace at this time. He will continue to work with physical therapy. [facility] [employer] is the home therapy provider the patient is working with currently. Patient states they are going to reach out to the office about his physical therapy. In order to maintain recorded communications a new referral was placed for the [facility] physical therapy. Follow up will be in 3 weeks, or sooner if needed. X-rays of the left knee which were obtained while in the office today and were reviewed by me, Yesika Burns PA-C, revealed successful removal of distal displaced screw. Remaining screws are intact and do not show any evidence of displacement. Orders: Orders XR knee LT 3V Today M25.569 - Pain in unspecified knee Patient Instructions: Scribed by Lakia Wheeler clinical medical transcriptionist, for Yesika Burns PA-C on 09/01/2023 at 2:34 pm, EST. Coding Level of Care Code Global (70495) Diagnoses Closed fracture of distal end of left femur with routine healing, unspecified fracture morphology, subsequent encounter S72.402D Encounter type: subsequent encounter Fracture healing: with routine healing Fracture morphology: unspecified fracture morphology Fracture type: closed
== END 2023-09-01 15:28 | disposition home or self-care (01) ==
PROVIDERS: PCP Internal Medicine; Visit Provider Physician Assistant
DX: S72.402D Unspecified fracture of lower end of left femur, subsequent encounter for closed fracture with routine healing (principal)
CPT/HCPCS: 99024

== ENCOUNTER 2023-09-22 08:45 | Outpatient (REF) | payer BC, MEDICARE, SELFPAY ==
--- NOTE | ~2023-09-22 | XR_ITS ---
EXAMINATION: XR KNEE, LEFT CLINICAL INFORMATION: Pain in unspecified knee. COMPARISON: X-ray 09/01/2023 TECHNIQUE: Four views of the left knee. FINDINGS: Redemonstrated is left total knee arthroplasty. Stable position and alignment. Redemonstrated is an intramedullary leonela in the distal femur with 3 horizontal locking screws. Proximal portion of the leonela is not included in the [id number]. Redemonstrated is distal femoral periprosthetic fracture. Stable position and alignment. There is increased periosteal bridging/callus formation. Some ossific bridging is suspected. Vascular calcification. Small knee joint effusion. Osteopenia. XR/XR knee LT 2V IMPRESSION: 1. Stable positioning of the distal femoral periprosthetic fracture. Increasing periosteal changes/callus formation. Suspect degree of osseous bridging. 2. Small knee joint effusion.
== END 2023-09-22 08:46 | disposition home or self-care (01) ==
LOC: HO.HOSX 08:45
PROVIDERS: Visit Provider Physician Assistant
DX: M25.562 Pain in left knee (principal)
CPT/HCPCS: 73560

== ENCOUNTER 2023-09-22 10:27 | Outpatient (AMB) | payer BC, MEDICARE, SELFPAY ==
--- NOTE | 2023-09-22 10:59 | A.OFFVIS_ITS ---
Vital Signs 09/22/23 11:00 Height 5 ft 11 in Weight 213 lb BMI 29.7 Intake Visit Reasons: PO LT knee MADDIE 08/24/23 NE Intake Note: Justino is an 88-year-old male who presents in the office today for a post operative appointment, S/P left distal femur MADDIE. DOS: 08/24/2023 NE. Patient reports he is feeling a bit soreness around the knee. He states that he is doing well with P.T. Allergies No Known Allergies [No Known Allergies*] Allergy (Verified 09/22/23 11:00) HPI HPI PO LT knee MADDIE 08/24/23 NE: Details: 88-year-old male who presents in the office today 1 month status post left distal femur removal of hardware, which was performed on 08/24/[address] Beaver. I last saw the patient in the office on 09/01/2023 when he was instructed to remain in the brace at all times. He was also encouraged to continue to work with his physical therapy provider Dahu. While in the office today the patient reports he is a bit sore around the left knee. He confirms participating in physical therapy and reports he is doing well. He confirms a mild amount of edema but reports improvement. He reports about 80-90% of weight bearing with the brace on. [facility] Medical History Interstitial lung disease Lung disease Sleep apnea GERD (gastroesophageal reflux disease) BPH (benign prostatic hyperplasia) Hypertension Atrial fibrillation Diabetes Surgical History H/O colonoscopy History of removal of retained hardware History of surgery on lower extremity Social History Household Members: None Housing: House Do you presently have visiting nurse or other home services: Yes Patient Tobacco Use Status: Never used Tobacco e-Cigarette/Vaping Use: Never Used Second Hand Smoke Exposure: No Advance Directives Date on File: 02/25/22 service: Yes Current occupational status: retired Review of Systems Const All systems reviewed & are unremarkable except as noted in HPI and below Physical Exam Vital Signs: BMI result Body Mass Index 29.7 Const General: cooperative, healthy appearing and no acute distress Resp Effort & Inspection: normal respiratory effort and able to speak in complete sentences Cardio Rate: regular rate Peripheral pulses: Peripheral pulses 2+ throughout GI Palpation (GI): Soft to palpation Skin Lesions: no lesions Rashes: no rashes Extrem Other: Left knee: Incision sites are clean, dry, and intact. Completely healed with no surrounding erythema or drainage. No signs of infection. ROM 0-100 degrees. NVI. Assessment & Plan Assessment & Plan (1) Fracture of distal end of left femur: Comment: Left distal femoral periprosthetic fracture 05/13/2023 Dr. Brandon Beaver Code(s): S72.402A - Unspecified fracture of lower end of left femur, initial encounter for closed fracture Category: Medical Qualifiers: Encounter type: subsequent encounter Fracture healing: with routine healing Fracture morphology: unspecified fracture morphology Fracture type: closed Qualified Code(s): S72.402D - Unspecified fracture of lower end of left femur, subsequent encounter for closed fracture with routine healing Plan Mr. Johnson is a 88-year-old male who presents in the office today 1 month status post left distal femur removal of hardware, which was performed on 08/24/[address] Beaver. I last saw the patient in the office on 09/01/2023 when he was instructed to remain in the brace at all times. He was also encouraged to cont inue to work with his physical therapy provider [facility]. While in the office today the patient reports he is a bit sore around the left knee. He confirms participating in physical therapy and reports he is doing well. He confirms a mild amount of edema but reports improvement. He reports about 80-90% of weight bearing with the brace on. Patient may discontinue the use of the brace at this time. He will continue to work with PT with no ROM restrictions. He may begin to work on gentle strengthening and stretching. An updated order was given to the patient today. I also instructed the patient that the physical therapist may call me with question about instructions. Follow up will be in 6-8 weeks, or sooner if needed. X-rays of the left knee which were obtained while in the office today and were reviewed by me, Yesika Burns PA-C, revealed remaining orthopedic hardware is intact with routine healing. Orders: Orders XR knee LT 2V Today M25.569 - Pain in unspecified knee Patient Instructions: Scribed by Lakia Wheeler, medical claims examiner, for Yesika Grant DOLAN on 09/22/2023 at 10:30 am, EST. Coding Level of Care Code Global (42371) Diagnoses Closed fracture of distal end of left femur with routine healing, unspecified fracture morphology, subsequent encounter S72.402D Encounter type: subsequent encounter Fracture healing: with routine healing Fracture morphology: unspecified fracture morphology Fracture type: closed
[2023-09-22 11:00] VITALS: BMI 29.7
== END 2023-09-22 11:16 | disposition home or self-care (01) ==
PROVIDERS: PCP Internal Medicine; Visit Provider Physician Assistant
DX: S72.402D Unspecified fracture of lower end of left femur, subsequent encounter for closed fracture with routine healing (principal)
CPT/HCPCS: 99024

== ENCOUNTER 2023-11-09 13:09 | Outpatient (REF) | payer BC, MEDICARE, SELFPAY | END 2023-11-09 13:10 | disposition home or self-care (01) | LOC: HO.HOSX 13:09 | PROVIDERS: Visit Provider Physician Assistant | DX: Z13.89 Encounter for screening for other disorder (principal) ==

== ENCOUNTER 2023-11-10 12:44 | Outpatient (AMB) | payer BC, MEDICARE, SELFPAY ==
--- NOTE | 2023-11-10 13:08 | A.OFFVIS_ITS ---
Intake Visit Reasons: PO LT knee MADDIE 08/24/23 NE-6 week follow up Intake Note: Justino is an 88-year-old male who presents in the office today for a post operative appointment, S/P left distal femur MADDIE. DOS: 08/24/2023 NE. Patient reports he is doing well not pain, however he is having pain in both of his hips due to being unbalanced . Allergies No Known Allergies [No Known Allergies*] Allergy (Verified 09/22/23 11:00) HPI HPI PO LT knee MADDIE 08/24/23 NE-6 week follow up: Details: 88-year-old male who presents in the office today 11 weeks status post left distal femur removal of hardware, which was performed on 08/24/[address] Beaver. I last saw the patient in the office on 09/22/2023 when he was to discontinue the use of the brace and continue to work with physical therapy. ? ? While in the office today, the patient reports that he feel good with his knee. He states he is ambulating in the house without support. He confirms ambulating with a walker out of the house. ? ? Patient reports discomfort in the bilateral hips due to ambulating. ? ? Patient confirms having a history of diabetes mellitus. ? PFSH Medical History Interstitial lung disease Lung disease Sleep apnea GERD (gastroesophageal reflux disease) BPH (benign prostatic hyperplasia) Hypertension Atrial fibrillation Diabetes Surgical History H/O colonoscopy History of removal of retained hardware History of surgery on lower extremity Social History Household Members: None Housing: House Do you presently have visiting nurse or other home services: Yes Patient Tobacco Use Status: Never used Tobacco e-Cigarette/Vaping Use: Never Used Second Hand Smoke Exposure: No Advance Directives Date on File: 02/25/22 service: Yes Current occupational status: retired Review of Systems Const All systems reviewed & are unremarkable except as noted in HPI and below Physical Exam Const General: cooperative, healthy appearing and no acute distress Resp Effort & Inspection: normal respiratory effort and able to speak in complete sentences Cardio Rate: regular rate Peripheral pulses: Peripheral pulses 2+ throughout GI Palpation (GI): Soft to palpation Skin Lesions: no lesions Rashes: no rashes Extrem Other: Left knee: Incision sites are clean, dry, and intact. Completely healed with no surrounding erythema or drainage. No signs of infection. ROM 0-100 degrees. NVI. Assessment & Plan Assessment & Plan (1) Fracture of distal end of left femur: Comment: Left distal femoral periprosthetic fracture 05/13/2023 Dr. Brandon Beaver Code(s): S72.402A - Unspecified fracture of lower end of left femur, initial encounter for closed fracture Category: Medical Qualifiers: Encounter type: subsequent encounter Fracture healing: with routine healing Fracture morphology: unspecified fracture morphology Fracture type: closed Qualified Code(s): S72.402D - Unspecified fracture of lower end of left femur, subsequent encounter for closed fracture with routine healing Plan Mr. Johnson is a 88-year-old male who presents in the office today 11 weeks status post left distal femur removal of hardware, which was performed on 08/24/[address] Beaver. I last saw the patient in the office on 09/22/2023 when he was to discontinue the use of the brace and continue to work with physical therapy. ? ? While in the office today, the patient reports that he feel good with his knee. He states he is ambulating in the house without support. He confirms ambulating with a wheeled walker out of the house. ? ? Patient reports discomfort in the bilateral hips due to ambulating. ? ? Patient confirms having a history of diabetes mellitus.? ? The patient may return to normal activities as tolerated using pain as his guide. The patient will continue to work on his home exercise program for ROM and strengthening. Follow-up will be PRN, or sooner if needed. ? ? X-rays of the left knee which were obtained while in the office today and were reviewed by me, Yesika Burns PA-C, revealed remaining orthopedic hardware is intact. ? Orders: Orders XR knee LT 2V Today M25.569 - Pain in unspecified knee Patient Instructions: Scribed by Lakia Wheeler medical reimbursement manager, for Yesika Burns PA-C on 11/10/2023 at 1:31 pm, EST.? Coding Level of Care Code Global (73421) Diagnoses Closed fracture of distal end of left femur with routine healing, unspecified fracture morphology, subsequent encounter S72.402D Encounter type: subsequent encounter Fracture healing: with routine healing Fracture morphology: unspecified fracture morphology Fracture type: closed
== END 2023-11-10 15:51 | disposition home or self-care (01) ==
PROVIDERS: PCP Internal Medicine; Visit Provider Physician Assistant
DX: S72.402D Unspecified fracture of lower end of left femur, subsequent encounter for closed fracture with routine healing (principal)
CPT/HCPCS: 99024

== ENCOUNTER 2023-11-10 12:44 | Outpatient (REF) | payer BC, MEDICARE, SELFPAY ==
--- NOTE | ~2023-11-10 | XR_ITS ---
EXAMINATION: XR KNEE, LEFT CLINICAL INFORMATION: Pain in the knee. COMPARISON: September 22, 2023. TECHNIQUE: Two views of the left knee. FINDINGS: Total knee arthroplasty redemonstrated. Hardware appears intact. Diffuse demineralization. Imaged portion of intramedullary leonela and distal femur with interlocking screws appears stable. Proximal portion of leonela is not included in field of view. Redemonstration of periprosthetic fracture with evidence of some interval periosteal bridging/callus formation. Joint effusion. Vascular calcifications. XR/XR knee LT 2V IMPRESSION: Redemonstration of periprosthetic fracture with evidence of some interval periosteal bridging/callus formation.
== END 2023-11-10 12:45 | disposition home or self-care (01) ==
LOC: HO.HOSX 12:44
PROVIDERS: PCP Internal Medicine; Visit Provider Physician Assistant
DX: S72.402D Unspecified fracture of lower end of left femur, subsequent encounter for closed fracture with routine healing (principal)
CPT/HCPCS: 73560

== ENCOUNTER 2024-10-27 00:56 | Emergency (ER) | payer OTHER, SELFPAY ==
[2024-10-27 01:11] VITALS: BP 150/70; BP 179/88; PULSE 78; PULSE 80; RESP 16; TEMP 36.6; O2SAT 98; BMI 26.5
[2024-10-27 01:24] VITALS: BP 179/88; PULSE 78; RESP 16; TEMP 36.6; O2SAT 98
--- NOTE | 2024-10-27 01:31 | ED.GENADULT ---
HPI - General Adult General Chief complaint: General Medical Stated complaint: Groin and hernia pain Time Seen by Provider: 10/27/24 01:13 Source: patient and EMS Mode of arrival: EMS Limitations: no limitations History of Present Illness ED Provider: Dr. Randa Griffith HPI narrative: Patient comes to the emergency room complaining of right inguinal pain. Patient states that he is known to have a right inguinal hernia. States that he has an [facility] for a [facility] consult and possible surgery. Patient states that tonight he could not be this his inguinal hernia himself and therefore came to the hospital. Complaining of a bit of nausea, no vomiting or diarrhea. No scrotal pain Related Data Home Medications ?Medication ?Instructions ?Recorded ?Confirmed Novolog U-100 Insulin aspart See Rx Instructions .Route 08/12/21 08/24/23 .COMPLEX PRN insulin pump atorvastatin 40 mg tablet 20 mg PO DAILY 08/12/21 08/24/23 cholecalciferol (vitamin D3) 25 25 mcg PO DAILY 08/12/21 08/24/23 mcg (1,000 unit) capsule (Vitamin D3) cyanocobalamin (vitamin B-12) 500 500 mcg PO DAILY 08/12/21 08/24/23 mcg tablet loratadine 10 mg tablet 10 mg PO DAILY 08/12/21 08/24/23 omeprazole 20 mg capsule,delayed 20 mg PO DAILY@0630 08/12/21 08/24/23 release sennosides 8.6 mg-docusate sodium 1 tab PO BEDTIME PRN Constipation 08/12/21 08/24/23 50 mg tablet (Senna Plus) tamsulosin 0.4 mg capsule 0.4 mg PO DAILY 08/12/21 08/24/23 denosumab 60 mg/mL subcutaneous 60 mg subcut [id number] 02/25/22 08/24/23 syringe Lactobacillus acidophilus 1 cap PO BID 05/12/23 08/24/23 biotin 500 mcg capsule 1 mg PO DAILY 05/12/23 08/24/23 calcium citrate 600 mg PO TID 05/12/23 08/24/23 fluticasone propionate 50 2 spray intranasal DAILY PRN 05/12/23 08/24/23 mcg/actuation nasal Allergy Symptoms spray,suspension meclizine 25 mg tablet 25 mg PO TID PRN Vertigo 05/12/23 08/24/23 albuterol sulfate 90 mcg/actuation 2 puff inhalation Q6H PRN 05/13/23 08/24/23 aerosol inhaler Shortness Of Breath Or Wheezing aspirin 81 mg tablet,delayed 81 mg PO DAILY 05/13/23 08/24/23 release docusate sodium 100 mg tablet 100 mg PO DAILY 08/24/23 08/24/23 ferrous sulfate 325 mg (65 mg 325 mg PO DAILY 08/24/23 08/24/23 iron) tablet gabapentin 300 mg capsule 300 mg PO TID 08/24/23 08/24/23 omega 9-dfk-ooo-fish oil 1,000 mg 1 cap PO BID 08/24/23 08/24/23 (120 mg-180 mg) capsule (Fish Oil) Previous Rx's ?Medication ?Instructions ?Recorded hydrocodone 5 mg-acetaminophen 325 1 tab PO Q4-6H PRN pain 42 days 08/25/23 mg tablet #42 tabs Allergies Allergy/AdvReac Type Severity Reaction Status Date / Time No Known Allergies (No Known Allergy Verified 10/27/24 01:13 Allergies*) Review of Systems Review of Systems: Constitutional : No Weight loss, No Fever, No Chills, No Night Sweats, No Fatigue, No Malaise ENT/Mouth : No Hearing loss, No Ear Pain, No Nasal Congestion, No Sinus Pain, No Hoarseness, No sore throat, No Rhinorrhea, No Swallowing Difficulty Eyes: No Eye Pain, No Swelling, No Redness, No Foreign Body, No Discharge, No Vision Changes Cardiovascular : No Chest Pain, No SOB, No Dyspnea on Exertion, No Orthopnea, No Edema, No Palpitations Respiratory : No Cough, No Sputum, No Wheezing, No Smoke Exposure, No Dyspnea Gastrointestinal : Complaining of Nausea, No Vomiting, No Diarrhea, No Constipation, complaining of right inguinal pain secondary to a bulging hernia Genitourinary : no irregular bleeding, No Dysuria, No Urinary Frequency, No Hematuria, No Urinary Incontinence, No Urgency, No Flank Pain, No Urinary Flow Changes, No Hesitancy Musculoskeletal : No joint pain, No Myalgias, No Joint Swelling Skin : No Skin Lesions, No rash Neuro : No Weakness, No Numbness, No Paresthesias, No Loss of Consciousness, No Dizziness, No Headache Psych : No Anxiety/Panic, No Depression, No SI/HI/AH/VH, No Social Issues, Heme/Lymph: No Bruising, No Bleeding,No Lymphadenopathy Endocrine : No Polyuria, No Polydipsia, No Temperature Intolerance [facility] Past Medical History Medical History Interstitial lung disease Lung disease Sleep apnea GERD (gastroesophageal reflux disease) BPH (benign prostatic hyperplasia) Hypertension Atrial fibrillation Diabetes Surgical History H/O colonoscopy History of removal of retained hardware History of surgery on lower extremity Social History Social History Household Members: None Housing: House Do you presently have visiting nurse or other home services: Yes Alcohol intake: former Patient Tobacco Use Status: Never used Tobacco Smoked in Last 30 Days: No e-Cigarette/Vaping Use: Never Used Second Hand Smoke Exposure: No Use of substances other than those prescribed or required for medical reasons: No Advance Directives Date on File: 02/25/22 service: Yes Current occupational status: retired Physical Exam ED Vital Signs: Vital Signs - 24 hr 10/27/24 01:11 10/27/24 01:24 Temperature 97.9 F 97.9 F Pulse Rate 78 78 Respiratory Rate 16 16 Blood Pressure 179/88 H 179/88 H Pulse Oximetry 98 98 Oxygen Delivery Method Room Air Room Air BMI result Body Mass Index 26.5 Const Other: Appearance: Alert. Oriented X3. No acute distress. Eyes: Pupils equal, round and reactive to light. ENT: Pharynx normal. Neck: Normal inspection. Neck supple. No lymph nodes noted. No crepitus CVS: Normal heart rate and rhythm. Pulses normal. Normal S1 and S2 Respiratory: No respiratory distress. Breath sounds normal. No Wheezing. No rales Abdomen: Soft , no distention no guarding, patient has a large palpable inguinal hernia on the right side. No scrotal pain. Skin: Skin warm and dry. Normal skin color. Normal skin turgor. Extremities: No lower extremity edema. No Lacerations. No Rash Neuro: Oriented X 3. No motor deficit. No sensory deficit. Moving all extremities. No slurred speech. CN 2 through 12 grossly intact Psych: calm, cooperative, normal affect Course Course Course Narrative: Patient is known to have an inguinal hernia on the right side. Patient is scheduled for surgery intake appointment next week at the [facility] [place]. Patient states that today a proximally 4 hours ago, he noticed that his hernia popped out and he tried reducing it but was unsuccessful. Patient came to the emergency room. Here in the ED, patient was laid down prone, while doing the patient's physical exam and palpating the hernia, with very slight pressure and gentle massage the hernia was reduced. Patient states that he feels much better and has no pain at all. Patient has an appointment pending with surgeon next week. I discussed with the patient that if he has trouble reducing his inguinal hernia, to return immediately to the emergency room. Patient agrees with plan. Medical Decision Making Medical Decision Making [facility] Narrative: Patient's right inguinal hernia was successfully reduced with minimal effort. Patient now asymptomatic Discharge Plan Discharge Clinical Impression: Reducible right inguinal hernia Patient Disposition: Home, Self-Care Instructions: Inguinal Hernia (ED) Additional Instructions: Please follow-up with your primary care physician tomorrow. If you have any worsening or new symptoms, please return to the emergency room or call 911 Prescriptions: No Action hydrocodone-acetaminophen 5-325 mg tablet 1 tab PO Q4-6H PRN (Reason: pain) 42 Days Qty: 42 0RF Rx Instructions: Partial Fill upon patient request. atorvastatin 40 mg Tablet 20 mg PO DAILY sennosides-docusate sodium [Senna Plus] 8.6-50 mg Tablet 1 tab PO BEDTIME PRN (Reason: Constipation) cyanocobalamin (vitamin B-12) 500 mcg Tablet 500 mcg PO DAILY tamsulosin 0.4 mg Capsule 0.4 mg PO DAILY omeprazole 20 mg Capsule,Delayed Release(Dr/Ec) 20 mg PO DAILY@0630 loratadine 10 mg Tablet 10 mg PO DAILY Rx Instructions: DO NOT TAKE IF TAKEN HYDROXYZINE cholecalciferol (vitamin D3) [Vitamin D3] 25 mcg (1,000 unit) Capsule 25 mcg PO DAILY Novolog U-100 Insulin aspart See Rx Instructions .ROUTE .COMPLEX PRN (Reason: insulin pump) Rx Instructions: insulin pump denosumab 60 mg/mL Syringe 60 mg SUBCUT [id number] ferrous sulfate 325 mg (65 mg iron) Tablet 325 mg PO DAILY gabapentin 300 mg Capsule 300 mg PO TID docusate sodium 100 mg Tablet 100 mg PO DAILY omega 2-pqb-oad-fish oil [Fish Oil] 1,000 mg (120 mg-180 mg) Capsule 1 cap PO BID meclizine 25 mg Tablet 25 mg PO TID PRN (Reason: Vertigo) Lactobacillus acidophilus Capsule 1 cap PO BID fluticasone propionate 50 mcg/actuation [place],Suspension 2 spray INTRANASAL DAILY PRN (Reason: Allergy Symptoms) Rx Instructions: administer into each nostril biotin 500 mcg Capsule 1 mg PO DAILY calcium citrate 200 mg (950 mg) Tablet 600 mg PO TID aspirin 81 mg Tablet,Delayed Release (Dr/Ec) 81 mg PO DAILY albuterol sulfate 90 mcg/actuation Hfa Aerosol Inhaler 2 puff INHALATION Q6H PRN (Reason: Shortness Of Breath Or Wheezing) Print Language: Sinhala
[2024-10-27 02:11] VITALS: BP 179/88; PULSE 78; RESP 16; TEMP 36.6; O2SAT 98
== END 2024-10-27 02:20 | disposition home or self-care (01) ==
LOC: HO.ED 02:05
PROVIDERS: Emergency Provider Emergency Medicine; PCP Internal Medicine
DX: K40.90 Unilateral inguinal hernia, without obstruction or gangrene, not specified as recurrent (principal); R10.2 Pelvic and perineal pain; R11.0 Nausea; Z79.899 Other long term (current) drug therapy
CPT/HCPCS: 99283; 99284